=== PATIENT | male | born 1935 | race Caucasian/White ===

== ENCOUNTER 2016-07-01 15:53 | Inpatient (IN) | payer MEDICARE, OTHER ==
--- NOTE | 2016-07-01 16:14 | ED Physician Chart ---
Chief Complaint/HPI - Patient Information Date Seen:: 07/01/16 Time Seen:: 16:09 Chief Complaint:: b leg edema History of Present Illness:: pt sent from [place] for edema of b legs x 1 month. not improving. unclear what meds have been tried. no fever. no cough. no sob. no cp. pt denies hx of chf. records say he had b leg "cellulitis" in dec 2015 says he was never a smoker. is currently a pt of dr verde in [place]..sent in for eval. Allergies:: Allergies Allergy/AdvReac Type Severity Reaction Status Date / Time No Known Allergies Allergy Verified 12/19/15 15:48 Historian:: Patient Past Medical History - Past Medical History Past Medical History: HTN, DM, Dementia, Other (blind left eye) Social History: Non Smoker, Care Facility Psychiatricy History: Schizophrenia, Bipolar, Dementia Medication: Reviewed Family Medical History - Family Member Mother History Unknown: Yes Ethnicity: Living Status: Hx Family Cancer: (unknown) Hx Family Coronary Artery Disease: (unknown) Hx Family Congestive Heart Failure: (unknown) Hx Family Hypertension: (unknown) Hx Family Stroke: (unknown) Hx Family Diabetes: (unknown) Hx Family Seizures: (unknown) Hx Family Dementia: (unknown) Hx Family AIDS: (unknown) Hx Family HIV: No Hx Family COPD: (unknown) Hx Family Hepatitis: (unknown) Hx Family Psychiatric Problems: (unknown) Hx Family Tuberculosis: (unknown) father History Unknown: Yes Living Status: Physical Exam - Physical Examination General/Constitutional: Awake, Well-developed, well-nourished, Alert, No distress, GCS 15, Non-toxic appearing, Ambulatory Other Gen/Cons comments:: morbidly obese. alert and talkative but somewhat poor w med hx knowledge. no sob. Head: Atraumatic Eyes: Lids, conjuctiva normal, PERRL, EOMI Other Eyes comments:: pt has volume loss under left eyelid..sriram eye. keeps closed. noted is blind l eye. Skin: Nl inspection, No rash, No skin lesions, No ecchymosis, Well hydrated, No lymphadenopathy ENMT: External ears, nose nl, Nasal exam nl, Lips, teeth, gums nl Neck: Nontender, Full ROM w/o pain, No JVD, No nuchal rigidity, No bruit, No mass, No stridor Respiratory: Nl effort/Exclusion, Clear to Auscultation, No Wheeze/Rhonchi/Rales Cardio Vascular: RRR, No murmur, gallop, rubs, NL S1 S2 GI: No tenderness/rebounding/guarding, No organomegaly, No hernia, Normal BS's, Nondistended, No mass/bruits, No McBurney tenderness : No CVA tenderness Extremities: No tenderness or effusion, Full ROM, normal strength in all extremities, Normal digits & nails Other Extremities comments:: mild b le edema w pitting. mild ly red. nontndr calfs. no geovanna sx. warm toes that pt moves and feels ok. ok pulses in feet. pt known to have poor ambulation...not tested in er Neuro/Psych: Alert/oriented, DTR's symmetric, Normal sensory exam, Normal motor strength, Mood normal, No focal deficits Misc: normal gait, Normal back, No paraspinal tenderness Labs/Radiology/EKG Results - Lab Results Results: Laboratory Tests 07/01/16 07/01/16 07/01/16 16:30 16:30 16:30 WBC 6.5 D RBC 4.16 Hgb 13.3 Hct 38.1 L MCV 91.5 MCH 32.0 H MCHC Differential 35.0 RDW 11.9 Plt Count 180 MPV 7.1 Neutrophils % 58.3 Lymphocytes % 24.3 Monocytes % 12.9 H Eosinophils % 4.2 Basophils % 0.3 D-Dimer 135 Sodium 122 L Potassium 4.2 Chloride 92 L Carbon Dioxide 28.7 Anion Gap 5.5 L BUN 9 Creatinine 0.9 Est GFR ( Amer) TNP Est GFR (Non-Af Amer) TNP BUN/Creatinine Ratio 10.0 Glucose 151 H Whole Bld Lactic Acid 2.46 H* Calcium 9.0 Total Bilirubin 0.3 AST 19 ALT 10 Alkaline Phosphatase 36 Troponin I Total Protein 6.5 Albumin 3.4 L Globulin 3.1 Albumin/Globulin Ratio 1.1 07/01/16 16:30 WBC RBC Hgb Hct MCV MCH MCHC Differential RDW Plt Count MPV Neutrophils % Lymphocytes % Monocytes % Eosinophils % Basophils % D-Dimer Sodium Potassium Chloride Carbon Dioxide Anion Gap BUN Creatinine Est GFR ( Amer) Est GFR (Non-Af Amer) BUN/Creatinine Ratio Glucose Whole Bld Lactic Acid Calcium Total Bilirubin AST ALT Alkaline Phosphatase Troponin I < 0.01 L Total Protein Albumin Globulin Albumin/Globulin Ratio - Radiology Results Results: cxr nad/ clear US B legs neg for dvt - EKG Interpretations EKG Time:: 16:25 Rhythm: nsr [place]: -33? Rate: 74 Comments:: interventric cond delay ED Septic Shock - . Is Septic Shock (SBP<90, OR Lactate>4 mmol\\L) present?: No Reassessment (Disposition) - Reassessment Reassessment:: case dw dr verde...will admit...b/c [facility] was concerned this is cellulitis. Reassessment Condition:: Unchanged - Diagnosis Diagnosis:: 1 bilat leg edema 2 poss cellulitis b legs 3 diabetic pt - Patient Disposition Admitted to:: Med/Surg Condition at Disposition:: Unchanged
[2016-07-01 16:39] LABS: % BASOPHILS 0.3 % (0.0-2.0); % EOSINOPHILS 4.2 % (0.0-5.0); % LYMPHOCYTES 24.3 % (20.0-50.0); % MONOCYTES 12.9 % (2.0-10.0); % NEUTROPHILS 58.3 % (40.0-80.0); HEMATOCRIT 38.1 % (39.0-49.0); HEMOGLOBIN 13.3 gm/dL (12.6-17.4); MEAN CELL VOLUME 91.5 fl (80-99); MEAN PLATELET VOLUME 7.1 fl; NEUTROPHILE ABSOLUTE 3.8 Th/cmm (1.8-8.0); PLATELET COUNT 180 Th/cmm (150-400); RED BLOOD COUNT 4.16 Mil/cmm (3.80-5.80); RED CELL DISTRIBUTION WIDTH 11.9 % (11.5-20.0)
[2016-07-01 16:41] LABS: WHITE BLOOD COUNT 6.5 Th/cmm (4.8-10.8)
[2016-07-01 16:57] LABS: ALB/GLOB RATIO 1.1 (1.0-1.8); ALKALINE PHOSPHATASE 36 U/L (34-104); ANION GAP 5.5 (7.0-16.0); BILIRUBIN,TOTAL 0.3 mg/dL (0.3-1.0); BUN - UREA NITROGEN 9 mg/dL (7-25); CARBON DIOXIDE 28.7 mEq/L (21.0-31.0); CHLORIDE 92 mEq/L (98-107); CREATININE - SERUM 0.9 mg/dL (0.7-1.3); GLUCOSE 151 mg/dL (70-105); POTASSIUM SERUM 4.2 mEq/L (3.5-5.1); SGOT 19 U/L (13-39); SGPT/ALT 10 U/L (7-52); SODIUM SERUM 122 mEq/L (136-145)
[2016-07-01] MEDS ORDERED: Magnesium Hydroxide (MOM) 30 mL UDC PO PRN (20:33)
[2016-07-01] MEDS ORDERED: HYDROmorphone 1 mg/mL 1mL Syr IVP PRN (20:35)
[2016-07-01] MEDS: INSULIN ASPART SLIDING SCALE 100 UNITS/ML UNIT SUBQ SCH (21:21)
[2016-07-01] MEDS: Sodium Chloride 0.9% 1,000 ML IV SCH (21:58)
[2016-07-01] MEDS: cefTRIAXone 1 GM in Sodium Chloride 0.9% 50 ML IV SCH (22:12)
--- NOTE | 2016-07-01 23:36 | Admit Criteria Form ---
Admit Criteria Forms - Admit Criteria Diagnosis: CELLULITIS Clinical Indications for Admission to Inpatient Care (Place 'X' for any and all applicable criteria): Admission is indicated for ANY ONE of the following(1)(2)(3)(4)(5): [ ]I. Limb-threatening infection [ ]II. High-risk comorbid condition as indicated by ANY ONE of the following: [ ]a) Uncontrolled diabetes (eg, HbA1c greater than 10% (0.1)) [ ]b) Cirrhosis [ ]c) Neutropenia [ ]d) Asplenia [ ]e) Immunosuppression [ ]f) Symptomatic heart failure [ ]III. Failure of outpatient therapy as indicated by ALL of the following: [ ]a) Progression or no improvement after adequate trial (minimum of 48 hours, with longer period for stable lower extremity infection) [ ]b) Adequate antibiotic regimen as indicated by use of ANY ONE of the following: [ ]i) First-generation cephalosporin (e.g., cephalexin) [ ]ii) Antistaphylococcal penicillin (e.g., dicloxacillin) [ ]iii) Penicillin-allergic patient regimen (clindamycin, extended-spectrum fluoroquinolone, or doxycycline) [ ]iv) Resistant organism (eg, methicillin-resistant Staphylococcus aureus) regimen (6) [ ]c) Outpatient intravenous therapy regimen is not appropriate due to ANY ONE of the following. (7)(8)(9)(10): [ ]i) It was tried and was not successful (eg, progression of infection). [ ]ii) It is not available or cannot be arranged in a clinically appropriate time frame (e.g., the next day). [ ]iii) Clinical presentation (eg, acuity of infection, rapidity of progression, confirmed or suspected bacteremia) is judged to require ALL of the following: [ ]1) Immediate initiation of intravenous therapy ( eg, cannot wait for next day) [ ]2) Intensity of patient monitoring and observation (eg, vital sign measurement, checks for infection progression) that cannot be provided at other than inpatient level of care [ ]IV. Mental status changes [ ]V. Bacteremia [X]. Hemodynamic instability [ ]VII. Suspected necrotizing soft tissue infection (e.g., gas in tissue)(11)( 12) [ ]VIII. Orbital infection (13)(14) [ ]IX. Associated surgical procedure (e.g., abscess drainage, debridement) not amenable to outpatient, emergency department, or observation care [ ]X. Cutaneous gangrene [ ]XI. High fever (temperature greater than 39.5 degrees C (103.1 degrees F) (oral)) not responsive to outpatient, emergency department, or observation care therapy [ ]XIII. Inpatient admission required rather than observation care (Also use Cellulitis: Observation Care as appropriate) because of ANY ONE of the following : [ ]a) Periorbital or perineal infection that is severe or worsening [ ]b) Severe pain requiring acute inpatient management [ ]c) IV fluid to replace significant ongoing (e.g., for over 24 hours) losses (greater than 3L/m2 per day) [ ]d) Compartment syndrome monitoring (17) [ ]e) Strict or protective (eg, laminar flow) isolation [ ]f) Urgent debridement or skin grafting [ ]g) Bone or joint debridement [ ]h) Immediate inpatient surgery [ ]i) Other condition, treatment or monitoring requiring inpatient admission Extended stay beyond goal length of stay may be needed for (1)(18): [ ]a) Necrotizing soft tissue infection or fasciitis [ ]b) Gram-negative infection [ ]c) Methicillin-resistant Staphylococcal aureus (MRSA) infection [ ]d) Peripheral venous insufficiency with cellulitis [ ]e) Extensive edema [ ]f) Sepsis or continued Hemodynamic instability [ ]g) Continued high fever or mental status change [ ]h) Bacteremia [ ]i) Active serious comorbid conditions ( eg, heart failure, renal insufficiency) The original [facility] [employer] content created by [employer] has been revised. The portions of the content which have been revised are identified through the use of italic text or in bold, and [facility] has neither reviewed nor approved the modified material. All other unmodified content is copyright [facility] Please see references footnoted in the original [facility] edition 2016 Admit Criteria Met?: Yes
[2016-07-02] MEDS: INSULIN ASPART SLIDING SCALE 100 UNITS/ML UNIT SUBQ SCH ×4 (01:00→17:36)
[2016-07-02 06:55] LABS: % BASOPHILS 0.4 % (0.0-2.0); % EOSINOPHILS 4.9 % (0.0-5.0); % LYMPHOCYTES 23.8 % (20.0-50.0); % MONOCYTES 13.7 % (2.0-10.0); % NEUTROPHILS 57.2 % (40.0-80.0); HEMATOCRIT 39.8 % (39.0-49.0); HEMOGLOBIN 13.8 gm/dL (12.6-17.4); MEAN CORPUSCULAR HEMOGLOBIN 31.5 pg (27.0-31.0); MEAN CORPUSCULAR HGB CONC 34.6 pg (28.0-36.0); MEAN PLATELET VOLUME 7.1 fl; NEUTROPHILE ABSOLUTE 3.6 Th/cmm (1.8-8.0); PLATELET COUNT 190 Th/cmm (150-400); RED BLOOD COUNT 4.38 Mil/cmm (3.80-5.80); WHITE BLOOD COUNT 6.2 Th/cmm (4.8-10.8)
[2016-07-02 07:18] LABS: ALB/GLOB RATIO 1.1 (1.0-1.8); ALKALINE PHOSPHATASE 37 U/L (34-104); ANION GAP 5.9 (7.0-16.0); BILIRUBIN,TOTAL 0.3 mg/dL (0.3-1.0); BUN - UREA NITROGEN 9 mg/dL (7-25); BUN/CREATININE RATIO 11.3; CALCIUM SERUM 9.2 mg/dL (8.6-10.3); CARBON DIOXIDE 31.1 mEq/L (21.0-31.0); CHLORIDE 97 mEq/L (98-107); CREATININE - SERUM 0.8 mg/dL (0.7-1.3); GLUCOSE 187 mg/dL (70-105); SGOT 14 U/L (13-39); SGPT/ALT 10 U/L (7-52); SODIUM SERUM 130 mEq/L (136-145)
--- NOTE | 2016-07-02 08:48 | General Progress Note ---
Subjective - Review of Systems Service Date: 07/02/16 Subjective: I want go back to my place Objective - Results Result Diagrams: 07/02/16 05:45 07/02/16 05:45 Recent Labs: Laboratory Last Values WBC 6.2 Th/cmm (4.8-10.8) 07/02/16 05:45 RBC 4.38 Mil/cmm (3.80-5.80) 07/02/16 05:45 Hgb 13.8 gm/dL (12.6-17.4) 07/02/16 05:45 Hct 39.8 % (39.0-49.0) 07/02/16 05:45 MCV 91.0 fl (80-99) 07/02/16 05:45 MCH 31.5 pg (27.0-31.0) H 07/02/16 05:45 MCHC Differential 34.6 pg (28.0-36.0) 07/02/16 05:45 RDW 12.0 % (11.5-20.0) 07/02/16 05:45 Plt Count 190 Th/cmm (150-400) 07/02/16 05:45 MPV 7.1 fl 07/02/16 05:45 Neutrophils % 57.2 % (40.0-80.0) 07/02/16 05:45 Lymphocytes % 23.8 % (20.0-50.0) 07/02/16 05:45 Monocytes % 13.7 % (2.0-10.0) H 07/02/16 05:45 Eosinophils % 4.9 % (0.0-5.0) 07/02/16 05:45 Basophils % 0.4 % (0.0-2.0) 07/02/16 05:45 D-Dimer 135 ng/mL (100-400) 07/01/16 16:30 Sodium 130 mEq/L (136-145) L 07/02/16 05:45 Potassium 4.0 mEq/L (3.5-5.1) 07/02/16 05:45 Chloride 97 mEq/L (98-107) L 07/02/16 05:45 Carbon Dioxide 31.1 mEq/L (21.0-31.0) H 07/02/16 05:45 Anion Gap 5.9 (7.0-16.0) L 07/02/16 05:45 BUN 9 mg/dL (7-25) 07/02/16 05:45 Creatinine 0.8 mg/dL (0.7-1.3) 07/02/16 05:45 Est GFR ( Amer) TNP 07/02/16 05:45 Est GFR (Non-Af Amer) TNP 07/02/16 05:45 BUN/Creatinine Ratio 11.3 07/02/16 05:45 Glucose 187 mg/dL (70-105) H 07/02/16 05:45 POC Glucose 188 MG/DL (70 - 105) H 07/02/16 06:17 Hemoglobin A1c % 8.9 % (4.0-6.0) H D 07/02/16 05:45 Whole Bld Lactic Acid 2.25 mmol/L (0.60-1.99) H* 07/01/16 19:08 Calcium 9.2 mg/dL (8.6-10.3) 07/02/16 05:45 Total Bilirubin 0.3 mg/dL (0.3-1.0) 07/02/16 05:45 AST 14 U/L (13-39) 07/02/16 05:45 ALT 10 U/L (7-52) 07/02/16 05:45 Alkaline Phosphatase 37 U/L (34-104) 07/02/16 05:45 Troponin I < 0.01 ng/mL (0.01-0.05) L 07/01/16 16:30 B-Natriuretic Peptide 89.9 pg/mL (5.0-100.0) 07/01/16 16:30 Total Protein 6.8 gm/dL (6.0-8.3) 07/02/16 05:45 Albumin 3.6 gm/dL (4.2-5.5) L 07/02/16 05:45 Globulin 3.2 gm/dL 07/02/16 05:45 Albumin/Globulin Ratio 1.1 (1.0-1.8) 07/02/16 05:45 TSH 4.13 uIU/ml (0.34-5.60) 07/02/16 05:45 - Physical Exam Vitals and I&O: Vital Signs Temp 97.0 F 07/02/16 04:00 Pulse 68 07/02/16 04:00 Resp 18 07/02/16 04:00 BP 153/77 07/02/16 04:00 Pulse Ox 94 07/02/16 04:00 Intake & Output 07/01/16 07/02/16 07/02/16 18:59 06:59 18:59 Intake Total 250 Balance 250 Weight (lbs) 104.326 kg Intake: Oral 250 Other: # Voids 3 Active Medications: Current Medications Acetaminophen (Tylenol) 650 mg PO Q4HR PRN PRN Reason: Pain Stop: 08/30/16 20:32 Captopril (Capoten 25 Mg Tab) 25 mg PO DAILY [facility] Stop: 08/31/16 08:59 Clonidine HCl (Catapres) 0.1 mg PO Q6HR PRN PRN Reason: bp >160 Stop: 08/30/16 20:32 Divalproex Sodium (Depakote Dr) 500 mg PO BID [facility] PRN Reason: Protocol Stop: 08/31/16 08:59 Donepezil HCl (Aricept) 10 mg PO HS [facility] Stop: 08/30/16 20:59 Last Admin: 07/01/16 21:21 Dose: 10 mg Furosemide (Lasix) 40 mg PO DAILY [facility] Stop: 08/31/16 08:59 Hydromorphone HCl (Dilaudid) 1 mg IVP Q4HR PRN PRN Reason: Pain (Severe) Stop: 08/30/16 20:34 Sodium Chloride (Nacl 0.9%) 1,000 mls @ 75 mls/hr IV .[id number] [facility] Stop: 08/30/16 20:44 Last Admin: 07/01/16 21:58 Dose: 75 mls/hr Ceftriaxone Sodium 1 gm/ (Sodium Chloride) 50 mls @ 100 mls/hr IV Q24HR [facility] Stop: 08/30/16 20:59 Last Admin: 07/01/16 22:12 Dose: 100 mls/hr Insulin Aspart (Novolog Insulin Sliding Scale) 0 units SUBQ Q6HR [facility] PRN Reason: Protocol Stop: 08/30/16 20:44 Last Admin: 07/02/16 06:22 Dose: 2 units Magnesium Hydroxide (Milk Of Magnesia) 30 ml PO DAILY PRN PRN Reason: Constipation Stop: 08/30/16 20:32 Metformin HCl (Glucophage) 500 mg PO TIDWM [facility] Stop: 08/31/16 07:59 Ondansetron HCl (Zofran) 4 mg IV Q6H PRN PRN Reason: Nausea / Vomiting Stop: 08/30/16 20:35 Pneumococcal Polyvalent Vaccine (Pneumovax) 0.5 ml IM .ONCE ONE Stop: 07/02/16 09:01 Pyridoxine HCl (Vitamin B6) 50 mg PO DAILY [facility] Stop: 08/31/16 08:59 Risperidone (Risperdal) 0.75 mg PO DAILY [facility] PRN Reason: Protocol Stop: 08/31/16 08:59 General: Alert, No acute distress, Other (Confused) HEENT: Atraumatic, Other (Blind left eye) Neck: Supple Cardiovascular: Regular rate Lungs: Clear to auscultation Abdomen: Bowel sounds, Soft, Other (A little distended) Extremities: Other (Bilateral edema of lower extremities below knee to foot 3+) Neurological: Other (Unstable gait) Skin: Other (Lower extremities skin is red) Psych/Mental Status: Other (Confused) - Procedures Procedures: Procedures Procedure Code Date GROUP PSYCHOTHERAPY 17340 04/25/15 GROUP PSYCHOTHERAPY GZHZZZZ 04/25/15 OTHER GROUP THERAPY 94.44 11/08/14 Assessment/Plan - Problem List Patient Problems: All Active Problems Bipolar disorder (Acute) Dementia (Acute) F03.90 Depressive disorder (Acute) F32.9 Diabetes mellitus (Acute) E11.9 Hypertension (Acute) I10 Hyposmolality and/or hyponatremia (Acute) E87.1 INAPPROPRIATE BEHAVIOR (Acute 04/25/15) Psychosis (Acute) F29
[2016-07-02] MEDS ORDERED: Pneumococcal Vaccine 0.5 mL Vial IM ONE (09:00)
--- NOTE | 2016-07-02 09:56 | Diagnostic Imaging Report ---
Bilateral lower extremity Doppler venous ultrasound exam HISTORY: Pain/swelling Sonographic sector images were obtained through the deep venous systems of both legs. Associated Doppler data was obtained. The exam demonstrates patency of the common femoral, superficial femoral, popliteal, and posterior tibial veins bilaterally. Specifically, no thrombus is seen. There are normal compressibility and augmentation responses. IMPRESSION: Negative exam for deep vein thrombophlebitis.
--- NOTE | 2016-07-02 09:58 | Diagnostic Imaging Report ---
Portable chest x-ray HISTORY: Shortness of breath, lower extremity swelling The heart size is slightly enlarged. No focal pulmonary processes. No hilar or mediastinal abnormalities. IMPRESSION: 1. Cardiomegaly 2. No acute pulmonary processes
--- NOTE | 2016-07-02 10:18 | History & Physical ---
CHIEF COMPLAINT: Edema of lower extremities. BRIEF HISTORY OF PRESENT ILLNESS: This is a case of an 81-year-old male who I follow in the shelter. I received a call from the shelter stating the patient is having edema of lower extremities for ____ and increasing redness, reason why the order was given to send the patient to Emergency Room for evaluation and treatment. PAST MEDICAL HISTORY: The patient has past medical history of schizophrenia, dementia, hypertension, diabetes mellitus, and blindness of the left eye. The patient had been hospitalized before secondary to cellulitis of both legs. PAST SURGICAL HISTORY: None. SOCIAL HISTORY: The patient is a permanent resident of a shelter. FAMILY HISTORY: Unremarkable. MEDICATIONS: Reviewed. REVIEW OF SYSTEMS: LUNGS: The patient denies shortness of breath. HEART: The patient denies chest pain. ABDOMEN: Unremarkable. EXTREMITIES: The patient referred edema of lower extremities. PHYSICAL EXAMINATION: GENERAL: Does reveal a fairly nourished and developed male, awake, alert, confused, not oriented, in no acute distress. HEENT: Head is normocephalic and atraumatic. Eyes: The patient is blind of the left eye. Right eye responding to light. Nose: No evidence of nasal obstruction. Ears: No evidence of any discharge. Mouth: Fairly ____. LUNGS: Bilateral air entry. No wheezing, no crackles. HEART: Regular rate and rhythm. ABDOMEN: Soft, nontender, little bit distended. Bowel sound is present. EXTREMITIES: Bilateral edema of lower extremities, 3+ with redness from below knee to ankles, ____ normal. NEUROLOGICAL: The patient is awake, alert, confused. Nerves 2-12 grossly intact. No neurological deficit at this moment. IMPRESSION: 1. Cellulitis. 2. Diabetes mellitus. 3. Hypertension. 4. Schizophrenia. 5. Dementia. 6. Blind of the left eye. PLAN: 1. The patient will be admitted in the medical surgical floor. 2. IV normal saline. 3. Continue with shelter medications. 4. Ceftriaxone 1 g IV daily. 5. Dilaudid for pain control. 6. Diet: Diabetic diet, low in sodium. 7. CBC, CMP, TSH and hemoglobin A1c at a.m. [facility]# [id number]
[2016-07-02] MEDS: Sodium Chloride 0.9% 1,000 ML IV SCH (12:38)
--- NOTE | 2016-07-02 16:20 | Diagnostic Imaging Report ---
Bilateral lower extremity Doppler arterial ultrasound exam HISTORY: Pain, peripheral vascular disease. Sonographic sector images were obtained through the arterial systems of both legs. Associated Doppler data was obtained. The exam of the right leg demonstrates biphasic waveforms within the common femoral proximal portion of the right superficial femoral arteries. Triphasic waveforms are noted in the remainder of the superficial femoral artery, the popliteal artery, and posterior tibial arteries. Monophasic waveforms noted in the right anterior dorsalis pedis arteries. Decreased velocities noted within the anterior tibial dorsalis pedis arteries. Sonographic images demonstrate mild to moderate diffuse atherosclerotic changes. The exam of the left leg demonstrates triphasic waveforms within the common femoral artery along with the mid and distal portion of the superficial femoral artery and popliteal artery. Biphasic waveforms noted in the proximal portion of the superficial femoral artery. Abnormal monophasic waveforms are noted within the anterior tibial, posterior tibial, and dorsalis pedis arteries. Abnormal decreased velocity noted within the anterior tibial and dorsalis pedis arteries. Ankle-brachial indices could not be evaluated due to lack of patient cooperation. IMPRESSION: 1. Somewhat limited exam due to limited patient cooperation 2. Evidence of mild to moderate bilateral diffuse atherosclerotic changes that appear more severe below the knees. If necessary, a CT angiographic study would provide further detail.
[2016-07-02] MEDS: cefTRIAXone 1 GM in Sodium Chloride 0.9% 50 ML IV SCH (22:04)
[2016-07-03] MEDS: Sodium Chloride 0.9% 1,000 ML IV SCH (01:40)
[2016-07-03] MEDS: INSULIN ASPART SLIDING SCALE 100 UNITS/ML UNIT SUBQ SCH ×4 (01:41→17:21)
[2016-07-03 07:26] LABS: % EOSINOPHILS 3.3 % (0.0-5.0); % NEUTROPHILS 58.2 % (40.0-80.0); HEMOGLOBIN 14.6 gm/dL (12.6-17.4); MEAN CORPUSCULAR HGB CONC 33.9 pg (28.0-36.0)
[2016-07-03 07:39] LABS: ALB/GLOB RATIO 1.2 (1.0-1.8); ALKALINE PHOSPHATASE 37 U/L (34-104); ANION GAP 10.9 (7.0-16.0); BILIRUBIN,TOTAL 0.4 mg/dL (0.3-1.0); BUN - UREA NITROGEN 16 mg/dL (7-25); BUN/CREATININE RATIO 17.8; CALCIUM SERUM 9.2 mg/dL (8.6-10.3); CARBON DIOXIDE 28.2 mEq/L (21.0-31.0); CHLORIDE 98 mEq/L (98-107); CREATININE - SERUM 0.9 mg/dL (0.7-1.3); GLUCOSE 145 mg/dL (70-105); POTASSIUM SERUM 4.1 mEq/L (3.5-5.1); SGOT 14 U/L (13-39); SGPT/ALT 11 U/L (7-52); SODIUM SERUM 133 mEq/L (136-145)
[2016-07-03 07:46] LABS: % BASOPHILS 0.8 % (0.0-2.0); % LYMPHOCYTES 24.2 % (20.0-50.0); % MONOCYTES 13.5 % (2.0-10.0); MEAN CELL VOLUME 91.6 fl (80-99); MEAN PLATELET VOLUME 7.9 fl; NEUTROPHILE ABSOLUTE 5.3 Th/cmm (1.8-8.0); PLATELET COUNT 200 Th/cmm (150-400); RED CELL DISTRIBUTION WIDTH 12.3 % (11.5-20.0)
[2016-07-03 07:53] LABS: WHITE BLOOD COUNT 9.1 Th/cmm (4.8-10.8)
--- NOTE | 2016-07-03 08:45 | General Progress Note ---
Subjective - Review of Systems Service Date: 07/03/16 Subjective: I want go back to my place Objective - Results Result Diagrams: 07/03/16 06:13 07/03/16 06:13 Recent Labs: Laboratory Last Values WBC 9.1 Th/cmm (4.8-10.8) D 07/03/16 06:13 RBC 4.70 Mil/cmm (3.80-5.80) 07/03/16 06:13 Hgb 14.6 gm/dL (12.6-17.4) 07/03/16 06:13 Hct 43.0 % (39.0-49.0) 07/03/16 06:13 MCV 91.6 fl (80-99) 07/03/16 06:13 MCH 31.0 pg (27.0-31.0) 07/03/16 06:13 MCHC Differential 33.9 pg (28.0-36.0) 07/03/16 06:13 RDW 12.3 % (11.5-20.0) 07/03/16 06:13 Plt Count 200 Th/cmm (150-400) 07/03/16 06:13 MPV 7.9 fl 07/03/16 06:13 Neutrophils % 58.2 % (40.0-80.0) 07/03/16 06:13 Lymphocytes % 24.2 % (20.0-50.0) 07/03/16 06:13 Monocytes % 13.5 % (2.0-10.0) H 07/03/16 06:13 Eosinophils % 3.3 % (0.0-5.0) 07/03/16 06:13 Basophils % 0.8 % (0.0-2.0) 07/03/16 06:13 D-Dimer 135 ng/mL (100-400) 07/01/16 16:30 Sodium 133 mEq/L (136-145) L 07/03/16 06:13 Potassium 4.1 mEq/L (3.5-5.1) 07/03/16 06:13 Chloride 98 mEq/L (98-107) 07/03/16 06:13 Carbon Dioxide 28.2 mEq/L (21.0-31.0) 07/03/16 06:13 Anion Gap 10.9 (7.0-16.0) 07/03/16 06:13 BUN 16 mg/dL (7-25) 07/03/16 06:13 Creatinine 0.9 mg/dL (0.7-1.3) 07/03/16 06:13 Est GFR ( Amer) TNP 07/03/16 06:13 Est GFR (Non-Af Amer) TNP 07/03/16 06:13 BUN/Creatinine Ratio 17.8 07/03/16 06:13 Glucose 145 mg/dL (70-105) H 07/03/16 06:13 POC Glucose 151 MG/DL (70 - 105) H 07/03/16 06:38 Hemoglobin A1c % 8.9 % (4.0-6.0) H D 07/02/16 05:45 Whole Bld Lactic Acid 2.25 mmol/L (0.60-1.99) H* 07/01/16 19:08 Calcium 9.2 mg/dL (8.6-10.3) 07/03/16 06:13 Total Bilirubin 0.4 mg/dL (0.3-1.0) 07/03/16 06:13 AST 14 U/L (13-39) 07/03/16 06:13 ALT 11 U/L (7-52) 07/03/16 06:13 Alkaline Phosphatase 37 U/L (34-104) 07/03/16 06:13 Troponin I < 0.01 ng/mL (0.01-0.05) L 07/01/16 16:30 B-Natriuretic Peptide 89.9 pg/mL (5.0-100.0) 07/01/16 16:30 Total Protein 6.8 gm/dL (6.0-8.3) 07/03/16 06:13 Albumin 3.7 gm/dL (4.2-5.5) L 07/03/16 06:13 Globulin 3.1 gm/dL 07/03/16 06:13 Albumin/Globulin Ratio 1.2 (1.0-1.8) 07/03/16 06:13 TSH 4.13 uIU/ml (0.34-5.60) 07/02/16 05:45 - Physical Exam Vitals and I&O: Vital Signs Temp 98.0 F 07/03/16 00:00 Pulse 84 07/03/16 00:00 Resp 18 07/03/16 00:00 BP 150/75 07/03/16 00:00 Pulse Ox 98 07/03/16 00:00 Intake & Output 07/02/16 07/03/16 07/03/16 18:59 06:59 18:59 Intake Total 1550 1217.5 Balance 1550 1217.5 Intake: Intake, IV Amount 1000 977.5 Sodium Chloride 0.9% 1, 1000 977.5 000 ml @ 75 mls/hr IV . [id number] [facility] Rx#:[id number] Oral 550 240 Other: # Voids 4 Active Medications: Current Medications Acetaminophen (Tylenol) 650 mg PO Q4HR PRN PRN Reason: Pain Stop: 08/30/16 20:32 Last Admin: 07/02/16 23:05 Dose: 650 mg Captopril (Capoten 25 Mg Tab) 25 mg PO DAILY [facility] Stop: 08/31/16 08:59 Last Admin: 07/02/16 09:17 Dose: 25 mg Clonidine HCl (Catapres) 0.1 mg PO Q6HR PRN PRN Reason: bp >160 Stop: 08/30/16 20:32 Divalproex Sodium (Depakote Dr) 500 mg PO BID [facility] PRN Reason: Protocol Stop: 08/31/16 08:59 Last Admin: 07/02/16 17:37 Dose: 500 mg Donepezil HCl (Aricept) 10 mg PO HS [facility] Stop: 08/30/16 20:59 Last Admin: 07/02/16 22:05 Dose: 10 mg Furosemide (Lasix) 40 mg PO DAILY [facility] Stop: 08/31/16 08:59 Last Admin: 07/02/16 09:16 Dose: 40 mg Hydromorphone HCl (Dilaudid) 1 mg IVP Q4HR PRN PRN Reason: Pain (Severe) Stop: 08/30/16 20:34 Sodium Chloride (Nacl 0.9%) 1,000 mls @ 75 mls/hr IV .[id number] [facility] Stop: 08/30/16 20:44 Last Admin: 07/03/16 01:40 Dose: 75 mls/hr Ceftriaxone Sodium 1 gm/ (Sodium Chloride) 50 mls @ 100 mls/hr IV Q24HR [facility] Stop: 08/30/16 20:59 Last Admin: 07/02/16 22:04 Dose: 100 mls/hr Insulin Aspart (Novolog Insulin Sliding Scale) 0 units SUBQ Q6HR [facility] PRN Reason: Protocol Stop: 08/30/16 20:44 Last Admin: 07/03/16 07:01 Dose: 2 units Magnesium Hydroxide (Milk Of Magnesia) 30 ml PO DAILY PRN PRN Reason: Constipation Stop: 08/30/16 20:32 Metformin HCl (Glucophage) 500 mg PO TIDWM [facility] Stop: 08/31/16 07:59 Last Admin: 07/02/16 17:37 Dose: 500 mg Ondansetron HCl (Zofran) 4 mg IV Q6H PRN PRN Reason: Nausea / Vomiting Stop: 08/30/16 20:35 Pyridoxine HCl (Vitamin B6) 50 mg PO DAILY [facility] Stop: 08/31/16 08:59 Last Admin: 07/02/16 09:16 Dose: 50 mg Risperidone (Risperdal) 0.75 mg PO DAILY [facility] PRN Reason: Protocol Stop: 08/31/16 08:59 Last Admin: 07/02/16 09:16 Dose: 0.75 mg General: Alert, No acute distress, Other (Confused) HEENT: Atraumatic Neck: Supple Cardiovascular: Regular rate Lungs: Clear to auscultation Abdomen: Bowel sounds, Soft Extremities: Other (Rednes and edema improving) Neurological: Other (Unstable gait) Skin: Other (Rednes of lower extremities) Psych/Mental Status: Other (Confused) - Procedures Procedures: Procedures Procedure Code Date GROUP PSYCHOTHERAPY 36516 04/25/15 GROUP PSYCHOTHERAPY GZHZZZZ 04/25/15 OTHER GROUP THERAPY 94.44 11/08/14 Assessment/Plan - Problem List Patient Problems: All Active Problems Bipolar disorder (Acute) Dementia (Acute) F03.90 Depressive disorder (Acute) F32.9 Diabetes mellitus (Acute) E11.9 Hypertension (Acute) I10 Hyposmolality and/or hyponatremia (Acute) E87.1 INAPPROPRIATE BEHAVIOR (Acute 04/25/15) Psychosis (Acute) F29 - Assessment Assessment: Patient is awke, calm in no acute distress . Dx: Cellulitis, Hyponatremia, DM, Dementia, HTN, schizophrenia. - Plan Plan: Patient on Ceftriaxone, Lasix, IV NS and SNF meds. Cellulitis and edema improving, Hyponatremia improving, today Abdominal US will Be done.
--- NOTE | 2016-07-03 13:27 | Diagnostic Imaging Report ---
Ultrasound abdomen HISTORY: Pain, rule out ascites COMPARISON: Pelvic ultrasound same day Technique: Sonography of the abdomen was performed in multiple planes. FINDINGS: Exam is limited due to bowel gas. The liver demonstrates mildly heterogeneous echotexture and measures 15 cm. The gallbladder was not visualized. The common bile duct measures 3 mm. Evaluation of the pancreas is limited due to bowel gas. The right kidney measures 11.3 cm. The left kidney measures 12.2 cm. No evidence of focal lesions or hydronephrosis. The spleen measures 10.4 cm. The visualized portions of the abdominal aorta with are within normal limits in size. IMPRESSION: Limited exam due to bowel gas. The gallbladder was not visualized. This may be due to prior cholecystectomy or gallbladder contraction. Please correlate clinically. No evidence of hydronephrosis Mild heterogeneity of the liver which may reflect underlying hepatocellular disease, correlate clinically.
--- NOTE | 2016-07-03 13:33 | Diagnostic Imaging Report ---
Ultrasound pelvic limited History: Pain rule out ascites Comparison: Abdominal ultrasound same day. Technique: Sonography of the pelvis was performed in multiple planes. Findings: Exam is limited due to bowel gas and body habitus. The prostate gland was not well visualized. No evidence of free fluid. Mildly distended urinary bladder is noted. IMPRESSION: No evidence of free fluid in the pelvis. Mildly distended urinary bladder. The prostate gland was not visualized.
[2016-07-03] MEDS: cefTRIAXone 1 GM in Sodium Chloride 0.9% 50 ML IV SCH (20:58)
[2016-07-04] MEDS: INSULIN ASPART SLIDING SCALE 100 UNITS/ML UNIT SUBQ SCH ×3 (00:04→14:44)
[2016-07-04] MEDS: Sodium Chloride 0.9% 1,000 ML IV SCH (03:35)
[2016-07-04 06:55] LABS: % BASOPHILS 0.4 % (0.0-2.0); % EOSINOPHILS 4.1 % (0.0-5.0); % LYMPHOCYTES 26.1 % (20.0-50.0); % NEUTROPHILS 57.4 % (40.0-80.0); HEMATOCRIT 41.2 % (39.0-49.0); HEMOGLOBIN 14.4 gm/dL (12.6-17.4); MEAN CELL VOLUME 90.2 fl (80-99); MEAN CORPUSCULAR HEMOGLOBIN 31.5 pg (27.0-31.0); MEAN CORPUSCULAR HGB CONC 34.9 pg (28.0-36.0); MEAN PLATELET VOLUME 7.1 fl; PLATELET COUNT 193 Th/cmm (150-400); RED BLOOD COUNT 4.56 Mil/cmm (3.80-5.80); RED CELL DISTRIBUTION WIDTH 11.6 % (11.5-20.0); WHITE BLOOD COUNT 8.8 Th/cmm (4.8-10.8)
[2016-07-04 07:15] LABS: ALB/GLOB RATIO 1.1 (1.0-1.8); ALKALINE PHOSPHATASE 34 U/L (34-104); BILIRUBIN,TOTAL 0.4 mg/dL (0.3-1.0); BUN - UREA NITROGEN 16 mg/dL (7-25); CALCIUM SERUM 8.9 mg/dL (8.6-10.3); CARBON DIOXIDE 28.2 mEq/L (21.0-31.0); CHLORIDE 105 mEq/L (98-107); CREATININE - SERUM 0.8 mg/dL (0.7-1.3); GLUCOSE 120 mg/dL (70-105); POTASSIUM SERUM 4.2 mEq/L (3.5-5.1); SGOT 15 U/L (13-39); SGPT/ALT 10 U/L (7-52); SODIUM SERUM 134 mEq/L (136-145)
--- NOTE | 2016-07-06 20:35 | Discharge Summary ---
CHIEF COMPLAINT: Edema of lower extremities. BRIEF HISTORY OF PRESENT ILLNESS: This is a case of an 81-year-old male who was sent from half-way secondary to edema and redness of lower extremities. The patient was sent to ER for evaluation and treatment. During evaluation, the patient was diagnosed with cellulitis, reason why he was hospitalized. HOSPITAL COURSE AND TREATMENT: Then, this patient was admitted in the medical surgical floor. He was started on normal saline IV. He was continued with half-way medications. He received ceftriaxone 1 gram IV daily. He received Dilaudid for pain control. He started on diabetic diet, low in sodium. When this treatment, the patient improved. Edema and redness of lower extremities improved and reason why it was considered, the patient received the maximum benefit of hospitalization and he could be sent back to half-way. On the day of the discharge, the patient was awake and alert, in no acute distress. DISPOSITION: The patient is sent back to the half-way. DIAGNOSES: 1. Cellulitis. 2. Diabetes mellitus. 3. Hypertension. 4. Schizophrenia. 5. Dementia. 6. Blindness of the left eye. JOB# [id number]
== END 2016-07-04 16:00 | DRG 603 ==
LOC: ER 15:53 → MSI 17:49
PROVIDERS: ADMIT General Practice; ATTEND General Practice
DX: L03.116 Cellulitis of left lower limb (principal); E11.9 Type 2 diabetes mellitus without complications; F03.90 Unspecified dementia, unspecified severity, without behavioral disturbance, psychotic disturbance, mood disturbance, and anxiety; E87.1 Hypo-osmolality and hyponatremia; F20.9 Schizophrenia, unspecified; L03.115 Cellulitis of right lower limb; I10 Essential (primary) hypertension; H54.42 Blindness, left eye, normal vision right eye; F31.9 Bipolar disorder, unspecified
CPT/HCPCS: 36415-UA; 71010-TC; 76700-TC; 76856-TC; 80053-TC; 82948-90; 83036-90; 83605; 83880-TC; 84443-TC; 84484-TC; 85025-TC; 85379-TC; 93005; 93925-TC; 93970-TC-50; 96374; J0696; J1815; J1940; J7030; Z7610

== ENCOUNTER 2017-02-04 13:00 | Inpatient (IN) | payer MEDICARE, MEDICAID ==
--- NOTE | 2017-02-04 14:16 | ED Physician Chart ---
ED Chief Complaint/HPI - Patient Information Date Seen:: 02/04/17 Time Seen:: 14:05 Chief Complaint:: aggressive behavior History of Present Illness:: Patient at his residential facility has been demonstrating aggressive behavior and sexually inappropriate behavior reportedly masturbating and trying to touch females. He is reportedly verbally abusive. Allergies:: Allergies Allergy/AdvReac Type Severity Reaction Status Date / Time No Known Allergies Allergy Verified 12/19/15 15:48 Historian:: Patient, EMS Review:: Nurse's Note Reviewed, Transfer documents Reviewed ED Review of Systems - Review of Systems General/Constitutional: No fever, No chills Skin: No skin lesions Head: No headache Eyes: No loss of vision ENT: No earache Neck: No neck pain Cardio Vascular: No chest pain Pulmonary: No SOB GI: No nausea, No vomiting G/U: No dysuria, No hematuria Musculoskeletal: No bone or joint pain, No muscle pain Endocrine: No polyuria, No polydipsia Psychiatric: Prior psych history Hematopoietic: No bruising Allergic/Immuno: No urticaria Neurological: No syncope, No headache Family Medical History - Family Member Mother History Unknown: Yes Ethnicity: Living Status: Hx Family Cancer: (unknown) Hx Family Coronary Artery Disease: (unknown) Hx Family Congestive Heart Failure: (unknown) Hx Family Hypertension: (unknown) Hx Family Stroke: (unknown) Hx Family Diabetes: (unknown) Hx Family Seizures: (unknown) Hx Family Dementia: (unknown) Hx Family AIDS: (unknown) Hx Family HIV: No Hx Family COPD: (unknown) Hx Family Hepatitis: (unknown) Hx Family Psychiatric Problems: (unknown) Hx Family Tuberculosis: (unknown) father History Unknown: Yes Living Status: ED Physical Exam - Physical Examination General/Constitutional: Awake, Well-developed, well-nourished, Alert Head: Atraumatic Other Eyes comments:: Left eye blindness Other Skin comments:: Chronic skin changes lower extremities ENMT: Nasal exam nl, Lips, teeth, gums nl, Oropharynx nl, Tonsils nl Neck: No nuchal rigidity Respiratory: Nl effort/Exclusion, Clear to Auscultation Other Cardio Vascular comments:: Heart sounds barely audible; pulse regular GI: No tenderness/rebounding/guarding, No organomegaly Extremities: Normal digits & nails Neuro/Psych: No focal deficits Misc: Normal back ED Labs/Radiology/EKG Results - Lab Results Results: Laboratory Results - last 24 hr 02/04/17 02/04/17 02/04/17 13:35 13:35 14:21 WBC 10.1 RBC 4.32 Hgb 13.7 Hct 40.1 L MCV 92.8 MCH 31.8 H MCHC Differential 34.3 RDW 11.8 Plt Count 232 D MPV 7.6 Neutrophils % 78.5 Lymphocytes % 13.9 L Monocytes % 2.3 Eosinophils % 4.7 Basophils % 0.6 Sodium Potassium Chloride Carbon Dioxide Anion Gap BUN Creatinine Est GFR ( Amer) Est GFR (Non-Af Amer) BUN/Creatinine Ratio Glucose Hemoglobin A1c % Calcium Total Bilirubin AST ALT Alkaline Phosphatase Total Protein Albumin Globulin Albumin/Globulin Ratio Triglycerides Cholesterol LDL Cholesterol Direct HDL Cholesterol Urine Source CLEAN C Urine Color YELLOW Urine Clarity CLEAR Urine pH 5.5 Ur Specific [place] <= 1.005 Urine Protein NEGATIVE Urine Glucose (UA) NEGATIVE Urine Ketones NEGATIVE Urine Blood NEGATIVE Urine Nitrate NEGATIVE Urine Bilirubin NEGATIVE Urine Urobilinogen 0.2 Ur Leukocyte Esterase NEGATIVE Urine RBC NONE SEEN Urine WBC NONE SEEN Ur Epithelial Cells NONE SEEN Urine Bacteria NONE SEEN Salicylates Urine Opiates Screen NEGATIVE Urine Methadone Screen NEGATIVE Acetaminophen Ur Barbiturates Screen NEGATIVE Ur Tricyclics Screen NEGATIVE Ur Phencyclidine Scrn NEGATIVE Amphetamines Screen NEGATIVE U Methamphetamines Scrn NEGATIVE U Benzodiazepines Scrn NEGATIVE U Cocaine Metab Screen NEGATIVE U Cannabinoids Screen NEGATIVE Ethyl Alcohol 02/04/17 02/04/17 14:21 14:21 WBC RBC Hgb Hct MCV MCH MCHC Differential RDW Plt Count MPV Neutrophils % Lymphocytes % Monocytes % Eosinophils % Basophils % Sodium 128 L Potassium 3.8 Chloride 94 L Carbon Dioxide 27.5 Anion Gap 10.3 BUN 10 Creatinine 0.7 Est GFR ( Amer) TNP Est GFR (Non-Af Amer) TNP BUN/Creatinine Ratio 14.3 Glucose 222 H Hemoglobin A1c % 8.2 H Calcium 9.0 Total Bilirubin 0.5 AST 73 H ALT 157 H Alkaline Phosphatase 126 H Total Protein 6.8 Albumin 4.0 L Globulin 2.8 Albumin/Globulin Ratio 1.4 Triglycerides 277 H Cholesterol 165 LDL Cholesterol Direct 101 HDL Cholesterol 37 Urine Source Urine Color Urine Clarity Urine pH Ur Specific [place] Urine Protein Urine Glucose (UA) Urine Ketones Urine Blood Urine Nitrate Urine Bilirubin Urine Urobilinogen Ur Leukocyte Esterase Urine RBC Urine WBC Ur Epithelial Cells Urine Bacteria Salicylates < 25.0 L Urine Opiates Screen Urine Methadone Screen Acetaminophen < 10.0 L Ur Barbiturates Screen Ur Tricyclics Screen Ur Phencyclidine Scrn Amphetamines Screen U Methamphetamines Scrn U Benzodiazepines Scrn U Cocaine Metab Screen U Cannabinoids Screen Ethyl Alcohol < 10 - EKG Interpretations Rate & Rhythm: NSR; rate 90 [place]: left Comments:: RBBB ED Septic Shock - . Is Septic Shock (SBP<90, OR Lactate>4 mmol\L) present?: No ED Reassessment (Disposition) - Reassessment Reassessment Condition:: Unchanged - Diagnosis Diagnosis:: Inappropriate sexual behavior - Aftercare/Follow up Instructions Aftercare/Follow-Up Instructions:: Refer to Discharge Instructions - Patient Disposition Discharge/Transfer:: Home Admitting Medical Physician:: Bennett Emanuel Admitting Psych Physician:: Monica Guy ED Discharge Plan - Patient Disposition Instructions: Psychosis
[2017-02-04 14:27] LABS: % BASOPHILS 0.6 % (0.0-2.0); % EOSINOPHILS 4.7 % (0.0-5.0); % LYMPHOCYTES 13.9 % (20.0-50.0); % MONOCYTES 2.3 % (2.0-10.0); % NEUTROPHILS 78.5 % (40.0-80.0); HEMATOCRIT 40.1 % (41.0-60); HEMOGLOBIN 13.7 gm/dL (12-16); MEAN CELL VOLUME 92.8 fl (80-99); MEAN CORPUSCULAR HEMOGLOBIN 31.8 pg (27.0-31.0); MEAN CORPUSCULAR HGB CONC 34.3 pg (28.0-36.0); MEAN PLATELET VOLUME 7.6 fl; NEUTROPHILE ABSOLUTE 7.9 Th/cmm (1.8-8.0); RED BLOOD COUNT 4.32 Mil/cmm (3.80-5.80); RED CELL DISTRIBUTION WIDTH 11.8 % (11.5-20.0); WHITE BLOOD COUNT 10.1 Th/cmm (4.8-10.8)
[2017-02-04 14:37] LABS: URINE BILIRUBIN NEGATIVE (NEGATIVE); URINE BLOOD NEGATIVE (NEGATIVE); URINE GLUCOSE (UA) NEGATIVE (NEGATIVE); URINE KETONE NEGATIVE (NEGATIVE); URINE PH 5.5 (4.6 - 8.0); URINE PROTEIN NEGATIVE (NEGATIVE); URINE UROBILINOGEN 0.2 E.U./dL (0.2 - 1.0)
[2017-02-04 14:44] LABS: ALB/GLOB RATIO 1.4 (1.0-1.8); ALKALINE PHOSPHATASE 126 U/L (34-104); ANION GAP 10.3 (7.0-16.0); BILIRUBIN,TOTAL 0.5 mg/dL (0.3-1.0); BUN - UREA NITROGEN 10 mg/dL (7-25); BUN/CREATININE RATIO 14.3; CARBON DIOXIDE 27.5 mEq/L (21.0-31.0); CHLORIDE 94 mEq/L (98-107); CHOLESTEROL 165 mg/dL (<200); CREATININE - SERUM 0.7 mg/dL (0.7-1.3); GLUCOSE 222 mg/dL (70-105); POTASSIUM SERUM 3.8 mEq/L (3.5-5.1); SGOT 73 U/L (13-39); SGPT/ALT 157 U/L (7-52); SODIUM SERUM 128 mEq/L (136-145); TRIGLYCERIDES 277 mg/dL (<150)
[2017-02-04 14:54] LABS: ACETAMINOPHEN < 10.0 ug/mL (10.0-30.0)
[2017-02-04 14:54] LABS: URINE COLOR YELLOW
[2017-02-04 14:55] LABS: AMPHETAMINE URINE NEGATIVE (NEGATIVE); BARBITURATES URINE NEGATIVE (NEGATIVE); METHADONE URINE NEGATIVE (NEGATIVE); URINE BACTERIA NONE SEEN /hpf (NONE SEEN); URINE EPITHELIAL CELLS NONE SEEN /lpf (FEW); URINE RBC NONE SEEN /hpf (0-5); URINE WBC NONE SEEN /hpf (0-5)
[2017-02-04 14:56] LABS: PLATELET COUNT 232 Th/cmm (150-400)
[2017-02-04 20:15] VITALS: BP 130/75
[2017-02-04] MEDS ORDERED: Magnesium Hydroxide (MOM) 30 mL UDC PO PRN (20:20)
[2017-02-05] MEDS: Ferrous Sulfate 325 MG TAB PO SCH (08:15)
[2017-02-05] MEDS: Multivitamin w/ Minerals Tab PO SCH (08:15)
--- NOTE | 2017-02-05 12:24 | Psychosocial Evaluation ---
DATE OF SERVICE: 02/04/2017 IDENTIFYING INFORMATION: The patient is an 81-year-old male. CHIEF COMPLAINT: No answer. HISTORY OF PRESENT ILLNESS: The patient was referred from [place] because of aggressive behavior, masturbating, agitated, having to touch females, verbally abusive. The patient is a well-known patient, I have seen him many times with multiple prior admissions to this facility for similar reason. The patient has very poor insight about the whole situation. Does not know why he is here, asking when he is going to go home. PAST PSYCHIATRIC HISTORY: Known for admission to the service because of inappropriate sexual behavior. MEDICAL HISTORY: Deferred to the medical doctor. ALLERGIES: The patient has no known drug allergies. FAMILY AND SOCIAL HISTORY: The patient is , has 1 daughter, 35 years of age. He is retired. He has been living at [facility]. MENTAL STATUS EXAMINATION: The patient is appropriately dressed, not well groomed. He has full range of affect. He was elated at times, labile, unpredictable, impulsive, acting inappropriately, preoccupied with leaving. He reports he is sleeping well, eating well. He was able to tell me the date and his age, but he is not sure why he is here. His short term memory is poor. His insight and judgment is impaired. 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 MEDICAL DIAGNOSES: Deferred to the medical doctor. His assets, he wants to get help. Negative for coping skills. INITIAL TREATMENT PLAN: The patient will be started on Abilify. Will continue with Aricept 10 mg at bedtime. We will do group therapy, milieu therapy, and individual therapies. ESTIMATED LENGTH OF STAY: 3-7 days. DISCHARGE CRITERIA: Decreased agitation, inappropriate behavior, impulsivity; after discharge, outpatient treatment. JOB# [id number]
--- NOTE | 2017-02-05 12:33 | History and Physical ---
History of Present Illness - HPI Chief Complaint: Aggressive behavior and inappropriate sexual behavior HPI: Patient is a permanent resident of a senior care and was transferred due to aggressive and inappropriate sexual behavior. Vital Signs: Last Vital Signs Temp 98.2 F 02/05/17 06:51 Pulse 76 02/05/17 09:28 Resp 20 02/05/17 06:51 BP 149/71 02/05/17 09:28 Pulse Ox 97 02/05/17 06:51 Past Medical History Cardiovascular: Report: CHF, HTN Pulmonary: Report: No Pertinent Hx [employer]: Report: Dementia GI: Report: No Pertinent Hx Psych: Report: Psychosis Musculoskeletal: Report: No Pertinent Hx Rheumatologic: Report: No pertinent Hx Infectious Disease: Report: No Pertinent Hx Renal/: Report: No Pertinent Hx Endocrine: Report: Diabetes Dermatology: Report: No Pertinent Hx - Past Surgical History Past Surgical History: No pertinent Hx Family Medical History - Family Member Mother History Unknown: Yes Ethnicity: Living Status: Hx Family Cancer: (unknown) Hx Family Coronary Artery Disease: (unknown) Hx Family Congestive Heart Failure: (unknown) Hx Family Hypertension: (unknown) Hx Family Stroke: (unknown) Hx Family Diabetes: (unknown) Hx Family Seizures: (unknown) Hx Family Dementia: (unknown) Hx Family AIDS: (unknown) Hx Family HIV: No Hx Family COPD: (unknown) Hx Family Hepatitis: (unknown) Hx Family Psychiatric Problems: (unknown) Hx Family Tuberculosis: (unknown) father History Unknown: Yes Living Status: Social History Smoke: No Alcohol: None Drugs: None Lives: Senior Living Domestic Violence: Negative - Medications Home Medications: Home Medication Medication Instructions Recorded Type Acetaminophen [Tylenol] 650 mg PO Q4HR PRN #0 tab 10/23/15 Rx Captopril [Capoten 25 mg Tab] 25 mg PO DAILY #0 tab 10/23/15 Rx Donepezil Hcl [Aricept] 10 mg PO HS #0 tab 10/23/15 Rx metFORMIN [Glucophage] 500 mg PO TID 07/01/16 History Docusate Sodium 100 mg PO BID 02/04/17 History Ferrous Sulfate [Iron] 325 mg PO DAILY 02/04/17 History Furosemide [Lasix] 40 mg PO DAILY 02/04/17 History Magnesium Hydroxide [Milk of 30 ml PO DAILY PRN 02/04/17 History Magnesia] Multivitamin with Minerals 1 tab PO DAILY 02/04/17 History [Multivitamins with Minerals] - Allergies Allergies/Adverse Reactions: Allergies Allergy/AdvReac Type Severity Reaction Status Date / Time No Known Allergies Allergy Verified 12/19/15 15:48 Review of Systems - Review of Systems Constitutional: Report: No Significant Eyes: Report: No Significant ENT: Report: No Significant Respiratory: Report: No Significant Cardiovascular: Report: No Significant Gastrointestinal: Report: No Significant Genitourinary: Report: No Significant Musculoskeletal: Report: No Significant Skin: Report: No Significant Neurological: Report: No Significant Physical Exam - Physical Exam HEENT: Report: Ears Nose Throat within normal limits (Blind left eye) Neck: Report: Within normal limits Cardiovascular Systems: Report: Regular, Rate and Rhythm Respiratory: Report: Breath Sounds are within normal limits Abdomen: Report: Non-tender to palpation Back: Report: Inspection of back is within normal limits. Extremities: Report: Non-tender to palpation. Skin: Report: Warm, Dry Neuro/Psych: Report: Disoriented to name time or place - Assessment Assessment: Current Active Problems Problem Status Onset INCREASED AGGRESIVE BEHAVIOR WITH AGITAI Acute Patient is awake, alert, calm, not oriented. Dx: Increased in agitation, HT, DM , CHF, Hypothyroidism, Dementia - Plan Plan: Patient follow by psychiatry, Will continue with SNF meds.
[2017-02-06] MEDS: Multivitamin w/ Minerals Tab PO SCH (09:21)
[2017-02-06] MEDS: Ferrous Sulfate 325 MG TAB PO SCH (09:21)
--- NOTE | 2017-02-06 10:00 | General Progress Note ---
Subjective - Review of Systems Service Date: 02/07/17 Subjective: I want go home Objective - Results Result Diagrams: 02/04/17 14:21 02/04/17 14:21 Recent Labs: Laboratory Last Values WBC 10.1 Th/cmm (4.8-10.8) 02/04/17 14:21 RBC 4.32 Mil/cmm (3.80-5.80) 02/04/17 14:21 Hgb 13.7 gm/dL (12-16) 02/04/17 14:21 Hct 40.1 % (41.0-60) L 02/04/17 14:21 MCV 92.8 fl (80-99) 02/04/17 14:21 MCH 31.8 pg (27.0-31.0) H 02/04/17 14:21 MCHC Differential 34.3 pg (28.0-36.0) 02/04/17 14:21 RDW 11.8 % (11.5-20.0) 02/04/17 14:21 Plt Count 232 Th/cmm (150-400) D 02/04/17 14:21 MPV 7.6 fl 02/04/17 14:21 Neutrophils % 78.5 % (40.0-80.0) 02/04/17 14:21 Lymphocytes % 13.9 % (20.0-50.0) L 02/04/17 14:21 Monocytes % 2.3 % (2.0-10.0) 02/04/17 14:21 Eosinophils % 4.7 % (0.0-5.0) 02/04/17 14:21 Basophils % 0.6 % (0.0-2.0) 02/04/17 14:21 Sodium 128 mEq/L (136-145) L 02/04/17 14:21 Potassium 3.8 mEq/L (3.5-5.1) 02/04/17 14:21 Chloride 94 mEq/L (98-107) L 02/04/17 14:21 Carbon Dioxide 27.5 mEq/L (21.0-31.0) 02/04/17 14:21 Anion Gap 10.3 (7.0-16.0) 02/04/17 14:21 BUN 10 mg/dL (7-25) 02/04/17 14:21 Creatinine 0.7 mg/dL (0.7-1.3) 02/04/17 14:21 Est GFR ( Amer) TNP 02/04/17 14:21 Est GFR (Non-Af Amer) TNP 02/04/17 14:21 BUN/Creatinine Ratio 14.3 02/04/17 14:21 Glucose 222 mg/dL (70-105) H 02/04/17 14:21 Hemoglobin A1c % 8.2 % (4.0-6.0) H 02/04/17 14:21 Calcium 9.0 mg/dL (8.6-10.3) 02/04/17 14:21 Total Bilirubin 0.5 mg/dL (0.3-1.0) 02/04/17 14:21 AST 73 U/L (13-39) H 02/04/17 14:21 ALT 157 U/L (7-52) H 02/04/17 14:21 Alkaline Phosphatase 126 U/L (34-104) H 02/04/17 14:21 Total Protein 6.8 gm/dL (6.0-8.3) 02/04/17 14:21 Albumin 4.0 gm/dL (4.2-5.5) L 02/04/17 14:21 Globulin 2.8 gm/dL 02/04/17 14:21 Albumin/Globulin Ratio 1.4 (1.0-1.8) 02/04/17 14:21 Triglycerides 277 mg/dL (<150) H 02/04/17 14:21 Cholesterol 165 mg/dL (<200) 02/04/17 14:21 LDL Cholesterol Direct 101 mg/dL (75-193) 02/04/17 14:21 HDL Cholesterol 37 mg/dL (23-92) 02/04/17 14:21 TSH 2.09 uIU/ml (0.34-5.60) 02/04/17 14:21 Urine Source CLEAN C 02/04/17 13:35 Urine Color YELLOW 02/04/17 13:35 Urine Clarity CLEAR (CLEAR) 02/04/17 13:35 Urine pH 5.5 (4.6 - 8.0) 02/04/17 13:35 Ur Specific [place] <= 1.005 (1.005-1.030) 02/04/17 13:35 Urine Protein NEGATIVE mg/dL (NEGATIVE) 02/04/17 13:35 Urine Glucose (UA) NEGATIVE mg/dL (NEGATIVE) 02/04/17 13:35 Urine Ketones NEGATIVE mg/dL (NEGATIVE) 02/04/17 13:35 Urine Blood NEGATIVE (NEGATIVE) 02/04/17 13:35 Urine Nitrate NEGATIVE (NEGATIVE) 02/04/17 13:35 Urine Bilirubin NEGATIVE (NEGATIVE) 02/04/17 13:35 Urine Urobilinogen 0.2 E.U./dL (0.2 - 1.0) 02/04/17 13:35 Ur Leukocyte Esterase NEGATIVE (NEGATIVE) 02/04/17 13:35 Urine RBC NONE SEEN /hpf (0-5) 02/04/17 13:35 Urine WBC NONE SEEN /hpf (0-5) 02/04/17 13:35 Ur Epithelial Cells NONE SEEN /lpf (FEW) 02/04/17 13:35 Urine Bacteria NONE SEEN /hpf (NONE SEEN) 02/04/17 13:35 Salicylates < 25.0 mg/L (30.0-100.0) L 02/04/17 14:21 Urine Opiates Screen NEGATIVE (NEGATIVE) 02/04/17 13:35 Urine Methadone Screen NEGATIVE (NEGATIVE) 02/04/17 13:35 Acetaminophen < 10.0 ug/mL (10.0-30.0) L 02/04/17 14:21 Ur Barbiturates Screen NEGATIVE (NEGATIVE) 02/04/17 13:35 Ur Tricyclics Screen NEGATIVE (NEGATIVE) 02/04/17 13:35 Ur Phencyclidine Scrn NEGATIVE (NEGATIVE) 02/04/17 13:35 Amphetamines Screen NEGATIVE (NEGATIVE) 02/04/17 13:35 U Methamphetamines Scrn NEGATIVE (NEGATIVE) 02/04/17 13:35 U Benzodiazepines Scrn NEGATIVE (NEGATIVE) 02/04/17 13:35 U Cocaine Metab Screen NEGATIVE (NEGATIVE) 02/04/17 13:35 U Cannabinoids Screen NEGATIVE (NEGATIVE) 02/04/17 13:35 Ethyl Alcohol < 10 mg/dL (0-10) 02/04/17 14:21 RPR NONREACTIVE (NONREACTIVE) 02/04/17 14:21 - Physical Exam Vitals and I&O: Vital Signs Temp 97.8 F 02/05/17 17:10 Pulse 87 02/05/17 17:10 Resp 20 02/05/17 17:10 BP 156/80 02/06/17 09:20 Pulse Ox 97 02/05/17 17:10 Intake & Output 02/05/17 02/06/17 02/06/17 18:59 06:59 18:59 Intake Total 940 Balance 940 Intake: Oral 940 Other: # Voids 4 # Bowel Movements 1 Active Medications: Current Medications Acetaminophen (Tylenol) 650 mg PO Q4HR PRN PRN Reason: Pain Stop: 04/05/17 20:19 Aripiprazole (Abilify) 5 mg PO DAILY KALIA PRN Reason: Protocol Stop: 04/07/17 08:59 Last Admin: 02/06/17 09:21 Dose: 5 mg Captopril (Capoten 25 Mg Tab) 25 mg PO DAILY KALIA Stop: 04/06/17 08:59 Last Admin: 02/05/17 09:28 Dose: 25 mg Docusate Sodium (Colace) 100 mg PO BID [facility] Stop: 04/06/17 08:59 Last Admin: 02/06/17 09:21 Dose: 100 mg Donepezil HCl (Aricept) 10 mg PO HS KALIA Stop: 04/05/17 20:59 Last Admin: 02/05/17 20:44 Dose: 10 mg Ferrous Sulfate (Iron) 325 mg PO DAILY KALIA Stop: 04/06/17 08:59 Last Admin: 02/06/17 09:21 Dose: 325 mg Furosemide (Lasix) 40 mg PO DAILY KALIA Stop: 04/06/17 08:59 Last Admin: 02/06/17 09:20 Dose: 40 mg Lorazepam (Ativan) 1 mg PO Q6H PRN; Protocol PRN Reason: Anxiety/Agitation Stop: 04/05/17 20:14 Magnesium Hydroxide (Milk Of Magnesia) 30 ml PO DAILY PRN PRN Reason: Constipation Stop: 04/05/17 20:19 Metformin HCl (Glucophage) 500 mg PO TIDWM KALIA Stop: 04/06/17 07:59 Last Admin: 02/06/17 09:21 Dose: 500 mg Zolpidem Tartrate (Ambien) 5 mg PO HS PRN PRN Reason: Insomnia Stop: 04/05/17 20:14 Last Admin: 02/05/17 20:44 Dose: 5 mg General: Alert, No acute distress HEENT: Atraumatic Neck: Supple Cardiovascular: Regular rate Lungs: Clear to auscultation Abdomen: Bowel sounds, Soft Extremities: Other (No edema) Neurological: Normal gait Skin: Other (Warm and dry) Psych/Mental Status: Other (Confused, not oriented) - Procedures Procedures: Procedures Procedure Code Date GROUP PSYCHOTHERAPY 90956 04/25/15 GROUP PSYCHOTHERAPY [id number] 04/25/15 OTHER GROUP THERAPY 94.44 11/08/14 Assessment/Plan - Problem List Patient Problems: All Active Problems INCREASED AGGRESIVE BEHAVIOR WITH AGITAI (Acute) Bipolar disorder (Acute) Dementia (Acute) F03.90 Depressive disorder (Acute) F32.9 Diabetes mellitus (Acute) E11.9 Hypertension (Acute) I10 Hyposmolality and/or hyponatremia (Acute) E87.1 INAPPROPRIATE BEHAVIOR (Acute 04/25/15) Psychosis (Acute) F29 - Assessment Assessment: Current Active Problems Problem Status Onset INCREASED AGGRESIVE BEHAVIOR WITH AGITAI Acute Patient is awake, alert, calm, not oriented. Dx: Increased in agitation, HT, DM , CHF, Hypothyroidism, Dementia - Plan Plan: Patient follow by psychiatry, Will continue with SNF meds. Nutritional Asmnt/Malnutr-PDOC - Dietary Evaluation Malnutrition Findings (Please click <Entered> for more info): Nutritional Asmnt/Malnutrition Start: 02/05/17 16: 01 Text: Status: Complete Freq: Document 02/05/17 16:02 GSUN (Rec: 02/05/17 16:15 [id number]) Nutritional Asmnt/Malnutrition Patient General Information Nutritional Screening High Risk Screening Diagnosis Mood disorder NOS, impulse control disorder NOS, dementia Pertinent Medical Hx/Surgical Hx CHF, HTN, dementia, psychosis, DM Subjective Information 81 year old male from SNF. Pt is ambulatory. Spoke to RN SOFYA Heredia stated pt may have inappropriate behaviors, eating well, no nutritinoal concerns. Spoke to pt during meal time in chair in rec room . No difficulties chewing/ swallowing noted. Teeth intact . Pt selectively resposnes, unable to provide full nutrition hx. Pt stated good appetite. Pt appeared overweight, no muscle fat wasting noted. Current Diet Order/ Nutrition Support Regular Pertinent Medications Colace, Iron, Lasix, MOM, Glucophage Pertinent Labs 02/04: glucose 222H, A1c 8.2H, triglycerides 277H, AST 73H, ALT 157H, alkaline phosphatase 126H Nutritional Hx/Data Height 1.75 m Height (Calculated Centimeters) 175.3 Current Weight (lbs) 104.326 kg Weight (Calculated Kilograms) 104.3 Weight (Calculated Grams) 194498.2 [place] Body Weight 160 Weight Status Obese GI Symptoms Usual diet at home [place] [facility]: [facility] Skin Integrity/Comment: Marc 17. Skin intact. Estimated Nutritional Goals BEE in Kcals: Adj wt of IBW Calories/Kcals/Kg AdjBW 177.5lb/80.7kg Kcals Calculated 2018-2421kcal (25-30kcal/kg) Protein: Adj wt of IBW Protein Calculated 81g (1g/kg) Fluid: ml 2018-2421ml (1ml/kcal) Nutritional Problem 1. Problem Problem Altered nutrition related laboratory values related to Etiology DM aeb Signs/Symptoms: A1c 8.2, glucose 222H Intervention/Recommendation Comments 1. Recommend [id number] with double portion vegetables. Expected Outcomes/Goals Expected Outcomes/Goals 1. PO intake to meet at least 75% of estimated nutritinoal needs.
--- NOTE | 2017-02-07 00:10 | Progress Notes ---
DATE: SUBJECTIVE: The patient seen, chart reviewed, discussed with staff. The patient referred from [place] due to aggressive behaviors. Apparently masturbating, agitated, wanting to touch females, verbally abusive. A patient well known to Dr. Brooks aburto in the past. On [id number], the patient essentially refusing interview. Remains confused per staff, forgetful, focused on food, still impulsive, unpredictable. Concerns for continued inappropriate and aggressive behaviors. Medications reviewed. No noted side effects. Slept about 5-6 hours. ASSESSMENT: The patient remains symptomatic, not safe for discharge. Still confused, forgetful. We will monitor and follow up. JOB# [id number]
[2017-02-07 07:35] LABS: % BASOPHILS 0.4 % (0.0-2.0); % LYMPHOCYTES 17.2 % (20.0-50.0); % MONOCYTES 8.6 % (2.0-10.0); % NEUTROPHILS 69.8 % (40.0-80.0); HEMATOCRIT 39.3 % (41.0-60); HEMOGLOBIN 13.5 gm/dL (12-16); MEAN CELL VOLUME 93.2 fl (80-99); MEAN CORPUSCULAR HGB CONC 34.3 pg (28.0-36.0); MEAN PLATELET VOLUME 7.5 fl; NEUTROPHILE ABSOLUTE 5.1 Th/cmm (1.8-8.0); PLATELET COUNT 234 Th/cmm (150-400); RED BLOOD COUNT 4.22 Mil/cmm (3.80-5.80); RED CELL DISTRIBUTION WIDTH 11.8 % (11.5-20.0); WHITE BLOOD COUNT 7.3 Th/cmm (4.8-10.8)
[2017-02-07 07:51] LABS: ALB/GLOB RATIO 1.3 (1.0-1.8); ALKALINE PHOSPHATASE 95 U/L (34-104); ANION GAP 10.1 (7.0-16.0); BILIRUBIN,TOTAL 0.6 mg/dL (0.3-1.0); BUN - UREA NITROGEN 7 mg/dL (7-25); CALCIUM SERUM 8.9 mg/dL (8.6-10.3); CARBON DIOXIDE 28.8 mEq/L (21.0-31.0); CHLORIDE 93 mEq/L (98-107); CREATININE - SERUM 0.7 mg/dL (0.7-1.3); GLUCOSE 217 mg/dL (70-105); POTASSIUM SERUM 3.9 mEq/L (3.5-5.1); SGOT 12 U/L (13-39); SGPT/ALT 51 U/L (7-52); SODIUM SERUM 128 mEq/L (136-145)
[2017-02-07] MEDS: Ferrous Sulfate 325 MG TAB PO SCH (08:57)
[2017-02-07] MEDS: Multivitamin w/ Minerals Tab PO SCH (08:58)
--- NOTE | 2017-02-07 11:52 | General Progress Note ---
Subjective - Review of Systems Service Date: 02/07/17 Subjective: I want go home Objective - Results Result Diagrams: 02/07/17 07:28 02/07/17 07:28 Recent Labs: Laboratory Last Values WBC 7.3 Th/cmm (4.8-10.8) D 02/07/17 07:28 RBC 4.22 Mil/cmm (3.80-5.80) 02/07/17 07:28 Hgb 13.5 gm/dL (12-16) 02/07/17 07:28 Hct 39.3 % (41.0-60) L 02/07/17 07:28 MCV 93.2 fl (80-99) 02/07/17 07:28 MCH 32.0 pg (27.0-31.0) H 02/07/17 07:28 MCHC Differential 34.3 pg (28.0-36.0) 02/07/17 07:28 RDW 11.8 % (11.5-20.0) 02/07/17 07:28 Plt Count 234 Th/cmm (150-400) 02/07/17 07:28 MPV 7.5 fl 02/07/17 07:28 Neutrophils % 69.8 % (40.0-80.0) 02/07/17 07:28 Lymphocytes % 17.2 % (20.0-50.0) L 02/07/17 07:28 Monocytes % 8.6 % (2.0-10.0) 02/07/17 07:28 Eosinophils % 4.0 % (0.0-5.0) 02/07/17 07:28 Basophils % 0.4 % (0.0-2.0) 02/07/17 07:28 Sodium 128 mEq/L (136-145) L 02/07/17 07:28 Potassium 3.9 mEq/L (3.5-5.1) 02/07/17 07:28 Chloride 93 mEq/L (98-107) L 02/07/17 07:28 Carbon Dioxide 28.8 mEq/L (21.0-31.0) 02/07/17 07:28 Anion Gap 10.1 (7.0-16.0) 02/07/17 07:28 BUN 7 mg/dL (7-25) 02/07/17 07:28 Creatinine 0.7 mg/dL (0.7-1.3) 02/07/17 07:28 Est GFR ( Amer) TNP 02/07/17 07:28 Est GFR (Non-Af Amer) TNP 02/07/17 07:28 BUN/Creatinine Ratio 10.0 02/07/17 07:28 Glucose 217 mg/dL (70-105) H 02/07/17 07:28 Hemoglobin A1c % 8.2 % (4.0-6.0) H 02/04/17 14:21 Calcium 8.9 mg/dL (8.6-10.3) 02/07/17 07:28 Total Bilirubin 0.6 mg/dL (0.3-1.0) 02/07/17 07:28 AST 12 U/L (13-39) L 02/07/17 07:28 ALT 51 U/L (7-52) 02/07/17 07:28 Alkaline Phosphatase 95 U/L (34-104) 02/07/17 07:28 Total Protein 6.5 gm/dL (6.0-8.3) 02/07/17 07:28 Albumin 3.7 gm/dL (4.2-5.5) L 02/07/17 07:28 Globulin 2.8 gm/dL 02/07/17 07:28 Albumin/Globulin Ratio 1.3 (1.0-1.8) 02/07/17 07:28 Triglycerides 277 mg/dL (<150) H 02/04/17 14:21 Cholesterol 165 mg/dL (<200) 02/04/17 14:21 LDL Cholesterol Direct 101 mg/dL (75-193) 02/04/17 14:21 HDL Cholesterol 37 mg/dL (23-92) 02/04/17 14:21 TSH 2.09 uIU/ml (0.34-5.60) 02/04/17 14:21 Urine Source CLEAN C 02/04/17 13:35 Urine Color YELLOW 02/04/17 13:35 Urine Clarity CLEAR (CLEAR) 02/04/17 13:35 Urine pH 5.5 (4.6 - 8.0) 02/04/17 13:35 Ur Specific [place] <= 1.005 (1.005-1.030) 02/04/17 13:35 Urine Protein NEGATIVE mg/dL (NEGATIVE) 02/04/17 13:35 Urine Glucose (UA) NEGATIVE mg/dL (NEGATIVE) 02/04/17 13:35 Urine Ketones NEGATIVE mg/dL (NEGATIVE) 02/04/17 13:35 Urine Blood NEGATIVE (NEGATIVE) 02/04/17 13:35 Urine Nitrate NEGATIVE (NEGATIVE) 02/04/17 13:35 Urine Bilirubin NEGATIVE (NEGATIVE) 02/04/17 13:35 Urine Urobilinogen 0.2 E.U./dL (0.2 - 1.0) 02/04/17 13:35 Ur Leukocyte Esterase NEGATIVE (NEGATIVE) 02/04/17 13:35 Urine RBC NONE SEEN /hpf (0-5) 02/04/17 13:35 Urine WBC NONE SEEN /hpf (0-5) 02/04/17 13:35 Ur Epithelial Cells NONE SEEN /lpf (FEW) 02/04/17 13:35 Urine Bacteria NONE SEEN /hpf (NONE SEEN) 02/04/17 13:35 Salicylates < 25.0 mg/L (30.0-100.0) L 02/04/17 14:21 Urine Opiates Screen NEGATIVE (NEGATIVE) 02/04/17 13:35 Urine Methadone Screen NEGATIVE (NEGATIVE) 02/04/17 13:35 Acetaminophen < 10.0 ug/mL (10.0-30.0) L 02/04/17 14:21 Ur Barbiturates Screen NEGATIVE (NEGATIVE) 02/04/17 13:35 Ur Tricyclics Screen NEGATIVE (NEGATIVE) 02/04/17 13:35 Ur Phencyclidine Scrn NEGATIVE (NEGATIVE) 02/04/17 13:35 Amphetamines Screen NEGATIVE (NEGATIVE) 02/04/17 13:35 U Methamphetamines Scrn NEGATIVE (NEGATIVE) 02/04/17 13:35 U Benzodiazepines Scrn NEGATIVE (NEGATIVE) 02/04/17 13:35 U Cocaine Metab Screen NEGATIVE (NEGATIVE) 02/04/17 13:35 U Cannabinoids Screen NEGATIVE (NEGATIVE) 02/04/17 13:35 Ethyl Alcohol < 10 mg/dL (0-10) 02/04/17 14:21 RPR NONREACTIVE (NONREACTIVE) 02/04/17 14:21 - Physical Exam Vitals and I&O: Vital Signs Temp 98.2 F 02/07/17 06:29 Pulse 93 02/07/17 08:57 Resp 18 02/07/17 06:29 BP 154/92 02/07/17 08:58 Pulse Ox 97 02/07/17 06:29 Intake & Output 02/06/17 02/07/17 02/07/17 18:59 06:59 18:59 Intake Total 1200 480 Balance 1200 480 Intake: Oral 1200 480 Other: # Voids 2 # Bowel Movements 1 Stool Characteristics Soft Soft Active Medications: Current Medications Acetaminophen (Tylenol) 650 mg PO Q4HR PRN PRN Reason: Pain Stop: 04/05/17 20:19 Aripiprazole (Abilify) 5 mg PO DAILY KALIA PRN Reason: Protocol Stop: 04/07/17 08:59 Last Admin: 02/07/17 08:58 Dose: 5 mg Captopril (Capoten 25 Mg Tab) 25 mg PO DAILY KALIA Stop: 04/06/17 08:59 Last Admin: 02/07/17 08:57 Dose: 25 mg Docusate Sodium (Colace) 100 mg PO BID KALIA Stop: 04/06/17 08:59 Last Admin: 02/07/17 08:58 Dose: 100 mg Donepezil HCl (Aricept) 10 mg PO HS KALIA Stop: 04/05/17 20:59 Last Admin: 02/06/17 20:54 Dose: 10 mg Ferrous Sulfate (Iron) 325 mg PO DAILY KALIA Stop: 04/06/17 08:59 Last Admin: 02/07/17 08:57 Dose: 325 mg Furosemide (Lasix) 40 mg PO DAILY KALIA Stop: 04/06/17 08:59 Last Admin: 02/07/17 08:58 Dose: 40 mg Lorazepam (Ativan) 1 mg PO Q6H PRN; Protocol PRN Reason: Anxiety/Agitation Stop: 04/05/17 20:14 Last Admin: 02/07/17 06:10 Dose: 1 mg Magnesium Hydroxide (Milk Of Magnesia) 30 ml PO DAILY PRN PRN Reason: Constipation Stop: 04/05/17 20:19 Metformin HCl (Glucophage) 500 mg PO TIDWM KALIA Stop: 04/06/17 07:59 Last Admin: 02/07/17 08:58 Dose: 500 mg Zolpidem Tartrate (Ambien) 5 mg PO HS PRN PRN Reason: Insomnia Stop: 04/05/17 20:14 Last Admin: 02/05/17 20:44 Dose: 5 mg General: Alert, No acute distress HEENT: Atraumatic Neck: Supple Cardiovascular: Regular rate Lungs: Clear to auscultation Abdomen: Bowel sounds, Soft Extremities: Other (No edema) Neurological: Normal gait Skin: Other (Warm and dry) Psych/Mental Status: Other (Confused, not oriented) - Procedures Procedures: Procedures Procedure Code Date GROUP PSYCHOTHERAPY 18228 04/25/15 GROUP PSYCHOTHERAPY GZHZZZZ 04/25/15 OTHER GROUP THERAPY 94.44 11/08/14 Assessment/Plan - Problem List Patient Problems: All Active Problems INCREASED AGGRESIVE BEHAVIOR WITH AGITAI (Acute) Bipolar disorder (Acute) Dementia (Acute) F03.90 Depressive disorder (Acute) F32.9 Diabetes mellitus (Acute) E11.9 Hypertension (Acute) I10 Hyposmolality and/or hyponatremia (Acute) E87.1 INAPPROPRIATE BEHAVIOR (Acute 04/25/15) Psychosis (Acute) F29 - Assessment Assessment: Current Active Problems Problem Status Onset INCREASED AGGRESIVE BEHAVIOR WITH AGITAI Acute Patient is awake, alert, calm, not oriented. he continue with inappropriate sexual behavior. Dx: Increased in agitation, HT, DM, CHF, Hypothyroidism, Dementia - Plan Plan: Patient follow by psychiatry, Na tabs are added. Will continue with SNF meds. Nutritional Asmnt/Malnutr-PDOC - Dietary Evaluation Malnutrition Findings (Please click <Entered> for more info): Nutritional Asmnt/Malnutrition Start: 02/05/17 16: 01 Text: Status: Complete Freq: Document 02/05/17 16:02 GSUN (Rec: 02/05/17 16:15 [email or web address] [email or web address]) Nutritional Asmnt/Malnutrition Patient General Information Nutritional Screening High Risk Screening Diagnosis Mood disorder NOS, impulse control disorder NOS, dementia Pertinent Medical Hx/Surgical Hx CHF, HTN, dementia, psychosis, DM Subjective Information 81 year old male from SNF. Pt is ambulatory. Spoke to RN SOFYA Heredia stated pt may have inappropriate behaviors, eating well, no nutritinoal concerns. Spoke to pt during meal time in chair in rec room . No difficulties chewing/ swallowing noted. Teeth intact . Pt selectively resposnes, unable to provide full nutrition hx. Pt stated good appetite. Pt appeared overweight, no muscle fat wasting noted. Current Diet Order/ Nutrition Support Regular Pertinent Medications Colace, Iron, Lasix, MOM, Glucophage Pertinent Labs 02/04: glucose 222H, A1c 8.2H, triglycerides 277H, AST 73H, ALT 157H, alkaline phosphatase 126H Nutritional Hx/Data Height 1.75 m Height (Calculated Centimeters) 175.3 Current Weight (lbs) 104.326 kg Weight (Calculated Kilograms) 104.3 Weight (Calculated Grams) 681446.2 [place] Body Weight 160 Weight Status Obese GI Symptoms Usual diet at home [place] [facility]: [facility] Skin Integrity/Comment: Marc 17. Skin intact. Estimated Nutritional Goals BEE in Kcals: Adj wt of IBW Calories/Kcals/Kg AdjBW 177.5lb/80.7kg Kcals Calculated 2018-2421kcal (25-30kcal/kg) Protein: Adj wt of IBW Protein Calculated 81g (1g/kg) Fluid: ml 2018-2421ml (1ml/kcal) Nutritional Problem 1. Problem Problem Altered nutrition related laboratory values related to Etiology DM aeb Signs/Symptoms: A1c 8.2, glucose 222H Intervention/Recommendation Comments 1. Recommend [id number] with double portion vegetables. Expected Outcomes/Goals Expected Outcomes/Goals 1. PO intake to meet at least 75% of estimated nutritinoal needs.
[2017-02-08] MEDS: Multivitamin w/ Minerals Tab PO SCH (09:01)
[2017-02-08] MEDS: Ferrous Sulfate 325 MG TAB PO SCH (09:02)
--- NOTE | 2017-02-08 09:16 | General Progress Note ---
Subjective - Review of Systems Service Date: 02/08/17 Subjective: I want go home Objective - Results Result Diagrams: 02/07/17 07:28 02/07/17 07:28 Recent Labs: Laboratory Last Values WBC 7.3 Th/cmm (4.8-10.8) D 02/07/17 07:28 RBC 4.22 Mil/cmm (3.80-5.80) 02/07/17 07:28 Hgb 13.5 gm/dL (12-16) 02/07/17 07:28 Hct 39.3 % (41.0-60) L 02/07/17 07:28 MCV 93.2 fl (80-99) 02/07/17 07:28 MCH 32.0 pg (27.0-31.0) H 02/07/17 07:28 MCHC Differential 34.3 pg (28.0-36.0) 02/07/17 07:28 RDW 11.8 % (11.5-20.0) 02/07/17 07:28 Plt Count 234 Th/cmm (150-400) 02/07/17 07:28 MPV 7.5 fl 02/07/17 07:28 Neutrophils % 69.8 % (40.0-80.0) 02/07/17 07:28 Lymphocytes % 17.2 % (20.0-50.0) L 02/07/17 07:28 Monocytes % 8.6 % (2.0-10.0) 02/07/17 07:28 Eosinophils % 4.0 % (0.0-5.0) 02/07/17 07:28 Basophils % 0.4 % (0.0-2.0) 02/07/17 07:28 Sodium 128 mEq/L (136-145) L 02/07/17 07:28 Potassium 3.9 mEq/L (3.5-5.1) 02/07/17 07:28 Chloride 93 mEq/L (98-107) L 02/07/17 07:28 Carbon Dioxide 28.8 mEq/L (21.0-31.0) 02/07/17 07:28 Anion Gap 10.1 (7.0-16.0) 02/07/17 07:28 BUN 7 mg/dL (7-25) 02/07/17 07:28 Creatinine 0.7 mg/dL (0.7-1.3) 02/07/17 07:28 Est GFR ( Amer) TNP 02/07/17 07:28 Est GFR (Non-Af Amer) TNP 02/07/17 07:28 BUN/Creatinine Ratio 10.0 02/07/17 07:28 Glucose 217 mg/dL (70-105) H 02/07/17 07:28 Hemoglobin A1c % 8.2 % (4.0-6.0) H 02/04/17 14:21 Calcium 8.9 mg/dL (8.6-10.3) 02/07/17 07:28 Total Bilirubin 0.6 mg/dL (0.3-1.0) 02/07/17 07:28 AST 12 U/L (13-39) L 02/07/17 07:28 ALT 51 U/L (7-52) 02/07/17 07:28 Alkaline Phosphatase 95 U/L (34-104) 02/07/17 07:28 Total Protein 6.5 gm/dL (6.0-8.3) 02/07/17 07:28 Albumin 3.7 gm/dL (4.2-5.5) L 02/07/17 07:28 Globulin 2.8 gm/dL 02/07/17 07:28 Albumin/Globulin Ratio 1.3 (1.0-1.8) 02/07/17 07:28 Triglycerides 277 mg/dL (<150) H 02/04/17 14:21 Cholesterol 165 mg/dL (<200) 02/04/17 14:21 LDL Cholesterol Direct 101 mg/dL (75-193) 02/04/17 14:21 HDL Cholesterol 37 mg/dL (23-92) 02/04/17 14:21 TSH 2.09 uIU/ml (0.34-5.60) 02/04/17 14:21 Urine Source CLEAN C 02/04/17 13:35 Urine Color YELLOW 02/04/17 13:35 Urine Clarity CLEAR (CLEAR) 02/04/17 13:35 Urine pH 5.5 (4.6 - 8.0) 02/04/17 13:35 Ur Specific [place] <= 1.005 (1.005-1.030) 02/04/17 13:35 Urine Protein NEGATIVE mg/dL (NEGATIVE) 02/04/17 13:35 Urine Glucose (UA) NEGATIVE mg/dL (NEGATIVE) 02/04/17 13:35 Urine Ketones NEGATIVE mg/dL (NEGATIVE) 02/04/17 13:35 Urine Blood NEGATIVE (NEGATIVE) 02/04/17 13:35 Urine Nitrate NEGATIVE (NEGATIVE) 02/04/17 13:35 Urine Bilirubin NEGATIVE (NEGATIVE) 02/04/17 13:35 Urine Urobilinogen 0.2 E.U./dL (0.2 - 1.0) 02/04/17 13:35 Ur Leukocyte Esterase NEGATIVE (NEGATIVE) 02/04/17 13:35 Urine RBC NONE SEEN /hpf (0-5) 02/04/17 13:35 Urine WBC NONE SEEN /hpf (0-5) 02/04/17 13:35 Ur Epithelial Cells NONE SEEN /lpf (FEW) 02/04/17 13:35 Urine Bacteria NONE SEEN /hpf (NONE SEEN) 02/04/17 13:35 Salicylates < 25.0 mg/L (30.0-100.0) L 02/04/17 14:21 Urine Opiates Screen NEGATIVE (NEGATIVE) 02/04/17 13:35 Urine Methadone Screen NEGATIVE (NEGATIVE) 02/04/17 13:35 Acetaminophen < 10.0 ug/mL (10.0-30.0) L 02/04/17 14:21 Ur Barbiturates Screen NEGATIVE (NEGATIVE) 02/04/17 13:35 Ur Tricyclics Screen NEGATIVE (NEGATIVE) 02/04/17 13:35 Ur Phencyclidine Scrn NEGATIVE (NEGATIVE) 02/04/17 13:35 Amphetamines Screen NEGATIVE (NEGATIVE) 02/04/17 13:35 U Methamphetamines Scrn NEGATIVE (NEGATIVE) 02/04/17 13:35 U Benzodiazepines Scrn NEGATIVE (NEGATIVE) 02/04/17 13:35 U Cocaine Metab Screen NEGATIVE (NEGATIVE) 02/04/17 13:35 U Cannabinoids Screen NEGATIVE (NEGATIVE) 02/04/17 13:35 Ethyl Alcohol < 10 mg/dL (0-10) 02/04/17 14:21 RPR NONREACTIVE (NONREACTIVE) 02/04/17 14:21 - Physical Exam Vitals and I&O: Vital Signs Temp 98.1 F 02/08/17 06:02 Pulse 97 02/08/17 09:01 Resp 19 02/08/17 06:02 BP 165/88 02/08/17 09:02 Pulse Ox 94 02/08/17 06:02 Intake & Output 02/07/17 02/08/17 02/08/17 18:59 06:59 18:59 Intake Total 1400 600 Balance 1400 600 Intake: Oral 1400 600 Other: # Voids 1 # Bowel Movements 1 0 Active Medications: Current Medications Acetaminophen (Tylenol) 650 mg PO Q4HR PRN PRN Reason: Pain Stop: 04/05/17 20:19 Aripiprazole (Abilify) 5 mg PO DAILY KALIA PRN Reason: Protocol Stop: 04/07/17 08:59 Last Admin: 02/08/17 09:02 Dose: 5 mg Captopril (Capoten 25 Mg Tab) 25 mg PO DAILY KALIA Stop: 04/06/17 08:59 Last Admin: 02/08/17 09:01 Dose: 25 mg Docusate Sodium (Colace) 100 mg PO BID KALIA Stop: 04/06/17 08:59 Last Admin: 02/08/17 09:01 Dose: 100 mg Donepezil HCl (Aricept) 10 mg PO HS KALIA Stop: 04/05/17 20:59 Last Admin: 02/07/17 21:51 Dose: 10 mg Ferrous Sulfate (Iron) 325 mg PO DAILY KALIA Stop: 04/06/17 08:59 Last Admin: 02/08/17 09:02 Dose: 325 mg Furosemide (Lasix) 40 mg PO DAILY KALIA Stop: 04/06/17 08:59 Last Admin: 02/08/17 09:02 Dose: 40 mg Lorazepam (Ativan) 1 mg PO Q6H PRN; Protocol PRN Reason: Anxiety/Agitation Stop: 04/05/17 20:14 Last Admin: 02/07/17 06:10 Dose: 1 mg Magnesium Hydroxide (Milk Of Magnesia) 30 ml PO DAILY PRN PRN Reason: Constipation Stop: 04/05/17 20:19 Metformin HCl (Glucophage) 500 mg PO TIDWM KALIA Stop: 04/06/17 07:59 Last Admin: 02/08/17 09:02 Dose: 500 mg Sodium Chloride (Nacl Tab) 1 gm PO DAILY KALIA Stop: 04/09/17 08:59 Last Admin: 02/08/17 09:02 Dose: 1 gm Zolpidem Tartrate (Ambien) 5 mg PO HS PRN PRN Reason: Insomnia Stop: 04/05/17 20:14 Last Admin: 02/08/17 00:20 Dose: 5 mg General: Alert, No acute distress HEENT: Atraumatic Neck: Supple Cardiovascular: Regular rate Lungs: Clear to auscultation Abdomen: Bowel sounds, Soft Extremities: Other (No edema) Neurological: Normal gait Skin: Other (Warm and dry) Psych/Mental Status: Other (Confused, not oriented) - Procedures Procedures: Procedures Procedure Code Date GROUP PSYCHOTHERAPY 44844 04/25/15 GROUP PSYCHOTHERAPY GZHZZZZ 04/25/15 OTHER GROUP THERAPY 94.44 11/08/14 Assessment/Plan - Problem List Patient Problems: All Active Problems INCREASED AGGRESIVE BEHAVIOR WITH AGITAI (Acute) Bipolar disorder (Acute) Dementia (Acute) F03.90 Depressive disorder (Acute) F32.9 Diabetes mellitus (Acute) E11.9 Hypertension (Acute) I10 Hyposmolality and/or hyponatremia (Acute) E87.1 INAPPROPRIATE BEHAVIOR (Acute 04/25/15) Psychosis (Acute) F29 - Assessment Assessment: Current Active Problems Problem Status Onset INCREASED AGGRESIVE BEHAVIOR WITH AGITAI Acute Patient is awake, alert, calm, not oriented. he continue with inappropriate sexual behavior. Dx: Increased in agitation, HT, DM, CHF, Hypothyroidism, Dementia - Plan Plan: Patient follow by psychiatry, Na tabs are added. Will continue with SNF meds. Nutritional Asmnt/Malnutr-PDOC - Dietary Evaluation Malnutrition Findings (Please click <Entered> for more info): Nutritional Asmnt/Malnutrition Start: 02/05/17 16: 01 Text: Status: Complete Freq: Document 02/05/17 16:02 GSUN (Rec: 02/05/17 16:15 [email or web address] [email or web address]) Nutritional Asmnt/Malnutrition Patient General Information Nutritional Screening High Risk Screening Diagnosis Mood disorder NOS, impulse control disorder NOS, dementia Pertinent Medical Hx/Surgical Hx CHF, HTN, dementia, psychosis, DM Subjective Information 81 year old male from SNF. Pt is ambulatory. Spoke to RN SOFYA Heredia stated pt may have inappropriate behaviors, eating well, no nutritinoal concerns. Spoke to pt during meal time in chair in rec room . No difficulties chewing/ swallowing noted. Teeth intact . Pt selectively resposnes, unable to provide full nutrition hx. Pt stated good appetite. Pt appeared overweight, no muscle fat wasting noted. Current Diet Order/ Nutrition Support Regular Pertinent Medications Colace, Iron, Lasix, MOM, Glucophage Pertinent Labs 02/04: glucose 222H, A1c 8.2H, triglycerides 277H, AST 73H, ALT 157H, alkaline phosphatase 126H Nutritional Hx/Data Height 1.75 m Height (Calculated Centimeters) 175.3 Current Weight (lbs) 104.326 kg Weight (Calculated Kilograms) 104.3 Weight (Calculated Grams) 419135.2 [place] Body Weight 160 Weight Status Obese GI Symptoms Usual diet at home [place] [facility]: [facility] Skin Integrity/Comment: Marc Yusuf. Skin intact. Estimated Nutritional Goals BEE in Kcals: Adj wt of IBW Calories/Kcals/Kg AdjBW 177.5lb/80.7kg Kcals Calculated 2018-2421kcal (25-30kcal/kg) Protein: Adj wt of IBW Protein Calculated 81g (1g/kg) Fluid: ml 2018-2421ml (1ml/kcal) Nutritional Problem 1. Problem Problem Altered nutrition related laboratory values related to Etiology DM aeb Signs/Symptoms: A1c 8.2, glucose 222H Intervention/Recommendation Comments 1. Recommend [id number] with double portion vegetables. Expected Outcomes/Goals Expected Outcomes/Goals 1. PO intake to meet at least 75% of estimated nutritinoal needs.
--- NOTE | 2017-02-08 12:03 | Progress Notes ---
DATE: 02/07/2017 SUBJECTIVE: The patient was seen, chart reviewed, discussed with staff. The patient referred from [place], aggressive behaviors, he is masturbating in public, agitated, wanting to touch the females. On [id number], he remains agitated, difficult to redirect, not following directions very well. On [id number], essentially refusing interview, confused. Medications were noted. No side effects. ASSESSMENT: The patient remains symptomatic still with periods of agitation, not safe for lower level of care. PLAN: We will continue to monitor given his ongoing symptoms. He is not safe for discharge. JOB# [id number]
--- NOTE | 2017-02-08 22:44 | Progress Notes ---
DATE: 02/08/2017 Case was discussed with staff of patient, reviewed records. The patient continues to be acting out sexually inappropriate. Continues to have poor insight, continues to be unable to make a safe plan for self-care; though he can talk, he has no clue about his dangerous state, his inappropriate sexual behavior with patients and staff. I initiated Abilify on him. I will be increasing the dose to 10 mg a day and so far no side effects, no sedation, no nausea, and no extrapyramidal symptoms. We will continue to work with the patient in group therapy, milieu therapy, and adjust medication as needed. JOB# [id number]
--- NOTE | 2017-02-09 08:35 | General Progress Note ---
Subjective - Review of Systems Service Date: 02/09/17 Subjective: I want go home Objective - Results Result Diagrams: 02/07/17 07:28 02/07/17 07:28 Recent Labs: Laboratory Last Values WBC 7.3 Th/cmm (4.8-10.8) D 02/07/17 07:28 RBC 4.22 Mil/cmm (3.80-5.80) 02/07/17 07:28 Hgb 13.5 gm/dL (12-16) 02/07/17 07:28 Hct 39.3 % (41.0-60) L 02/07/17 07:28 MCV 93.2 fl (80-99) 02/07/17 07:28 MCH 32.0 pg (27.0-31.0) H 02/07/17 07:28 MCHC Differential 34.3 pg (28.0-36.0) 02/07/17 07:28 RDW 11.8 % (11.5-20.0) 02/07/17 07:28 Plt Count 234 Th/cmm (150-400) 02/07/17 07:28 MPV 7.5 fl 02/07/17 07:28 Neutrophils % 69.8 % (40.0-80.0) 02/07/17 07:28 Lymphocytes % 17.2 % (20.0-50.0) L 02/07/17 07:28 Monocytes % 8.6 % (2.0-10.0) 02/07/17 07:28 Eosinophils % 4.0 % (0.0-5.0) 02/07/17 07:28 Basophils % 0.4 % (0.0-2.0) 02/07/17 07:28 Sodium 128 mEq/L (136-145) L 02/07/17 07:28 Potassium 3.9 mEq/L (3.5-5.1) 02/07/17 07:28 Chloride 93 mEq/L (98-107) L 02/07/17 07:28 Carbon Dioxide 28.8 mEq/L (21.0-31.0) 02/07/17 07:28 Anion Gap 10.1 (7.0-16.0) 02/07/17 07:28 BUN 7 mg/dL (7-25) 02/07/17 07:28 Creatinine 0.7 mg/dL (0.7-1.3) 02/07/17 07:28 Est GFR ( Amer) TNP 02/07/17 07:28 Est GFR (Non-Af Amer) TNP 02/07/17 07:28 BUN/Creatinine Ratio 10.0 02/07/17 07:28 Glucose 217 mg/dL (70-105) H 02/07/17 07:28 Hemoglobin A1c % 8.2 % (4.0-6.0) H 02/04/17 14:21 Calcium 8.9 mg/dL (8.6-10.3) 02/07/17 07:28 Total Bilirubin 0.6 mg/dL (0.3-1.0) 02/07/17 07:28 AST 12 U/L (13-39) L 02/07/17 07:28 ALT 51 U/L (7-52) 02/07/17 07:28 Alkaline Phosphatase 95 U/L (34-104) 02/07/17 07:28 Total Protein 6.5 gm/dL (6.0-8.3) 02/07/17 07:28 Albumin 3.7 gm/dL (4.2-5.5) L 02/07/17 07:28 Globulin 2.8 gm/dL 02/07/17 07:28 Albumin/Globulin Ratio 1.3 (1.0-1.8) 02/07/17 07:28 Triglycerides 277 mg/dL (<150) H 02/04/17 14:21 Cholesterol 165 mg/dL (<200) 02/04/17 14:21 LDL Cholesterol Direct 101 mg/dL (75-193) 02/04/17 14:21 HDL Cholesterol 37 mg/dL (23-92) 02/04/17 14:21 TSH 2.09 uIU/ml (0.34-5.60) 02/04/17 14:21 Urine Source CLEAN C 02/04/17 13:35 Urine Color YELLOW 02/04/17 13:35 Urine Clarity CLEAR (CLEAR) 02/04/17 13:35 Urine pH 5.5 (4.6 - 8.0) 02/04/17 13:35 Ur Specific [place] <= 1.005 (1.005-1.030) 02/04/17 13:35 Urine Protein NEGATIVE mg/dL (NEGATIVE) 02/04/17 13:35 Urine Glucose (UA) NEGATIVE mg/dL (NEGATIVE) 02/04/17 13:35 Urine Ketones NEGATIVE mg/dL (NEGATIVE) 02/04/17 13:35 Urine Blood NEGATIVE (NEGATIVE) 02/04/17 13:35 Urine Nitrate NEGATIVE (NEGATIVE) 02/04/17 13:35 Urine Bilirubin NEGATIVE (NEGATIVE) 02/04/17 13:35 Urine Urobilinogen 0.2 E.U./dL (0.2 - 1.0) 02/04/17 13:35 Ur Leukocyte Esterase NEGATIVE (NEGATIVE) 02/04/17 13:35 Urine RBC NONE SEEN /hpf (0-5) 02/04/17 13:35 Urine WBC NONE SEEN /hpf (0-5) 02/04/17 13:35 Ur Epithelial Cells NONE SEEN /lpf (FEW) 02/04/17 13:35 Urine Bacteria NONE SEEN /hpf (NONE SEEN) 02/04/17 13:35 Salicylates < 25.0 mg/L (30.0-100.0) L 02/04/17 14:21 Urine Opiates Screen NEGATIVE (NEGATIVE) 02/04/17 13:35 Urine Methadone Screen NEGATIVE (NEGATIVE) 02/04/17 13:35 Acetaminophen < 10.0 ug/mL (10.0-30.0) L 02/04/17 14:21 Ur Barbiturates Screen NEGATIVE (NEGATIVE) 02/04/17 13:35 Ur Tricyclics Screen NEGATIVE (NEGATIVE) 02/04/17 13:35 Ur Phencyclidine Scrn NEGATIVE (NEGATIVE) 02/04/17 13:35 Amphetamines Screen NEGATIVE (NEGATIVE) 02/04/17 13:35 U Methamphetamines Scrn NEGATIVE (NEGATIVE) 02/04/17 13:35 U Benzodiazepines Scrn NEGATIVE (NEGATIVE) 02/04/17 13:35 U Cocaine Metab Screen NEGATIVE (NEGATIVE) 02/04/17 13:35 U Cannabinoids Screen NEGATIVE (NEGATIVE) 02/04/17 13:35 Ethyl Alcohol < 10 mg/dL (0-10) 02/04/17 14:21 RPR NONREACTIVE (NONREACTIVE) 02/04/17 14:21 - Physical Exam Vitals and I&O: Vital Signs Temp 98.1 F 02/09/17 05:36 Pulse 88 02/09/17 05:36 Resp 19 02/09/17 05:36 BP 158/90 02/09/17 05:36 Pulse Ox 94 02/09/17 05:36 Intake & Output 02/08/17 02/09/17 02/09/17 18:59 06:59 18:59 Intake Total 600 Balance 600 Intake: Oral 600 Other: # Voids 2 # Bowel Movements 1 Active Medications: Current Medications Acetaminophen (Tylenol) 650 mg PO Q4HR PRN PRN Reason: Pain Stop: 04/05/17 20:19 Aripiprazole (Abilify) 10 mg PO DAILY KALIA PRN Reason: Protocol Stop: 04/09/17 12:06 Captopril (Capoten 25 Mg Tab) 25 mg PO DAILY [facility] Stop: 04/06/17 08:59 Last Admin: 02/08/17 09:01 Dose: 25 mg Docusate Sodium (Colace) 100 mg PO BID KALIA Stop: 04/06/17 08:59 Last Admin: 02/08/17 16:19 Dose: 100 mg Donepezil HCl (Aricept) 10 mg PO HS KALIA Stop: 04/05/17 20:59 Last Admin: 02/08/17 20:45 Dose: 10 mg Ferrous Sulfate (Iron) 325 mg PO DAILY KALIA Stop: 04/06/17 08:59 Last Admin: 02/08/17 09:02 Dose: 325 mg Furosemide (Lasix) 40 mg PO DAILY KALIA Stop: 04/06/17 08:59 Last Admin: 02/08/17 09:02 Dose: 40 mg Lorazepam (Ativan) 1 mg PO Q6H PRN; Protocol PRN Reason: Anxiety/Agitation Stop: 04/05/17 20:14 Last Admin: 02/07/17 06:10 Dose: 1 mg Magnesium Hydroxide (Milk Of Magnesia) 30 ml PO DAILY PRN PRN Reason: Constipation Stop: 04/05/17 20:19 Metformin HCl (Glucophage) 500 mg PO TIDWM KALIA Stop: 04/06/17 07:59 Last Admin: 02/08/17 16:20 Dose: 500 mg Sodium Chloride (Nacl Tab) 1 gm PO DAILY KALIA Stop: 04/09/17 08:59 Last Admin: 02/08/17 09:02 Dose: 1 gm Zolpidem Tartrate (Ambien) 5 mg PO HS PRN PRN Reason: Insomnia Stop: 04/05/17 20:14 Last Admin: 02/08/17 20:45 Dose: 5 mg General: Alert, No acute distress HEENT: Atraumatic Neck: Supple Cardiovascular: Regular rate Lungs: Clear to auscultation Abdomen: Bowel sounds, Soft Extremities: Other (No edema) Neurological: Normal gait Skin: Other (Warm and dry) Psych/Mental Status: Other (Confused, not oriented) - Procedures Procedures: Procedures Procedure Code Date GROUP PSYCHOTHERAPY 22510 04/25/15 GROUP PSYCHOTHERAPY GZHZZZZ 04/25/15 OTHER GROUP THERAPY 94.44 11/08/14 Assessment/Plan - Problem List Patient Problems: All Active Problems INCREASED AGGRESIVE BEHAVIOR WITH AGITAI (Acute) Bipolar disorder (Acute) Dementia (Acute) F03.90 Depressive disorder (Acute) F32.9 Diabetes mellitus (Acute) E11.9 Hypertension (Acute) I10 Hyposmolality and/or hyponatremia (Acute) E87.1 INAPPROPRIATE BEHAVIOR (Acute 04/25/15) Psychosis (Acute) F29 - Assessment Assessment: Current Active Problems Problem Status Onset INCREASED AGGRESIVE BEHAVIOR WITH AGITAI Acute Patient is awake, alert, calm, not oriented. he continue with inappropriate sexual behavior. Dx: Increased in agitation, HT, DM, CHF, Hypothyroidism, Dementia - Plan Plan: Patient follow by psychiatry, Na tabs are added. Will continue with SNF meds. Nutritional Asmnt/Malnutr-PDOC - Dietary Evaluation Malnutrition Findings (Please click <Entered> for more info): Nutritional Asmnt/Malnutrition Start: 02/05/17 16: 01 Text: Status: Complete Freq: Document 02/05/17 16:02 GSUN (Rec: 02/05/17 16:15 [email or web address]) Nutritional Asmnt/Malnutrition Patient General Information Nutritional Screening High Risk Screening Diagnosis Mood disorder NOS, impulse control disorder NOS, dementia Pertinent Medical Hx/Surgical Hx CHF, HTN, dementia, psychosis, DM Subjective Information 81 year old male from SNF. Pt is ambulatory. Spoke to RN SOFYA Heredia stated pt may have inappropriate behaviors, eating well, no nutritinoal concerns. Spoke to pt during meal time in chair in rec room . No difficulties chewing/ swallowing noted. Teeth intact . Pt selectively resposnes, unable to provide full nutrition hx. Pt stated good appetite. Pt appeared overweight, no muscle fat wasting noted. Current Diet Order/ Nutrition Support Regular Pertinent Medications Colace, Iron, Lasix, MOM, Glucophage Pertinent Labs 02/04: glucose 222H, A1c 8.2H, triglycerides 277H, AST 73H, ALT 157H, alkaline phosphatase 126H Nutritional Hx/Data Height 1.75 m Height (Calculated Centimeters) 175.3 Current Weight (lbs) 104.326 kg Weight (Calculated Kilograms) 104.3 Weight (Calculated Grams) 018339.2 [place] Body Weight 160 Weight Status Obese GI Symptoms Usual diet at home [place] SNF: [facility] [place] Skin Integrity/Comment: Marc 17. Skin intact. Estimated Nutritional Goals BEE in Kcals: Adj wt of IBW Calories/Kcals/Kg AdjBW 177.5lb/80.7kg Kcals Calculated 2018-2421kcal (25-30kcal/kg) Protein: Adj wt of IBW Protein Calculated 81g (1g/kg) Fluid: ml 2018-2421ml (1ml/kcal) Nutritional Problem 1. Problem Problem Altered nutrition related laboratory values related to Etiology DM aeb Signs/Symptoms: A1c 8.2, glucose 222H Intervention/Recommendation Comments 1. Recommend [id number] with double portion vegetables. Expected Outcomes/Goals Expected Outcomes/Goals 1. PO intake to meet at least 75% of estimated nutritinoal needs.
[2017-02-09] MEDS: Multivitamin w/ Minerals Tab PO SCH (08:43)
[2017-02-09] MEDS: Ferrous Sulfate 325 MG TAB PO SCH (08:43)
--- NOTE | 2017-02-10 02:08 | Progress Notes ---
DATE: 02/09/2017 Case was discussed with staff and the patient, reviewed records. The patient continues to be unpredictable, impulsive, needing redirection. Sleeping well, eating well. Continues to be inappropriate sexually, continues to need redirection. Very poor insight about his behavior. He is compliant with the medication with no side effects, no sedation, no nausea, no extrapyramidal symptoms. I did increase his Abilify dose yesterday. I will continue the patient in group milieu therapy, adjust medications as needed. JOB# [id number]
[2017-02-10] MEDS: Multivitamin w/ Minerals Tab PO SCH (09:08)
[2017-02-10] MEDS: Ferrous Sulfate 325 MG TAB PO SCH (09:10)
--- NOTE | 2017-02-10 09:10 | General Progress Note ---
Subjective - Review of Systems Service Date: 02/10/17 Subjective: I want go home Objective - Results Result Diagrams: 02/07/17 07:28 02/07/17 07:28 Recent Labs: Laboratory Last Values WBC 7.3 Th/cmm (4.8-10.8) D 02/07/17 07:28 RBC 4.22 Mil/cmm (3.80-5.80) 02/07/17 07:28 Hgb 13.5 gm/dL (12-16) 02/07/17 07:28 Hct 39.3 % (41.0-60) L 02/07/17 07:28 MCV 93.2 fl (80-99) 02/07/17 07:28 MCH 32.0 pg (27.0-31.0) H 02/07/17 07:28 MCHC Differential 34.3 pg (28.0-36.0) 02/07/17 07:28 RDW 11.8 % (11.5-20.0) 02/07/17 07:28 Plt Count 234 Th/cmm (150-400) 02/07/17 07:28 MPV 7.5 fl 02/07/17 07:28 Neutrophils % 69.8 % (40.0-80.0) 02/07/17 07:28 Lymphocytes % 17.2 % (20.0-50.0) L 02/07/17 07:28 Monocytes % 8.6 % (2.0-10.0) 02/07/17 07:28 Eosinophils % 4.0 % (0.0-5.0) 02/07/17 07:28 Basophils % 0.4 % (0.0-2.0) 02/07/17 07:28 Sodium 128 mEq/L (136-145) L 02/07/17 07:28 Potassium 3.9 mEq/L (3.5-5.1) 02/07/17 07:28 Chloride 93 mEq/L (98-107) L 02/07/17 07:28 Carbon Dioxide 28.8 mEq/L (21.0-31.0) 02/07/17 07:28 Anion Gap 10.1 (7.0-16.0) 02/07/17 07:28 BUN 7 mg/dL (7-25) 02/07/17 07:28 Creatinine 0.7 mg/dL (0.7-1.3) 02/07/17 07:28 Est GFR ( Amer) TNP 02/07/17 07:28 Est GFR (Non-Af Amer) TNP 02/07/17 07:28 BUN/Creatinine Ratio 10.0 02/07/17 07:28 Glucose 217 mg/dL (70-105) H 02/07/17 07:28 Hemoglobin A1c % 8.2 % (4.0-6.0) H 02/04/17 14:21 Calcium 8.9 mg/dL (8.6-10.3) 02/07/17 07:28 Total Bilirubin 0.6 mg/dL (0.3-1.0) 02/07/17 07:28 AST 12 U/L (13-39) L 02/07/17 07:28 ALT 51 U/L (7-52) 02/07/17 07:28 Alkaline Phosphatase 95 U/L (34-104) 02/07/17 07:28 Total Protein 6.5 gm/dL (6.0-8.3) 02/07/17 07:28 Albumin 3.7 gm/dL (4.2-5.5) L 02/07/17 07:28 Globulin 2.8 gm/dL 02/07/17 07:28 Albumin/Globulin Ratio 1.3 (1.0-1.8) 02/07/17 07:28 Triglycerides 277 mg/dL (<150) H 02/04/17 14:21 Cholesterol 165 mg/dL (<200) 02/04/17 14:21 LDL Cholesterol Direct 101 mg/dL (75-193) 02/04/17 14:21 HDL Cholesterol 37 mg/dL (23-92) 02/04/17 14:21 TSH 2.09 uIU/ml (0.34-5.60) 02/04/17 14:21 Urine Source CLEAN C 02/04/17 13:35 Urine Color YELLOW 02/04/17 13:35 Urine Clarity CLEAR (CLEAR) 02/04/17 13:35 Urine pH 5.5 (4.6 - 8.0) 02/04/17 13:35 Ur Specific [place] <= 1.005 (1.005-1.030) 02/04/17 13:35 Urine Protein NEGATIVE mg/dL (NEGATIVE) 02/04/17 13:35 Urine Glucose (UA) NEGATIVE mg/dL (NEGATIVE) 02/04/17 13:35 Urine Ketones NEGATIVE mg/dL (NEGATIVE) 02/04/17 13:35 Urine Blood NEGATIVE (NEGATIVE) 02/04/17 13:35 Urine Nitrate NEGATIVE (NEGATIVE) 02/04/17 13:35 Urine Bilirubin NEGATIVE (NEGATIVE) 02/04/17 13:35 Urine Urobilinogen 0.2 E.U./dL (0.2 - 1.0) 02/04/17 13:35 Ur Leukocyte Esterase NEGATIVE (NEGATIVE) 02/04/17 13:35 Urine RBC NONE SEEN /hpf (0-5) 02/04/17 13:35 Urine WBC NONE SEEN /hpf (0-5) 02/04/17 13:35 Ur Epithelial Cells NONE SEEN /lpf (FEW) 02/04/17 13:35 Urine Bacteria NONE SEEN /hpf (NONE SEEN) 02/04/17 13:35 Salicylates < 25.0 mg/L (30.0-100.0) L 02/04/17 14:21 Urine Opiates Screen NEGATIVE (NEGATIVE) 02/04/17 13:35 Urine Methadone Screen NEGATIVE (NEGATIVE) 02/04/17 13:35 Acetaminophen < 10.0 ug/mL (10.0-30.0) L 02/04/17 14:21 Ur Barbiturates Screen NEGATIVE (NEGATIVE) 02/04/17 13:35 Ur Tricyclics Screen NEGATIVE (NEGATIVE) 02/04/17 13:35 Ur Phencyclidine Scrn NEGATIVE (NEGATIVE) 02/04/17 13:35 Amphetamines Screen NEGATIVE (NEGATIVE) 02/04/17 13:35 U Methamphetamines Scrn NEGATIVE (NEGATIVE) 02/04/17 13:35 U Benzodiazepines Scrn NEGATIVE (NEGATIVE) 02/04/17 13:35 U Cocaine Metab Screen NEGATIVE (NEGATIVE) 02/04/17 13:35 U Cannabinoids Screen NEGATIVE (NEGATIVE) 02/04/17 13:35 Ethyl Alcohol < 10 mg/dL (0-10) 02/04/17 14:21 RPR NONREACTIVE (NONREACTIVE) 02/04/17 14:21 - Physical Exam Vitals and I&O: Vital Signs Temp 98.4 F 02/10/17 06:00 Pulse 77 02/10/17 06:00 Resp 20 02/10/17 06:00 BP 159/94 02/10/17 06:00 Pulse Ox 96 02/10/17 06:00 Intake & Output 02/09/17 02/10/17 02/10/17 18:59 06:59 18:59 Weight (lbs) 0 g Active Medications: Current Medications Acetaminophen (Tylenol) 650 mg PO Q4HR PRN PRN Reason: Pain Stop: 04/05/17 20:19 Aripiprazole (Abilify) 10 mg PO DAILY KALIA PRN Reason: Protocol Stop: 04/09/17 12:06 Last Admin: 02/09/17 08:44 Dose: 10 mg Captopril (Capoten 25 Mg Tab) 25 mg PO DAILY [facility] Stop: 04/06/17 08:59 Last Admin: 02/09/17 08:43 Dose: 25 mg Docusate Sodium (Colace) 100 mg PO BID KALIA Stop: 04/06/17 08:59 Last Admin: 02/09/17 16:19 Dose: 100 mg Donepezil HCl (Aricept) 10 mg PO HS KALIA Stop: 04/05/17 20:59 Last Admin: 02/09/17 20:49 Dose: 10 mg Ferrous Sulfate (Iron) 325 mg PO DAILY [facility]ALIA Stop: 04/06/17 08:59 Last Admin: 02/09/17 08:43 Dose: 325 mg Furosemide (Lasix) 40 mg PO DAILY [facility] Stop: 04/06/17 08:59 Last Admin: 02/09/17 08:42 Dose: 40 mg Lorazepam (Ativan) 1 mg PO Q6H PRN; Protocol PRN Reason: Anxiety/Agitation Stop: 04/05/17 20:14 Last Admin: 02/07/17 06:10 Dose: 1 mg Magnesium Hydroxide (Milk Of Magnesia) 30 ml PO DAILY PRN PRN Reason: Constipation Stop: 04/05/17 20:19 Memantine (Namenda) 5 mg PO DAILY [facility] Stop: 04/11/17 08:59 Metformin HCl (Glucophage) 500 mg PO TIDWM KALIA Stop: 04/06/17 07:59 Last Admin: 02/09/17 16:19 Dose: 500 mg Sodium Chloride (Nacl Tab) 1 gm PO DAILY [facility]ALIA Stop: 04/09/17 08:59 Last Admin: 02/09/17 08:43 Dose: 1 gm Zolpidem Tartrate (Ambien) 5 mg PO HS PRN PRN Reason: Insomnia Stop: 04/05/17 20:14 Last Admin: 02/09/17 20:49 Dose: 5 mg General: Alert, No acute distress HEENT: Atraumatic Neck: Supple Cardiovascular: Regular rate Lungs: Clear to auscultation Abdomen: Bowel sounds, Soft Extremities: Other (No edema) Neurological: Normal gait Skin: Other (Warm and dry) Psych/Mental Status: Other (Confused, not oriented) - Procedures Procedures: Procedures Procedure Code Date GROUP PSYCHOTHERAPY 72570 04/25/15 GROUP PSYCHOTHERAPY GZHZZZZ 04/25/15 OTHER GROUP THERAPY 94.44 11/08/14 Assessment/Plan - Problem List Patient Problems: All Active Problems INCREASED AGGRESIVE BEHAVIOR WITH AGITAI (Acute) Bipolar disorder (Acute) Dementia (Acute) F03.90 Depressive disorder (Acute) F32.9 Diabetes mellitus (Acute) E11.9 Hypertension (Acute) I10 Hyposmolality and/or hyponatremia (Acute) E87.1 INAPPROPRIATE BEHAVIOR (Acute 04/25/15) Psychosis (Acute) F29 - Assessment Assessment: Current Active Problems Problem Status Onset INCREASED AGGRESIVE BEHAVIOR WITH AGITAI Acute Patient is awake, alert, calm, not oriented. he continue with inappropriate sexual behavior. Dx: Increased in agitation, HT, DM, CHF, Hypothyroidism, Dementia - Plan Plan: Patient follow by psychiatry, Na tabs are added. Will continue with SNF meds. Nutritional Asmnt/Malnutr-PDOC - Dietary Evaluation Malnutrition Findings (Please click <Entered> for more info): Nutritional Asmnt/Malnutrition Start: 02/05/17 16: 01 Text: Status: Complete Freq: Document 02/05/17 16:02 GSUN (Rec: 02/05/17 16:15 [email or web address]) Nutritional Asmnt/Malnutrition Patient General Information Nutritional Screening High Risk Screening Diagnosis Mood disorder NOS, impulse control disorder NOS, dementia Pertinent Medical Hx/Surgical Hx CHF, HTN, dementia, psychosis, DM Subjective Information 81 year old male from SNF. Pt is ambulatory. Spoke to RN SOFYA Heredia stated pt may have inappropriate behaviors, eating well, no nutritinoal concerns. Spoke to pt during meal time in chair in rec room . No difficulties chewing/ swallowing noted. Teeth intact . Pt selectively resposnes, unable to provide full nutrition hx. Pt stated good appetite. Pt appeared overweight, no muscle fat wasting noted. Current Diet Order/ Nutrition Support Regular Pertinent Medications Colace, Iron, Lasix, MOM, Glucophage Pertinent Labs 02/04: glucose 222H, A1c 8.2H, triglycerides 277H, AST 73H, ALT 157H, alkaline phosphatase 126H Nutritional Hx/Data Height 1.75 m Height (Calculated Centimeters) 175.3 Current Weight (lbs) 104.326 kg Weight (Calculated Kilograms) 104.3 Weight (Calculated Grams) 977600.2 [place] Body Weight 160 Weight Status Obese GI Symptoms Usual diet at home [place] SNF: [facility] Skin Integrity/Comment: Marc 17. Skin intact. Estimated Nutritional Goals BEE in Kcals: Adj wt of IBW Calories/Kcals/Kg AdjBW 177.5lb/80.7kg Kcals Calculated 2018-2421kcal (25-30kcal/kg) Protein: Adj wt of IBW Protein Calculated 81g (1g/kg) Fluid: ml 2018-2421ml (1ml/kcal) Nutritional Problem 1. Problem Problem Altered nutrition related laboratory values related to Etiology DM aeb Signs/Symptoms: A1c 8.2, glucose 222H Intervention/Recommendation Comments 1. Recommend [id number] with double portion vegetables. Expected Outcomes/Goals Expected Outcomes/Goals 1. PO intake to meet at least 75% of estimated nutritinoal needs.
--- NOTE | 2017-02-10 09:39 | Progress Notes ---
DATE: 02/10/2017 Case was discussed with staff of the patient, reviewed records. The patient continues to be unpredictable, impulsive, needing redirection, approaching staff inappropriate sexually, needing redirection, preoccupied with discharge, was sleeping better, eating better. No side effects to the medication, no sedation, no nausea, no extrapyramidal symptoms. CBC showed a low hematocrit, high MCH and low lymphocyte. The rest within normal range. His chemistry panel showed a low sodium level of 128, high blood sugar, high AST and ALT, and high triglyceride, which I will be deferring to Dr. Emanuel. Urine drug screen is negative. Urinalysis within normal range. MRSA is negative and Dr. Emanuel ____ already saw this lab work on 02/07/2017. We will continue to work the patient in group therapy, milieu therapy, and adjust medication as needed. JOB# [id number]
[2017-02-11] MEDS: Multivitamin w/ Minerals Tab PO SCH (08:25)
[2017-02-11] MEDS: Ferrous Sulfate 325 MG TAB PO SCH (08:26)
--- NOTE | 2017-02-11 10:31 | General Progress Note ---
Subjective - Review of Systems Service Date: 02/11/17 Subjective: I want go home Objective - Results Result Diagrams: 02/07/17 07:28 02/07/17 07:28 Recent Labs: Laboratory Last Values WBC 7.3 Th/cmm (4.8-10.8) D 02/07/17 07:28 RBC 4.22 Mil/cmm (3.80-5.80) 02/07/17 07:28 Hgb 13.5 gm/dL (12-16) 02/07/17 07:28 Hct 39.3 % (41.0-60) L 02/07/17 07:28 MCV 93.2 fl (80-99) 02/07/17 07:28 MCH 32.0 pg (27.0-31.0) H 02/07/17 07:28 MCHC Differential 34.3 pg (28.0-36.0) 02/07/17 07:28 RDW 11.8 % (11.5-20.0) 02/07/17 07:28 Plt Count 234 Th/cmm (150-400) 02/07/17 07:28 MPV 7.5 fl 02/07/17 07:28 Neutrophils % 69.8 % (40.0-80.0) 02/07/17 07:28 Lymphocytes % 17.2 % (20.0-50.0) L 02/07/17 07:28 Monocytes % 8.6 % (2.0-10.0) 02/07/17 07:28 Eosinophils % 4.0 % (0.0-5.0) 02/07/17 07:28 Basophils % 0.4 % (0.0-2.0) 02/07/17 07:28 Sodium 128 mEq/L (136-145) L 02/07/17 07:28 Potassium 3.9 mEq/L (3.5-5.1) 02/07/17 07:28 Chloride 93 mEq/L (98-107) L 02/07/17 07:28 Carbon Dioxide 28.8 mEq/L (21.0-31.0) 02/07/17 07:28 Anion Gap 10.1 (7.0-16.0) 02/07/17 07:28 BUN 7 mg/dL (7-25) 02/07/17 07:28 Creatinine 0.7 mg/dL (0.7-1.3) 02/07/17 07:28 Est GFR ( Amer) TNP 02/07/17 07:28 Est GFR (Non-Af Amer) TNP 02/07/17 07:28 BUN/Creatinine Ratio 10.0 02/07/17 07:28 Glucose 217 mg/dL (70-105) H 02/07/17 07:28 POC Glucose 192 MG/DL (70 - 105) H 02/10/17 16:07 Hemoglobin A1c % 8.2 % (4.0-6.0) H 02/04/17 14:21 Calcium 8.9 mg/dL (8.6-10.3) 02/07/17 07:28 Total Bilirubin 0.6 mg/dL (0.3-1.0) 02/07/17 07:28 AST 12 U/L (13-39) L 02/07/17 07:28 ALT 51 U/L (7-52) 02/07/17 07:28 Alkaline Phosphatase 95 U/L (34-104) 02/07/17 07:28 Total Protein 6.5 gm/dL (6.0-8.3) 02/07/17 07:28 Albumin 3.7 gm/dL (4.2-5.5) L 02/07/17 07:28 Globulin 2.8 gm/dL 02/07/17 07:28 Albumin/Globulin Ratio 1.3 (1.0-1.8) 02/07/17 07:28 Triglycerides 277 mg/dL (<150) H 02/04/17 14:21 Cholesterol 165 mg/dL (<200) 02/04/17 14:21 LDL Cholesterol Direct 101 mg/dL (75-193) 02/04/17 14:21 HDL Cholesterol 37 mg/dL (23-92) 02/04/17 14:21 TSH 2.09 uIU/ml (0.34-5.60) 02/04/17 14:21 Urine Source CLEAN C 02/04/17 13:35 Urine Color YELLOW 02/04/17 13:35 Urine Clarity CLEAR (CLEAR) 02/04/17 13:35 Urine pH 5.5 (4.6 - 8.0) 02/04/17 13:35 Ur Specific [place] <= 1.005 (1.005-1.030) 02/04/17 13:35 Urine Protein NEGATIVE mg/dL (NEGATIVE) 02/04/17 13:35 Urine Glucose (UA) NEGATIVE mg/dL (NEGATIVE) 02/04/17 13:35 Urine Ketones NEGATIVE mg/dL (NEGATIVE) 02/04/17 13:35 Urine Blood NEGATIVE (NEGATIVE) 02/04/17 13:35 Urine Nitrate NEGATIVE (NEGATIVE) 02/04/17 13:35 Urine Bilirubin NEGATIVE (NEGATIVE) 02/04/17 13:35 Urine Urobilinogen 0.2 E.U./dL (0.2 - 1.0) 02/04/17 13:35 Ur Leukocyte Esterase NEGATIVE (NEGATIVE) 02/04/17 13:35 Urine RBC NONE SEEN /hpf (0-5) 02/04/17 13:35 Urine WBC NONE SEEN /hpf (0-5) 02/04/17 13:35 Ur Epithelial Cells NONE SEEN /lpf (FEW) 02/04/17 13:35 Urine Bacteria NONE SEEN /hpf (NONE SEEN) 02/04/17 13:35 Salicylates < 25.0 mg/L (30.0-100.0) L 02/04/17 14:21 Urine Opiates Screen NEGATIVE (NEGATIVE) 02/04/17 13:35 Urine Methadone Screen NEGATIVE (NEGATIVE) 02/04/17 13:35 Acetaminophen < 10.0 ug/mL (10.0-30.0) L 02/04/17 14:21 Ur Barbiturates Screen NEGATIVE (NEGATIVE) 02/04/17 13:35 Ur Tricyclics Screen NEGATIVE (NEGATIVE) 02/04/17 13:35 Ur Phencyclidine Scrn NEGATIVE (NEGATIVE) 02/04/17 13:35 Amphetamines Screen NEGATIVE (NEGATIVE) 02/04/17 13:35 U Methamphetamines Scrn NEGATIVE (NEGATIVE) 02/04/17 13:35 U Benzodiazepines Scrn NEGATIVE (NEGATIVE) 02/04/17 13:35 U Cocaine Metab Screen NEGATIVE (NEGATIVE) 02/04/17 13:35 U Cannabinoids Screen NEGATIVE (NEGATIVE) 02/04/17 13:35 Ethyl Alcohol < 10 mg/dL (0-10) 02/04/17 14:21 RPR NONREACTIVE (NONREACTIVE) 02/04/17 14:21 - Physical Exam Vitals and I&O: Vital Signs Temp 97.2 F 02/11/17 06:30 Pulse 82 02/11/17 08:25 Resp 20 02/11/17 06:30 BP 139/79 02/11/17 08:25 Pulse Ox 97 02/11/17 06:30 Intake & Output 02/10/17 02/11/17 02/11/17 18:59 06:59 18:59 Intake Total 1200 120 Balance 1200 120 Intake: Oral 1200 120 Other: # Voids 3 # Bowel Movements 1 Active Medications: Current Medications Acetaminophen (Tylenol) 650 mg PO Q4HR PRN PRN Reason: Pain Stop: 04/05/17 20:19 Aripiprazole (Abilify) 10 mg PO DAILY KALIA PRN Reason: Protocol Stop: 04/09/17 12:06 Last Admin: 02/11/17 08:25 Dose: 10 mg Captopril (Capoten 25 Mg Tab) 25 mg PO DAILY KALIA Stop: 04/06/17 08:59 Last Admin: 02/11/17 08:25 Dose: 25 mg Docusate Sodium (Colace) 100 mg PO BID KALIA Stop: 04/06/17 08:59 Last Admin: 02/11/17 08:26 Dose: 100 mg Donepezil HCl (Aricept) 10 mg PO HS KALIA Stop: 04/05/17 20:59 Last Admin: 02/10/17 20:45 Dose: 10 mg Ferrous Sulfate (Iron) 325 mg PO DAILY KALIA Stop: 04/06/17 08:59 Last Admin: 02/11/17 08:26 Dose: 325 mg Furosemide (Lasix) 40 mg PO DAILY KALIA Stop: 04/06/17 08:59 Last Admin: 02/11/17 08:25 Dose: 40 mg Lorazepam (Ativan) 1 mg PO Q6H PRN; Protocol PRN Reason: Anxiety/Agitation Stop: 04/05/17 20:14 Last Admin: 02/07/17 06:10 Dose: 1 mg Magnesium Hydroxide (Milk Of Magnesia) 30 ml PO DAILY PRN PRN Reason: Constipation Stop: 04/05/17 20:19 Memantine (Namenda) 5 mg PO DAILY KALIA Stop: 04/11/17 08:59 Last Admin: 02/11/17 08:25 Dose: 5 mg Metformin HCl (Glucophage) 500 mg PO TIDWM KALIA Stop: 04/06/17 07:59 Last Admin: 02/11/17 08:24 Dose: 500 mg Sodium Chloride (Nacl Tab) 1 gm PO DAILY KALIA Stop: 04/09/17 08:59 Last Admin: 02/11/17 08:26 Dose: 1 gm Zolpidem Tartrate (Ambien) 5 mg PO HS PRN PRN Reason: Insomnia Stop: 04/05/17 20:14 Last Admin: 02/09/17 20:49 Dose: 5 mg General: Alert, No acute distress HEENT: Atraumatic Neck: Supple Cardiovascular: Regular rate Lungs: Clear to auscultation Abdomen: Bowel sounds, Soft Extremities: Other (No edema) Neurological: Normal gait Skin: Other (Warm and dry) Psych/Mental Status: Other (Confused, not oriented) - Procedures Procedures: Procedures Procedure Code Date GROUP PSYCHOTHERAPY 51453 04/25/15 GROUP PSYCHOTHERAPY GZHZZZZ 04/25/15 OTHER GROUP THERAPY 94.44 11/08/14 Assessment/Plan - Problem List Patient Problems: All Active Problems INCREASED AGGRESIVE BEHAVIOR WITH AGITAI (Acute) Bipolar disorder (Acute) Dementia (Acute) F03.90 Depressive disorder (Acute) F32.9 Diabetes mellitus (Acute) E11.9 Hypertension (Acute) I10 Hyposmolality and/or hyponatremia (Acute) E87.1 INAPPROPRIATE BEHAVIOR (Acute 04/25/15) Psychosis (Acute) F29 - Assessment Assessment: Current Active Problems Problem Status Onset INCREASED AGGRESIVE BEHAVIOR WITH AGITAI Acute Patient is awake, alert, calm, not oriented. he continue with inappropriate sexual behavior. Dx: Increased in agitation, HT, DM, CHF, Hypothyroidism, Dementia - Plan Plan: Patient follow by psychiatry, Na tabs are added. Will continue with SNF meds. Nutritional Asmnt/Malnutr-PDOC - Dietary Evaluation Malnutrition Findings (Please click <Entered> for more info): Nutritional Asmnt/Malnutrition Start: 02/05/17 16: 01 Text: Status: Complete Freq: Document 02/05/17 16:02 GSUN (Rec: 02/05/17 16:15 [email or web address] [email or web address]) Nutritional Asmnt/Malnutrition Patient General Information Nutritional Screening High Risk Screening Diagnosis Mood disorder NOS, impulse control disorder NOS, dementia Pertinent Medical Hx/Surgical Hx CHF, HTN, dementia, psychosis, DM Subjective Information 81 year old male from SNF. Pt is ambulatory. Spoke to RN Yan RN stated pt may have inappropriate behaviors, eating well, no nutritinoal concerns. Spoke to pt during meal time in chair in rec room . No difficulties chewing/ swallowing noted. Teeth intact . Pt selectively resposnes, unable to provide full nutrition hx. Pt stated good appetite. Pt appeared overweight, no muscle fat wasting noted. Current Diet Order/ Nutrition Support Regular Pertinent Medications Colace, Iron, Lasix, MOM, Glucophage Pertinent Labs 02/04: glucose 222H, A1c 8.2H, triglycerides 277H, AST 73H, ALT 157H, alkaline phosphatase 126H Nutritional Hx/Data Height 1.75 m Height (Calculated Centimeters) 175.3 Current Weight (lbs) 104.326 kg Weight (Calculated Kilograms) 104.3 Weight (Calculated Grams) 219843.2 [place] Body Weight 160 Weight Status Obese GI Symptoms Usual diet at home [place] [facility]: [facility] Skin Integrity/Comment: Marc 17. Skin intact. Estimated Nutritional Goals BEE in Kcals: Adj wt of IBW Calories/Kcals/Kg AdjBW 177.5lb/80.7kg Kcals Calculated 2018-2421kcal (25-30kcal/kg) Protein: Adj wt of IBW Protein Calculated 81g (1g/kg) Fluid: ml 2018-2421ml (1ml/kcal) Nutritional Problem 1. Problem Problem Altered nutrition related laboratory values related to Etiology DM aeb Signs/Symptoms: A1c 8.2, glucose 222H Intervention/Recommendation Comments 1. Recommend [id number] with double portion vegetables. Expected Outcomes/Goals Expected Outcomes/Goals 1. PO intake to meet at least 75% of estimated nutritinoal needs.
--- NOTE | 2017-02-11 12:46 | Progress Notes ---
DATE: 02/11/2017 Case was discussed with staff of the patient, reviewed records. The patient continues to be inappropriate. Continues to need redirection. Continues to be unpredictable, impulsive, suicidal, poor insight, does not appreciate the reason why he is here. He has inappropriate sexual behavior with other females. He tolerated that I added for him the Namenda yesterday with no side effects, no sedation, no nausea. I did increase the Abilify. He is currently on 10 mg a day and will continue to work with the patient in group therapy, ____ therapy, and adjust medications. JOB# [id number]
[2017-02-12] MEDS: Ferrous Sulfate 325 MG TAB PO SCH (08:51)
[2017-02-12] MEDS: Multivitamin w/ Minerals Tab PO SCH (08:52)
--- NOTE | 2017-02-12 08:52 | General Progress Note ---
Subjective - Review of Systems Service Date: 02/12/17 Subjective: I want go home Objective - Results Result Diagrams: 02/07/17 07:28 02/07/17 07:28 Recent Labs: Laboratory Last Values WBC 7.3 Th/cmm (4.8-10.8) D 02/07/17 07:28 RBC 4.22 Mil/cmm (3.80-5.80) 02/07/17 07:28 Hgb 13.5 gm/dL (12-16) 02/07/17 07:28 Hct 39.3 % (41.0-60) L 02/07/17 07:28 MCV 93.2 fl (80-99) 02/07/17 07:28 MCH 32.0 pg (27.0-31.0) H 02/07/17 07:28 MCHC Differential 34.3 pg (28.0-36.0) 02/07/17 07:28 RDW 11.8 % (11.5-20.0) 02/07/17 07:28 Plt Count 234 Th/cmm (150-400) 02/07/17 07:28 MPV 7.5 fl 02/07/17 07:28 Neutrophils % 69.8 % (40.0-80.0) 02/07/17 07:28 Lymphocytes % 17.2 % (20.0-50.0) L 02/07/17 07:28 Monocytes % 8.6 % (2.0-10.0) 02/07/17 07:28 Eosinophils % 4.0 % (0.0-5.0) 02/07/17 07:28 Basophils % 0.4 % (0.0-2.0) 02/07/17 07:28 Sodium 128 mEq/L (136-145) L 02/07/17 07:28 Potassium 3.9 mEq/L (3.5-5.1) 02/07/17 07:28 Chloride 93 mEq/L (98-107) L 02/07/17 07:28 Carbon Dioxide 28.8 mEq/L (21.0-31.0) 02/07/17 07:28 Anion Gap 10.1 (7.0-16.0) 02/07/17 07:28 BUN 7 mg/dL (7-25) 02/07/17 07:28 Creatinine 0.7 mg/dL (0.7-1.3) 02/07/17 07:28 Est GFR ( Amer) TNP 02/07/17 07:28 Est GFR (Non-Af Amer) TNP 02/07/17 07:28 BUN/Creatinine Ratio 10.0 02/07/17 07:28 Glucose 217 mg/dL (70-105) H 02/07/17 07:28 POC Glucose 192 MG/DL (70 - 105) H 02/10/17 16:07 Hemoglobin A1c % 8.2 % (4.0-6.0) H 02/04/17 14:21 Calcium 8.9 mg/dL (8.6-10.3) 02/07/17 07:28 Total Bilirubin 0.6 mg/dL (0.3-1.0) 02/07/17 07:28 AST 12 U/L (13-39) L 02/07/17 07:28 ALT 51 U/L (7-52) 02/07/17 07:28 Alkaline Phosphatase 95 U/L (34-104) 02/07/17 07:28 Total Protein 6.5 gm/dL (6.0-8.3) 02/07/17 07:28 Albumin 3.7 gm/dL (4.2-5.5) L 02/07/17 07:28 Globulin 2.8 gm/dL 02/07/17 07:28 Albumin/Globulin Ratio 1.3 (1.0-1.8) 02/07/17 07:28 Triglycerides 277 mg/dL (<150) H 02/04/17 14:21 Cholesterol 165 mg/dL (<200) 02/04/17 14:21 LDL Cholesterol Direct 101 mg/dL (75-193) 02/04/17 14:21 HDL Cholesterol 37 mg/dL (23-92) 02/04/17 14:21 TSH 2.09 uIU/ml (0.34-5.60) 02/04/17 14:21 Urine Source CLEAN C 02/04/17 13:35 Urine Color YELLOW 02/04/17 13:35 Urine Clarity CLEAR (CLEAR) 02/04/17 13:35 Urine pH 5.5 (4.6 - 8.0) 02/04/17 13:35 Ur Specific [place] <= 1.005 (1.005-1.030) 02/04/17 13:35 Urine Protein NEGATIVE mg/dL (NEGATIVE) 02/04/17 13:35 Urine Glucose (UA) NEGATIVE mg/dL (NEGATIVE) 02/04/17 13:35 Urine Ketones NEGATIVE mg/dL (NEGATIVE) 02/04/17 13:35 Urine Blood NEGATIVE (NEGATIVE) 02/04/17 13:35 Urine Nitrate NEGATIVE (NEGATIVE) 02/04/17 13:35 Urine Bilirubin NEGATIVE (NEGATIVE) 02/04/17 13:35 Urine Urobilinogen 0.2 E.U./dL (0.2 - 1.0) 02/04/17 13:35 Ur Leukocyte Esterase NEGATIVE (NEGATIVE) 02/04/17 13:35 Urine RBC NONE SEEN /hpf (0-5) 02/04/17 13:35 Urine WBC NONE SEEN /hpf (0-5) 02/04/17 13:35 Ur Epithelial Cells NONE SEEN /lpf (FEW) 02/04/17 13:35 Urine Bacteria NONE SEEN /hpf (NONE SEEN) 02/04/17 13:35 Salicylates < 25.0 mg/L (30.0-100.0) L 02/04/17 14:21 Urine Opiates Screen NEGATIVE (NEGATIVE) 02/04/17 13:35 Urine Methadone Screen NEGATIVE (NEGATIVE) 02/04/17 13:35 Acetaminophen < 10.0 ug/mL (10.0-30.0) L 02/04/17 14:21 Ur Barbiturates Screen NEGATIVE (NEGATIVE) 02/04/17 13:35 Ur Tricyclics Screen NEGATIVE (NEGATIVE) 02/04/17 13:35 Ur Phencyclidine Scrn NEGATIVE (NEGATIVE) 02/04/17 13:35 Amphetamines Screen NEGATIVE (NEGATIVE) 02/04/17 13:35 U Methamphetamines Scrn NEGATIVE (NEGATIVE) 02/04/17 13:35 U Benzodiazepines Scrn NEGATIVE (NEGATIVE) 02/04/17 13:35 U Cocaine Metab Screen NEGATIVE (NEGATIVE) 02/04/17 13:35 U Cannabinoids Screen NEGATIVE (NEGATIVE) 02/04/17 13:35 Ethyl Alcohol < 10 mg/dL (0-10) 02/04/17 14:21 RPR NONREACTIVE (NONREACTIVE) 02/04/17 14:21 - Physical Exam Vitals and I&O: Vital Signs Temp 97.2 F 02/12/17 00:59 Pulse 98 02/12/17 00:59 Resp 20 02/12/17 00:59 BP 139/77 02/12/17 00:59 Pulse Ox 97 02/12/17 00:59 Intake & Output 02/11/17 02/12/17 02/12/17 18:59 06:59 18:59 Intake Total 1100 Balance 1100 Intake: Oral 1100 Other: # Voids 4 # Bowel Movements 1 Active Medications: Current Medications Acetaminophen (Tylenol) 650 mg PO Q4HR PRN PRN Reason: Pain Stop: 04/05/17 20:19 Aripiprazole (Abilify) 10 mg PO DAILY KALIA PRN Reason: Protocol Stop: 04/09/17 12:06 Last Admin: 02/11/17 08:25 Dose: 10 mg Captopril (Capoten 25 Mg Tab) 25 mg PO DAILY KALIA Stop: 04/06/17 08:59 Last Admin: 02/11/17 08:25 Dose: 25 mg Docusate Sodium (Colace) 100 mg PO BID KALIA Stop: 04/06/17 08:59 Last Admin: 02/11/17 16:18 Dose: 100 mg Donepezil HCl (Aricept) 10 mg PO HS KALIA Stop: 04/05/17 20:59 Last Admin: 02/11/17 20:54 Dose: 10 mg Ferrous Sulfate (Iron) 325 mg PO DAILY KALIA Stop: 04/06/17 08:59 Last Admin: 02/11/17 08:26 Dose: 325 mg Furosemide (Lasix) 40 mg PO DAILY KALIA Stop: 04/06/17 08:59 Last Admin: 02/11/17 08:25 Dose: 40 mg Lorazepam (Ativan) 1 mg PO Q6H PRN; Protocol PRN Reason: Anxiety/Agitation Stop: 04/05/17 20:14 Last Admin: 02/11/17 20:54 Dose: 1 mg Magnesium Hydroxide (Milk Of Magnesia) 30 ml PO DAILY PRN PRN Reason: Constipation Stop: 04/05/17 20:19 Memantine (Namenda) 5 mg PO DAILY KALIA Stop: 04/11/17 08:59 Last Admin: 02/11/17 08:25 Dose: 5 mg Metformin HCl (Glucophage) 500 mg PO TIDWM KALIA Stop: 04/06/17 07:59 Last Admin: 02/11/17 16:18 Dose: 500 mg Sodium Chloride (Nacl Tab) 1 gm PO DAILY KALIA Stop: 04/09/17 08:59 Last Admin: 02/11/17 08:26 Dose: 1 gm Zolpidem Tartrate (Ambien) 5 mg PO HS PRN PRN Reason: Insomnia Stop: 04/05/17 20:14 Last Admin: 02/11/17 20:54 Dose: 5 mg General: Alert, No acute distress HEENT: no Atraumatic (There is a small laceration in back of head) Neck: Supple Cardiovascular: Regular rate Lungs: Clear to auscultation Abdomen: Bowel sounds, Soft Extremities: Other (No edema) Neurological: Normal gait Skin: Other (Warm and dry) Psych/Mental Status: Other (Confused, not oriented) - Procedures Procedures: Procedures Procedure Code Date GROUP PSYCHOTHERAPY 85366 04/25/15 GROUP PSYCHOTHERAPY GZHZZZZ 04/25/15 OTHER GROUP THERAPY 94.44 11/08/14 Assessment/Plan - Problem List Patient Problems: All Active Problems INCREASED AGGRESIVE BEHAVIOR WITH AGITAI (Acute) Bipolar disorder (Acute) Dementia (Acute) F03.90 Depressive disorder (Acute) F32.9 Diabetes mellitus (Acute) E11.9 Hypertension (Acute) I10 Hyposmolality and/or hyponatremia (Acute) E87.1 INAPPROPRIATE BEHAVIOR (Acute 04/25/15) Psychosis (Acute) F29 - Assessment Assessment: Current Active Problems Problem Status Onset INCREASED AGGRESIVE BEHAVIOR WITH AGITAI Acute Patient is awake, alert, calm, not oriented. Last antonio was found in the floor but he can not explain what happen, he continue with inappropriate sexual behavior. Dx: Increased in agitation, HT, DM, CHF, Hypothyroidism, Dementia - Plan Plan: Patient follow by psychiatry, Na tabs are added. Will continue with SNF meds. Nutritional Asmnt/Malnutr-PDOC - Dietary Evaluation Malnutrition Findings (Please click <Entered> for more info): Nutritional Asmnt/Malnutrition Start: 02/05/17 16: 01 Text: Status: Complete Freq: Document 02/05/17 16:02 GSUN (Rec: 02/05/17 16:15 [email or web address]) Nutritional Asmnt/Malnutrition Patient General Information Nutritional Screening High Risk Screening Diagnosis Mood disorder NOS, impulse control disorder NOS, dementia Pertinent Medical Hx/Surgical Hx CHF, HTN, dementia, psychosis, DM Subjective Information 81 year old male from SNF. Pt is ambulatory. Spoke to RN SOFYA Heredia stated pt may have inappropriate behaviors, eating well, no nutritinoal concerns. Spoke to pt during meal time in chair in rec room . No difficulties chewing/ swallowing noted. Teeth intact . Pt selectively resposnes, unable to provide full nutrition hx. Pt stated good appetite. Pt appeared overweight, no muscle fat wasting noted. Current Diet Order/ Nutrition Support Regular Pertinent Medications Colace, Iron, Lasix, MOM, Glucophage Pertinent Labs 02/04: glucose 222H, A1c 8.2H, triglycerides 277H, AST 73H, ALT 157H, alkaline phosphatase 126H Nutritional Hx/Data Height 1.75 m Height (Calculated Centimeters) 175.3 Current Weight (lbs) 104.326 kg Weight (Calculated Kilograms) 104.3 Weight (Calculated Grams) 110852.2 [place] Body Weight 160 Weight Status Obese GI Symptoms Usual diet at home [place] SNF: [facility] Skin Integrity/Comment: Marc 17. Skin intact. Estimated Nutritional Goals BEE in Kcals: Adj wt of IBW Calories/Kcals/Kg AdjBW 177.5lb/80.7kg Kcals Calculated 2018-2421kcal (25-30kcal/kg) Protein: Adj wt of IBW Protein Calculated 81g (1g/kg) Fluid: ml 2018-2421ml (1ml/kcal) Nutritional Problem 1. Problem Problem Altered nutrition related laboratory values related to Etiology DM aeb Signs/Symptoms: A1c 8.2, glucose 222H Intervention/Recommendation Comments 1. Recommend [id number] with double portion vegetables. Expected Outcomes/Goals Expected Outcomes/Goals 1. PO intake to meet at least 75% of estimated nutritinoal needs.
--- NOTE | 2017-02-12 09:02 | Diagnostic Imaging Report ---
Skull series (2 views) HISTORY: Headache, trauma No acute abnormalities. No fractures. No abnormal calcifications. IMPRESSION: 1. No acute bony abnormalities
--- NOTE | 2017-02-12 12:10 | Progress Notes ---
DATE: 02/12/2017 The case was discussed with staff of the patient. The patient was on a Carie chair today. Apparently, he was found on the floor and there were some cuts to his scalp and the medical doctor was informed, then ordered an x-ray for the patient and took care of it. The patient has been confused, demented, is still acting inappropriate sexually. Continues to be unable to make safe plan for self-care. Continues to be unpredictable, impulsive, needing redirection. No side effects to the medication, no sedation, no nausea and we will continue to work with the patient in group therapy, milieu therapy, adjust medication as needed. JOB# [id number]
[2017-02-13] MEDS: Ferrous Sulfate 325 MG TAB PO SCH (08:30)
[2017-02-13] MEDS: Multivitamin w/ Minerals Tab PO SCH (08:31)
--- NOTE | 2017-02-13 13:45 | General Progress Note ---
Subjective - Review of Systems Service Date: 02/13/17 Subjective: I want go home Objective - Results Result Diagrams: 02/07/17 07:28 02/07/17 07:28 Recent Labs: Laboratory Last Values WBC 7.3 Th/cmm (4.8-10.8) D 02/07/17 07:28 RBC 4.22 Mil/cmm (3.80-5.80) 02/07/17 07:28 Hgb 13.5 gm/dL (12-16) 02/07/17 07:28 Hct 39.3 % (41.0-60) L 02/07/17 07:28 MCV 93.2 fl (80-99) 02/07/17 07:28 MCH 32.0 pg (27.0-31.0) H 02/07/17 07:28 MCHC Differential 34.3 pg (28.0-36.0) 02/07/17 07:28 RDW 11.8 % (11.5-20.0) 02/07/17 07:28 Plt Count 234 Th/cmm (150-400) 02/07/17 07:28 MPV 7.5 fl 02/07/17 07:28 Neutrophils % 69.8 % (40.0-80.0) 02/07/17 07:28 Lymphocytes % 17.2 % (20.0-50.0) L 02/07/17 07:28 Monocytes % 8.6 % (2.0-10.0) 02/07/17 07:28 Eosinophils % 4.0 % (0.0-5.0) 02/07/17 07:28 Basophils % 0.4 % (0.0-2.0) 02/07/17 07:28 Sodium 128 mEq/L (136-145) L 02/07/17 07:28 Potassium 3.9 mEq/L (3.5-5.1) 02/07/17 07:28 Chloride 93 mEq/L (98-107) L 02/07/17 07:28 Carbon Dioxide 28.8 mEq/L (21.0-31.0) 02/07/17 07:28 Anion Gap 10.1 (7.0-16.0) 02/07/17 07:28 BUN 7 mg/dL (7-25) 02/07/17 07:28 Creatinine 0.7 mg/dL (0.7-1.3) 02/07/17 07:28 Est GFR ( Amer) TNP 02/07/17 07:28 Est GFR (Non-Af Amer) TNP 02/07/17 07:28 BUN/Creatinine Ratio 10.0 02/07/17 07:28 Glucose 217 mg/dL (70-105) H 02/07/17 07:28 POC Glucose 192 MG/DL (70 - 105) H 02/10/17 16:07 Hemoglobin A1c % 8.2 % (4.0-6.0) H 02/04/17 14:21 Calcium 8.9 mg/dL (8.6-10.3) 02/07/17 07:28 Total Bilirubin 0.6 mg/dL (0.3-1.0) 02/07/17 07:28 AST 12 U/L (13-39) L 02/07/17 07:28 ALT 51 U/L (7-52) 02/07/17 07:28 Alkaline Phosphatase 95 U/L (34-104) 02/07/17 07:28 Total Protein 6.5 gm/dL (6.0-8.3) 02/07/17 07:28 Albumin 3.7 gm/dL (4.2-5.5) L 02/07/17 07:28 Globulin 2.8 gm/dL 02/07/17 07:28 Albumin/Globulin Ratio 1.3 (1.0-1.8) 02/07/17 07:28 Triglycerides 277 mg/dL (<150) H 02/04/17 14:21 Cholesterol 165 mg/dL (<200) 02/04/17 14:21 LDL Cholesterol Direct 101 mg/dL (75-193) 02/04/17 14:21 HDL Cholesterol 37 mg/dL (23-92) 02/04/17 14:21 TSH 2.09 uIU/ml (0.34-5.60) 02/04/17 14:21 Urine Source CLEAN C 02/04/17 13:35 Urine Color YELLOW 02/04/17 13:35 Urine Clarity CLEAR (CLEAR) 02/04/17 13:35 Urine pH 5.5 (4.6 - 8.0) 02/04/17 13:35 Ur Specific [place] <= 1.005 (1.005-1.030) 02/04/17 13:35 Urine Protein NEGATIVE mg/dL (NEGATIVE) 02/04/17 13:35 Urine Glucose (UA) NEGATIVE mg/dL (NEGATIVE) 02/04/17 13:35 Urine Ketones NEGATIVE mg/dL (NEGATIVE) 02/04/17 13:35 Urine Blood NEGATIVE (NEGATIVE) 02/04/17 13:35 Urine Nitrate NEGATIVE (NEGATIVE) 02/04/17 13:35 Urine Bilirubin NEGATIVE (NEGATIVE) 02/04/17 13:35 Urine Urobilinogen 0.2 E.U./dL (0.2 - 1.0) 02/04/17 13:35 Ur Leukocyte Esterase NEGATIVE (NEGATIVE) 02/04/17 13:35 Urine RBC NONE SEEN /hpf (0-5) 02/04/17 13:35 Urine WBC NONE SEEN /hpf (0-5) 02/04/17 13:35 Ur Epithelial Cells NONE SEEN /lpf (FEW) 02/04/17 13:35 Urine Bacteria NONE SEEN /hpf (NONE SEEN) 02/04/17 13:35 Salicylates < 25.0 mg/L (30.0-100.0) L 02/04/17 14:21 Urine Opiates Screen NEGATIVE (NEGATIVE) 02/04/17 13:35 Urine Methadone Screen NEGATIVE (NEGATIVE) 02/04/17 13:35 Acetaminophen < 10.0 ug/mL (10.0-30.0) L 02/04/17 14:21 Ur Barbiturates Screen NEGATIVE (NEGATIVE) 02/04/17 13:35 Ur Tricyclics Screen NEGATIVE (NEGATIVE) 02/04/17 13:35 Ur Phencyclidine Scrn NEGATIVE (NEGATIVE) 02/04/17 13:35 Amphetamines Screen NEGATIVE (NEGATIVE) 02/04/17 13:35 U Methamphetamines Scrn NEGATIVE (NEGATIVE) 02/04/17 13:35 U Benzodiazepines Scrn NEGATIVE (NEGATIVE) 02/04/17 13:35 U Cocaine Metab Screen NEGATIVE (NEGATIVE) 02/04/17 13:35 U Cannabinoids Screen NEGATIVE (NEGATIVE) 02/04/17 13:35 Ethyl Alcohol < 10 mg/dL (0-10) 02/04/17 14:21 RPR NONREACTIVE (NONREACTIVE) 02/04/17 14:21 - Physical Exam Vitals and I&O: Vital Signs Temp 98.1 F 02/13/17 06:52 Pulse 83 02/13/17 08:31 Resp 20 02/13/17 06:52 BP 153/87 02/13/17 08:32 Pulse Ox 97 02/13/17 06:52 Intake & Output 02/12/17 02/13/17 02/13/17 18:59 06:59 18:59 Intake Total 1200 240 Output Total 6 Balance 1194 240 Intake: Oral 1200 240 Output: Urine 4 Stool 2 Other: # Voids 1 Active Medications: Current Medications Acetaminophen (Tylenol) 650 mg PO Q4HR PRN PRN Reason: Pain Stop: 04/05/17 20:19 Aripiprazole (Abilify) 10 mg PO DAILY KALIA PRN Reason: Protocol Stop: 04/09/17 12:06 Last Admin: 02/13/17 08:31 Dose: 10 mg Captopril (Capoten 25 Mg Tab) 25 mg PO DAILY KALIA Stop: 04/06/17 08:59 Last Admin: 02/13/17 08:31 Dose: 25 mg Docusate Sodium (Colace) 100 mg PO BID KALIA Stop: 04/06/17 08:59 Last Admin: 02/13/17 08:30 Dose: 100 mg Donepezil HCl (Aricept) 10 mg PO HS KALIA Stop: 04/05/17 20:59 Last Admin: 02/12/17 21:13 Dose: 10 mg Ferrous Sulfate (Iron) 325 mg PO DAILY KALIA Stop: 04/06/17 08:59 Last Admin: 02/13/17 08:30 Dose: 325 mg Furosemide (Lasix) 40 mg PO DAILY KALIA Stop: 04/06/17 08:59 Last Admin: 02/13/17 08:32 Dose: 40 mg Insulin Aspart (Novolog Insulin Sliding Scale) 0 units SUBQ BID KALIA PRN Reason: Protocol Stop: 04/14/17 16:59 Lorazepam (Ativan) 1 mg PO Q6H PRN; Protocol PRN Reason: Anxiety/Agitation Stop: 04/05/17 20:14 Last Admin: 02/13/17 12:00 Dose: 1 mg Magnesium Hydroxide (Milk Of Magnesia) 30 ml PO DAILY PRN PRN Reason: Constipation Stop: 04/05/17 20:19 Memantine (Namenda) 5 mg PO DAILY KALIA Stop: 04/11/17 08:59 Last Admin: 02/13/17 08:31 Dose: 5 mg Metformin HCl (Glucophage) 500 mg PO TIDWM KALIA Stop: 04/06/17 07:59 Last Admin: 02/13/17 12:00 Dose: 500 mg Sodium Chloride (Nacl Tab) 1 gm PO DAILY KALIA Stop: 04/09/17 08:59 Last Admin: 02/13/17 08:30 Dose: 1 gm Zolpidem Tartrate (Ambien) 5 mg PO HS PRN PRN Reason: Insomnia Stop: 04/05/17 20:14 Last Admin: 02/12/17 21:13 Dose: 5 mg General: Alert, No acute distress HEENT: no Atraumatic (There is a small laceration in back of head) Neck: Supple Cardiovascular: Regular rate Lungs: Clear to auscultation Abdomen: Bowel sounds, Soft Extremities: Other (No edema) Neurological: Other (Unstable gait) Skin: Other (Warm and dry) Psych/Mental Status: Other (Confused, not oriented) - Procedures Procedures: Procedures Procedure Code Date GROUP PSYCHOTHERAPY 80495 04/25/15 GROUP PSYCHOTHERAPY GZHZZZZ 04/25/15 OTHER GROUP THERAPY 94.44 11/08/14 Assessment/Plan - Problem List Patient Problems: All Active Problems INCREASED AGGRESIVE BEHAVIOR WITH AGITAI (Acute) Bipolar disorder (Acute) Dementia (Acute) F03.90 Depressive disorder (Acute) F32.9 Diabetes mellitus (Acute) E11.9 Hypertension (Acute) I10 Hyposmolality and/or hyponatremia (Acute) E87.1 INAPPROPRIATE BEHAVIOR (Acute 04/25/15) Psychosis (Acute) F29 - Assessment Assessment: Current Active Problems Problem Status Onset INCREASED AGGRESIVE BEHAVIOR WITH AGITAI Acute Patient is awake, alert, calm, not oriented. Patient showing unstable gait. head X-ray was normal. Dx: Increased in agitation, HT, DM, CHF, Hypothyroidism , Dementia - Plan Plan: Patient follow by psychiatry, Na tabs are added. Labs requested. Will continue with SNF meds. Nutritional Asmnt/Malnutr-PDOC - Dietary Evaluation Malnutrition Findings (Please click <Entered> for more info): Nutritional Asmnt/Malnutrition Start: 02/05/17 16: 01 Text: Status: Complete Freq: Document 02/05/17 16:02 GSUN (Rec: 02/05/17 16:15 JOSE [email or web address]) Nutritional Asmnt/Malnutrition Patient General Information Nutritional Screening High Risk Diagnosis Mood disorder NOS, impulse control disorder NOS, dementia Pertinent Medical Hx/Surgical Hx CHF, HTN, dementia, psychosis, DM Subjective Information 81 year old male from SNF. Pt is ambulatory. Spoke to RN SOFYA Heredia stated pt may have inappropriate behaviors, eating well, no nutritinoal concerns. Spoke to pt during meal time in chair in rec room . No difficulties chewing/ swallowing noted. Teeth intact . Pt selectively resposnes, unable to provide full nutrition hx. Pt stated good appetite. Pt appeared overweight, no muscle fat wasting noted. Current Diet Order/ Nutrition Support Regular Pertinent Medications Colace, Iron, Lasix, MOM, Glucophage Pertinent Labs 02/04: glucose 222H, A1c 8.2H, triglycerides 277H, AST 73H, ALT 157H, alkaline phosphatase 126H Nutritional Hx/Data Height 1.75 m Height (Calculated Centimeters) 175.3 Current Weight (lbs) 104.326 kg Weight (Calculated Kilograms) 104.3 Weight (Calculated Grams) 823775.2 [place] Body Weight 160 Weight Status Obese GI Symptoms Usual diet at home [place] [facility]F: [facility] Skin Integrity/Comment: Marc 17. Skin intact. Estimated Nutritional Goals BEE in Kcals: Adj wt of IBW Calories/Kcals/Kg AdjBW 177.5lb/80.7kg Kcals Calculated 2018-2421kcal (25-30kcal/kg) Protein: Adj wt of IBW Protein Calculated 81g (1g/kg) Fluid: ml 2018-2421ml (1ml/kcal) Nutritional Problem 1. Problem Problem Altered nutrition related laboratory values related to Etiology DM aeb Signs/Symptoms: A1c 8.2, glucose 222H Intervention/Recommendation Comments 1. Recommend [id number] with double portion vegetables. Expected Outcomes/Goals Expected Outcomes/Goals 1. PO intake to meet at least 75% of estimated nutritinoal needs.
[2017-02-13] MEDS ORDERED: INSULIN ASPART SLIDING SCALE 100 UNITS/ML UNIT SUBQ SCH (17:00)
[2017-02-14 06:22] LABS: MEAN CELL VOLUME 94.6 fl (80-99); MEAN CORPUSCULAR HEMOGLOBIN 32.1 pg (27.0-31.0); RED BLOOD COUNT 4.66 Mil/cmm (3.80-5.80); RED CELL DISTRIBUTION WIDTH 12.2 % (11.5-20.0)
[2017-02-14 06:29] LABS: WHITE BLOOD COUNT 13.9 Th/cmm (4.8-10.8)
[2017-02-14 06:30] LABS: HEMATOCRIT 44.1 % (41.0-60)
[2017-02-14] MEDS: INSULIN ASPART SLIDING SCALE 100 UNITS/ML UNIT SUBQ SCH ×2 (06:31→16:05)
[2017-02-14 06:38] LABS: ALB/GLOB RATIO 1.3 (1.0-1.8); ALKALINE PHOSPHATASE 96 U/L (34-104); ANION GAP 10.5 (7.0-16.0); BILIRUBIN,TOTAL 1.3 mg/dL (0.3-1.0); BUN - UREA NITROGEN 13 mg/dL (7-25); BUN/CREATININE RATIO 18.6; CALCIUM SERUM 9.7 mg/dL (8.6-10.3); CARBON DIOXIDE 29.1 mEq/L (21.0-31.0); CHLORIDE 95 mEq/L (98-107); CREATININE - SERUM 0.7 mg/dL (0.7-1.3); GLUCOSE 179 mg/dL; POTASSIUM SERUM 4.6 mEq/L (3.5-5.1); SGOT 136 U/L (13-39); SGPT/ALT 89 U/L (7-52); SODIUM SERUM 130 mEq/L (136-145)
[2017-02-14 07:08] LABS: BAND NEUTROPHILE 5 % (0-10); NEUTROPHILS 73 % (40-80); PLATELET COUNT 310 Th/cmm (150-400); TOTAL CELLS COUNTED 100
[2017-02-14] MEDS ORDERED: INSULIN ASPART SLIDING SCALE 100 UNITS/ML UNIT SUBQ SCH (07:30)
[2017-02-14] MEDS: Ferrous Sulfate 325 MG TAB PO SCH (08:17)
[2017-02-14] MEDS: Multivitamin w/ Minerals Tab PO SCH (08:19)
--- NOTE | 2017-02-14 09:51 | Diagnostic Imaging Report ---
CHEST X-RAY: AP view INDICATION: Elevated white blood cell count COMPARISON: 07/01/2016 FINDINGS: There is no focal consolidation or pleural effusions The heart is normal in size. Atherosclerosis of the aortic arch is noted. Degenerative changes of the spine are noted. IMPRESSION: No focal airspace consolidation identified.
--- NOTE | 2017-02-14 14:03 | General Progress Note ---
Subjective - Review of Systems Service Date: 02/14/17 Subjective: I want go home Objective - Results Result Diagrams: 02/14/17 06:06 02/14/17 06:06 Recent Labs: Laboratory Last Values WBC 13.9 Th/cmm (4.8-10.8) H D 02/14/17 06:06 RBC 4.66 Mil/cmm (3.80-5.80) 02/14/17 06:06 Hgb 15.0 gm/dL (12-16) 02/14/17 06:06 Hct 44.1 % (41.0-60) D 02/14/17 06:06 MCV 94.6 fl (80-99) 02/14/17 06:06 MCH 32.1 pg (27.0-31.0) H 02/14/17 06:06 MCHC Differential 34.0 pg (28.0-36.0) 02/14/17 06:06 RDW 12.2 % (11.5-20.0) 02/14/17 06:06 Plt Count 310 Th/cmm (150-400) D 02/14/17 06:06 MPV 8.0 fl 02/14/17 06:06 Neutrophils % 69.8 % (40.0-80.0) 02/07/17 07:28 Band Neutrophils % 5 % (0-10) 02/14/17 06:06 Lymphocytes % 17.2 % (20.0-50.0) L 02/07/17 07:28 Monocytes % 8.6 % (2.0-10.0) 02/07/17 07:28 Eosinophils % 4.0 % (0.0-5.0) 02/07/17 07:28 Basophils % 0.4 % (0.0-2.0) 02/07/17 07:28 Neutrophils (Manual) 73 % (40-80) 02/14/17 06:06 Lymphocytes 15 % (20-50) L 02/14/17 06:06 Monocytes 7 % (2-10) 02/14/17 06:06 Sodium 130 mEq/L (136-145) L 02/14/17 06:06 Potassium 4.6 mEq/L (3.5-5.1) 02/14/17 06:06 Chloride 95 mEq/L (98-107) L 02/14/17 06:06 Carbon Dioxide 29.1 mEq/L (21.0-31.0) 02/14/17 06:06 Anion Gap 10.5 (7.0-16.0) 02/14/17 06:06 BUN 13 mg/dL (7-25) 02/14/17 06:06 Creatinine 0.7 mg/dL (0.7-1.3) 02/14/17 06:06 Est GFR ( Amer) TNP 02/14/17 06:06 Est GFR (Non-Af Amer) TNP 02/14/17 06:06 BUN/Creatinine Ratio 18.6 02/14/17 06:06 Glucose 179 mg/dL 02/14/17 06:06 POC Glucose 169 MG/DL (70 - 105) H 02/14/17 06:08 Hemoglobin A1c % 8.2 % (4.0-6.0) H 02/04/17 14:21 Calcium 9.7 mg/dL (8.6-10.3) 02/14/17 06:06 Total Bilirubin 1.3 mg/dL (0.3-1.0) H 02/14/17 06:06 AST 136 U/L (13-39) H 02/14/17 06:06 ALT 89 U/L (7-52) H 02/14/17 06:06 Alkaline Phosphatase 96 U/L (34-104) 02/14/17 06:06 Total Protein 7.3 gm/dL (6.0-8.3) 02/14/17 06:06 Albumin 4.1 gm/dL (4.2-5.5) L 02/14/17 06:06 Globulin 3.2 gm/dL 02/14/17 06:06 Albumin/Globulin Ratio 1.3 (1.0-1.8) 02/14/17 06:06 Triglycerides 277 mg/dL (<150) H 02/04/17 14:21 Cholesterol 165 mg/dL (<200) 02/04/17 14:21 LDL Cholesterol Direct 101 mg/dL (75-193) 02/04/17 14:21 HDL Cholesterol 37 mg/dL (23-92) 02/04/17 14:21 TSH 2.88 uIU/ml (0.34-5.60) 02/14/17 06:06 Urine Source CLEAN C 10/26/17 13:35 Urine Color YELLOW 02/04/17 13:35 Urine Clarity CLEAR (CLEAR) 02/04/17 13:35 Urine pH 5.5 (4.6 - 8.0) 02/04/17 13:35 Ur Specific [place] <= 1.005 (1.005-1.030) 02/04/17 13:35 Urine Protein NEGATIVE mg/dL (NEGATIVE) 02/04/17 13:35 Urine Glucose (UA) NEGATIVE mg/dL (NEGATIVE) 02/04/17 13:35 Urine Ketones NEGATIVE mg/dL (NEGATIVE) 02/04/17 13:35 Urine Blood NEGATIVE (NEGATIVE) 02/04/17 13:35 Urine Nitrate NEGATIVE (NEGATIVE) 02/04/17 13:35 Urine Bilirubin NEGATIVE (NEGATIVE) 02/04/17 13:35 Urine Urobilinogen 0.2 E.U./dL (0.2 - 1.0) 02/04/17 13:35 Ur Leukocyte Esterase NEGATIVE (NEGATIVE) 02/04/17 13:35 Urine RBC NONE SEEN /hpf (0-5) 02/04/17 13:35 Urine WBC NONE SEEN /hpf (0-5) 02/04/17 13:35 Ur Epithelial Cells NONE SEEN /lpf (FEW) 02/04/17 13:35 Urine Bacteria NONE SEEN /hpf (NONE SEEN) 02/04/17 13:35 Salicylates < 25.0 mg/L (30.0-100.0) L 02/04/17 14:21 Urine Opiates Screen NEGATIVE (NEGATIVE) 02/04/17 13:35 Urine Methadone Screen NEGATIVE (NEGATIVE) 02/04/17 13:35 Acetaminophen < 10.0 ug/mL (10.0-30.0) L 02/04/17 14:21 Ur Barbiturates Screen NEGATIVE (NEGATIVE) 02/04/17 13:35 Ur Tricyclics Screen NEGATIVE (NEGATIVE) 02/04/17 13:35 Ur Phencyclidine Scrn NEGATIVE (NEGATIVE) 02/04/17 13:35 Amphetamines Screen NEGATIVE (NEGATIVE) 02/04/17 13:35 U Methamphetamines Scrn NEGATIVE (NEGATIVE) 02/04/17 13:35 U Benzodiazepines Scrn NEGATIVE (NEGATIVE) 02/04/17 13:35 U Cocaine Metab Screen NEGATIVE (NEGATIVE) 02/04/17 13:35 U Cannabinoids Screen NEGATIVE (NEGATIVE) 02/04/17 13:35 Ethyl Alcohol < 10 mg/dL (0-10) 02/04/17 14:21 RPR NONREACTIVE (NONREACTIVE) 02/04/17 14:21 - Physical Exam Vitals and I&O: Vital Signs Temp 97.6 F 02/13/17 20:55 Pulse 84 02/14/17 08:20 Resp 17 02/13/17 20:55 BP 140/84 02/14/17 08:20 Pulse Ox 98 02/13/17 20:55 Intake & Output 02/13/17 02/14/17 02/14/17 19:59 06:59 18:59 Intake Total Balance Intake: Oral Other: # Voids # Bowel Movements Active Medications: Current Medications Acetaminophen (Tylenol) 650 mg PO Q4HR PRN PRN Reason: Pain Stop: 04/05/17 20:19 Aripiprazole (Abilify) 10 mg PO DAILY KALIA PRN Reason: Protocol Stop: 04/09/17 12:06 Last Admin: 02/14/17 08:19 Dose: 10 mg Captopril (Capoten 25 Mg Tab) 25 mg PO DAILY KALIA Stop: 04/06/17 08:59 Last Admin: 02/14/17 08:20 Dose: 25 mg Docusate Sodium (Colace) 100 mg PO BID KALIA Stop: 04/06/17 08:59 Last Admin: 02/14/17 08:19 Dose: 100 mg Donepezil HCl (Aricept) 10 mg PO HS KALIA Stop: 04/05/17 20:59 Last Admin: 02/13/17 20:42 Dose: 10 mg Ferrous Sulfate (Iron) 325 mg PO DAILY KALIA Stop: 04/06/17 08:59 Last Admin: 02/14/17 08:17 Dose: 325 mg Furosemide (Lasix) 40 mg PO DAILY KALIA Stop: 04/06/17 08:59 Last Admin: 02/14/17 08:18 Dose: 40 mg Insulin Aspart (Novolog Insulin Sliding Scale) 0 units SUBQ BIDAC KALIA PRN Reason: Protocol Stop: 04/15/17 07:29 Last Admin: 02/14/17 06:31 Dose: 2 units Lorazepam (Ativan) 1 mg PO Q6H PRN; Protocol PRN Reason: Anxiety/Agitation Stop: 04/05/17 20:14 Last Admin: 02/13/17 20:41 Dose: 1 mg Magnesium Hydroxide (Milk Of Magnesia) 30 ml PO DAILY PRN PRN Reason: Constipation Stop: 04/05/17 20:19 Memantine (Namenda) 5 mg PO DAILY KALIA Stop: 04/11/17 08:59 Last Admin: 02/14/17 08:18 Dose: 5 mg Metformin HCl (Glucophage) 500 mg PO TIDWM KALIA Stop: 04/06/17 07:59 Last Admin: 02/14/17 12:10 Dose: 500 mg Sodium Chloride (Nacl Tab) 1 gm PO DAILY KALIA Stop: 04/09/17 08:59 Last Admin: 02/14/17 08:17 Dose: 1 gm Zolpidem Tartrate (Ambien) 5 mg PO HS PRN PRN Reason: Insomnia Stop: 04/05/17 20:14 Last Admin: 02/13/17 20:41 Dose: 5 mg General: Alert, No acute distress HEENT: no Atraumatic (There is a small laceration in back of head) Neck: Supple Cardiovascular: Regular rate Lungs: Clear to auscultation Abdomen: Bowel sounds, Soft Extremities: Other (No edema) Neurological: Other (Unstable gait) Skin: Other (Warm and dry) Psych/Mental Status: Other (Confused, not oriented) - Procedures Procedures: Procedures Procedure Code Date GROUP PSYCHOTHERAPY 54557 04/25/15 GROUP PSYCHOTHERAPY GZHZZZZ 04/25/15 OTHER GROUP THERAPY 94.44 11/08/14 Assessment/Plan - Problem List Patient Problems: All Active Problems INCREASED AGGRESIVE BEHAVIOR WITH AGITAI (Acute) Bipolar disorder (Acute) Dementia (Acute) F03.90 Depressive disorder (Acute) F32.9 Diabetes mellitus (Acute) E11.9 Hypertension (Acute) I10 Hyposmolality and/or hyponatremia (Acute) E87.1 INAPPROPRIATE BEHAVIOR (Acute 04/25/15) Psychosis (Acute) F29 - Assessment Assessment: Current Active Problems Problem Status Onset INCREASED AGGRESIVE BEHAVIOR WITH AGITAI Acute Patient is awake, alert, calm, not oriented. Patient showing unstable gait. WBC increased today. CXR was normal, Na improving. awaiting UA results. Dx: Increased in agitation, HT, DM, CHF, Hypothyroidism, Dementia - Plan Plan: Patient follow by psychiatry, Na tabs are added. Labs requested. Will continue to monitor. Nutritional Asmnt/Malnutr-PDOC - Dietary Evaluation Malnutrition Findings (Please click <Entered> for more info): Nutritional Asmnt/Malnutrition Start: 02/05/17 16: 01 Text: Status: Complete Freq: Document 02/05/17 16:02 GSUN (Rec: 02/05/17 16:15 [email or web address] [email or web address]) Nutritional Asmnt/Malnutrition Patient General Information Nutritional Screening High Risk Diagnosis Mood disorder NOS, impulse control disorder NOS, dementia Pertinent Medical Hx/Surgical Hx CHF, HTN, dementia, psychosis, DM Subjective Information 81 year old male from SNF. Pt is ambulatory. Spoke to RN SOFYA Heredia stated pt may have inappropriate behaviors, eating well, no nutritinoal concerns. Spoke to pt during meal time in chair in rec room . No difficulties chewing/ swallowing noted. Teeth intact . Pt selectively resposnes, unable to provide full nutrition hx. Pt stated good appetite. Pt appeared overweight, no muscle fat wasting noted. Current Diet Order/ Nutrition Support Regular Pertinent Medications Colace, Iron, Lasix, MOM, Glucophage Pertinent Labs 02/04: glucose 222H, A1c 8.2H, triglycerides 277H, AST 73H, ALT 157H, alkaline phosphatase 126H Nutritional Hx/Data Height 1.75 m Height (Calculated Centimeters) 175.3 Current Weight (lbs) 104.326 kg Weight (Calculated Kilograms) 104.3 Weight (Calculated Grams) 811594.2 [place] Body Weight 160 Weight Status Obese GI Symptoms Usual diet at home [place] [facility]: [facility] Skin Integrity/Comment: Marc 17. Skin intact. Estimated Nutritional Goals BEE in Kcals: Adj wt of IBW Calories/Kcals/Kg AdjBW 177.5lb/80.7kg Kcals Calculated 2018-2421kcal (25-30kcal/kg) Protein: Adj wt of IBW Protein Calculated 81g (1g/kg) Fluid: ml 2018-2421ml (1ml/kcal) Nutritional Problem 1. Problem Problem Altered nutrition related laboratory values related to Etiology DM aeb Signs/Symptoms: A1c 8.2, glucose 222H Intervention/Recommendation Comments 1. Recommend [id number] with double portion vegetables. Expected Outcomes/Goals Expected Outcomes/Goals 1. PO intake to meet at least 75% of estimated nutritinoal needs.
[2017-02-15] MEDS: INSULIN ASPART SLIDING SCALE 100 UNITS/ML UNIT SUBQ SCH ×2 (06:45→16:27)
[2017-02-15] MEDS: Ferrous Sulfate 325 MG TAB PO SCH (08:08)
[2017-02-15] MEDS: Multivitamin w/ Minerals Tab PO SCH (08:08)
--- NOTE | 2017-02-15 08:33 | General Progress Note ---
Subjective - Review of Systems Service Date: 02/15/17 Subjective: I want go home Objective - Results Result Diagrams: 02/14/17 06:06 02/14/17 06:06 Recent Labs: Laboratory Last Values WBC 13.9 Th/cmm (4.8-10.8) H D 02/14/17 06:06 RBC 4.66 Mil/cmm (3.80-5.80) 02/14/17 06:06 Hgb 15.0 gm/dL (12-16) 02/14/17 06:06 Hct 44.1 % (41.0-60) D 02/14/17 06:06 MCV 94.6 fl (80-99) 02/14/17 06:06 MCH 32.1 pg (27.0-31.0) H 02/14/17 06:06 MCHC Differential 34.0 pg (28.0-36.0) 02/14/17 06:06 RDW 12.2 % (11.5-20.0) 02/14/17 06:06 Plt Count 310 Th/cmm (150-400) D 02/14/17 06:06 MPV 8.0 fl 02/14/17 06:06 Neutrophils % 69.8 % (40.0-80.0) 02/07/17 07:28 Band Neutrophils % 5 % (0-10) 02/14/17 06:06 Lymphocytes % 17.2 % (20.0-50.0) L 02/07/17 07:28 Monocytes % 8.6 % (2.0-10.0) 02/07/17 07:28 Eosinophils % 4.0 % (0.0-5.0) 02/07/17 07:28 Basophils % 0.4 % (0.0-2.0) 02/07/17 07:28 Neutrophils (Manual) 73 % (40-80) 02/14/17 06:06 Lymphocytes 15 % (20-50) L 02/14/17 06:06 Monocytes 7 % (2-10) 02/14/17 06:06 Sodium 130 mEq/L (136-145) L 02/14/17 06:06 Potassium 4.6 mEq/L (3.5-5.1) 02/14/17 06:06 Chloride 95 mEq/L (98-107) L 02/14/17 06:06 Carbon Dioxide 29.1 mEq/L (21.0-31.0) 02/14/17 06:06 Anion Gap 10.5 (7.0-16.0) 02/14/17 06:06 BUN 13 mg/dL (7-25) 02/14/17 06:06 Creatinine 0.7 mg/dL (0.7-1.3) 02/14/17 06:06 Est GFR ( Amer) TNP 02/14/17 06:06 Est GFR (Non-Af Amer) TNP 02/14/17 06:06 BUN/Creatinine Ratio 18.6 02/14/17 06:06 Glucose 179 mg/dL 02/14/17 06:06 POC Glucose 163 MG/DL (70 - 105) H 02/15/17 06:07 Hemoglobin A1c % 8.2 % (4.0-6.0) H 02/04/17 14:21 Calcium 9.7 mg/dL (8.6-10.3) 02/14/17 06:06 Total Bilirubin 1.3 mg/dL (0.3-1.0) H 02/14/17 06:06 AST 136 U/L (13-39) H 02/14/17 06:06 ALT 89 U/L (7-52) H 02/14/17 06:06 Alkaline Phosphatase 96 U/L (34-104) 02/14/17 06:06 Total Protein 7.3 gm/dL (6.0-8.3) 02/14/17 06:06 Albumin 4.1 gm/dL (4.2-5.5) L 02/14/17 06:06 Globulin 3.2 gm/dL 02/14/17 06:06 Albumin/Globulin Ratio 1.3 (1.0-1.8) 02/14/17 06:06 Triglycerides 277 mg/dL (<150) H 02/04/17 14:21 Cholesterol 165 mg/dL (<200) 02/04/17 14:21 LDL Cholesterol Direct 101 mg/dL (75-193) 02/04/17 14:21 HDL Cholesterol 37 mg/dL (23-92) 02/04/17 14:21 TSH 2.88 uIU/ml (0.34-5.60) 02/14/17 06:06 Urine Source CLEAN C 10/26/17 13:35 Urine Color YELLOW 02/04/17 13:35 Urine Clarity CLEAR (CLEAR) 02/04/17 13:35 Urine pH 5.5 (4.6 - 8.0) 02/04/17 13:35 Ur Specific [place] <= 1.005 (1.005-1.030) 02/04/17 13:35 Urine Protein NEGATIVE mg/dL (NEGATIVE) 02/04/17 13:35 Urine Glucose (UA) NEGATIVE mg/dL (NEGATIVE) 02/04/17 13:35 Urine Ketones NEGATIVE mg/dL (NEGATIVE) 02/04/17 13:35 Urine Blood NEGATIVE (NEGATIVE) 02/04/17 13:35 Urine Nitrate NEGATIVE (NEGATIVE) 02/04/17 13:35 Urine Bilirubin NEGATIVE (NEGATIVE) 02/04/17 13:35 Urine Urobilinogen 0.2 E.U./dL (0.2 - 1.0) 02/04/17 13:35 Ur Leukocyte Esterase NEGATIVE (NEGATIVE) 02/04/17 13:35 Urine RBC NONE SEEN /hpf (0-5) 02/04/17 13:35 Urine WBC NONE SEEN /hpf (0-5) 02/04/17 13:35 Ur Epithelial Cells NONE SEEN /lpf (FEW) 02/04/17 13:35 Urine Bacteria NONE SEEN /hpf (NONE SEEN) 02/04/17 13:35 Salicylates < 25.0 mg/L (30.0-100.0) L 02/04/17 14:21 Urine Opiates Screen NEGATIVE (NEGATIVE) 02/04/17 13:35 Urine Methadone Screen NEGATIVE (NEGATIVE) 02/04/17 13:35 Acetaminophen < 10.0 ug/mL (10.0-30.0) L 02/04/17 14:21 Ur Barbiturates Screen NEGATIVE (NEGATIVE) 02/04/17 13:35 Ur Tricyclics Screen NEGATIVE (NEGATIVE) 02/04/17 13:35 Ur Phencyclidine Scrn NEGATIVE (NEGATIVE) 02/04/17 13:35 Amphetamines Screen NEGATIVE (NEGATIVE) 02/04/17 13:35 U Methamphetamines Scrn NEGATIVE (NEGATIVE) 02/04/17 13:35 U Benzodiazepines Scrn NEGATIVE (NEGATIVE) 02/04/17 13:35 U Cocaine Metab Screen NEGATIVE (NEGATIVE) 02/04/17 13:35 U Cannabinoids Screen NEGATIVE (NEGATIVE) 02/04/17 13:35 Ethyl Alcohol < 10 mg/dL (0-10) 02/04/17 14:21 RPR NONREACTIVE (NONREACTIVE) 02/04/17 14:21 - Physical Exam Vitals and I&O: Vital Signs Temp 97.8 F 02/14/17 20:04 Pulse 72 02/15/17 08:08 Resp 20 02/14/17 20:04 BP 143/89 02/15/17 08:08 Pulse Ox 100 02/14/17 20:04 Intake & Output 02/14/17 02/15/17 02/15/17 18:59 06:59 18:59 Intake Total 800 180 Balance 800 180 Intake: Oral 800 180 Other: # Voids 3 2 # Bowel Movements 0 0 Active Medications: Current Medications Acetaminophen (Tylenol) 650 mg PO Q4HR PRN PRN Reason: Pain Stop: 04/05/17 20:19 Aripiprazole (Abilify) 10 mg PO DAILY KALIA PRN Reason: Protocol Stop: 04/09/17 12:06 Last Admin: 02/15/17 08:09 Dose: 10 mg Captopril (Capoten 25 Mg Tab) 25 mg PO DAILY KALIA Stop: 04/06/17 08:59 Last Admin: 02/15/17 08:08 Dose: 25 mg Docusate Sodium (Colace) 100 mg PO BID KALIA Stop: 04/06/17 08:59 Last Admin: 02/15/17 08:08 Dose: 100 mg Donepezil HCl (Aricept) 10 mg PO HS KALIA Stop: 04/05/17 20:59 Last Admin: 02/14/17 20:41 Dose: 10 mg Ferrous Sulfate (Iron) 325 mg PO DAILY KALIA Stop: 04/06/17 08:59 Last Admin: 02/15/17 08:08 Dose: 325 mg Furosemide (Lasix) 40 mg PO DAILY KALIA Stop: 04/06/17 08:59 Last Admin: 02/15/17 08:08 Dose: 40 mg Insulin Aspart (Novolog Insulin Sliding Scale) 0 units SUBQ BIDAC KALIA PRN Reason: Protocol Stop: 04/15/17 07:29 Last Admin: 02/15/17 06:45 Dose: 2 units Lorazepam (Ativan) 1 mg PO Q6H PRN; Protocol PRN Reason: Anxiety/Agitation Stop: 04/05/17 20:14 Last Admin: 02/13/17 20:41 Dose: 1 mg Magnesium Hydroxide (Milk Of Magnesia) 30 ml PO DAILY PRN PRN Reason: Constipation Stop: 04/05/17 20:19 Memantine (Namenda) 5 mg PO DAILY KALIA Stop: 04/11/17 08:59 Last Admin: 02/15/17 08:09 Dose: 5 mg Metformin HCl (Glucophage) 500 mg PO TIDWM KALIA Stop: 04/06/17 07:59 Last Admin: 02/15/17 08:09 Dose: 500 mg Sodium Chloride (Nacl Tab) 1 gm PO DAILY KALIA Stop: 04/09/17 08:59 Last Admin: 02/15/17 08:09 Dose: 1 gm Zolpidem Tartrate (Ambien) 5 mg PO HS PRN PRN Reason: Insomnia Stop: 04/05/17 20:14 Last Admin: 02/13/17 20:41 Dose: 5 mg General: Alert, No acute distress HEENT: no Atraumatic (There is a small laceration in back of head) Neck: Supple Cardiovascular: Regular rate Lungs: Clear to auscultation Abdomen: Bowel sounds, Soft Extremities: Other (No edema) Neurological: Other (Unstable gait) Skin: Other (Warm and dry) Psych/Mental Status: Other (Confused, not oriented) - Procedures Procedures: Procedures Procedure Code Date GROUP PSYCHOTHERAPY 11021 04/25/15 GROUP PSYCHOTHERAPY GZHZZZZ 04/25/15 OTHER GROUP THERAPY 94.44 11/08/14 Assessment/Plan - Problem List Patient Problems: All Active Problems INCREASED AGGRESIVE BEHAVIOR WITH AGITAI (Acute) Bipolar disorder (Acute) Dementia (Acute) F03.90 Depressive disorder (Acute) F32.9 Diabetes mellitus (Acute) E11.9 Hypertension (Acute) I10 Hyposmolality and/or hyponatremia (Acute) E87.1 INAPPROPRIATE BEHAVIOR (Acute 04/25/15) Psychosis (Acute) F29 - Assessment Assessment: Current Active Problems Problem Status Onset INCREASED AGGRESIVE BEHAVIOR WITH AGITAI Acute Patient is awake, alert, calm, not oriented. Patient showing unstable gait. awaiting WBC result. Dx: Increased in agitation, HT, DM, CHF, Hypothyroidism, Dementia - Plan Plan: Patient follow by psychiatry, Na tabs are added. Labs requested. Will continue to monitor. Nutritional Asmnt/Malnutr-PDOC - Dietary Evaluation Malnutrition Findings (Please click <Entered> for more info): Nutritional Asmnt/Malnutrition Start: 02/05/17 16: 01 Text: Status: Complete Freq: Document 02/05/17 16:02 GSUN (Rec: 02/05/17 16:15 [email or web address]) Nutritional Asmnt/Malnutrition Patient General Information Nutritional Screening High Risk Diagnosis Mood disorder NOS, impulse control disorder NOS, dementia Pertinent Medical Hx/Surgical Hx CHF, HTN, dementia, psychosis, DM Subjective Information 81 year old male from SNF. Pt is ambulatory. Spoke to RN SOFYA Heredia stated pt may have inappropriate behaviors, eating well, no nutritinoal concerns. Spoke to pt during meal time in chair in rec room . No difficulties chewing/ swallowing noted. Teeth intact . Pt selectively resposnes, unable to provide full nutrition hx. Pt stated good appetite. Pt appeared overweight, no muscle fat wasting noted. Current Diet Order/ Nutrition Support Regular Pertinent Medications Colace, Iron, Lasix, MOM, Glucophage Pertinent Labs 02/04: glucose 222H, A1c 8.2H, triglycerides 277H, AST 73H, ALT 157H, alkaline phosphatase 126H Nutritional Hx/Data Height 1.75 m Height (Calculated Centimeters) 175.3 Current Weight (lbs) 104.326 kg Weight (Calculated Kilograms) 104.3 Weight (Calculated Grams) 447993.2 [place] Body Weight 160 Weight Status Obese GI Symptoms Usual diet at home [place] [facility]: [facility] Skin Integrity/Comment: Marc 17. Skin intact. Estimated Nutritional Goals BEE in Kcals: Adj wt of IBW Calories/Kcals/Kg AdjBW 177.5lb/80.7kg Kcals Calculated 2018-2421kcal (25-30kcal/kg) Protein: Adj wt of IBW Protein Calculated 81g (1g/kg) Fluid: ml 2018-2421ml (1ml/kcal) Nutritional Problem 1. Problem Problem Altered nutrition related laboratory values related to Etiology DM aeb Signs/Symptoms: A1c 8.2, glucose 222H Intervention/Recommendation Comments 1. Recommend [id number] with double portion vegetables. Expected Outcomes/Goals Expected Outcomes/Goals 1. PO intake to meet at least 75% of estimated nutritinoal needs.
[2017-02-15 09:18] LABS: % BASOPHILS 0.7 % (0.0-2.0); % EOSINOPHILS 4.5 % (0.0-5.0); % LYMPHOCYTES 19.6 % (20.0-50.0); % NEUTROPHILS 66.2 % (40.0-80.0); HEMOGLOBIN 13.3 gm/dL (12-16); MEAN CELL VOLUME 93.9 fl (80-99); MEAN CORPUSCULAR HEMOGLOBIN 32.5 pg (27.0-31.0); MEAN CORPUSCULAR HGB CONC 34.6 pg (28.0-36.0); MEAN PLATELET VOLUME 7.8 fl; NEUTROPHILE ABSOLUTE 4.8 Th/cmm (1.8-8.0)
[2017-02-15 09:23] LABS: WHITE BLOOD COUNT 7.2 Th/cmm (4.8-10.8)
[2017-02-15 09:24] LABS: HEMATOCRIT 38.5 % (41.0-60); PLATELET COUNT 247 Th/cmm (150-400)
--- NOTE | 2017-02-15 09:32 | Progress Notes ---
DATE: 02/13/2017 SUBJECTIVE: The patient was seen and evaluated. The patient's chart were reviewed. This is Dr. Hernandez covering for Dr. Guy. Overnight nursing staff reported the patient continues to be at times disorganized, needed redirection. Today on [id number] evaluation, the patient was in his room. He denies any physical pain. He reports he had a fall yesterday, which has been evaluated by medical doctor and no pain endorsed. MENTAL STATUS EXAMINATION: The patient is still noted to be slightly disorganized, needing a lot of redirection to maintain a linear conversation with still poor. insight, judgment, behavior, and inappropriate sexual behavior with other people. ASSESSMENT AND PLAN:: The patient continues with inappropriate behaviors, sexual hyperverbal, unable to formulate a safe plan outside the structured environment. Recently Abilify and Namenda were added and Augmentin respectively. We will continue with the current medication regimen as he is still needing reaching steady state. JOB# [id number]
[2017-02-15 10:31] LABS: ALB/GLOB RATIO 1.4 (1.0-1.8); ALKALINE PHOSPHATASE 80 U/L (34-104); ANION GAP 8.9 (7.0-16.0); BILIRUBIN,TOTAL 0.5 mg/dL (0.3-1.0); BUN - UREA NITROGEN 13 mg/dL (7-25); BUN/CREATININE RATIO 18.6; CALCIUM SERUM 8.8 mg/dL (8.6-10.3); CARBON DIOXIDE 27.9 mEq/L (21.0-31.0); CHLORIDE 98 mEq/L (98-107); CREATININE - SERUM 0.7 mg/dL (0.7-1.3); GLUCOSE 241 mg/dL; POTASSIUM SERUM 3.8 mEq/L (3.5-5.1); SGOT 50 U/L (13-39); SGPT/ALT 111 U/L (7-52); SODIUM SERUM 131 mEq/L (136-145)
--- NOTE | 2017-02-15 16:01 | Progress Notes ---
DATE: SUBJECTIVE: The patient was seen and evaluated. The patient's chart reviewed. This is Dr. Hernandez covering for Dr. Guy. Overnight, nursing staff reported that the patient needing a lot of redirection for simple ADLs. Today on [id number] evaluation, the patient is observed to be easily disorganized, needing a lot of redirection to maintain a linear conversation as he easily derails and incoherent and ____ at times. MENTAL STATUS EXAMINATION: Still disorganized, unpredictable, impulsive, needing a lot of redirection to keep simple ADLs ____. ASSESSMENT AND PLAN: The patient is still unpredictable, disheveled, and disorganized thought process, unable to formulate safe plan. We will continue monitoring and evaluating and continue with the current medications, treatment plan, and goals. JOB# [id number]
--- NOTE | 2017-02-15 21:08 | Progress Notes ---
DATE: 02/15/2017 Case was discussed with staff of the patient and reviewed records. The patient continues to be inappropriate sexually, continues to be impulsive, unpredictable, continues to need redirection. Continues to have poor insight, continues to need redirection. Sleeping better, eating better. He is preoccupied with discharge from the very beginning. I will be increasing his Namenda to twice a day and also increase Abilify to 15 mg a day to help with his impulsive sexually acting behavior. We will continue to work with the patient in group therapy, milieu therapy, adjust the medication as needed. JOB# [id number]
[2017-02-16] MEDS: INSULIN ASPART SLIDING SCALE 100 UNITS/ML UNIT SUBQ SCH ×2 (07:30→16:50)
--- NOTE | 2017-02-16 08:56 | General Progress Note ---
Subjective - Review of Systems Service Date: 02/16/17 Subjective: I want go home Objective - Results Result Diagrams: 02/15/17 08:55 02/15/17 08:55 Recent Labs: Laboratory Last Values WBC 7.2 Th/cmm (4.8-10.8) D 02/15/17 08:55 RBC 4.10 Mil/cmm (3.80-5.80) 02/15/17 08:55 Hgb 13.3 gm/dL (12-16) 02/15/17 08:55 Hct 38.5 % (41.0-60) L D 02/15/17 08:55 MCV 93.9 fl (80-99) 02/15/17 08:55 MCH 32.5 pg (27.0-31.0) H 02/15/17 08:55 MCHC Differential 34.6 pg (28.0-36.0) 02/15/17 08:55 RDW 12.0 % (11.5-20.0) 02/15/17 08:55 Plt Count 247 Th/cmm (150-400) D 02/15/17 08:55 MPV 7.8 fl 02/15/17 08:55 Neutrophils % 66.2 % (40.0-80.0) 02/15/17 08:55 Band Neutrophils % 5 % (0-10) 02/14/17 06:06 Lymphocytes % 19.6 % (20.0-50.0) L 02/15/17 08:55 Monocytes % 9.0 % (2.0-10.0) 02/15/17 08:55 Eosinophils % 4.5 % (0.0-5.0) 02/15/17 08:55 Basophils % 0.7 % (0.0-2.0) 02/15/17 08:55 Neutrophils (Manual) 73 % (40-80) 02/14/17 06:06 Lymphocytes 15 % (20-50) L 02/14/17 06:06 Monocytes 7 % (2-10) 02/14/17 06:06 Sodium 131 mEq/L (136-145) L 02/15/17 08:55 Potassium 3.8 mEq/L (3.5-5.1) 02/15/17 08:55 Chloride 98 mEq/L (98-107) 02/15/17 08:55 Carbon Dioxide 27.9 mEq/L (21.0-31.0) 02/15/17 08:55 Anion Gap 8.9 (7.0-16.0) 02/15/17 08:55 BUN 13 mg/dL (7-25) 02/15/17 08:55 Creatinine 0.7 mg/dL (0.7-1.3) 02/15/17 08:55 Est GFR ( Amer) TNP 02/15/17 08:55 Est GFR (Non-Af Amer) TNP 02/15/17 08:55 BUN/Creatinine Ratio 18.6 02/15/17 08:55 Glucose 241 mg/dL 02/15/17 08:55 POC Glucose 131 MG/DL (70 - 105) H 02/16/17 06:01 Hemoglobin A1c % 8.2 % (4.0-6.0) H 02/04/17 14:21 Calcium 8.8 mg/dL (8.6-10.3) 02/15/17 08:55 Total Bilirubin 0.5 mg/dL (0.3-1.0) 02/15/17 08:55 AST 50 U/L (13-39) H 02/15/17 08:55 ALT 111 U/L (7-52) H 02/15/17 08:55 Alkaline Phosphatase 80 U/L (34-104) 02/15/17 08:55 Total Protein 5.9 gm/dL (6.0-8.3) L 02/15/17 08:55 Albumin 3.4 gm/dL (4.2-5.5) L 02/15/17 08:55 Globulin 2.5 gm/dL 02/15/17 08:55 Albumin/Globulin Ratio 1.4 (1.0-1.8) 02/15/17 08:55 Triglycerides 277 mg/dL (<150) H 02/04/17 14:21 Cholesterol 165 mg/dL (<200) 02/04/17 14:21 LDL Cholesterol Direct 101 mg/dL (75-193) 02/04/17 14:21 HDL Cholesterol 37 mg/dL (23-92) 02/04/17 14:21 TSH 2.88 uIU/ml (0.34-5.60) 02/14/17 06:06 Urine Source CLEAN C 02/04/17 13:35 Urine Color YELLOW 02/04/17 13:35 Urine Clarity CLEAR (CLEAR) 02/04/17 13:35 Urine pH 5.5 (4.6 - 8.0) 02/04/17 13:35 Ur Specific [place] <= 1.005 (1.005-1.030) 02/04/17 13:35 Urine Protein NEGATIVE mg/dL (NEGATIVE) 02/04/17 13:35 Urine Glucose (UA) NEGATIVE mg/dL (NEGATIVE) 02/04/17 13:35 Urine Ketones NEGATIVE mg/dL (NEGATIVE) 02/04/17 13:35 Urine Blood NEGATIVE (NEGATIVE) 02/04/17 13:35 Urine Nitrate NEGATIVE (NEGATIVE) 02/04/17 13:35 Urine Bilirubin NEGATIVE (NEGATIVE) 02/04/17 13:35 Urine Urobilinogen 0.2 E.U./dL (0.2 - 1.0) 02/04/17 13:35 Ur Leukocyte Esterase NEGATIVE (NEGATIVE) 02/04/17 13:35 Urine RBC NONE SEEN /hpf (0-5) 02/04/17 13:35 Urine WBC NONE SEEN /hpf (0-5) 02/04/17 13:35 Ur Epithelial Cells NONE SEEN /lpf (FEW) 02/04/17 13:35 Urine Bacteria NONE SEEN /hpf (NONE SEEN) 02/04/17 13:35 Salicylates < 25.0 mg/L (30.0-100.0) L 02/04/17 14:21 Urine Opiates Screen NEGATIVE (NEGATIVE) 02/04/17 13:35 Urine Methadone Screen NEGATIVE (NEGATIVE) 02/04/17 13:35 Acetaminophen < 10.0 ug/mL (10.0-30.0) L 02/04/17 14:21 Ur Barbiturates Screen NEGATIVE (NEGATIVE) 02/04/17 13:35 Ur Tricyclics Screen NEGATIVE (NEGATIVE) 02/04/17 13:35 Ur Phencyclidine Scrn NEGATIVE (NEGATIVE) 02/04/17 13:35 Amphetamines Screen NEGATIVE (NEGATIVE) 02/04/17 13:35 U Methamphetamines Scrn NEGATIVE (NEGATIVE) 02/04/17 13:35 U Benzodiazepines Scrn NEGATIVE (NEGATIVE) 02/04/17 13:35 U Cocaine Metab Screen NEGATIVE (NEGATIVE) 02/04/17 13:35 U Cannabinoids Screen NEGATIVE (NEGATIVE) 02/04/17 13:35 Ethyl Alcohol < 10 mg/dL (0-10) 02/04/17 14:21 RPR NONREACTIVE (NONREACTIVE) 02/04/17 14:21 - Physical Exam Vitals and I&O: Vital Signs Temp 98.2 F 02/16/17 06:52 Pulse 73 02/16/17 06:52 Resp 20 02/16/17 06:52 BP 153/88 02/16/17 06:52 Pulse Ox 97 02/16/17 06:52 Intake & Output 02/15/17 02/16/17 02/16/17 18:59 06:59 18:59 Intake Total 900 240 Balance 900 240 Intake: Oral 900 240 Other: # Voids 4 1 # Bowel Movements 1 0 Active Medications: Current Medications Acetaminophen (Tylenol) 650 mg PO Q4HR PRN PRN Reason: Pain Stop: 04/05/17 20:19 Aripiprazole (Abilify) 15 mg PO DAILY KALIA PRN Reason: Protocol Stop: 04/16/17 11:44 Last Admin: 02/15/17 12:01 Dose: 15 mg Captopril (Capoten 25 Mg Tab) 25 mg PO DAILY KALIA Stop: 04/06/17 08:59 Last Admin: 02/15/17 08:08 Dose: 25 mg Docusate Sodium (Colace) 100 mg PO BID KALIA Stop: 04/06/17 08:59 Last Admin: 02/15/17 16:28 Dose: 100 mg Donepezil HCl (Aricept) 10 mg PO HS KALIA Stop: 04/05/17 20:59 Last Admin: 02/15/17 21:02 Dose: 10 mg Ferrous Sulfate (Iron) 325 mg PO DAILY KALIA Stop: 04/06/17 08:59 Last Admin: 02/15/17 08:08 Dose: 325 mg Furosemide (Lasix) 40 mg PO DAILY KALIA Stop: 04/06/17 08:59 Last Admin: 02/15/17 08:08 Dose: 40 mg Insulin Aspart (Novolog Insulin Sliding Scale) 0 units SUBQ BIDAC KALIA PRN Reason: Protocol Stop: 04/15/17 07:29 Last Admin: 02/15/17 16:27 Dose: 2 units Lorazepam (Ativan) 1 mg PO Q6H PRN; Protocol PRN Reason: Anxiety/Agitation Stop: 04/05/17 20:14 Last Admin: 02/13/17 20:41 Dose: 1 mg Magnesium Hydroxide (Milk Of Magnesia) 30 ml PO DAILY PRN PRN Reason: Constipation Stop: 04/05/17 20:19 Memantine (Namenda) 5 mg PO BID KALIA Stop: 04/16/17 16:59 Last Admin: 02/15/17 16:28 Dose: 5 mg Metformin HCl (Glucophage) 500 mg PO TIDWM KALIA Stop: 04/06/17 07:59 Last Admin: 02/15/17 16:28 Dose: 500 mg Sodium Chloride (Nacl Tab) 1 gm PO DAILY KALIA Stop: 04/09/17 08:59 Last Admin: 02/15/17 08:09 Dose: 1 gm Zolpidem Tartrate (Ambien) 5 mg PO HS PRN PRN Reason: Insomnia Stop: 04/05/17 20:14 Last Admin: 02/13/17 20:41 Dose: 5 mg General: Alert, No acute distress HEENT: no Atraumatic (There is a small laceration in back of head) Neck: Supple Cardiovascular: Regular rate Lungs: Clear to auscultation Abdomen: Bowel sounds, Soft Extremities: Other (No edema) Neurological: Other (Unstable gait) Skin: Other (Warm and dry) Psych/Mental Status: Other (Confused, not oriented) - Procedures Procedures: Procedures Procedure Code Date GROUP PSYCHOTHERAPY 00799 04/25/15 GROUP PSYCHOTHERAPY GZHZZZZ 04/25/15 OTHER GROUP THERAPY 94.44 11/08/14 Assessment/Plan - Problem List Patient Problems: All Active Problems INCREASED AGGRESIVE BEHAVIOR WITH AGITAI (Acute) Bipolar disorder (Acute) Dementia (Acute) F03.90 Depressive disorder (Acute) F32.9 Diabetes mellitus (Acute) E11.9 Hypertension (Acute) I10 Hyposmolality and/or hyponatremia (Acute) E87.1 INAPPROPRIATE BEHAVIOR (Acute 04/25/15) Psychosis (Acute) F29 - Assessment Assessment: Current Active Problems Problem Status Onset INCREASED AGGRESIVE BEHAVIOR WITH AGITAI Acute Patient is awake, alert, calm, not oriented. Patient showing unstable gait. awaiting WBC result. Dx: Increased in agitation, HT, DM, CHF, Hypothyroidism, Dementia - Plan Plan: Patient follow by psychiatry, Na improving. Labs requested. Will continue to monitor. Nutritional Asmnt/Malnutr-PDOC - Dietary Evaluation Malnutrition Findings (Please click <Entered> for more info): Nutritional Asmnt/Malnutrition Start: 02/05/17 16: 01 Text: Status: Complete Freq: Document 02/05/17 16:02 [email or web address] (Rec: 02/05/17 16:15 [email or web address]) Nutritional Asmnt/Malnutrition Patient General Information Nutritional Screening High Risk Diagnosis Mood disorder NOS, impulse control disorder NOS, dementia Pertinent Medical Hx/Surgical Hx CHF, HTN, dementia, psychosis, DM Subjective Information 81 year old male from SNF. Pt is ambulatory. Spoke to RN SOFYA Heredia stated pt may have inappropriate behaviors, eating well, no nutritinoal concerns. Spoke to pt during meal time in chair in rec room . No difficulties chewing/ swallowing noted. Teeth intact . Pt selectively resposnes, unable to provide full nutrition hx. Pt stated good appetite. Pt appeared overweight, no muscle fat wasting noted. Current Diet Order/ Nutrition Support Regular Pertinent Medications Colace, Iron, Lasix, MOM, Glucophage Pertinent Labs 02/04: glucose 222H, A1c 8.2H, triglycerides 277H, AST 73H, ALT 157H, alkaline phosphatase 126H Nutritional Hx/Data Height 1.75 m Height (Calculated Centimeters) 175.3 Current Weight (lbs) 104.326 kg Weight (Calculated Kilograms) 104.3 Weight (Calculated Grams) 918565.2 [place] Body Weight 160 Weight Status Obese GI Symptoms Usual diet at home [place] [facility]: [facility] Skin Integrity/Comment: Marc 17. Skin intact. Estimated Nutritional Goals BEE in Kcals: Adj wt of IBW Calories/Kcals/Kg AdjBW 177.5lb/80.7kg Kcals Calculated 2018-2421kcal (25-30kcal/kg) Protein: Adj wt of IBW Protein Calculated 81g (1g/kg) Fluid: ml 2018-2421ml (1ml/kcal) Nutritional Problem 1. Problem Problem Altered nutrition related laboratory values related to Etiology DM aeb Signs/Symptoms: A1c 8.2, glucose 222H Intervention/Recommendation Comments 1. Recommend [id number] with double portion vegetables. Expected Outcomes/Goals Expected Outcomes/Goals 1. PO intake to meet at least 75% of estimated nutritinoal needs.
[2017-02-16] MEDS: Ferrous Sulfate 325 MG TAB PO SCH (09:19)
[2017-02-16] MEDS: Multivitamin w/ Minerals Tab PO SCH (09:19)
--- NOTE | 2017-02-17 03:02 | Progress Notes ---
DATE: 02/16/2017 Case was discussed with staff of the patient, reviewed records. The patient continues to have poor insight. Continues to be preoccupied with leaving. This patient has poor insight and easily agitated. I did increase his dose of Abilify yesterday to 15 mg a day and so far no side effects, no sedation, no nausea, no extrapyramidal symptoms. We will continue outpatient group therapy, milieu therapy, adjust medication as needed. JOB# [id number]
[2017-02-17] MEDS: INSULIN ASPART SLIDING SCALE 100 UNITS/ML UNIT SUBQ SCH ×2 (06:44→18:38)
[2017-02-17 07:46] LABS: ALB/GLOB RATIO 1.3 (1.0-1.8); ALKALINE PHOSPHATASE 68 U/L (34-104); ANION GAP 9.1 (7.0-16.0); BILIRUBIN,TOTAL 0.5 mg/dL (0.3-1.0); BUN - UREA NITROGEN 12 mg/dL (7-25); BUN/CREATININE RATIO 17.1; CARBON DIOXIDE 27.9 mEq/L (21.0-31.0); CHLORIDE 96 mEq/L (98-107); CREATININE - SERUM 0.7 mg/dL (0.7-1.3); GLUCOSE 175 mg/dL; SGOT 15 U/L (13-39); SGPT/ALT 55 U/L (7-52); SODIUM SERUM 129 mEq/L (136-145)
[2017-02-17 07:55] LABS: % EOSINOPHILS 3.4 % (0.0-5.0); % LYMPHOCYTES 21.2 % (20.0-50.0); % NEUTROPHILS 66.4 % (40.0-80.0); HEMATOCRIT 38.8 % (41.0-60); HEMOGLOBIN 13.4 gm/dL (12-16); MEAN CELL VOLUME 93.1 fl (80-99); MEAN CORPUSCULAR HEMOGLOBIN 32.1 pg (27.0-31.0); MEAN CORPUSCULAR HGB CONC 34.5 pg (28.0-36.0); MEAN PLATELET VOLUME 7.9 fl; NEUTROPHILE ABSOLUTE 6.2 Th/cmm (1.8-8.0); PLATELET COUNT 260 Th/cmm (150-400); RED BLOOD COUNT 4.17 Mil/cmm (3.80-5.80); RED CELL DISTRIBUTION WIDTH 12.2 % (11.5-20.0)
[2017-02-17 07:58] LABS: WHITE BLOOD COUNT 9.4 Th/cmm (4.8-10.8)
[2017-02-17] MEDS: Multivitamin w/ Minerals Tab PO SCH (10:24)
--- NOTE | 2017-02-17 10:24 | Progress Notes ---
DATE: 02/17/2017 Case was discussed with staff of the patient. The patient continues to be acting, touching female inappropriately. Continues to have poor insight. Unable to make safe plan for self-care. I did increase his Abilify to 50 mg a day and increase his Namenda to 5 mg twice a day and so far no side effects, no sedation, no nausea, no extrapyramidal symptoms. I will be initiating Depakote on this patient as his behavior continues with his impulsivity. So far he is compliant with the medication, no side effects, no sedation, no nausea, no extrapyramidal symptoms. We will continue to work the patient in group therapy, milieu therapy and adjust the medication as needed. JOB# [id number]
[2017-02-17] MEDS: Ferrous Sulfate 325 MG TAB PO SCH (10:25)
--- NOTE | 2017-02-17 11:35 | General Progress Note ---
Subjective - Review of Systems Service Date: 02/17/17 Subjective: I want go home Objective - Results Result Diagrams: 02/17/17 07:15 02/17/17 07:15 Recent Labs: Laboratory Last Values WBC 9.4 Th/cmm (4.8-10.8) D 02/17/17 07:15 RBC 4.17 Mil/cmm (3.80-5.80) 02/17/17 07:15 Hgb 13.4 gm/dL (12-16) 02/17/17 07:15 Hct 38.8 % (41.0-60) L 02/17/17 07:15 MCV 93.1 fl (80-99) 02/17/17 07:15 MCH 32.1 pg (27.0-31.0) H 02/17/17 07:15 MCHC Differential 34.5 pg (28.0-36.0) 02/17/17 07:15 RDW 12.2 % (11.5-20.0) 02/17/17 07:15 Plt Count 260 Th/cmm (150-400) 02/17/17 07:15 MPV 7.9 fl 02/17/17 07:15 Neutrophils % 66.4 % (40.0-80.0) 02/17/17 07:15 Band Neutrophils % 5 % (0-10) 02/14/17 06:06 Lymphocytes % 21.2 % (20.0-50.0) 02/17/17 07:15 Monocytes % 8.0 % (2.0-10.0) 02/17/17 07:15 Eosinophils % 3.4 % (0.0-5.0) 02/17/17 07:15 Basophils % 1.0 % (0.0-2.0) 02/17/17 07:15 Neutrophils (Manual) 73 % (40-80) 02/14/17 06:06 Lymphocytes 15 % (20-50) L 02/14/17 06:06 Monocytes 7 % (2-10) 02/14/17 06:06 Sodium 129 mEq/L (136-145) L 02/17/17 07:15 Potassium 4.0 mEq/L (3.5-5.1) 02/17/17 07:15 Chloride 96 mEq/L (98-107) L 02/17/17 07:15 Carbon Dioxide 27.9 mEq/L (21.0-31.0) 02/17/17 07:15 Anion Gap 9.1 (7.0-16.0) 02/17/17 07:15 BUN 12 mg/dL (7-25) 02/17/17 07:15 Creatinine 0.7 mg/dL (0.7-1.3) 02/17/17 07:15 Est GFR ( Amer) TNP 02/17/17 07:15 Est GFR (Non-Af Amer) TNP 02/17/17 07:15 BUN/Creatinine Ratio 17.1 02/17/17 07:15 Glucose 175 mg/dL 02/17/17 07:15 POC Glucose 173 MG/DL (70 - 105) H 02/17/17 06:03 Hemoglobin A1c % 8.2 % (4.0-6.0) H 02/04/17 14:21 Calcium 9.0 mg/dL (8.6-10.3) 02/17/17 07:15 Total Bilirubin 0.5 mg/dL (0.3-1.0) 02/17/17 07:15 AST 15 U/L (13-39) 02/17/17 07:15 ALT 55 U/L (7-52) H 02/17/17 07:15 Alkaline Phosphatase 68 U/L (34-104) 02/17/17 07:15 Total Protein 6.3 gm/dL (6.0-8.3) 02/17/17 07:15 Albumin 3.6 gm/dL (4.2-5.5) L 02/17/17 07:15 Globulin 2.7 gm/dL 02/17/17 07:15 Albumin/Globulin Ratio 1.3 (1.0-1.8) 02/17/17 07:15 Triglycerides 277 mg/dL (<150) H 02/04/17 14:21 Cholesterol 165 mg/dL (<200) 02/04/17 14:21 LDL Cholesterol Direct 101 mg/dL (75-193) 02/04/17 14:21 HDL Cholesterol 37 mg/dL (23-92) 02/04/17 14:21 TSH 2.88 uIU/ml (0.34-5.60) 02/14/17 06:06 Urine Source CLEAN C 02/04/17 13:35 Urine Color YELLOW 02/04/17 13:35 Urine Clarity CLEAR (CLEAR) 02/04/17 13:35 Urine pH 5.5 (4.6 - 8.0) 02/04/17 13:35 Ur Specific [place] <= 1.005 (1.005-1.030) 02/04/17 13:35 Urine Protein NEGATIVE mg/dL (NEGATIVE) 02/04/17 13:35 Urine Glucose (UA) NEGATIVE mg/dL (NEGATIVE) 02/04/17 13:35 Urine Ketones NEGATIVE mg/dL (NEGATIVE) 02/04/17 13:35 Urine Blood NEGATIVE (NEGATIVE) 02/04/17 13:35 Urine Nitrate NEGATIVE (NEGATIVE) 02/04/17 13:35 Urine Bilirubin NEGATIVE (NEGATIVE) 02/04/17 13:35 Urine Urobilinogen 0.2 E.U./dL (0.2 - 1.0) 02/04/17 13:35 Ur Leukocyte Esterase NEGATIVE (NEGATIVE) 02/04/17 13:35 Urine RBC NONE SEEN /hpf (0-5) 02/04/17 13:35 Urine WBC NONE SEEN /hpf (0-5) 02/04/17 13:35 Ur Epithelial Cells NONE SEEN /lpf (FEW) 02/04/17 13:35 Urine Bacteria NONE SEEN /hpf (NONE SEEN) 02/04/17 13:35 Salicylates < 25.0 mg/L (30.0-100.0) L 02/04/17 14:21 Urine Opiates Screen NEGATIVE (NEGATIVE) 02/04/17 13:35 Urine Methadone Screen NEGATIVE (NEGATIVE) 02/04/17 13:35 Acetaminophen < 10.0 ug/mL (10.0-30.0) L 02/04/17 14:21 Ur Barbiturates Screen NEGATIVE (NEGATIVE) 02/04/17 13:35 Ur Tricyclics Screen NEGATIVE (NEGATIVE) 02/04/17 13:35 Ur Phencyclidine Scrn NEGATIVE (NEGATIVE) 02/04/17 13:35 Amphetamines Screen NEGATIVE (NEGATIVE) 02/04/17 13:35 U Methamphetamines Scrn NEGATIVE (NEGATIVE) 02/04/17 13:35 U Benzodiazepines Scrn NEGATIVE (NEGATIVE) 02/04/17 13:35 U Cocaine Metab Screen NEGATIVE (NEGATIVE) 02/04/17 13:35 U Cannabinoids Screen NEGATIVE (NEGATIVE) 02/04/17 13:35 Ethyl Alcohol < 10 mg/dL (0-10) 02/04/17 14:21 RPR NONREACTIVE (NONREACTIVE) 02/04/17 14:21 - Physical Exam Vitals and I&O: Vital Signs Temp 98.4 F 02/17/17 06:50 Pulse 77 02/17/17 10:21 Resp 20 02/17/17 06:50 BP 146/76 02/17/17 10:24 Pulse Ox 96 02/17/17 06:50 Intake & Output 02/16/17 02/17/17 02/17/17 18:59 06:59 18:59 Intake Total 950 240 Balance 950 240 Weight (lbs) 86.183 kg Intake: Oral 950 240 Other: # Voids 4 3 # Bowel Movements 2 0 Active Medications: Current Medications Acetaminophen (Tylenol) 650 mg PO Q4HR PRN PRN Reason: Pain Stop: 04/05/17 20:19 Aripiprazole (Abilify) 15 mg PO DAILY KALIA PRN Reason: Protocol Stop: 04/16/17 11:44 Last Admin: 02/17/17 10:23 Dose: 15 mg Captopril (Capoten 25 Mg Tab) 25 mg PO DAILY KALIA Stop: 04/06/17 08:59 Last Admin: 02/17/17 10:21 Dose: 25 mg Divalproex Sodium (Depakote Er) 250 mg PO Q8HR KALIA PRN Reason: Protocol Stop: 04/18/17 12:59 Docusate Sodium (Colace) 100 mg PO BID KALIA Stop: 04/06/17 08:59 Last Admin: 02/17/17 10:25 Dose: 100 mg Donepezil HCl (Aricept) 10 mg PO HS KALIA Stop: 04/05/17 20:59 Last Admin: 02/16/17 20:36 Dose: 10 mg Ferrous Sulfate (Iron) 325 mg PO DAILY KALIA Stop: 04/06/17 08:59 Last Admin: 02/17/17 10:25 Dose: 325 mg Furosemide (Lasix) 20 mg PO DAILY KALIA Stop: 04/06/17 08:59 Insulin Aspart (Novolog Insulin Sliding Scale) 0 units SUBQ BIDAC KALIA PRN Reason: Protocol Stop: 04/15/17 07:29 Last Admin: 02/17/17 06:44 Dose: 2 units Lorazepam (Ativan) 1 mg PO Q6H PRN; Protocol PRN Reason: Anxiety/Agitation Stop: 04/05/17 20:14 Last Admin: 02/13/17 20:41 Dose: 1 mg Magnesium Hydroxide (Milk Of Magnesia) 30 ml PO DAILY PRN PRN Reason: Constipation Stop: 04/05/17 20:19 Memantine (Namenda) 5 mg PO BID [facility] Stop: 04/16/17 16:59 Last Admin: 02/17/17 10:23 Dose: 5 mg Metformin HCl (Glucophage) 500 mg PO TIDWM KALIA Stop: 04/06/17 07:59 Last Admin: 02/17/17 10:36 Dose: Not Given Sodium Chloride (Nacl Tab) 1 gm PO BID [facility] Stop: 04/18/17 16:59 Zolpidem Tartrate (Ambien) 5 mg PO HS PRN PRN Reason: Insomnia Stop: 04/05/17 20:14 Last Admin: 02/16/17 20:36 Dose: 5 mg General: Alert, No acute distress HEENT: no Atraumatic (There is a small laceration in back of head) Neck: Supple Cardiovascular: Regular rate Lungs: Clear to auscultation Abdomen: Bowel sounds, Soft Extremities: Other (No edema) Neurological: Other (Unstable gait) Skin: Other (Warm and dry) Psych/Mental Status: Other (Confused, not oriented) - Procedures Procedures: Procedures Procedure Code Date GROUP PSYCHOTHERAPY 81182 04/25/15 GROUP PSYCHOTHERAPY GZHZZZZ 04/25/15 OTHER GROUP THERAPY 94.44 11/08/14 Assessment/Plan - Problem List Patient Problems: All Active Problems INCREASED AGGRESIVE BEHAVIOR WITH AGITAI (Acute) Bipolar disorder (Acute) Dementia (Acute) F03.90 Depressive disorder (Acute) F32.9 Diabetes mellitus (Acute) E11.9 Hypertension (Acute) I10 Hyposmolality and/or hyponatremia (Acute) E87.1 INAPPROPRIATE BEHAVIOR (Acute 04/25/15) Psychosis (Acute) F29 - Assessment Assessment: Current Active Problems Problem Status Onset INCREASED AGGRESIVE BEHAVIOR WITH AGITAI Acute Patient is awake, alert, calm, not oriented. Patient showing unstable gait. awaiting WBC result. Dx: Increased in agitation, HT, DM, CHF, Hypothyroidism, Dementia - Plan Plan: Patient follow by psychiatry, Na is increased. Will continue to monitor. Nutritional Asmnt/Malnutr-PDOC - Dietary Evaluation Malnutrition Findings (Please click <Entered> for more info): Nutritional Asmnt/Malnutrition Start: 02/05/17 16: 01 Text: Status: Complete Freq: Document 02/05/17 16:02 GSUN (Rec: 02/05/17 16:15 [email or web address]) Nutritional Asmnt/Malnutrition Patient General Information Nutritional Screening High Risk Diagnosis Mood disorder NOS, impulse control disorder NOS, dementia Pertinent Medical Hx/Surgical Hx CHF, HTN, dementia, psychosis, DM Subjective Information 81 year old male from SNF. Pt is ambulatory. Spoke to RN SOFYA Heredia stated pt may have inappropriate behaviors, eating well, no nutritinoal concerns. Spoke to pt during meal time in chair in rec room . No difficulties chewing/ swallowing noted. Teeth intact . Pt selectively resposnes, unable to provide full nutrition hx. Pt stated good appetite. Pt appeared overweight, no muscle fat wasting noted. Current Diet Order/ Nutrition Support Regular Pertinent Medications Colace, Iron, Lasix, MOM, Glucophage Pertinent Labs 02/04: glucose 222H, A1c 8.2H, triglycerides 277H, AST 73H, ALT 157H, alkaline phosphatase 126H Nutritional Hx/Data Height 1.75 m Height (Calculated Centimeters) 175.3 Current Weight (lbs) 104.326 kg Weight (Calculated Kilograms) 104.3 Weight (Calculated Grams) 286399.2 [place] Body Weight 160 Weight Status Obese GI Symptoms Usual diet at home [place] [facility]: [facility] Skin Integrity/Comment: Marc 17. Skin intact. Estimated Nutritional Goals BEE in Kcals: Adj wt of IBW Calories/Kcals/Kg AdjBW 177.5lb/80.7kg Kcals Calculated 2018-2421kcal (25-30kcal/kg) Protein: Adj wt of IBW Protein Calculated 81g (1g/kg) Fluid: ml 2018-2421ml (1ml/kcal) Nutritional Problem 1. Problem Problem Altered nutrition related laboratory values related to Etiology DM aeb Signs/Symptoms: A1c 8.2, glucose 222H Intervention/Recommendation Comments 1. Recommend [id number] with double portion vegetables. Expected Outcomes/Goals Expected Outcomes/Goals 1. PO intake to meet at least 75% of estimated nutritinoal needs.
[2017-02-18] MEDS: INSULIN ASPART SLIDING SCALE 100 UNITS/ML UNIT SUBQ SCH ×2 (06:59→17:51)
[2017-02-18] MEDS: Ferrous Sulfate 325 MG TAB PO SCH (08:54)
[2017-02-18] MEDS: Multivitamin w/ Minerals Tab PO SCH (08:55)
--- NOTE | 2017-02-18 09:12 | General Progress Note ---
Subjective - Review of Systems Service Date: 02/18/17 Subjective: I want go home Objective - Results Result Diagrams: 02/17/17 07:15 02/17/17 07:15 Recent Labs: Laboratory Last Values WBC 9.4 Th/cmm (4.8-10.8) D 02/17/17 07:15 RBC 4.17 Mil/cmm (3.80-5.80) 02/17/17 07:15 Hgb 13.4 gm/dL (12-16) 02/17/17 07:15 Hct 38.8 % (41.0-60) L 02/17/17 07:15 MCV 93.1 fl (80-99) 02/17/17 07:15 MCH 32.1 pg (27.0-31.0) H 02/17/17 07:15 MCHC Differential 34.5 pg (28.0-36.0) 02/17/17 07:15 RDW 12.2 % (11.5-20.0) 02/17/17 07:15 Plt Count 260 Th/cmm (150-400) 02/17/17 07:15 MPV 7.9 fl 02/17/17 07:15 Neutrophils % 66.4 % (40.0-80.0) 02/17/17 07:15 Band Neutrophils % 5 % (0-10) 02/14/17 06:06 Lymphocytes % 21.2 % (20.0-50.0) 02/17/17 07:15 Monocytes % 8.0 % (2.0-10.0) 02/17/17 07:15 Eosinophils % 3.4 % (0.0-5.0) 02/17/17 07:15 Basophils % 1.0 % (0.0-2.0) 02/17/17 07:15 Neutrophils (Manual) 73 % (40-80) 02/14/17 06:06 Lymphocytes 15 % (20-50) L 02/14/17 06:06 Monocytes 7 % (2-10) 02/14/17 06:06 Sodium 129 mEq/L (136-145) L 02/17/17 07:15 Potassium 4.0 mEq/L (3.5-5.1) 02/17/17 07:15 Chloride 96 mEq/L (98-107) L 02/17/17 07:15 Carbon Dioxide 27.9 mEq/L (21.0-31.0) 02/17/17 07:15 Anion Gap 9.1 (7.0-16.0) 02/17/17 07:15 BUN 12 mg/dL (7-25) 02/17/17 07:15 Creatinine 0.7 mg/dL (0.7-1.3) 02/17/17 07:15 Est GFR ( Amer) TNP 02/17/17 07:15 Est GFR (Non-Af Amer) TNP 02/17/17 07:15 BUN/Creatinine Ratio 17.1 02/17/17 07:15 Glucose 175 mg/dL 02/17/17 07:15 POC Glucose 174 MG/DL (70 - 105) H 02/18/17 06:49 Hemoglobin A1c % 8.2 % (4.0-6.0) H 02/04/17 14:21 Calcium 9.0 mg/dL (8.6-10.3) 02/17/17 07:15 Total Bilirubin 0.5 mg/dL (0.3-1.0) 02/17/17 07:15 AST 15 U/L (13-39) 02/17/17 07:15 ALT 55 U/L (7-52) H 02/17/17 07:15 Alkaline Phosphatase 68 U/L (34-104) 02/17/17 07:15 Total Protein 6.3 gm/dL (6.0-8.3) 02/17/17 07:15 Albumin 3.6 gm/dL (4.2-5.5) L 02/17/17 07:15 Globulin 2.7 gm/dL 02/17/17 07:15 Albumin/Globulin Ratio 1.3 (1.0-1.8) 02/17/17 07:15 Triglycerides 277 mg/dL (<150) H 02/04/17 14:21 Cholesterol 165 mg/dL (<200) 02/04/17 14:21 LDL Cholesterol Direct 101 mg/dL (75-193) 02/04/17 14:21 HDL Cholesterol 37 mg/dL (23-92) 02/04/17 14:21 TSH 2.88 uIU/ml (0.34-5.60) 02/14/17 06:06 Urine Source CLEAN C 02/04/17 13:35 Urine Color YELLOW 02/04/17 13:35 Urine Clarity CLEAR (CLEAR) 02/04/17 13:35 Urine pH 5.5 (4.6 - 8.0) 02/04/17 13:35 Ur Specific [place] <= 1.005 (1.005-1.030) 02/04/17 13:35 Urine Protein NEGATIVE mg/dL (NEGATIVE) 02/04/17 13:35 Urine Glucose (UA) NEGATIVE mg/dL (NEGATIVE) 02/04/17 13:35 Urine Ketones NEGATIVE mg/dL (NEGATIVE) 02/04/17 13:35 Urine Blood NEGATIVE (NEGATIVE) 02/04/17 13:35 Urine Nitrate NEGATIVE (NEGATIVE) 02/04/17 13:35 Urine Bilirubin NEGATIVE (NEGATIVE) 02/04/17 13:35 Urine Urobilinogen 0.2 E.U./dL (0.2 - 1.0) 02/04/17 13:35 Ur Leukocyte Esterase NEGATIVE (NEGATIVE) 02/04/17 13:35 Urine RBC NONE SEEN /hpf (0-5) 02/04/17 13:35 Urine WBC NONE SEEN /hpf (0-5) 02/04/17 13:35 Ur Epithelial Cells NONE SEEN /lpf (FEW) 02/04/17 13:35 Urine Bacteria NONE SEEN /hpf (NONE SEEN) 02/04/17 13:35 Salicylates < 25.0 mg/L (30.0-100.0) L 02/04/17 14:21 Urine Opiates Screen NEGATIVE (NEGATIVE) 02/04/17 13:35 Urine Methadone Screen NEGATIVE (NEGATIVE) 02/04/17 13:35 Acetaminophen < 10.0 ug/mL (10.0-30.0) L 02/04/17 14:21 Ur Barbiturates Screen NEGATIVE (NEGATIVE) 02/04/17 13:35 Ur Tricyclics Screen NEGATIVE (NEGATIVE) 02/04/17 13:35 Ur Phencyclidine Scrn NEGATIVE (NEGATIVE) 02/04/17 13:35 Amphetamines Screen NEGATIVE (NEGATIVE) 02/04/17 13:35 U Methamphetamines Scrn NEGATIVE (NEGATIVE) 02/04/17 13:35 U Benzodiazepines Scrn NEGATIVE (NEGATIVE) 02/04/17 13:35 U Cocaine Metab Screen NEGATIVE (NEGATIVE) 02/04/17 13:35 U Cannabinoids Screen NEGATIVE (NEGATIVE) 02/04/17 13:35 Ethyl Alcohol < 10 mg/dL (0-10) 02/04/17 14:21 RPR NONREACTIVE (NONREACTIVE) 02/04/17 14:21 - Physical Exam Vitals and I&O: Vital Signs Temp 97.9 F 02/18/17 07:00 Pulse 67 02/18/17 08:54 Resp 20 02/18/17 07:00 BP 146/67 02/18/17 08:55 Pulse Ox 97 02/18/17 07:00 Intake & Output 02/17/17 02/18/17 02/18/17 18:59 06:59 18:59 Intake Total 120 Balance 120 Intake: Oral 120 Other: # Voids 3 Active Medications: Current Medications Acetaminophen (Tylenol) 650 mg PO Q4HR PRN PRN Reason: Pain Stop: 04/05/17 20:19 Aripiprazole (Abilify) 15 mg PO DAILY KALIA PRN Reason: Protocol Stop: 04/16/17 11:44 Last Admin: 02/18/17 08:55 Dose: 15 mg Captopril (Capoten 25 Mg Tab) 25 mg PO DAILY KALIA Stop: 04/06/17 08:59 Last Admin: 02/18/17 08:54 Dose: 25 mg Divalproex Sodium (Depakote Er) 250 mg PO Q8HR KALIA PRN Reason: Protocol Stop: 04/18/17 12:59 Last Admin: 02/17/17 21:01 Dose: 250 mg Docusate Sodium (Colace) 100 mg PO BID KALIA Stop: 04/06/17 08:59 Last Admin: 02/18/17 08:54 Dose: 100 mg Donepezil HCl (Aricept) 10 mg PO HS KALIA Stop: 04/05/17 20:59 Last Admin: 02/17/17 21:02 Dose: 10 mg Ferrous Sulfate (Iron) 325 mg PO DAILY KALIA Stop: 04/06/17 08:59 Last Admin: 02/18/17 08:54 Dose: 325 mg Furosemide (Lasix) 20 mg PO DAILY KALIA Stop: 04/06/17 12:14 Last Admin: 02/18/17 08:55 Dose: 20 mg Insulin Aspart (Novolog Insulin Sliding Scale) 0 units SUBQ BIDAC KALIA PRN Reason: Protocol Stop: 04/15/17 07:29 Last Admin: 02/18/17 06:59 Dose: 2 units Lorazepam (Ativan) 1 mg PO Q6H PRN; Protocol PRN Reason: Anxiety/Agitation Stop: 04/05/17 20:14 Last Admin: 02/13/17 20:41 Dose: 1 mg Magnesium Hydroxide (Milk Of Magnesia) 30 ml PO DAILY PRN PRN Reason: Constipation Stop: 04/05/17 20:19 Memantine (Namenda) [address] [facility] Stop: 04/16/17 16:59 Last Admin: 02/18/17 08:54 Dose: 5 mg Metformin HCl (Glucophage) [address] [facility] Stop: 04/06/17 07:59 Last Admin: 02/18/17 08:55 Dose: 500 mg Sodium Chloride (Nacl Tab) [address] [facility] Stop: 04/18/17 16:59 Last Admin: 02/18/17 08:55 Dose: 1 gm Zolpidem Tartrate (Ambien) 5 mg PO HS PRN PRN Reason: Insomnia Stop: 04/05/17 20:14 Last Admin: 02/16/17 20:36 Dose: 5 mg General: Alert, No acute distress HEENT: no Atraumatic (There is a small laceration in back of head) Neck: Supple Cardiovascular: Regular rate Lungs: Clear to auscultation Abdomen: Bowel sounds, Soft Extremities: Other (No edema) Neurological: Other (Unstable gait) Skin: Other (Warm and dry) Psych/Mental Status: Other (Confused, not oriented) - Procedures Procedures: Procedures Procedure Code Date GROUP PSYCHOTHERAPY 10730 04/25/15 GROUP PSYCHOTHERAPY GZHZZZZ 04/25/15 OTHER GROUP THERAPY 94.44 11/08/14 Assessment/Plan - Problem List Patient Problems: All Active Problems INCREASED AGGRESIVE BEHAVIOR WITH AGITAI (Acute) Bipolar disorder (Acute) Dementia (Acute) F03.90 Depressive disorder (Acute) F32.9 Diabetes mellitus (Acute) E11.9 Hypertension (Acute) I10 Hyposmolality and/or hyponatremia (Acute) E87.1 INAPPROPRIATE BEHAVIOR (Acute 04/25/15) Psychosis (Acute) F29 - Assessment Assessment: Current Active Problems Problem Status Onset INCREASED AGGRESIVE BEHAVIOR WITH AGITAI Acute Patient is awake, alert, calm, not oriented. Patient showing unstable gait. awaiting WBC result. Dx: Increased in agitation, HT, DM, CHF, Hypothyroidism, Dementia - Plan Plan: Patient follow by psychiatry, Na is increased. Will continue to monitor. Nutritional Asmnt/Malnutr-PDOC - Dietary Evaluation Malnutrition Findings (Please click <Entered> for more info): Nutritional Asmnt/Malnutrition Start: 02/05/17 16: 01 Text: Status: Complete Freq: Document 02/05/17 16:02 GSUN (Rec: 02/05/17 16:15 [email or web address] [email or web address]) Nutritional Asmnt/Malnutrition Patient General Information Nutritional Screening High Risk Diagnosis Mood disorder NOS, impulse control disorder NOS, dementia Pertinent Medical Hx/Surgical Hx CHF, HTN, dementia, psychosis, DM Subjective Information 81 year old male from SNF. Pt is ambulatory. Spoke to RN SOFYA Heredia stated pt may have inappropriate behaviors, eating well, no nutritinoal concerns. Spoke to pt during meal time in chair in rec room . No difficulties chewing/ swallowing noted. Teeth intact . Pt selectively resposnes, unable to provide full nutrition hx. Pt stated good appetite. Pt appeared overweight, no muscle fat wasting noted. Current Diet Order/ Nutrition Support Regular Pertinent Medications Colace, Iron, Lasix, MOM, Glucophage Pertinent Labs 02/04: glucose 222H, A1c 8.2H, triglycerides 277H, AST 73H, ALT 157H, alkaline phosphatase 126H Nutritional Hx/Data Height 1.75 m Height (Calculated Centimeters) 175.3 Current Weight (lbs) 104.326 kg Weight (Calculated Kilograms) 104.3 Weight (Calculated Grams) 873320.2 [place] Body Weight 160 Weight Status Obese GI Symptoms Usual diet at home [place] SN[facility]: [facility] Skin Integrity/Comment: Marc 17. Skin intact. Estimated Nutritional Goals BEE in Kcals: Adj wt of IBW Calories/Kcals/Kg AdjBW 177.5lb/80.7kg Kcals Calculated 2018-2421kcal (25-30kcal/kg) Protein: Adj wt of IBW Protein Calculated 81g (1g/kg) Fluid: ml 2018-2421ml (1ml/kcal) Nutritional Problem 1. Problem Problem Altered nutrition related laboratory values related to Etiology DM aeb Signs/Symptoms: A1c 8.2, glucose 222H Intervention/Recommendation Comments 1. Recommend [address] with double portion vegetables. Expected Outcomes/Goals Expected Outcomes/Goals 1. PO intake to meet at least 75% of estimated nutritinoal needs.
--- NOTE | 2017-02-18 21:01 | Progress Notes ---
DATE: 02/18/2017 Case was discussed with staff of the patient, reviewed records. The patient continues to do the same things, has been unpredictable, impulsive, needing redirection. The patient has poor insight. I did initiate Depakote on him and so far no side effects of medication. No nausea, no vomiting, no extrapyramidal symptoms. We will continue to work with the patient in group therapy, milieu therapy, and adjust the medication as needed. JOB# [id number]
[2017-02-19] MEDS: INSULIN ASPART SLIDING SCALE 100 UNITS/ML UNIT SUBQ SCH ×2 (06:32→16:20)
[2017-02-19] MEDS: Multivitamin w/ Minerals Tab PO SCH (08:09)
[2017-02-19] MEDS: Ferrous Sulfate 325 MG TAB PO SCH (08:10)
--- NOTE | 2017-02-19 10:24 | General Progress Note ---
Subjective - Review of Systems Service Date: 02/19/27 Subjective: I want go home Objective - Results Result Diagrams: 02/17/17 07:15 02/17/17 07:15 Recent Labs: Laboratory Last Values WBC 9.4 Th/cmm (4.8-10.8) D 02/17/17 07:15 RBC 4.17 Mil/cmm (3.80-5.80) 02/17/17 07:15 Hgb 13.4 gm/dL (12-16) 02/17/17 07:15 Hct 38.8 % (41.0-60) L 02/17/17 07:15 MCV 93.1 fl (80-99) 02/17/17 07:15 MCH 32.1 pg (27.0-31.0) H 02/17/17 07:15 MCHC Differential 34.5 pg (28.0-36.0) 02/17/17 07:15 RDW 12.2 % (11.5-20.0) 02/17/17 07:15 Plt Count 260 Th/cmm (150-400) 02/17/17 07:15 MPV 7.9 fl 02/17/17 07:15 Neutrophils % 66.4 % (40.0-80.0) 02/17/17 07:15 Band Neutrophils % 5 % (0-10) 02/14/17 06:06 Lymphocytes % 21.2 % (20.0-50.0) 02/17/17 07:15 Monocytes % 8.0 % (2.0-10.0) 02/17/17 07:15 Eosinophils % 3.4 % (0.0-5.0) 02/17/17 07:15 Basophils % 1.0 % (0.0-2.0) 02/17/17 07:15 Neutrophils (Manual) 73 % (40-80) 02/14/17 06:06 Lymphocytes 15 % (20-50) L 02/14/17 06:06 Monocytes 7 % (2-10) 02/14/17 06:06 Sodium 129 mEq/L (136-145) L 02/17/17 07:15 Potassium 4.0 mEq/L (3.5-5.1) 02/17/17 07:15 Chloride 96 mEq/L (98-107) L 02/17/17 07:15 Carbon Dioxide 27.9 mEq/L (21.0-31.0) 02/17/17 07:15 Anion Gap 9.1 (7.0-16.0) 02/17/17 07:15 BUN 12 mg/dL (7-25) 02/17/17 07:15 Creatinine 0.7 mg/dL (0.7-1.3) 02/17/17 07:15 Est GFR ( Amer) TNP 02/17/17 07:15 Est GFR (Non-Af Amer) TNP 02/17/17 07:15 BUN/Creatinine Ratio 17.1 02/17/17 07:15 Glucose 175 mg/dL 02/17/17 07:15 POC Glucose 158 MG/DL (70 - 105) H 02/19/17 06:19 Hemoglobin A1c % 8.2 % (4.0-6.0) H 02/04/17 14:21 Calcium 9.0 mg/dL (8.6-10.3) 02/17/17 07:15 Total Bilirubin 0.5 mg/dL (0.3-1.0) 02/17/17 07:15 AST 15 U/L (13-39) 02/17/17 07:15 ALT 55 U/L (7-52) H 02/17/17 07:15 Alkaline Phosphatase 68 U/L (34-104) 02/17/17 07:15 Total Protein 6.3 gm/dL (6.0-8.3) 02/17/17 07:15 Albumin 3.6 gm/dL (4.2-5.5) L 02/17/17 07:15 Globulin 2.7 gm/dL 02/17/17 07:15 Albumin/Globulin Ratio 1.3 (1.0-1.8) 02/17/17 07:15 Triglycerides 277 mg/dL (<150) H 02/04/17 14:21 Cholesterol 165 mg/dL (<200) 02/04/17 14:21 LDL Cholesterol Direct 101 mg/dL (75-193) 02/04/17 14:21 HDL Cholesterol 37 mg/dL (23-92) 02/04/17 14:21 TSH 2.88 uIU/ml (0.34-5.60) 02/14/17 06:06 Urine Source CLEAN C 02/04/17 13:35 Urine Color YELLOW 02/04/17 13:35 Urine Clarity CLEAR (CLEAR) 02/04/17 13:35 Urine pH 5.5 (4.6 - 8.0) 02/04/17 13:35 Ur Specific [place] <= 1.005 (1.005-1.030) 02/04/17 13:35 Urine Protein NEGATIVE mg/dL (NEGATIVE) 02/04/17 13:35 Urine Glucose (UA) NEGATIVE mg/dL (NEGATIVE) 02/04/17 13:35 Urine Ketones NEGATIVE mg/dL (NEGATIVE) 02/04/17 13:35 Urine Blood NEGATIVE (NEGATIVE) 02/04/17 13:35 Urine Nitrate NEGATIVE (NEGATIVE) 02/04/17 13:35 Urine Bilirubin NEGATIVE (NEGATIVE) 02/04/17 13:35 Urine Urobilinogen 0.2 E.U./dL (0.2 - 1.0) 02/04/17 13:35 Ur Leukocyte Esterase NEGATIVE (NEGATIVE) 02/04/17 13:35 Urine RBC NONE SEEN /hpf (0-5) 02/04/17 13:35 Urine WBC NONE SEEN /hpf (0-5) 02/04/17 13:35 Ur Epithelial Cells NONE SEEN /lpf (FEW) 02/04/17 13:35 Urine Bacteria NONE SEEN /hpf (NONE SEEN) 02/04/17 13:35 Salicylates < 25.0 mg/L (30.0-100.0) L 02/04/17 14:21 Urine Opiates Screen NEGATIVE (NEGATIVE) 02/04/17 13:35 Urine Methadone Screen NEGATIVE (NEGATIVE) 02/04/17 13:35 Acetaminophen < 10.0 ug/mL (10.0-30.0) L 02/04/17 14:21 Ur Barbiturates Screen NEGATIVE (NEGATIVE) 02/04/17 13:35 Ur Tricyclics Screen NEGATIVE (NEGATIVE) 02/04/17 13:35 Ur Phencyclidine Scrn NEGATIVE (NEGATIVE) 02/04/17 13:35 Amphetamines Screen NEGATIVE (NEGATIVE) 02/04/17 13:35 U Methamphetamines Scrn NEGATIVE (NEGATIVE) 02/04/17 13:35 U Benzodiazepines Scrn NEGATIVE (NEGATIVE) 02/04/17 13:35 U Cocaine Metab Screen NEGATIVE (NEGATIVE) 02/04/17 13:35 U Cannabinoids Screen NEGATIVE (NEGATIVE) 02/04/17 13:35 Ethyl Alcohol < 10 mg/dL (0-10) 02/04/17 14:21 RPR NONREACTIVE (NONREACTIVE) 02/04/17 14:21 - Physical Exam Vitals and I&O: Vital Signs Temp 97.2 F 02/19/17 06:44 Pulse 70 02/19/17 08:11 Resp 18 02/19/17 06:44 BP 140/78 02/19/17 08:11 Pulse Ox 96 02/19/17 06:44 Intake & Output 02/18/17 02/19/17 02/19/17 18:59 06:59 18:59 Intake Total 2520 120 Balance 2520 120 Intake: Oral 2520 120 Other: # Voids 4 3 # Bowel Movements 1 Active Medications: Current Medications Acetaminophen (Tylenol) 650 mg PO Q4HR PRN PRN Reason: Pain Stop: 04/05/17 20:19 Aripiprazole (Abilify) 15 mg PO DAILY KALIA PRN Reason: Protocol Stop: 04/16/17 11:44 Last Admin: 02/19/17 08:10 Dose: 15 mg Captopril (Capoten 25 Mg Tab) 25 mg PO DAILY KALIA Stop: 04/06/17 08:59 Last Admin: 02/19/17 08:11 Dose: 25 mg Divalproex Sodium (Depakote Er) 250 mg PO Q8HR KALIA PRN Reason: Protocol Stop: 04/18/17 12:59 Last Admin: 02/19/17 06:00 Dose: Not Given Docusate Sodium (Colace) 100 mg PO BID KALIA Stop: 04/06/17 08:59 Last Admin: 02/19/17 08:10 Dose: 100 mg Donepezil HCl (Aricept) 10 mg PO HS KALIA Stop: 04/05/17 20:59 Last Admin: 02/18/17 21:09 Dose: 10 mg Ferrous Sulfate (Iron) 325 mg PO DAILY KALIA Stop: 04/06/17 08:59 Last Admin: 02/19/17 08:10 Dose: 325 mg Furosemide (Lasix) 20 mg PO DAILY KALIA Stop: 04/06/17 12:14 Last Admin: 02/19/17 08:11 Dose: 20 mg Insulin Aspart (Novolog Insulin Sliding Scale) 0 units SUBQ BIDAC KALIA PRN Reason: Protocol Stop: 04/15/17 07:29 Last Admin: 02/19/17 06:32 Dose: 2 units Lorazepam (Ativan) 1 mg PO Q6H PRN; Protocol PRN Reason: Anxiety/Agitation Stop: 04/05/17 20:14 Last Admin: 02/13/17 20:41 Dose: 1 mg Magnesium Hydroxide (Milk Of Magnesia) 30 ml PO DAILY PRN PRN Reason: Constipation Stop: 04/05/17 20:19 Memantine (Namenda) 5 mg PO BID [facility] Stop: 04/16/17 16:59 Last Admin: 02/19/17 08:10 Dose: 5 mg Metformin HCl (Glucophage) 500 mg PO TIDWM [facility] Stop: 04/06/17 07:59 Last Admin: 02/19/17 08:10 Dose: 500 mg Sodium Chloride (Nacl Tab) 1 gm PO BID [facility] Stop: 04/18/17 16:59 Last Admin: 02/19/17 08:10 Dose: 1 gm Zolpidem Tartrate (Ambien) 5 mg PO HS PRN PRN Reason: Insomnia Stop: 04/05/17 20:14 Last Admin: 02/16/17 20:36 Dose: 5 mg General: Alert, No acute distress, Other (Confused, not oriented) HEENT: no Atraumatic (There is a small laceration in back of head) Neck: Supple Cardiovascular: Regular rate Lungs: Clear to auscultation Abdomen: Bowel sounds, Soft Extremities: Other (No edema) Neurological: Other (Unstable gait) Skin: Other (Warm and dry) Psych/Mental Status: Other (Confused, not oriented) - Procedures Procedures: Procedures Procedure Code Date GROUP PSYCHOTHERAPY 15353 04/25/15 GROUP PSYCHOTHERAPY GZHZZZZ 04/25/15 OTHER GROUP THERAPY 94.44 11/08/14 Assessment/Plan - Problem List Patient Problems: All Active Problems INCREASED AGGRESIVE BEHAVIOR WITH AGITAI (Acute) Bipolar disorder (Acute) Dementia (Acute) F03.90 Depressive disorder (Acute) F32.9 Diabetes mellitus (Acute) E11.9 Hypertension (Acute) I10 Hyposmolality and/or hyponatremia (Acute) E87.1 INAPPROPRIATE BEHAVIOR (Acute 04/25/15) Psychosis (Acute) F29 - Assessment Assessment: Current Active Problems Problem Status Onset INCREASED AGGRESIVE BEHAVIOR WITH AGITAI Acute Patient is awake, alert, calm, not oriented. Patient showing unstable gait. Dx : Increased in agitation, HT, DM, CHF, Hypothyroidism, Dementia - Plan Plan: Patient follow by psychiatry, Head CT requested. Will continue to monitor. Nutritional Asmnt/Malnutr-PDOC - Dietary Evaluation Malnutrition Findings (Please click <Entered> for more info): Nutritional Asmnt/Malnutrition Start: 02/05/17 16: 01 Text: Status: Complete Freq: Document 02/05/17 16:02 GSUN (Rec: 02/05/17 16:15 [email or web address] [email or web address]) Nutritional Asmnt/Malnutrition Patient General Information Nutritional Screening High Risk Diagnosis Mood disorder NOS, impulse control disorder NOS, dementia Pertinent Medical Hx/Surgical Hx CHF, HTN, dementia, psychosis, DM Subjective Information 81 year old male from SNF. Pt is ambulatory. Spoke to RN SOFYA Heredia stated pt may have inappropriate behaviors, eating well, no nutritinoal concerns. Spoke to pt during meal time in chair in rec room . No difficulties chewing/ swallowing noted. Teeth intact . Pt selectively resposnes, unable to provide full nutrition hx. Pt stated good appetite. Pt appeared overweight, no muscle fat wasting noted. Current Diet Order/ Nutrition Support Regular Pertinent Medications Colace, Iron, Lasix, MOM, Glucophage Pertinent Labs 02/04: glucose 222H, A1c 8.2H, triglycerides 277H, AST 73H, ALT 157H, alkaline phosphatase 126H Nutritional Hx/Data Height 1.75 m Height (Calculated Centimeters) 175.3 Current Weight (lbs) 104.326 kg Weight (Calculated Kilograms) 104.3 Weight (Calculated Grams) 181426.2 [place] Body Weight 160 Weight Status Obese GI Symptoms Usual diet at home [place] [facility]: [facility] Skin Integrity/Comment: Marc 17. Skin intact. Estimated Nutritional Goals BEE in Kcals: Adj wt of IBW Calories/Kcals/Kg AdjBW 177.5lb/80.7kg Kcals Calculated 2018-2421kcal (25-30kcal/kg) Protein: Adj wt of IBW Protein Calculated 81g (1g/kg) Fluid: ml 2018-2421ml (1ml/kcal) Nutritional Problem 1. Problem Problem Altered nutrition related laboratory values related to Etiology DM aeb Signs/Symptoms: A1c 8.2, glucose 222H Intervention/Recommendation Comments 1. Recommend [id number] with double portion vegetables. Expected Outcomes/Goals Expected Outcomes/Goals 1. PO intake to meet at least 75% of estimated nutritinoal needs.
--- NOTE | 2017-02-19 12:01 | Diagnostic Imaging Report ---
Head CT without intravenous contrast Indication: Unstable gait Comparison: None Technique: Axial images were obtained from the vertex to the skull base without IV contrast. Coronal reconstructions were made. Total DLP: 699, CTDI39.9 FINDINGS: Images of the brain obtained without contrast demonstrate no evidence of acute hemorrhage. Diffuse atrophy is noted with prominence of the right frontal extra-axial space measuring 8 mm from the inner table of the skull to the brain parenchyma. No mass effect or midline shift. The ventricles and basal cisterns are patent. Atherosclerotic vascular disease is noted. No evidence of a skull fracture or focal soft tissue swelling. There is 1.5 x 3 mm fat density focus of the right anterior frontal scalp. The paranasal sinuses are clear. The left globe is noted with calcifications. IMPRESSION: No evidence of acute intracranial hemorrhage Diffuse atrophy. There is asymmetric CSF prominence of right frontal extra-axial region. This is likely secondary to patient's atrophy. Old subdural hygromas would be considered less likely. No evidence of mass effect or midline shift. Atherosclerotic vascular disease. Shrunken left globe with calcifications, correlate clinically. 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
--- NOTE | 2017-02-20 02:05 | Progress Notes ---
DATE: 02/19/2017 Case was discussed with staff of the patient, reviewed records. The patient has been having unstable gait, I am not sure if it is related to the Abilify. I do not think it is related to the Namenda. I discussed it was Dr. Emanuel who is taking care of his medical condition, so I will be taking him off the Abilify and watch how he reacts. He is on Depakote 250 mg 3 times a day and for that purpose, I will go ____ the dose of Abilify and Depakote as well. Dr. Emanuel wants to do a CT scan of the head to see why he has unstable gait and I will do my part by taking him off Abilify and adjusting the dose of his Depakote and we will continue to work the patient in group therapy, milieu therapy, adjust medication as needed. JOB# [id number]
[2017-02-20 06:46] LABS: % BASOPHILS 0.8 % (0.0-2.0); % EOSINOPHILS 4.5 % (0.0-5.0); % LYMPHOCYTES 17.8 % (20.0-50.0); % MONOCYTES 2.9 % (2.0-10.0); HEMATOCRIT 42.8 % (41.0-60); HEMOGLOBIN 14.6 gm/dL (12-16); MEAN CELL VOLUME 93.5 fl (80-99); MEAN CORPUSCULAR HGB CONC 34.2 pg (28.0-36.0); MEAN PLATELET VOLUME 7.8 fl; NEUTROPHILE ABSOLUTE 7.8 Th/cmm (1.8-8.0); PLATELET COUNT 290 Th/cmm (150-400); RED BLOOD COUNT 4.58 Mil/cmm (3.80-5.80); WHITE BLOOD COUNT 10.6 Th/cmm (4.8-10.8)
[2017-02-20 07:02] LABS: ALB/GLOB RATIO 1.3 (1.0-1.8); ALKALINE PHOSPHATASE 88 U/L (34-104); ANION GAP 7.9 (7.0-16.0); BILIRUBIN,TOTAL 0.5 mg/dL (0.3-1.0); BUN - UREA NITROGEN 10 mg/dL (7-25); BUN/CREATININE RATIO 14.3; CALCIUM SERUM 9.4 mg/dL (8.6-10.3); CARBON DIOXIDE 28.3 mEq/L (21.0-31.0); CHLORIDE 99 mEq/L (98-107); CREATININE - SERUM 0.7 mg/dL (0.7-1.3); GLUCOSE 177 mg/dL (70-105); POTASSIUM SERUM 4.2 mEq/L (3.5-5.1); SGOT 15 U/L (13-39); SGPT/ALT 58 U/L (7-52); SODIUM SERUM 131 mEq/L (136-145)
[2017-02-20] MEDS: INSULIN ASPART SLIDING SCALE 100 UNITS/ML UNIT SUBQ SCH ×2 (07:02→16:23)
[2017-02-20] MEDS: Ferrous Sulfate 325 MG TAB PO SCH (08:34)
[2017-02-20] MEDS: Multivitamin w/ Minerals Tab PO SCH (08:34)
--- NOTE | 2017-02-20 10:54 | General Progress Note ---
Subjective - Review of Systems Service Date: 02/20/17 Subjective: I want go home Objective - Results Result Diagrams: 02/20/17 06:31 02/20/17 06:31 Recent Labs: Laboratory Last Values WBC 10.6 Th/cmm (4.8-10.8) 02/20/17 06:31 RBC 4.58 Mil/cmm (3.80-5.80) 02/20/17 06:31 Hgb 14.6 gm/dL (12-16) 02/20/17 06:31 Hct 42.8 % (41.0-60) D 02/20/17 06:31 MCV 93.5 fl (80-99) 02/20/17 06:31 MCH 32.0 pg (27.0-31.0) H 02/20/17 06:31 MCHC Differential 34.2 pg (28.0-36.0) 02/20/17 06:31 RDW 12.0 % (11.5-20.0) 02/20/17 06:31 Plt Count 290 Th/cmm (150-400) 02/20/17 06:31 MPV 7.8 fl 02/20/17 06:31 Neutrophils % 74.0 % (40.0-80.0) 02/20/17 06:31 Band Neutrophils % 5 % (0-10) 02/14/17 06:06 Lymphocytes % 17.8 % (20.0-50.0) L 02/20/17 06:31 Monocytes % 2.9 % (2.0-10.0) 02/20/17 06:31 Eosinophils % 4.5 % (0.0-5.0) 02/20/17 06:31 Basophils % 0.8 % (0.0-2.0) 02/20/17 06:31 Neutrophils (Manual) 73 % (40-80) 02/14/17 06:06 Lymphocytes 15 % (20-50) L 02/14/17 06:06 Monocytes 7 % (2-10) 02/14/17 06:06 Sodium 131 mEq/L (136-145) L 02/20/17 06:31 Potassium 4.2 mEq/L (3.5-5.1) 02/20/17 06:31 Chloride 99 mEq/L (98-107) 02/20/17 06:31 Carbon Dioxide 28.3 mEq/L (21.0-31.0) 02/20/17 06:31 Anion Gap 7.9 (7.0-16.0) 02/20/17 06:31 BUN 10 mg/dL (7-25) 02/20/17 06:31 Creatinine 0.7 mg/dL (0.7-1.3) 02/20/17 06:31 Est GFR ( Amer) TNP 02/20/17 06:31 Est GFR (Non-Af Amer) TNP 02/20/17 06:31 BUN/Creatinine Ratio 14.3 02/20/17 06:31 Glucose 177 mg/dL (70-105) H 02/20/17 06:31 POC Glucose 152 MG/DL (70 - 105) H 02/20/17 06:33 Hemoglobin A1c % 8.2 % (4.0-6.0) H 02/04/17 14:21 Calcium 9.4 mg/dL (8.6-10.3) 02/20/17 06:31 Total Bilirubin 0.5 mg/dL (0.3-1.0) 02/20/17 06:31 AST 15 U/L (13-39) 02/20/17 06:31 ALT 58 U/L (7-52) H 02/20/17 06:31 Alkaline Phosphatase 88 U/L (34-104) 02/20/17 06:31 Total Protein 6.8 gm/dL (6.0-8.3) 02/20/17 06:31 Albumin 3.8 gm/dL (4.2-5.5) L 02/20/17 06:31 Globulin 3.0 gm/dL 02/20/17 06:31 Albumin/Globulin Ratio 1.3 (1.0-1.8) 02/20/17 06:31 Triglycerides 277 mg/dL (<150) H 02/04/17 14:21 Cholesterol 165 mg/dL (<200) 02/04/17 14:21 LDL Cholesterol Direct 101 mg/dL (75-193) 02/04/17 14:21 HDL Cholesterol 37 mg/dL (23-92) 02/04/17 14:21 TSH 2.88 uIU/ml (0.34-5.60) 02/14/17 06:06 Urine Source CLEAN C 10/26/17 13:35 Urine Color YELLOW 02/04/17 13:35 Urine Clarity CLEAR (CLEAR) 02/04/17 13:35 Urine pH 5.5 (4.6 - 8.0) 02/04/17 13:35 Ur Specific [place] <= 1.005 (1.005-1.030) 02/04/17 13:35 Urine Protein NEGATIVE mg/dL (NEGATIVE) 02/04/17 13:35 Urine Glucose (UA) NEGATIVE mg/dL (NEGATIVE) 02/04/17 13:35 Urine Ketones NEGATIVE mg/dL (NEGATIVE) 02/04/17 13:35 Urine Blood NEGATIVE (NEGATIVE) 02/04/17 13:35 Urine Nitrate NEGATIVE (NEGATIVE) 02/04/17 13:35 Urine Bilirubin NEGATIVE (NEGATIVE) 02/04/17 13:35 Urine Urobilinogen 0.2 E.U./dL (0.2 - 1.0) 02/04/17 13:35 Ur Leukocyte Esterase NEGATIVE (NEGATIVE) 02/04/17 13:35 Urine RBC NONE SEEN /hpf (0-5) 02/04/17 13:35 Urine WBC NONE SEEN /hpf (0-5) 02/04/17 13:35 Ur Epithelial Cells NONE SEEN /lpf (FEW) 02/04/17 13:35 Urine Bacteria NONE SEEN /hpf (NONE SEEN) 02/04/17 13:35 Salicylates < 25.0 mg/L (30.0-100.0) L 02/04/17 14:21 Urine Opiates Screen NEGATIVE (NEGATIVE) 02/04/17 13:35 Urine Methadone Screen NEGATIVE (NEGATIVE) 02/04/17 13:35 Acetaminophen < 10.0 ug/mL (10.0-30.0) L 02/04/17 14:21 Ur Barbiturates Screen NEGATIVE (NEGATIVE) 02/04/17 13:35 Ur Tricyclics Screen NEGATIVE (NEGATIVE) 02/04/17 13:35 Ur Phencyclidine Scrn NEGATIVE (NEGATIVE) 02/04/17 13:35 Amphetamines Screen NEGATIVE (NEGATIVE) 02/04/17 13:35 U Methamphetamines Scrn NEGATIVE (NEGATIVE) 02/04/17 13:35 U Benzodiazepines Scrn NEGATIVE (NEGATIVE) 02/04/17 13:35 U Cocaine Metab Screen NEGATIVE (NEGATIVE) 02/04/17 13:35 U Cannabinoids Screen NEGATIVE (NEGATIVE) 02/04/17 13:35 Ethyl Alcohol < 10 mg/dL (0-10) 02/04/17 14:21 RPR NONREACTIVE (NONREACTIVE) 02/04/17 14:21 - Physical Exam Vitals and I&O: Vital Signs Temp 98.2 F 02/20/17 06:39 Pulse 86 02/20/17 06:39 Resp 19 02/20/17 06:39 BP 147/85 02/20/17 08:34 Pulse Ox 98 02/20/17 06:39 Intake & Output 02/19/17 02/20/17 02/20/17 18:59 06:59 18:59 Intake Total 900 120 Balance 900 120 Intake: Oral 900 120 Other: # Voids 4 3 # Bowel Movements 1 Stool Characteristics Soft Soft Formed Formed Active Medications: Current Medications Acetaminophen (Tylenol) 650 mg PO Q4HR PRN PRN Reason: Pain Stop: 04/05/17 20:19 Captopril (Capoten 25 Mg Tab) 25 mg PO DAILY [facility] Stop: 04/06/17 08:59 Last Admin: 02/20/17 09:05 Dose: Not Given Divalproex Sodium (Depakote Er) 250 mg PO Q12HR KALIA PRN Reason: Protocol Stop: 04/20/17 20:59 Last Admin: 02/20/17 08:34 Dose: 250 mg Docusate Sodium (Colace) 100 mg PO BID KALIA Stop: 04/06/17 08:59 Last Admin: 02/20/17 08:35 Dose: 100 mg Donepezil HCl (Aricept) 10 mg PO HS [facility] Stop: 04/05/17 20:59 Last Admin: 02/19/17 21:13 Dose: 10 mg Ferrous Sulfate (Iron) 325 mg PO DAILY KALIA Stop: 04/06/17 08:59 Last Admin: 02/20/17 08:34 Dose: 325 mg Furosemide (Lasix) 20 mg PO DAILY KALIA Stop: 04/06/17 12:14 Last Admin: 02/20/17 08:34 Dose: 20 mg Insulin Aspart (Novolog Insulin Sliding Scale) 0 units SUBQ BIDAC KALIA PRN Reason: Protocol Stop: 04/15/17 07:29 Last Admin: 02/20/17 07:02 Dose: 2 units Lorazepam (Ativan) 1 mg PO Q6H PRN; Protocol PRN Reason: Anxiety/Agitation Stop: 04/05/17 20:14 Last Admin: 02/13/17 20:41 Dose: 1 mg Magnesium Hydroxide (Milk Of Magnesia) 30 ml PO DAILY PRN PRN Reason: Constipation Stop: 04/05/17 20:19 Memantine (Namenda) 5 mg PO BID [facility] Stop: 04/16/17 16:59 Last Admin: 02/20/17 08:34 Dose: 5 mg Metformin HCl (Glucophage) 500 mg PO TIDWM [facility] Stop: 04/06/17 07:59 Last Admin: 02/20/17 08:35 Dose: 500 mg Sodium Chloride (Nacl Tab) 1 gm PO BID [facility] Stop: 04/18/17 16:59 Last Admin: 02/20/17 08:34 Dose: 1 gm Zolpidem Tartrate (Ambien) 5 mg PO HS PRN PRN Reason: Insomnia Stop: 04/05/17 20:14 Last Admin: 02/16/17 20:36 Dose: 5 mg General: Alert, No acute distress, Other (Confused, not oriented) HEENT: no Atraumatic (There is a small laceration in back of head) Neck: Supple Cardiovascular: Regular rate Lungs: Clear to auscultation Abdomen: Bowel sounds, Soft Extremities: Other (No edema) Neurological: Other (Unstable gait) Skin: Other (Warm and dry) Psych/Mental Status: Other (Confused, not oriented) - Procedures Procedures: Procedures Procedure Code Date GROUP PSYCHOTHERAPY 24810 04/25/15 GROUP PSYCHOTHERAPY GZHZZZZ 04/25/15 OTHER GROUP THERAPY 94.44 11/08/14 Assessment/Plan - Problem List Patient Problems: All Active Problems INCREASED AGGRESIVE BEHAVIOR WITH AGITAI (Acute) Bipolar disorder (Acute) Dementia (Acute) F03.90 Depressive disorder (Acute) F32.9 Diabetes mellitus (Acute) E11.9 Hypertension (Acute) I10 Hyposmolality and/or hyponatremia (Acute) E87.1 INAPPROPRIATE BEHAVIOR (Acute 04/25/15) Psychosis (Acute) F29 - Assessment Assessment: Current Active Problems Problem Status Onset INCREASED AGGRESIVE BEHAVIOR WITH AGITAI Acute Patient is awake, alert, calm, not oriented. Patient is refusing to get out of bed. He continue showing unstable gait. Head CT shows diffuse atrophy. Case discussed with psychiatry. Dx: Increased in agitation, HT, DM, CHF, Hypothyroidism, Dementia - Plan Plan: Patient follow by psychiatry, Medications are lowered to see if gait improved. PT is ordered. Will continue to monitor. Nutritional Asmnt/Malnutr-PDOC - Dietary Evaluation Malnutrition Findings (Please click <Entered> for more info): Nutritional Asmnt/Malnutrition Start: 02/05/17 16: 01 Text: Status: Complete Freq: Document 02/05/17 16:02 GSUN (Rec: 02/05/17 16:15 [email or web address] [email or web address]) Nutritional Asmnt/Malnutrition Patient General Information Nutritional Screening High Risk Diagnosis Mood disorder NOS, impulse control disorder NOS, dementia Pertinent Medical Hx/Surgical Hx CHF, HTN, dementia, psychosis, DM Subjective Information 81 year old male from SNF. Pt is ambulatory. Spoke to RN SOFYA Heredia stated pt may have inappropriate behaviors, eating well, no nutritinoal concerns. Spoke to pt during meal time in chair in rec room . No difficulties chewing/ swallowing noted. Teeth intact . Pt selectively resposnes, unable to provide full nutrition hx. Pt stated good appetite. Pt appeared overweight, no muscle fat wasting noted. Current Diet Order/ Nutrition Support Regular Pertinent Medications Colace, Iron, Lasix, MOM, Glucophage Pertinent Labs 02/04: glucose 222H, A1c 8.2H, triglycerides 277H, AST 73H, ALT 157H, alkaline phosphatase 126H Nutritional Hx/Data Height 1.75 m Height (Calculated Centimeters) 175.3 Current Weight (lbs) 104.326 kg Weight (Calculated Kilograms) 104.3 Weight (Calculated Grams) 088002.2 [place] Body Weight 160 Weight Status Obese GI Symptoms Usual diet at home [place]: [facility] Skin Integrity/Comment: Marc 17. Skin intact. Estimated Nutritional Goals BEE in Kcals: Adj wt of IBW Calories/Kcals/Kg AdjBW 177.5lb/80.7kg Kcals Calculated 2018-2421kcal (25-30kcal/kg) Protein: Adj wt of IBW Protein Calculated 81g (1g/kg) Fluid: ml 2018-2421ml (1ml/kcal) Nutritional Problem 1. Problem Problem Altered nutrition related laboratory values related to Etiology DM aeb Signs/Symptoms: A1c 8.2, glucose 222H Intervention/Recommendation Comments 1. Recommend [id number] with double portion vegetables. Expected Outcomes/Goals Expected Outcomes/Goals 1. PO intake to meet at least 75% of estimated nutritinoal needs.
--- NOTE | 2017-02-21 03:14 | Progress Notes ---
DATE: 02/20/2017 Case was discussed with staff of the patient, reviewed records. 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 The patient has been confused, unable to make safe plan for self-care, unpredictable, impulsive, needing redirection. I did take him off the Abilify and decrease his Depakote dose, and so far he is still confused, unable to participate in a meaningful conversation or make safe plan for self-care. We will continue to work with the patient in group therapy, milieu therapy, adjust the medication as needed. JOB# [id number]
[2017-02-21] MEDS: INSULIN ASPART SLIDING SCALE 100 UNITS/ML UNIT SUBQ SCH ×2 (06:39→16:53)
[2017-02-21] MEDS: Multivitamin w/ Minerals Tab PO SCH (08:11)
[2017-02-21] MEDS: Ferrous Sulfate 325 MG TAB PO SCH (08:12)
--- NOTE | 2017-02-21 09:30 | General Progress Note ---
Subjective - Review of Systems Service Date: 02/21/17 Subjective: I want go home Objective - Results Result Diagrams: 02/20/17 06:31 02/20/17 06:31 Recent Labs: Laboratory Last Values WBC 10.6 Th/cmm (4.8-10.8) 02/20/17 06:31 RBC 4.58 Mil/cmm (3.80-5.80) 02/20/17 06:31 Hgb 14.6 gm/dL (12-16) 02/20/17 06:31 Hct 42.8 % (41.0-60) D 02/20/17 06:31 MCV 93.5 fl (80-99) 02/20/17 06:31 MCH 32.0 pg (27.0-31.0) H 02/20/17 06:31 MCHC Differential 34.2 pg (28.0-36.0) 02/20/17 06:31 RDW 12.0 % (11.5-20.0) 02/20/17 06:31 Plt Count 290 Th/cmm (150-400) 02/20/17 06:31 MPV 7.8 fl 02/20/17 06:31 Neutrophils % 74.0 % (40.0-80.0) 02/20/17 06:31 Band Neutrophils % 5 % (0-10) 02/14/17 06:06 Lymphocytes % 17.8 % (20.0-50.0) L 02/20/17 06:31 Monocytes % 2.9 % (2.0-10.0) 02/20/17 06:31 Eosinophils % 4.5 % (0.0-5.0) 02/20/17 06:31 Basophils % 0.8 % (0.0-2.0) 02/20/17 06:31 Neutrophils (Manual) 73 % (40-80) 02/14/17 06:06 Lymphocytes 15 % (20-50) L 02/14/17 06:06 Monocytes 7 % (2-10) 02/14/17 06:06 Sodium 131 mEq/L (136-145) L 02/20/17 06:31 Potassium 4.2 mEq/L (3.5-5.1) 02/20/17 06:31 Chloride 99 mEq/L (98-107) 02/20/17 06:31 Carbon Dioxide 28.3 mEq/L (21.0-31.0) 02/20/17 06:31 Anion Gap 7.9 (7.0-16.0) 02/20/17 06:31 BUN 10 mg/dL (7-25) 02/20/17 06:31 Creatinine 0.7 mg/dL (0.7-1.3) 02/20/17 06:31 Est GFR ( Amer) TNP 02/20/17 06:31 Est GFR (Non-Af Amer) TNP 02/20/17 06:31 BUN/Creatinine Ratio 14.3 02/20/17 06:31 Glucose 177 mg/dL (70-105) H 02/20/17 06:31 POC Glucose 179 MG/DL (70 - 105) H 02/21/17 06:12 Hemoglobin A1c % 8.2 % (4.0-6.0) H 02/04/17 14:21 Calcium 9.4 mg/dL (8.6-10.3) 02/20/17 06:31 Total Bilirubin 0.5 mg/dL (0.3-1.0) 02/20/17 06:31 AST 15 U/L (13-39) 02/20/17 06:31 ALT 58 U/L (7-52) H 02/20/17 06:31 Alkaline Phosphatase 88 U/L (34-104) 02/20/17 06:31 Total Protein 6.8 gm/dL (6.0-8.3) 02/20/17 06:31 Albumin 3.8 gm/dL (4.2-5.5) L 02/20/17 06:31 Globulin 3.0 gm/dL 02/20/17 06:31 Albumin/Globulin Ratio 1.3 (1.0-1.8) 02/20/17 06:31 Triglycerides 277 mg/dL (<150) H 02/04/17 14:21 Cholesterol 165 mg/dL (<200) 02/04/17 14:21 LDL Cholesterol Direct 101 mg/dL (75-193) 02/04/17 14:21 HDL Cholesterol 37 mg/dL (23-92) 02/04/17 14:21 TSH 2.88 uIU/ml (0.34-5.60) 02/14/17 06:06 Urine Source CLEAN C 10/26/17 13:35 Urine Color YELLOW 02/04/17 13:35 Urine Clarity CLEAR (CLEAR) 02/04/17 13:35 Urine pH 5.5 (4.6 - 8.0) 02/04/17 13:35 Ur Specific [place] <= 1.005 (1.005-1.030) 02/04/17 13:35 Urine Protein NEGATIVE mg/dL (NEGATIVE) 02/04/17 13:35 Urine Glucose (UA) NEGATIVE mg/dL (NEGATIVE) 02/04/17 13:35 Urine Ketones NEGATIVE mg/dL (NEGATIVE) 02/04/17 13:35 Urine Blood NEGATIVE (NEGATIVE) 02/04/17 13:35 Urine Nitrate NEGATIVE (NEGATIVE) 02/04/17 13:35 Urine Bilirubin NEGATIVE (NEGATIVE) 02/04/17 13:35 Urine Urobilinogen 0.2 E.U./dL (0.2 - 1.0) 02/04/17 13:35 Ur Leukocyte Esterase NEGATIVE (NEGATIVE) 02/04/17 13:35 Urine RBC NONE SEEN /hpf (0-5) 02/04/17 13:35 Urine WBC NONE SEEN /hpf (0-5) 02/04/17 13:35 Ur Epithelial Cells NONE SEEN /lpf (FEW) 02/04/17 13:35 Urine Bacteria NONE SEEN /hpf (NONE SEEN) 02/04/17 13:35 Salicylates < 25.0 mg/L (30.0-100.0) L 02/04/17 14:21 Urine Opiates Screen NEGATIVE (NEGATIVE) 02/04/17 13:35 Urine Methadone Screen NEGATIVE (NEGATIVE) 02/04/17 13:35 Acetaminophen < 10.0 ug/mL (10.0-30.0) L 02/04/17 14:21 Ur Barbiturates Screen NEGATIVE (NEGATIVE) 02/04/17 13:35 Ur Tricyclics Screen NEGATIVE (NEGATIVE) 02/04/17 13:35 Ur Phencyclidine Scrn NEGATIVE (NEGATIVE) 02/04/17 13:35 Amphetamines Screen NEGATIVE (NEGATIVE) 02/04/17 13:35 U Methamphetamines Scrn NEGATIVE (NEGATIVE) 02/04/17 13:35 U Benzodiazepines Scrn NEGATIVE (NEGATIVE) 02/04/17 13:35 U Cocaine Metab Screen NEGATIVE (NEGATIVE) 02/04/17 13:35 U Cannabinoids Screen NEGATIVE (NEGATIVE) 02/04/17 13:35 Ethyl Alcohol < 10 mg/dL (0-10) 02/04/17 14:21 RPR NONREACTIVE (NONREACTIVE) 02/04/17 14:21 - Physical Exam Vitals and I&O: Vital Signs Temp 98.1 F 02/21/17 06:48 Pulse 78 02/21/17 08:12 Resp 19 02/21/17 08:00 BP 124/83 02/21/17 08:12 Pulse Ox 98 02/21/17 06:48 Intake & Output 02/20/17 02/21/17 02/21/17 18:59 06:59 18:59 Intake Total 600 480 Balance 600 480 Intake: Oral 600 480 Other: # Voids 3 1 # Bowel Movements 1 Stool Characteristics Soft Soft Active Medications: Current Medications Acetaminophen (Tylenol) 650 mg PO Q4HR PRN PRN Reason: Pain Stop: 04/05/17 20:19 Captopril (Capoten 25 Mg Tab) 25 mg PO DAILY KALIA Stop: 04/06/17 08:59 Last Admin: 02/21/17 08:12 Dose: 25 mg Divalproex Sodium (Depakote Er) 250 mg PO Q12HR KALIA PRN Reason: Protocol Stop: 04/20/17 20:59 Last Admin: 02/21/17 08:12 Dose: 250 mg Docusate Sodium (Colace) 100 mg PO BID KALIA Stop: 04/06/17 08:59 Last Admin: 02/21/17 08:12 Dose: 100 mg Donepezil HCl (Aricept) 10 mg PO HS KALIA Stop: 04/05/17 20:59 Last Admin: 02/20/17 20:56 Dose: 10 mg Ferrous Sulfate (Iron) 325 mg PO DAILY KALIA Stop: 04/06/17 08:59 Last Admin: 02/21/17 08:12 Dose: 325 mg Furosemide (Lasix) 20 mg PO DAILY KALIA Stop: 04/06/17 12:14 Last Admin: 02/21/17 08:11 Dose: 20 mg Insulin Aspart (Novolog Insulin Sliding Scale) 0 units SUBQ BIDAC KALIA PRN Reason: Protocol Stop: 04/15/17 07:29 Last Admin: 02/21/17 06:39 Dose: 2 units Lorazepam (Ativan) 1 mg PO Q6H PRN; Protocol PRN Reason: Anxiety/Agitation Stop: 04/05/17 20:14 Last Admin: 02/13/17 20:41 Dose: 1 mg Magnesium Hydroxide (Milk Of Magnesia) 30 ml PO DAILY PRN PRN Reason: Constipation Stop: 04/05/17 20:19 Memantine (Namenda) 5 mg PO BID [facility] Stop: 04/16/17 16:59 Last Admin: 02/21/17 08:12 Dose: 5 mg Metformin HCl (Glucophage) 500 mg PO TIDWM KALIA Stop: 04/06/17 07:59 Last Admin: 02/21/17 08:12 Dose: 500 mg Sodium Chloride (Nacl Tab) 1 gm PO BID [facility] Stop: 04/18/17 16:59 Last Admin: 02/21/17 08:11 Dose: 1 gm Zolpidem Tartrate (Ambien) 5 mg PO HS PRN PRN Reason: Insomnia Stop: 04/05/17 20:14 Last Admin: 02/16/17 20:36 Dose: 5 mg General: Alert, No acute distress, Other (Confused, not oriented) HEENT: no Atraumatic (There is a small laceration in back of head) Neck: Supple Cardiovascular: Regular rate Lungs: Clear to auscultation Abdomen: Bowel sounds, Soft Extremities: Other (No edema) Neurological: Other (Unstable gait) Skin: Other (There is fed dry areas with some redness in both arms close to elbows) Psych/Mental Status: Other (Confused, not oriented) - Procedures Procedures: Procedures Procedure Code Date GROUP PSYCHOTHERAPY 24674 04/25/15 GROUP PSYCHOTHERAPY GZHZZZZ 04/25/15 OTHER GROUP THERAPY 94.44 11/08/14 Assessment/Plan - Problem List Patient Problems: All Active Problems INCREASED AGGRESIVE BEHAVIOR WITH AGITAI (Acute) Bipolar disorder (Acute) Dementia (Acute) F03.90 Depressive disorder (Acute) F32.9 Diabetes mellitus (Acute) E11.9 Hypertension (Acute) I10 Hyposmolality and/or hyponatremia (Acute) E87.1 INAPPROPRIATE BEHAVIOR (Acute 04/25/15) Psychosis (Acute) F29 - Assessment Assessment: Current Active Problems Problem Status Onset INCREASED AGGRESIVE BEHAVIOR WITH AGITAI Acute Patient is awake, alert, calm, not oriented. Patient is refusing to get out of bed. He continue showing unstable gait. Head CT shows diffuse atrophy. Case discussed with psychiatry. Dx: Increased in agitation, HT, DM, CHF, Hypothyroidism, Dementia, Psoriasis. - Plan Plan: Triamcinolona is added. Patient follow by psychiatry, Medications are lowered to see if gait improved. PT is ordered. Will continue to monitor. Nutritional Asmnt/Malnutr-PDOC - Dietary Evaluation Malnutrition Findings (Please click <Entered> for more info): Nutritional Asmnt/Malnutrition Start: 02/05/17 16: 01 Text: Status: Complete Freq: Document 02/05/17 16:02 GSUN (Rec: 02/05/17 16:15 [email or web address] [email or web address]) Nutritional Asmnt/Malnutrition Patient General Information Nutritional Screening High Risk Diagnosis Mood disorder NOS, impulse control disorder NOS, dementia Pertinent Medical Hx/Surgical Hx CHF, HTN, dementia, psychosis, DM Subjective Information 81 year old male from SNF. Pt is ambulatory. Spoke to RN SOFYA Heredia stated pt may have inappropriate behaviors, eating well, no nutritinoal concerns. Spoke to pt during meal time in chair in rec room . No difficulties chewing/ swallowing noted. Teeth intact . Pt selectively resposnes, unable to provide full nutrition hx. Pt stated good appetite. Pt appeared overweight, no muscle fat wasting noted. Current Diet Order/ Nutrition Support Regular Pertinent Medications Colace, Iron, Lasix, MOM, Glucophage Pertinent Labs 02/04: glucose 222H, A1c 8.2H, triglycerides 277H, AST 73H, ALT 157H, alkaline phosphatase 126H Nutritional Hx/Data Height 1.75 m Height (Calculated Centimeters) 175.3 Current Weight (lbs) 104.326 kg Weight (Calculated Kilograms) 104.3 Weight (Calculated Grams) 818139.2 [place] Body Weight 160 Weight Status Obese GI Symptoms Usual diet at home [place] [facility]F: [facility] Skin Integrity/Comment: Marc 17. Skin intact. Estimated Nutritional Goals BEE in Kcals: Adj wt of IBW Calories/Kcals/Kg AdjBW 177.5lb/80.7kg Kcals Calculated 2017-2421kcal (25-30kcal/kg) Protein: Adj wt of IBW Protein Calculated 81g (1g/kg) Fluid: ml 2018-2421ml (1ml/kcal) Nutritional Problem 1. Problem Problem Altered nutrition related laboratory values related to Etiology DM aeb Signs/Symptoms: A1c 8.2, glucose 222H Intervention/Recommendation Comments 1. Recommend [id number] with double portion vegetables. Expected Outcomes/Goals Expected Outcomes/Goals 1. PO intake to meet at least 75% of estimated nutritinoal needs.
[2017-02-21] MEDS: Triamcinolone Acetonide 0.1% Cream 15 gm TP SCH ×2 (16:52)
--- NOTE | 2017-02-21 23:47 | Progress Notes ---
DATE: 02/21/2017 Case was discussed with staff of the patient, reviewed records. Also, there is a CT head scan without contrast that showed diffuse atrophy. No evidence of acute intracranial hemorrhage and there is a ____ CSF prominence on the right frontal extra axial region. Secondary to patient atrophy, old subdural hygromas would be considered less likely. No evidence of mass effect or midline shift. The patient apparently has a fat density focussed on the right anterior frontal scalp, so there is no increase in intracranial pressure. No evidence of a tumor; however, I went ahead and took him off Abilify and decreased the Depakote dose and the patient apparently has deteriorated in the past few days, with him becoming more staying in bed, requiring for self-care which he was not like that, so I am not sure if this is a side effect of Aricept or Namenda but he has been on it for a while now. So, I will be decreasing the Depakote dose further to 125 and the other thing that we had done since admission is have him on high dose of Namenda. He is now on 5 mg twice a day. So, I will be discontinuing Namenda as well and will keep him on the Aricept. We will continue to work with the patient in group therapy, milieu therapy, and adjust medications as needed. JOB# [id number]
[2017-02-22] MEDS: INSULIN ASPART SLIDING SCALE 100 UNITS/ML UNIT SUBQ SCH (06:55)
[2017-02-22] MEDS: Ferrous Sulfate 325 MG TAB PO SCH (08:09)
[2017-02-22] MEDS: Triamcinolone Acetonide 0.1% Cream 15 gm TP SCH (08:11)
[2017-02-22] MEDS: Multivitamin w/ Minerals Tab PO SCH (08:12)
--- NOTE | 2017-02-22 08:54 | General Progress Note ---
Subjective - Review of Systems Service Date: 02/22/17 Subjective: I want go home Objective - Results Result Diagrams: 02/20/17 06:31 02/20/17 06:31 Recent Labs: Laboratory Last Values WBC 10.6 Th/cmm (4.8-10.8) 02/20/17 06:31 RBC 4.58 Mil/cmm (3.80-5.80) 02/20/17 06:31 Hgb 14.6 gm/dL (12-16) 02/20/17 06:31 Hct 42.8 % (41.0-60) D 02/20/17 06:31 MCV 93.5 fl (80-99) 02/20/17 06:31 MCH 32.0 pg (27.0-31.0) H 02/20/17 06:31 MCHC Differential 34.2 pg (28.0-36.0) 02/20/17 06:31 RDW 12.0 % (11.5-20.0) 02/20/17 06:31 Plt Count 290 Th/cmm (150-400) 02/20/17 06:31 MPV 7.8 fl 02/20/17 06:31 Neutrophils % 74.0 % (40.0-80.0) 02/20/17 06:31 Band Neutrophils % 5 % (0-10) 02/14/17 06:06 Lymphocytes % 17.8 % (20.0-50.0) L 02/20/17 06:31 Monocytes % 2.9 % (2.0-10.0) 02/20/17 06:31 Eosinophils % 4.5 % (0.0-5.0) 02/20/17 06:31 Basophils % 0.8 % (0.0-2.0) 02/20/17 06:31 Neutrophils (Manual) 73 % (40-80) 02/14/17 06:06 Lymphocytes 15 % (20-50) L 02/14/17 06:06 Monocytes 7 % (2-10) 02/14/17 06:06 Sodium 131 mEq/L (136-145) L 02/20/17 06:31 Potassium 4.2 mEq/L (3.5-5.1) 02/20/17 06:31 Chloride 99 mEq/L (98-107) 02/20/17 06:31 Carbon Dioxide 28.3 mEq/L (21.0-31.0) 02/20/17 06:31 Anion Gap 7.9 (7.0-16.0) 02/20/17 06:31 BUN 10 mg/dL (7-25) 02/20/17 06:31 Creatinine 0.7 mg/dL (0.7-1.3) 02/20/17 06:31 Est GFR ( Amer) TNP 02/20/17 06:31 Est GFR (Non-Af Amer) TNP 02/20/17 06:31 BUN/Creatinine Ratio 14.3 02/20/17 06:31 Glucose 177 mg/dL (70-105) H 02/20/17 06:31 POC Glucose 150 MG/DL (70 - 105) H 02/22/17 05:49 Hemoglobin A1c % 8.2 % (4.0-6.0) H 02/04/17 14:21 Calcium 9.4 mg/dL (8.6-10.3) 02/20/17 06:31 Total Bilirubin 0.5 mg/dL (0.3-1.0) 02/20/17 06:31 AST 15 U/L (13-39) 02/20/17 06:31 ALT 58 U/L (7-52) H 02/20/17 06:31 Alkaline Phosphatase 88 U/L (34-104) 02/20/17 06:31 Total Protein 6.8 gm/dL (6.0-8.3) 02/20/17 06:31 Albumin 3.8 gm/dL (4.2-5.5) L 02/20/17 06:31 Globulin 3.0 gm/dL 02/20/17 06:31 Albumin/Globulin Ratio 1.3 (1.0-1.8) 02/20/17 06:31 Triglycerides 277 mg/dL (<150) H 02/04/17 14:21 Cholesterol 165 mg/dL (<200) 02/04/17 14:21 LDL Cholesterol Direct 101 mg/dL (75-193) 02/04/17 14:21 HDL Cholesterol 37 mg/dL (23-92) 02/04/17 14:21 TSH 2.88 uIU/ml (0.34-5.60) 02/14/17 06:06 Urine Source CLEAN C 10/26/17 13:35 Urine Color YELLOW 02/04/17 13:35 Urine Clarity CLEAR (CLEAR) 02/04/17 13:35 Urine pH 5.5 (4.6 - 8.0) 02/04/17 13:35 Ur Specific [place] <= 1.005 (1.005-1.030) 02/04/17 13:35 Urine Protein NEGATIVE mg/dL (NEGATIVE) 02/04/17 13:35 Urine Glucose (UA) NEGATIVE mg/dL (NEGATIVE) 02/04/17 13:35 Urine Ketones NEGATIVE mg/dL (NEGATIVE) 02/04/17 13:35 Urine Blood NEGATIVE (NEGATIVE) 02/04/17 13:35 Urine Nitrate NEGATIVE (NEGATIVE) 02/04/17 13:35 Urine Bilirubin NEGATIVE (NEGATIVE) 02/04/17 13:35 Urine Urobilinogen 0.2 E.U./dL (0.2 - 1.0) 02/04/17 13:35 Ur Leukocyte Esterase NEGATIVE (NEGATIVE) 02/04/17 13:35 Urine RBC NONE SEEN /hpf (0-5) 02/04/17 13:35 Urine WBC NONE SEEN /hpf (0-5) 02/04/17 13:35 Ur Epithelial Cells NONE SEEN /lpf (FEW) 02/04/17 13:35 Urine Bacteria NONE SEEN /hpf (NONE SEEN) 02/04/17 13:35 Salicylates < 25.0 mg/L (30.0-100.0) L 02/04/17 14:21 Urine Opiates Screen NEGATIVE (NEGATIVE) 02/04/17 13:35 Urine Methadone Screen NEGATIVE (NEGATIVE) 02/04/17 13:35 Acetaminophen < 10.0 ug/mL (10.0-30.0) L 02/04/17 14:21 Ur Barbiturates Screen NEGATIVE (NEGATIVE) 02/04/17 13:35 Ur Tricyclics Screen NEGATIVE (NEGATIVE) 02/04/17 13:35 Ur Phencyclidine Scrn NEGATIVE (NEGATIVE) 02/04/17 13:35 Amphetamines Screen NEGATIVE (NEGATIVE) 02/04/17 13:35 U Methamphetamines Scrn NEGATIVE (NEGATIVE) 02/04/17 13:35 U Benzodiazepines Scrn NEGATIVE (NEGATIVE) 02/04/17 13:35 U Cocaine Metab Screen NEGATIVE (NEGATIVE) 02/04/17 13:35 U Cannabinoids Screen NEGATIVE (NEGATIVE) 02/04/17 13:35 Ethyl Alcohol < 10 mg/dL (0-10) 02/04/17 14:21 RPR NONREACTIVE (NONREACTIVE) 02/04/17 14:21 - Physical Exam Vitals and I&O: Vital Signs Temp 97.1 F 02/22/17 06:59 Pulse 89 02/22/17 08:10 Resp 18 02/22/17 06:59 BP 181/85 02/22/17 08:10 Pulse Ox 97 02/22/17 06:59 Intake & Output 02/21/17 02/22/17 02/22/17 18:59 06:59 18:59 Intake Total 780 240 Balance 780 240 Intake: Oral 780 240 Other: # Voids 3 1 # Bowel Movements 1 Stool Characteristics Soft Soft Active Medications: Current Medications Acetaminophen (Tylenol) 650 mg PO Q4HR PRN PRN Reason: Pain Stop: 04/05/17 20:19 Captopril (Capoten 25 Mg Tab) 25 mg PO DAILY KALIA Stop: 04/06/17 08:59 Last Admin: 02/22/17 08:10 Dose: 25 mg Divalproex Sodium (Depakote Er) 125 mg PO Q12HR KALIA PRN Reason: Protocol Stop: 04/22/17 11:08 Last Admin: 02/22/17 08:11 Dose: 125 mg Docusate Sodium (Colace) 100 mg PO BID KALIA Stop: 04/06/17 08:59 Last Admin: 02/22/17 08:09 Dose: 100 mg Donepezil HCl (Aricept) 10 mg PO HS KALIA Stop: 04/05/17 20:59 Last Admin: 02/21/17 20:50 Dose: 10 mg Ferrous Sulfate (Iron) 325 mg PO DAILY KALIA Stop: 04/06/17 08:59 Last Admin: 02/22/17 08:09 Dose: 325 mg Furosemide (Lasix) 20 mg PO DAILY KALIA Stop: 04/06/17 12:14 Last Admin: 02/22/17 08:10 Dose: 20 mg Insulin Aspart (Novolog Insulin Sliding Scale) 0 units SUBQ BIDAC KALIA PRN Reason: Protocol Stop: 04/15/17 07:29 Last Admin: 02/22/17 06:55 Dose: Not Given Lorazepam (Ativan) 1 mg PO Q6H PRN; Protocol PRN Reason: Anxiety/Agitation Stop: 04/05/17 20:14 Last Admin: 02/13/17 20:41 Dose: 1 mg Magnesium Hydroxide (Milk Of Magnesia) 30 ml PO DAILY PRN PRN Reason: Constipation Stop: 04/05/17 20:19 Metformin HCl (Glucophage) 500 mg PO TIDWM [facility] Stop: 04/06/17 07:59 Last Admin: 02/22/17 08:09 Dose: 500 mg Sodium Chloride (Nacl Tab) 1 gm PO BID KALIA Stop: 04/18/17 16:59 Last Admin: 02/22/17 08:09 Dose: 1 gm Triamcinolone Acetonide (Kenalog 0.1%) 1 appl TP BID [facility] Stop: 04/22/17 09:29 Last Admin: 02/22/17 08:11 Dose: 1 appl Zolpidem Tartrate (Ambien) 5 mg PO HS PRN PRN Reason: Insomnia Stop: 04/05/17 20:14 Last Admin: 02/16/17 20:36 Dose: 5 mg General: Alert, No acute distress, Other (Confused, not oriented) HEENT: no Atraumatic (There is a small laceration in back of head) Neck: Supple Cardiovascular: Regular rate Lungs: Clear to auscultation Abdomen: Bowel sounds, Soft Extremities: Other (No edema) Neurological: Other (Unstable gait) Skin: Other (There is fed dry areas with some redness in both arms close to elbows) Psych/Mental Status: Other (Confused, not oriented) - Procedures Procedures: Procedures Procedure Code Date GROUP PSYCHOTHERAPY 70537 04/25/15 GROUP PSYCHOTHERAPY GZHZZZZ 04/25/15 OTHER GROUP THERAPY 94.44 11/08/14 Assessment/Plan - Problem List Patient Problems: All Active Problems INCREASED AGGRESIVE BEHAVIOR WITH AGITAI (Acute) Bipolar disorder (Acute) Dementia (Acute) F03.90 Depressive disorder (Acute) F32.9 Diabetes mellitus (Acute) E11.9 Hypertension (Acute) I10 Hyposmolality and/or hyponatremia (Acute) E87.1 INAPPROPRIATE BEHAVIOR (Acute 04/25/15) Psychosis (Acute) F29 - Assessment Assessment: Current Active Problems Problem Status Onset INCREASED AGGRESIVE BEHAVIOR WITH AGITAI Acute Patient is awake, alert, calm, not oriented. Patient is refusing to get out of bed. He continue showing unstable gait. Head CT shows diffuse atrophy. Case discussed with psychiatry. Dx: Increased in agitation, HT, DM, CHF, Hypothyroidism, Dementia, Psoriasis. - Plan Plan: Triamcinolona is added. Patient follow by psychiatry, Medications are lowered to see if gait improved. PT is ordered. Will continue to monitor. Nutritional Asmnt/Malnutr-PDOC - Dietary Evaluation Malnutrition Findings (Please click <Entered> for more info): Nutritional Asmnt/Malnutrition Start: 02/05/17 16: 01 Text: Status: Complete Freq: Document 02/05/17 16:02 GSUN (Rec: 02/05/17 16:15 [email or web address]) Nutritional Asmnt/Malnutrition Patient General Information Nutritional Screening High Risk Diagnosis Mood disorder NOS, impulse control disorder NOS, dementia Pertinent Medical Hx/Surgical Hx CHF, HTN, dementia, psychosis, DM Subjective Information 81 year old male from SNF. Pt is ambulatory. Spoke to RN SOFYA Heredia stated pt may have inappropriate behaviors, eating well, no nutritinoal concerns. Spoke to pt during meal time in chair in rec room . No difficulties chewing/ swallowing noted. Teeth intact . Pt selectively resposnes, unable to provide full nutrition hx. Pt stated good appetite. Pt appeared overweight, no muscle fat wasting noted. Current Diet Order/ Nutrition Support Regular Pertinent Medications Colace, Iron, Lasix, MOM, Glucophage Pertinent Labs 02/04: glucose 222H, A1c 8.2H, triglycerides 277H, AST 73H, ALT 157H, alkaline phosphatase 126H Nutritional Hx/Data Height 1.75 m Height (Calculated Centimeters) 175.3 Current Weight (lbs) 104.326 kg Weight (Calculated Kilograms) 104.3 Weight (Calculated Grams) 442887.2 [place] Body Weight 160 Weight Status Obese GI Symptoms Usual diet at home [place] [facility]: [facility] Skin Integrity/Comment: Marc 17. Skin intact. Estimated Nutritional Goals BEE in Kcals: Adj wt of IBW Calories/Kcals/Kg AdjBW 177.5lb/80.7kg Kcals Calculated 2017-2421kcal (25-30kcal/kg) Protein: Adj wt of IBW Protein Calculated 81g (1g/kg) Fluid: ml 2018-2421ml (1ml/kcal) Nutritional Problem 1. Problem Problem Altered nutrition related laboratory values related to Etiology DM aeb Signs/Symptoms: A1c 8.2, glucose 222H Intervention/Recommendation Comments 1. Recommend [id number] with double portion vegetables. Expected Outcomes/Goals Expected Outcomes/Goals 1. PO intake to meet at least 75% of estimated nutritinoal needs.
--- NOTE | 2017-02-22 18:51 | Discharge Summary ---
DATE OF DISCHARGE: 02/22/2017 IDENTIFYING INFORMATION: The patient is an 81-year-old male. CHIEF COMPLAINT: No answer. HISTORY OF PRESENT ILLNESS: The patient was sent from [place] because of aggressive behavior, masturbating, agitated, having touched females, verbally abusive. The patient is well known, because I have been seeing him at [facility]. He has been hospitalized many times for similar reasons. He has poor insight about the whole situation, does not know why he was here, asking when he is going to go home. COURSE IN THE HOSPITAL: The patient was started on Abilify and the dose increased to 15 mg a day. Also, however, later on, that was discontinued because the patient is not having difficulty with walking and became a total care. Also, I started him on Depakote and I had to go down on the dose to 125 twice a day to help with his impulsive behaviors as he continued to touch the patients inappropriately. He was continued with the Aricept 10 mg at bedtime. I did add Namenda; however, because of change in his physical abilities to take care of himself, I took him off Namenda. The patient was continued with metformin with captopril with iron, Lasix, and insulin; Dr. Foster took care of his medical condition, when the patient became suddenly unable to stand up and take care of himself. He did a CT scan of the head that did not show any acute abnormality; however, the patient, as he improved, I discussed the care with Dr. Emanuel. This morning, he felt from a medical point of view, he can be discharged to a lesser level at this point. He was no longer acting in anyway dangerous. He was sleeping well, eating well, no longer touching patients or masturbating. So, the patient was discharged to a lesser level of care. CONDITION ON DISCHARGE: The patient reports no suicidal ideation, no homicidal ideation, no paranoia. FINAL DIAGNOSES: AXIS I: Psychosis, not otherwise specified; dementia. MEDICAL DIAGNOSES: Diabetes mellitus, hypertension, and incoordination. The patient will be going back to [facility]. He will follow up with the psychiatrist, primary care physician and therapist. EXPECTED OUTCOME: Stable if the patient complies to the above. JOB# [id number]
== END 2017-02-22 14:40 | disposition home or self-care (01) | DRG 885 ==
LOC: ER 13:00 → GERO 17:00
PROVIDERS: ADMIT Psychiatry & Neurology Psychiatry; ATTEND Psychiatry & Neurology Psychiatry
DX: F29 Unspecified psychosis not due to a substance or known physiological condition (principal); I50.9 Heart failure, unspecified; E11.9 Type 2 diabetes mellitus without complications; I11.0 Hypertensive heart disease with heart failure; F39 Unspecified mood [affective] disorder; F03.90 Unspecified dementia, unspecified severity, without behavioral disturbance, psychotic disturbance, mood disturbance, and anxiety; F63.9 Impulse disorder, unspecified; E03.9 Hypothyroidism, unspecified; Z79.84 Long term (current) use of oral hypoglycemic drugs
CPT/HCPCS: 36415-UA; 70250-TC; 70450-TC; 71010-TC; 80053-TC; 80061-TC; 80307; 80320-TC; 80329-TC; 81001-TC; 82948-90; 83036-90; 84443-TC; 85007-TC; 85025-TC; 85027-TC; 86592-TC; 90899; 93005; 97530; G0410; J1815; X3904; Z7610

== ENCOUNTER 2017-06-02 15:03 | Inpatient (IN) | payer MEDICARE, MEDICAID ==
--- NOTE | 2017-06-02 15:36 | ED Physician Chart ---
ED Chief Complaint/HPI - Patient Information Date Seen:: 06/02/17 Time Seen:: 15:25 Chief Complaint:: agitation History of Present Illness:: At the patient's snf facility has been agitated, exhibiting disruptive behavior, striking out and exhibiting inappropriate sexual behavior. Patient [facility] numerous prior times for sexually inappropriate behavior. Allergies:: Allergies Allergy/AdvReac Type Severity Reaction Status Date / Time No Known Allergies Allergy Verified 12/19/15 15:48 Historian:: Patient Review:: Transfer documents Reviewed ED Review of Systems - Review of Systems General/Constitutional: No fever, No chills Skin: Skin lesions Head: No headache Eyes: No loss of vision ENT: No earache Neck: No neck pain Cardio Vascular: No chest pain Pulmonary: No SOB GI: No nausea, No vomiting, No diarrhea G/U: No dysuria Musculoskeletal: No bone or joint pain, No back pain, No muscle pain Psychiatric: Prior psych history Hematopoietic: No bruising Allergic/Immuno: No urticaria Neurological: No syncope ED Past Medical History - Past Medical History Past Medical History: HTN, DM, Dementia, Other (anemia; bipolar disorder; schizoaffective disorder psychosis; major depression; left eye blindness) Family History: None Social History: Non Smoker, No Alcohol Surgical History: None Psychiatricy History: Depression, Bipolar Medication: Reviewed Family Medical History - Family Member Mother History Unknown: Yes Ethnicity: Living Status: Hx Family Cancer: (unknown) Hx Family Coronary Artery Disease: (unknown) Hx Family Congestive Heart Failure: (unknown) Hx Family Hypertension: (unknown) Hx Family Stroke: (unknown) Hx Family Diabetes: (unknown) Hx Family Seizures: (unknown) Hx Family Dementia: (unknown) Hx Family AIDS: (unknown) Hx Family HIV: No Hx Family COPD: (unknown) Hx Family Hepatitis: (unknown) Hx Family Psychiatric Problems: (unknown) Hx Family Tuberculosis: (unknown) father History Unknown: Yes Living Status: ED Physical Exam - Physical Examination General/Constitutional: Awake, Well-developed, well-nourished, Alert, No distress Other Gen/Cons comments:: Patient oriented to the correct month and year Head: Atraumatic Other Eyes comments:: Left eye blindness Skin: Nl inspection, No rash ENMT: External ears, nose nl, Nasal exam nl Neck: No nuchal rigidity Respiratory: Nl effort/Exclusion, Clear to Auscultation, No Wheeze/Rhonchi/Rales Cardio Vascular: RRR GI: No tenderness/rebounding/guarding, No organomegaly, No hernia, Normal BS's : No CVA tenderness Other Extremities comments:: Redness distal lower legs with 2.5 out of 4 pitting edema Neuro/Psych: No focal deficits ED Labs/Radiology/EKG Results - Lab Results Comments:: Laboratory Results - last 24 hr 06/02/17 06/02/17 06/02/17 15:30 15:49 15:49 WBC 9.5 RBC 4.77 Hgb 14.8 Hct 43.4 MCV 91.0 MCH 31.0 MCHC Differential 34.0 RDW 12.1 Plt Count 303 MPV 7.7 Neutrophils % 67.6 Lymphocytes % 20.0 Monocytes % 7.6 Eosinophils % 4.4 Basophils % 0.4 Sodium 131 L Potassium 4.0 Chloride 93 L Carbon Dioxide 27.6 Anion Gap 14.4 BUN 19 Creatinine 0.9 Est GFR ( Amer) TNP Est GFR (Non-Af Amer) TNP BUN/Creatinine Ratio 21.1 Glucose 212 H Hemoglobin A1c % Calcium 10.0 Total Bilirubin 0.3 AST 25 ALT 112 H Alkaline Phosphatase 112 H Total Protein 7.6 Albumin 3.8 L Globulin 3.8 Albumin/Globulin Ratio 1.0 Triglycerides 401 H Cholesterol 189 LDL Cholesterol Direct 125 HDL Cholesterol 36 TSH Urine Source CLEAN C Urine Color YELLOW Urine Clarity CLEAR Urine pH 5.5 Ur Specific [place] 1.015 Urine Protein NEGATIVE Urine Glucose (UA) NEGATIVE Urine Ketones NEGATIVE Urine Blood NEGATIVE Urine Nitrate NEGATIVE Urine Bilirubin NEGATIVE Urine Urobilinogen 0.2 Ur Leukocyte Esterase NEGATIVE Urine RBC NONE SEEN Urine WBC NONE SEEN Ur Epithelial Cells NONE SEEN Urine Bacteria NONE SEEN 06/02/17 06/02/17 15:49 15:49 WBC RBC Hgb Hct MCV MCH MCHC Differential RDW Plt Count MPV Neutrophils % Lymphocytes % Monocytes % Eosinophils % Basophils % Sodium Potassium Chloride Carbon Dioxide Anion Gap BUN Creatinine Est GFR ( Amer) Est GFR (Non-Af Amer) BUN/Creatinine Ratio Glucose Hemoglobin A1c % 9.4 H Calcium Total Bilirubin AST ALT Alkaline Phosphatase Total Protein Albumin Globulin Albumin/Globulin Ratio Triglycerides Cholesterol LDL Cholesterol Direct HDL Cholesterol TSH 2.29 Urine Source Urine Color Urine Clarity Urine pH Ur Specific [place] Urine Protein Urine Glucose (UA) Urine Ketones Urine Blood Urine Nitrate Urine Bilirubin Urine Urobilinogen Ur Leukocyte Esterase Urine RBC Urine WBC Ur Epithelial Cells Urine Bacteria - EKG Interpretations Rate & Rhythm: normal sinus rhythm with a rate of 94 [place]: borderline left axis deviation Comments:: Right bundle-branch block ED Septic Shock - . Is Septic Shock (SBP<90, OR Lactate>4 mmol\L) present?: No ED Reassessment (Disposition) - Reassessment Reassessment:: Patient is medically stable to be admitted to [facility] Reassessment Condition:: Unchanged - Diagnosis Diagnosis:: Agitation; schizoaffective disorder; bipolar disorder; history of sexually inappropriate behavior - Patient Disposition Admitted to:: [facility] Admitting Medical Physician:: Hernandez Gomez Admitting Psych Physician:: Monica Guy Condition at Disposition:: Stable, Unchanged
[2017-06-02 15:55] LABS: % BASOPHILS 0.4 % (0.0-2.0); % EOSINOPHILS 4.4 % (0.0-5.0); % MONOCYTES 7.6 % (2.0-10.0); % NEUTROPHILS 67.6 % (40.0-80.0); EOSINOPHILE ABSOLUTE 0.4 Th/cmm (0.1-0.4); HEMATOCRIT 43.4 % (41.0-60); HEMOGLOBIN 14.8 gm/dL (12-16); LYMPHOCYTE ABSOLUTE 1.9 Th/cmm (1.5-3.0); MEAN PLATELET VOLUME 7.7 fl; MONOCYTE ABSOLUTE 0.7 Th/cmm (0.3-1.0); NEUTROPHILE ABSOLUTE 6.5 Th/cmm (1.8-8.0); PLATELET COUNT 303 Th/cmm (150-400); RED BLOOD COUNT 4.77 Mil/cmm (3.80-5.80); RED CELL DISTRIBUTION WIDTH 12.1 % (11.5-20.0); WHITE BLOOD COUNT 9.5 Th/cmm (4.8-10.8)
[2017-06-02 16:12] LABS: ALBUMIN 3.8 gm/dL (4.2-5.5); ALKALINE PHOSPHATASE 112 U/L (34-104); ANION GAP 14.4 (7.0-16.0); BILIRUBIN,TOTAL 0.3 mg/dL (0.3-1.0); BUN - UREA NITROGEN 19 mg/dL (7-25); CARBON DIOXIDE 27.6 mEq/L (21.0-31.0); CHLORIDE 93 mEq/L (98-107); CHOLESTEROL 189 mg/dL (<200); CREATININE - SERUM 0.9 mg/dL (0.7-1.3); GLUCOSE 212 mg/dL (70-105); HDL -HIGH DENSITY LIPOPROTEIN 36 mg/dL (23-92); SGOT 25 U/L (13-39); SGPT/ALT 112 U/L (7-52); SODIUM SERUM 131 mEq/L (136-145); TOTAL PROTEIN,SERUM 7.6 gm/dL (6.0-8.3); TRIGLYCERIDES 401 mg/dL (<150)
[2017-06-02 16:26] LABS: URINE MICROSCOPIC INDICATED? YES; URINE SOURCE CLEAN C
[2017-06-02 16:29] LABS: URINE BILIRUBIN NEGATIVE (NEGATIVE); URINE BLOOD NEGATIVE (NEGATIVE); URINE GLUCOSE (UA) NEGATIVE (NEGATIVE); URINE KETONE NEGATIVE (NEGATIVE); URINE LEUKOCYTE ESTERASE NEGATIVE (NEGATIVE); URINE NITRATE NEGATIVE (NEGATIVE); URINE PH 5.5 (4.6 - 8.0); URINE PROTEIN NEGATIVE (NEGATIVE); URINE UROBILINOGEN 0.2 E.U./dL (0.2 - 1.0)
[2017-06-02 16:34] LABS: URINE CLARITY CLEAR (CLEAR); URINE COLOR YELLOW
[2017-06-02 16:35] LABS: URINE BACTERIA NONE SEEN /hpf (NONE SEEN); URINE EPITHELIAL CELLS NONE SEEN /lpf (FEW); URINE RBC NONE SEEN /hpf (0-5); URINE WBC NONE SEEN /hpf (0-5)
[2017-06-02 17:02] LABS: A1C % 9.4 % (4.0-6.0)
[2017-06-02 22:07] VITALS: BP 161/92
[2017-06-03] MEDS ORDERED: Magnesium Hydroxide (MOM) 30 mL UDC PO PRN (00:32)
[2017-06-03] MEDS: Ferrous Sulfate 325 MG TAB PO SCH (08:24)
[2017-06-03] MEDS: Multivitamin w/ Minerals Tab PO SCH (08:25)
[2017-06-03] MEDS: INSULIN ASPART SLIDING SCALE 100 UNITS/ML UNIT SUBQ SCH ×3 (08:27→22:06)
[2017-06-03] MEDS: Triamcinolone Acetonide 0.1% Cream 15 gm TP SCH ×2 (10:00→16:35)
--- NOTE | 2017-06-03 17:28 | History & Physical ---
ADMIT DATE: INTERNAL MEDICINE CONSULT REFERRING PHYSICIAN: Dr. Monica Guy. REASON FOR CONSULT: Medical management. HISTORY OF PRESENT ILLNESS: The patient is an 82-year-old gentleman who was previously admitted to this facility in [place] on 02/04/2017 for a similar episode of agitation, inappropriate behavior towards others including sexual behavior. He was transferred from intermediate facility to the ED and has been admitted to [facility] for further management and care. The patient has a medical history significant for type 2 diabetes, essential hypertension, and CHF, which appears to be compensated and dementia. He also takes iron presumably for anemia. The patient states that he feels well and does not know why he was sent to this facility. He denies any agitation or inappropriate behavior. He also currently denies any chest pain, any shortness of breath, any fever or chills, any GI symptomatology or UTI symptomatology. Pertinent findings on admission include sodium of 131 and A1c of 9.4 and triglyceride level of 401. PAST MEDICAL HISTORY: As noted above. PAST SURGICAL HISTORY: Denies. FAMILY HISTORY: Likely noncontributory to this admission. SOCIAL HISTORY: He denies any tobacco, EtOH, or illicit drug usage. He has been living at [facility] for some time, but he was unable to quantify. REVIEW OF SYSTEMS: CONSTITUTIONAL: Denies any fever, chills, or any recent weight loss. CARDIOVASCULAR: No chest pain, palpitations. PULMONARY: No cough or phlegm production. GASTROINTESTINAL: No bowel habit changes. GENITOURINARY: No bladder habit changes. NEUROLOGIC: No changes in vision. No headaches. He reports no syncope or no dizziness. PHYSICAL EXAMINATION: VITAL SIGNS: Temperature 98.9, pulse 91, respirations 20, BP 138/74, and satting 97% on room air. GENERAL: He is a well-developed and well-nourished male, currently lying flat in bed, in no obvious distress including respiratory distress. He speaks in full sentences. HEAD AND NECK: Normocephalic and atraumatic. Oropharynx is moist and clear. NECK: There is no JVD or LAD. CARDIAC: Regular rate and rhythm without any murmurs. LUNGS: Decreased at the bases, but no audible rhonchi, crackles, or wheezing noted. ABDOMEN: Soft, supple, nontender, and nondistended. Normoactive bowel sounds. EXTREMITIES: There is 2+ pitting edema up to the mid shins on both lower extremities. There are dermatological skin changes on both lower extremities, but there are no open wounds. LABORATORY DATA: CBC was essentially within normal limits. Sodium 131, potassium 4.0, chloride 93, CO2 is 27, BUN 19, creatinine 0.9, and glucose 212. A1c 9.4, calcium 10.0, AST 25, ALT 112, alkaline phosphatase 112, albumin 3.8. Triglycerides 401, cholesterol is 189, LDL 125, HDL 36. Urine was essentially within normal limits. DIAGNOSTICS: There was an EKG done in the ER showing normal sinus rhythm at a rate of 94 with criteria positive for right bundle-branch block. ASSESSMENT: 1. Acute psych decompensation with inappropriate behavior. 2. History of dementia with psychotic features. 3. Diabetes out of control. 4. History of essential hypertension. 5. History of congestive heart failure, which appears to be compensated. 6. Hyponatremia likely secondary to mild volume overload. 7. Bilateral lower extremity edema. 8. Mild transaminitis likely secondary to passive congestion of the liver given possible volume overload. PLAN: The patient has been admitted to [facility] as noted above. The patient will be kept on his medications as scheduled for the time being. I will increase his Lasix from 20 mg to 40 mg every day and he will remain on the captopril as scheduled. I will ask for a BNP level and a repeat chemistry level. For his dyslipidemia, the patient will be started on Tricor and he will be started on statin. As far as his diabetes is concern, the patient will be started on Glucotrol 5 mg p.o. b.i.d. with meals. JOB# [id number] MELVI
[2017-06-04 08:34] LABS: ANION GAP 9.1 (7.0-16.0); BUN - UREA NITROGEN 16 mg/dL (7-25); CALCIUM SERUM 9.7 mg/dL (8.6-10.3); CARBON DIOXIDE 28.3 mEq/L (21.0-31.0); CHLORIDE 96 mEq/L (98-107); CREATININE - SERUM 0.9 mg/dL (0.7-1.3); GLUCOSE 222 mg/dL (70-105); POTASSIUM SERUM 4.4 mEq/L (3.5-5.1); SODIUM SERUM 129 mEq/L (136-145)
[2017-06-04] MEDS: INSULIN ASPART SLIDING SCALE 100 UNITS/ML UNIT SUBQ SCH ×2 (09:15→15:17)
[2017-06-04] MEDS: Triamcinolone Acetonide 0.1% Cream 15 gm TP SCH ×2 (09:16→17:10)
[2017-06-04] MEDS: Atorvastatin Calcium 10 MG TAB PO SCH (09:35)
[2017-06-04] MEDS: Fenofibrate, Micronized 134 mg Cap PO SCH (09:36)
[2017-06-04] MEDS: Multivitamin w/ Minerals Tab PO SCH (09:37)
[2017-06-04] MEDS: Ferrous Sulfate 325 MG TAB PO SCH (09:38)
--- NOTE | 2017-06-05 01:52 | Progress Notes ---
DATE: 06/04/2017 Case was discussed with staff of the patient, reviewed records. The patient continues to be confused, unpredictable, impulsive, needing redirection. He is preoccupied with discharge. Continues to be unable to make safe plan for self-care, unpredictable, impulsive, needing redirection. The patient is diabetic, hypertensive, history of congestive heart failure, compensated hyponatremia secondary to volume overload. He has edema of both of his legs, mild transaminase is likely secondary to passive congestion of the liver given his ____ Dr. Hernandez Gomez is taking care of him. No side effects with the medication, no sedation, no nausea, no extrapyramidal symptoms. We will continue to work with the patient in group therapy, milieu therapy, adjust the medication as needed. Depakote level is pending. His CBC within normal range. His sodium level is low with high blood sugar, low hemoglobin, Dr. Ng is already taking care of that. High triglycerides. He is on atorvastatin. Urinalysis within normal range. RPR nonreactive. We will continue outpatient group therapy, milieu therapy, adjust medications as needed. JOB# [id number]
[2017-06-05] MEDS: Fenofibrate, Micronized 134 mg Cap PO SCH (08:21)
[2017-06-05] MEDS: Ferrous Sulfate 325 MG TAB PO SCH (08:22)
[2017-06-05] MEDS: Atorvastatin Calcium 10 MG TAB PO SCH (08:22)
[2017-06-05] MEDS: Multivitamin w/ Minerals Tab PO SCH (08:22)
[2017-06-05] MEDS: Triamcinolone Acetonide 0.1% Cream 15 gm TP SCH ×2 (08:25→16:25)
[2017-06-05] MEDS: INSULIN ASPART SLIDING SCALE 100 UNITS/ML UNIT SUBQ SCH ×3 (09:17→21:33)
--- NOTE | 2017-06-05 16:19 | Progress Notes ---
DATE: 06/05/[address] Hernandez covering for Brooks. SUBJECTIVE: The patient was seen and evaluated. The patient's chart reviewed. Overnight, the patient noted to be irritable, easily agitated with severe memory impairment. Over the course of the hospitalization, the patient was observed to be easily confused, unpredictable, impulsive, needing a lot of redirection, in preoccupied about discharge. Today on [id number] evaluation, the patient presents extremely poor historian and very disorganized, still need a lot of redirections to complete simple tasks. MENTAL STATUS EXAMINATION: Disorganized, disheveled, needing redirection to maintain a linear conversation. ASSESSMENT AND PLAN: The patient is an 82-year-old male with severe dementia and also with unspecified mood disorder: We will continue with the current primary psychiatrist treatment plan and goal, is unable to formulate a safe plan. We will continue with Aricept at 10 mg a day, Depakote 125 q. 12 hours, atorvastatin, glipizide, Lasix, Zestril, metformin to target the patient's underlying behavior disturbances associated with it and severe dementia. JOB# [id number]
[2017-06-06] MEDS: Atorvastatin Calcium 10 MG TAB PO SCH (09:01)
[2017-06-06] MEDS: Fenofibrate, Micronized 134 mg Cap PO SCH (09:03)
[2017-06-06] MEDS: Ferrous Sulfate 325 MG TAB PO SCH (09:04)
[2017-06-06] MEDS: Multivitamin w/ Minerals Tab PO SCH (09:04)
[2017-06-06] MEDS: INSULIN ASPART SLIDING SCALE 100 UNITS/ML UNIT SUBQ SCH ×3 (09:13→21:29)
[2017-06-06] MEDS: Triamcinolone Acetonide 0.1% Cream 15 gm TP SCH ×2 (09:14→17:10)
--- NOTE | 2017-06-06 18:29 | Progress Notes ---
DATE: The patient was seen and evaluated. The patient's chart reviewed. This is Dr. Hernandez covering for Dr. Guy. SUBJECTIVE: Overnight nursing staff reported the patient still needs a lot of redirection for simple ADLs and easily sexually inappropriate at nighttime. Today on [id number] evaluation, the patient presents disorganized, needing a very simple bit of ADL redirections as he is defecating himself. MENTAL STATUS EXAMINATION: Disorganized, disheveled, needing a lot of redirection to maintain linear conversation. ASSESSMENT AND PLAN: An 82-year-old male with severe dementia and unspecified mood disorder. We will continue with primary psychiatrist treatment plan and goals, which includes Aricept, Depakote, glipizide, atorvastatin, and Zestril. JOB# [id number]
[2017-06-07 08:25] LABS: ANION GAP 9.5 (7.0-16.0); BUN - UREA NITROGEN 16 mg/dL (7-25); CALCIUM SERUM 9.6 mg/dL (8.6-10.3); CARBON DIOXIDE 29.8 mEq/L (21.0-31.0); CHLORIDE 96 mEq/L (98-107); CREATININE - SERUM 0.9 mg/dL (0.7-1.3); GLUCOSE 141 mg/dL (70-105); MAGNESIUM 2.1 mg/dL (1.9-2.7); POTASSIUM SERUM 4.3 mEq/L (3.5-5.1); SODIUM SERUM 131 mEq/L (136-145)
[2017-06-07] MEDS: Ferrous Sulfate 325 MG TAB PO SCH (08:40)
[2017-06-07] MEDS: Fenofibrate, Micronized 134 mg Cap PO SCH (08:40)
[2017-06-07] MEDS: Multivitamin w/ Minerals Tab PO SCH (08:40)
[2017-06-07] MEDS: Atorvastatin Calcium 10 MG TAB PO SCH (08:40)
[2017-06-07] MEDS: Triamcinolone Acetonide 0.1% Cream 15 gm TP SCH ×2 (08:41→16:44)
[2017-06-07] MEDS: INSULIN ASPART SLIDING SCALE 100 UNITS/ML UNIT SUBQ SCH ×3 (08:53→21:14)
--- NOTE | 2017-06-07 23:59 | Progress Notes ---
DATE: 06/07/2017 Case was discussed with staff of the patient, reviewed records. The patient continues to be very intrusive, continues to need redirection, continues to have poor insight, unable to make safe plan for self-care, unpredictable, impulsive, needing redirection, and having very poor insight. He is on Aricept 10 mg at bedtime and Depakote 125 mg twice a day, for which I will be increasing to 250 mg twice a day because of his impulsivity and very hard to redirect. No side effects to the medication, no sedation, no nausea, and no extrapyramidal symptoms. We will continue to work with the patient in group therapy, milieu therapy, and adjust medications as needed. [facility]# [id number]
[2017-06-08] MEDS: Multivitamin w/ Minerals Tab PO SCH (08:20)
[2017-06-08] MEDS: Fenofibrate, Micronized 134 mg Cap PO SCH (08:20)
[2017-06-08] MEDS: Ferrous Sulfate 325 MG TAB PO SCH (08:22)
[2017-06-08] MEDS: Triamcinolone Acetonide 0.1% Cream 15 gm TP SCH ×2 (08:23→17:04)
[2017-06-08] MEDS: INSULIN ASPART SLIDING SCALE 100 UNITS/ML UNIT SUBQ SCH ×2 (09:11→17:04)
[2017-06-08] MEDS: Atorvastatin Calcium 10 MG TAB PO SCH (09:11)
--- NOTE | 2017-06-08 22:24 | Progress Notes ---
DATE: 06/08/2017 SUBJECTIVE: Case discussed with staff of the patient, reviewed records. The patient continues to be intrusive, continues to have poor insight, continues to need redirection. He is sleeping better, eating better. He is responding better to redirection. No side effects with the medication, no sedation, no nausea, no extrapyramidal symptoms. PLAN: We will continue to work with the patient in group therapy, milieu therapy, and adjust medications as needed. JOB# [id number]
[2017-06-09] MEDS: INSULIN ASPART SLIDING SCALE 100 UNITS/ML UNIT SUBQ SCH ×3 (06:31→15:55)
[2017-06-09] MEDS: Multivitamin w/ Minerals Tab PO SCH (08:58)
[2017-06-09] MEDS: Ferrous Sulfate 325 MG TAB PO SCH (08:58)
[2017-06-09] MEDS: Fenofibrate, Micronized 134 mg Cap PO SCH (08:58)
[2017-06-09] MEDS: Atorvastatin Calcium 10 MG TAB PO SCH (08:59)
[2017-06-09] MEDS: Triamcinolone Acetonide 0.1% Cream 15 gm TP SCH ×2 (09:00→16:44)
--- NOTE | 2017-06-09 22:18 | Progress Notes ---
DATE: 06/09/2017 Case was discussed with staff of the patient, reviewed records. The patient continues to be very impulsive and unpredictable. Every time the staff go to check on him, they see the diaper on the records, walking naked in the unit, in front of everybody approaching woman inappropriately. Continues to have poor insight and continues to need redirection. He is still unpredictable, impulsive, needing redirection, and very intrusive. I will be initiating a small dose of Seroquel on him because of Depakote; however, this is not working. He is also on progesterone, which is not working either. Continues to be unable to make safe plan for self-care. So, I will be checking his Depakote level and make sure there is room for adjusting the dose prior to increasing it. I did increase it a few days ago with no good outcome. However, it may still be low than expected. No side effects to the medication, no sedation, and no nausea. We will continue to work with the patient in group therapy, milieu therapy, and adjust the medications as needed. JOB# [id number]
[2017-06-10] MEDS: INSULIN ASPART SLIDING SCALE 100 UNITS/ML UNIT SUBQ SCH ×3 (06:40→17:02)
[2017-06-10] MEDS: Triamcinolone Acetonide 0.1% Cream 15 gm TP SCH ×2 (08:45→16:56)
[2017-06-10] MEDS: Atorvastatin Calcium 10 MG TAB PO SCH (08:46)
[2017-06-10] MEDS: Multivitamin w/ Minerals Tab PO SCH (08:47)
[2017-06-10] MEDS: Ferrous Sulfate 325 MG TAB PO SCH (08:47)
[2017-06-10] MEDS: Fenofibrate, Micronized 134 mg Cap PO SCH (08:47)
--- NOTE | 2017-06-11 03:26 | Progress Notes ---
DATE: 06/10/2017 Case was discussed with staff of the patient and reviewed records. The patient continues to be acting out inappropriately, exposing himself. He continues to have poor insight, continues to be unable to make safe plan for self-care, unpredictable, impulsive, demented, confused and needing redirection. I did increased his added Seroquel yesterday with no side effects, no sedation, no nausea, no extrapyramidal symptoms. He was started on 12.5 mg at bedtime with no side effects, we will be increasing to 25 mg a day to help the patient calm down and start acting more appropriate. We will continue to work with the patient in group therapy, milieu therapy and adjust the medications as needed. JOB# [id number]
[2017-06-11] MEDS: INSULIN ASPART SLIDING SCALE 100 UNITS/ML UNIT SUBQ SCH (06:31)
[2017-06-11] MEDS: Ferrous Sulfate 325 MG TAB PO SCH (10:04)
[2017-06-11] MEDS: Multivitamin w/ Minerals Tab PO SCH (10:05)
[2017-06-11] MEDS: Fenofibrate, Micronized 134 mg Cap PO SCH (10:05)
[2017-06-11] MEDS: Atorvastatin Calcium 10 MG TAB PO SCH (10:19)
[2017-06-11] MEDS: Triamcinolone Acetonide 0.1% Cream 15 gm TP SCH (11:53)
--- NOTE | 2017-06-12 01:11 | Progress Notes ---
DATE: 06/11/2017 Case was discussed with staff of patient, reviewed records. The patient continues to be intrusive, demanding, continues to have poor insight, walking naked, exposing himself, unpredictable, impulsive, needing redirection. I did initiate Seroquel on him and increase the dose to 25 mg at bedtime with no side effects, no sedation, no nausea. I will be increasing his Abilify to twice a day to help improve his out of control behavior. No side effects with the medication, no sedation, no nausea, no extrapyramidal symptoms and we will continue to work with the patient in group therapy, milieu therapy, adjust the medication as needed. JOB# [id number]
[2017-06-12] MEDS: INSULIN ASPART SLIDING SCALE 100 UNITS/ML UNIT SUBQ SCH ×3 (06:30→17:00)
[2017-06-12] MEDS: Fenofibrate, Micronized 134 mg Cap PO SCH (08:28)
[2017-06-12] MEDS: Multivitamin w/ Minerals Tab PO SCH (08:29)
[2017-06-12] MEDS: Atorvastatin Calcium 10 MG TAB PO SCH (08:29)
[2017-06-12] MEDS: Ferrous Sulfate 325 MG TAB PO SCH (08:29)
[2017-06-12] MEDS: Triamcinolone Acetonide 0.1% Cream 15 gm TP SCH ×2 (10:23→17:00)
--- NOTE | 2017-06-12 17:36 | Progress Notes ---
DATE: 06/12/2017 Case was discussed with staff of the patient, reviewed records. The patient apparently has been going to other patient's room at night and that has been of concern to some patients which I discussed with the staff to make sure that he does not go anywhere. He said that he is going to all the rooms. He is unpredictable, impulsive, needing redirection. He is demented, confused, and inappropriate. I will be increasing his Seroquel to 25 mg 3 times a day and so far no side effects, no sedation, no nausea, no extrapyramidal symptoms. We will continue to work with the patient in group therapy, milieu therapy, and adjust the medication as needed. JOB# [id number]
[2017-06-13] MEDS: INSULIN ASPART SLIDING SCALE 100 UNITS/ML UNIT SUBQ SCH ×3 (06:30→16:12)
[2017-06-13] MEDS: Triamcinolone Acetonide 0.1% Cream 15 gm TP SCH ×2 (08:21→16:13)
[2017-06-13] MEDS: Fenofibrate, Micronized 134 mg Cap PO SCH (08:22)
[2017-06-13] MEDS: Multivitamin w/ Minerals Tab PO SCH (08:22)
[2017-06-13] MEDS: Ferrous Sulfate 325 MG TAB PO SCH (08:22)
[2017-06-13] MEDS: Atorvastatin Calcium 10 MG TAB PO SCH (08:23)
--- NOTE | 2017-06-13 23:04 | Progress Notes ---
DATE: 06/13/2017 Case was discussed with staff of the patient, reviewed records. The patient continues to be inappropriate; however, responding better to redirection. He is sleeping better and eating better. He continues to be demented, confused, unable to make safe plan for self-care or acting appropriate. He is compliant with the medication, no side effects, no sedation, no nausea, and no extrapyramidal symptoms. We will continue to work with the patient in group therapy, milieu therapy, and adjust the medications as needed. JOB# [id number]
[2017-06-14] MEDS: INSULIN ASPART SLIDING SCALE 100 UNITS/ML UNIT SUBQ SCH ×3 (06:37→15:57)
[2017-06-14] MEDS: Atorvastatin Calcium 10 MG TAB PO SCH (08:59)
[2017-06-14] MEDS: Multivitamin w/ Minerals Tab PO SCH (09:00)
[2017-06-14] MEDS: Ferrous Sulfate 325 MG TAB PO SCH (09:00)
[2017-06-14] MEDS: Fenofibrate, Micronized 134 mg Cap PO SCH (09:05)
[2017-06-14] MEDS: Triamcinolone Acetonide 0.1% Cream 15 gm TP SCH ×2 (09:06→16:14)
--- NOTE | 2017-06-14 22:20 | Progress Notes ---
DATE: 06/14/2017 Case was discussed with staff of the patient, reviewed records. The patient continues to be going to other patient's rooms, sexually inappropriate. He is still not ready to go to a lesser level of care. He is demented, confused, though he is on progesterone to help decrease his sexually acting out behavior, does not seems it is working for him. I will be increasing his Seroquel to 50 mg twice a day and so far no side effects, no sedation, no nausea, no extrapyramidal symptoms. We will continue with the patient in group therapy, milieu therapy, and adjust medications as needed. JOB# [id number]
[2017-06-15] MEDS: INSULIN ASPART SLIDING SCALE 100 UNITS/ML UNIT SUBQ SCH ×3 (06:33→16:37)
[2017-06-15] MEDS: Fenofibrate, Micronized 134 mg Cap PO SCH (08:15)
[2017-06-15] MEDS: Triamcinolone Acetonide 0.1% Cream 15 gm TP SCH ×2 (08:15→16:42)
[2017-06-15] MEDS: Atorvastatin Calcium 10 MG TAB PO SCH (08:16)
[2017-06-15] MEDS: Ferrous Sulfate 325 MG TAB PO SCH (08:16)
[2017-06-15] MEDS: Multivitamin w/ Minerals Tab PO SCH (08:16)
--- NOTE | 2017-06-15 22:10 | Progress Notes ---
DATE: 06/15/2017 Case was discussed with the staff of the patient, reviewed records. The patient continues to be acting inappropriate, going to other female patient's room, continues to have poor insight. Continues to need redirection. He continues to be also confused. I will be increasing his Depakote to 250 mg 3 times a day to help with his out of control inappropriate sexual behavior. He is also on progesterone that should help with his sexually inappropriate behavior. He is sleeping better, eating better. No side effects from the medication, no sedation, no nausea, no extrapyramidal symptoms. We will continue to work with the patient in group therapy, milieu therapy and adjust the medications as needed. JOB# [id number]
[2017-06-16] MEDS: INSULIN ASPART SLIDING SCALE 100 UNITS/ML UNIT SUBQ SCH ×2 (06:48→11:17)
[2017-06-16] MEDS: Ferrous Sulfate 325 MG TAB PO SCH (09:08)
[2017-06-16] MEDS: Atorvastatin Calcium 10 MG TAB PO SCH (09:09)
[2017-06-16] MEDS: Multivitamin w/ Minerals Tab PO SCH (09:12)
[2017-06-16] MEDS: Fenofibrate, Micronized 134 mg Cap PO SCH (09:12)
[2017-06-16] MEDS: Triamcinolone Acetonide 0.1% Cream 15 gm TP SCH ×2 (09:14→17:02)
--- NOTE | 2017-06-16 13:17 | Discharge Summary ---
DATE OF DISCHARGE: 06/16/2017 IDENTIFYING INFORMATION: The patient is an 82-year-old male. CHIEF COMPLAINT: The patient was referred from [place] because of agitation, acting out, disruptive behavior, inappropriate sexually with other patients and staff, and was a poor historian, demented, confused. He is well known case to me with multiple prior admissions to this facility for similar reasons. COURSE IN THE HOSPITAL: The patient was continued with medication Depakote, the dose was increased to over the course of his stay to 250 mg 3 times a day. He was also continued with Aricept 5 mg at bedtime, fenofibrate, iron, Lasix 20 mg twice a day, glipizide, insulin, lisinopril and medroxyprogesterone 5 mg daily, metformin, multivitamin, Seroquel dose was increased to 5 mg twice a day. The patient progressively got better. He was no longer acting out. He is sleeping well, eating well. So, we felt he could be discharged to a lesser level of care back to [place]. FINAL DIAGNOSES: AXIS I: Psychosis, not otherwise specified, dementia. MEDICAL DIAGNOSES: Deferred to the medical doctor. The patient will go back to [place]. FOLLOWUP: I will follow up with the patient their, primary care physician as well. EXPECTED OUTCOME: Stable if the patient complies with the above. [facility]# [id number]
== END 2017-06-16 18:00 | disposition home or self-care (01) | DRG 885 ==
LOC: ER 15:03 → GERO2 17:40
PROVIDERS: ADMIT Psychiatry & Neurology Psychiatry; ATTEND Psychiatry & Neurology Psychiatry
DX: F31.9 Bipolar disorder, unspecified (principal); I11.0 Hypertensive heart disease with heart failure; F03.91 Unspecified dementia, unspecified severity, with behavioral disturbance; E87.1 Hypo-osmolality and hyponatremia; I50.9 Heart failure, unspecified; F23 Brief psychotic disorder; F25.9 Schizoaffective disorder, unspecified; F29 Unspecified psychosis not due to a substance or known physiological condition; F39 Unspecified mood [affective] disorder; E78.00 Pure hypercholesterolemia, unspecified; E11.9 Type 2 diabetes mellitus without complications
CPT/HCPCS: 36415-UA; 80048-TC; 80053-TC; 80061-TC; 80164-TC; 81001-TC; 82948-90; 83036-90; 83735-TC; 83880-TC; 84443-TC; 85025-TC; 86592-TC; 93005; J1815; Z7610

== ENCOUNTER 2017-10-14 16:29 | Inpatient (IN) | payer MEDICARE, MEDICAID ==
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
[2017-10-14 17:19] LABS: % BASOPHILS 0.2 % (0.0-2.0); % LYMPHOCYTES 10.4 % (20.0-50.0); % MONOCYTES 7.7 % (2.0-10.0); % NEUTROPHILS 77.7 % (40.0-80.0); EOSINOPHILE ABSOLUTE 0.5 Th/cmm (0.1-0.4); HEMATOCRIT 37.5 % (41.0-60); HEMOGLOBIN 12.9 gm/dL (12-16); LYMPHOCYTE ABSOLUTE 1.4 Th/cmm (1.5-3.0); MEAN CELL VOLUME 90.6 fl (80-99); MEAN CORPUSCULAR HEMOGLOBIN 31.1 pg (27.0-31.0); MEAN CORPUSCULAR HGB CONC 34.3 pg (28.0-36.0); MEAN PLATELET VOLUME 6.9 fl; NEUTROPHILE ABSOLUTE 10.2 Th/cmm (1.8-8.0); PLATELET COUNT 307 Th/cmm (150-400); RED BLOOD COUNT 4.14 Mil/cmm (3.80-5.80); RED CELL DISTRIBUTION WIDTH 13.1 % (11.5-20.0); WHITE BLOOD COUNT 13.1 Th/cmm (4.8-10.8)
[2017-10-14 17:32] LABS: ALB/GLOB RATIO 1.3 (1.0-1.8); ALBUMIN 3.8 gm/dL (4.2-5.5); ALKALINE PHOSPHATASE 52 U/L (34-104); ANION GAP 14.4 (7.0-16.0); BILIRUBIN,TOTAL 0.2 mg/dL (0.3-1.0); BUN - UREA NITROGEN 16 mg/dL (7-25); CALCIUM SERUM 9.1 mg/dL (8.6-10.3); CARBON DIOXIDE 25.8 mEq/L (21.0-31.0); CHLORIDE 96 mEq/L (98-107); CREATININE - SERUM 0.8 mg/dL (0.7-1.3); GLUCOSE 151 mg/dL (70-105); POTASSIUM SERUM 4.2 mEq/L (3.5-5.1); SGOT 9 U/L (13-39); SGPT/ALT 8 U/L (7-52); SODIUM SERUM 132 mEq/L (136-145); TOTAL PROTEIN,SERUM 6.7 gm/dL (6.0-8.3)
[2017-10-15] MEDS: Ampicillin Sodium/Sulbactam 3 GM in Sodium Chloride 0.9% 100 ML IV SCH ×5 (00:28→23:00)
[2017-10-15 02:39] VITALS: BP 175/84
[2017-10-15] MEDS ORDERED: Magnesium Hydroxide (MOM) 30 mL UDC PO PRN (09:27)
--- NOTE | 2017-10-15 09:31 | History and Physical ---
History of Present Illness - HPI Chief Complaint: Patient is sent to emergency room for evaluation of bilateral lower extremity edema and redness. HPI: 82-year-old [place] male who is a resident of long-term has complex medical history noticed by nursing staff that both of his legs were getting more swollen and erythematous and patient was complaining of pain so patient was sent to emergency room. Patient was seen by emergency room MD and subsequently admitted to the hospital for further treatment. Vital Signs: Last Vital Signs Temp 98.0 F 10/15/17 07:43 Pulse 83 10/15/17 07:43 Resp 18 10/15/17 07:43 BP 154/83 10/15/17 07:43 Pulse Ox 95 10/15/17 07:43 Past Medical History Cardiovascular: Report: Hyperlipidemia Pulmonary: Report: No Pertinent Hx [employer]: Report: Dementia GI: Report: Diverticulosis Psych: Report: Psychosis Musculoskeletal: Report: Osteoarthritis Rheumatologic: Report: No pertinent Hx Infectious Disease: Report: No Pertinent Hx Renal/: Report: No Pertinent Hx Endocrine: Report: Diabetes Dermatology: Report: Psoriasis Family Medical History - Family Member Mother History Unknown: Yes Ethnicity: Living Status: Hx Family Cancer: (Unknown) Hx Family Coronary Artery Disease: (Unknown) Hx Family Congestive Heart Failure: (Unknown) Hx Family Hypertension: (Unkown) Hx Family Stroke: (Unknown) Hx Family Diabetes: (Unknown) Hx Family Seizures: (Unknown) Hx Family Dementia: (Unknown) Hx Family AIDS: (Unknown) Hx Family HIV: No Hx Family COPD: (Unknown) Hx Family Hepatitis: (Unknown) Hx Family Psychiatric Problems: (Unknown) Hx Family Tuberculosis: (Unknown) father History Unknown: Yes Ethnicity: Living Status: Hx Family Cancer: (Unknown) Hx Family Coronary Artery Disease: (Unknown) Hx Family Congestive Heart Failure: (Unknown) Hx Family Hypertension: (Unknown) Hx Family Stroke: (Unknown) Hx Family Diabetes: (Unknown) Hx Family Seizures: (Unknown) Hx Family Dementia: (Unknown) Hx Family AIDS: (Unknown) Hx Family HIV: No Hx Family COPD: (Unknown) Hx Family Hepatitis: (Unknown) Hx Family Psychiatric Problems: (Unknown) Hx Family Tuberculosis: (Unknown) Social History Smoke: No Alcohol: None Drugs: None Lives: Care Home - Medications Home Medications: Home Medication Medication Instructions Recorded Type Acetaminophen [Tylenol] 650 mg PO Q4HR PRN tab 06/16/17 Rx Atorvastatin Calcium [Lipitor] 20 mg PO DAILY tab 06/16/17 Rx Captopril [Capoten 25 mg Tab] 25 mg PO DAILY tab 06/16/17 Rx Divalproex ER [Depakote ER] [address] 06/16/17 Rx Docusate Sodium [Colace] 100 mg PO BID cap 06/16/17 Rx Donepezil Hcl [Aricept] 10 mg PO HS tab 06/16/17 Rx Fenofibrate, Micronized [Tricor] 134 mg PO DAILY cap 06/16/17 Rx Ferrous Sulfate [Iron] 325 mg PO DAILY tab 06/16/17 Rx Furosemide [Lasix] 20 mg PO BID tab 06/16/17 Rx Glipizide [Glucotrol] 10 mg PO BID tab 06/16/17 Rx Insulin Aspart Sliding Scale See Protocol SUBQ AC unit 06/16/17 Rx [NovoLOG INSULIN SLIDING SCALE] Lisinopril [Zestril*] 10 mg PO BID tab 06/16/17 Rx Lorazepam [Ativan] 0.5 mg PO Q4HR PRN tab 06/16/17 Rx Magnesium Hydroxide [Milk of 30 ml PO DAILY PRN udc 06/16/17 Rx Magnesia] Multivitamin w/ Minerals 1 tab PO DAILY tab 06/16/17 Rx [Theragran M] QUEtiapine Fumarate [SEROquel] 50 mg PO BID tab 06/16/17 Rx Sodium Chloride Tab [NaCL Tab] 1 gm PO TID tab 06/16/17 Rx Triamcinolone Acet 0.1% Cream 1 appl TP BID appl 06/16/17 Rx [Kenalog 0.1%] Zolpidem Tartrate [Ambien] 5 mg PO HS PRN tab 06/16/17 Rx cloNIDine HCl [Catapres] 0.1 mg PO Q6HR PRN tab 06/16/17 Rx medroxyPROGESTERone Acetate 5 mg PO DAILY tab 06/16/17 Rx [Provera] metFORMIN [Glucophage] 850 mg PO TIDWM tab 06/16/17 Rx Ammonium Lactate Cream [Lac-Hydrin 1 appl TP Q8HR appl 10/18/17 Rx Cream] Amoxicillin/Clavulanat [Augmentin 1 tab PO BID 5 Days tab 10/18/17 Rx 875-125mg] Betamethasone/Clotrimazole Cr 1 appl TP BID appl 10/18/17 Rx [Lotrisone Cream] Mupirocin Oint [Mupirocin*] 1 appl NS BID appl 10/18/17 Rx - Allergies Allergies/Adverse Reactions: Allergies Allergy/AdvReac Type Severity Reaction Status Date / Time No Known Allergies Allergy Verified 12/19/15 15:48 Review of Systems - Review of Systems Constitutional: Report: No Significant Eyes: Report: No Significant ENT: Report: No Significant Respiratory: Report: No Significant Cardiovascular: Report: No Significant Gastrointestinal: Report: No Significant Genitourinary: Report: No Significant Musculoskeletal: Report: Leg Pain Skin: Report: Lesions Neurological: Report: Other Physical Exam - Physical Exam HEENT: Report: Ears Nose Throat within normal limits, Pale Conjunctiva Neck: Report: Within normal limits Cardiovascular Systems: Report: +s1/s2 noted, Regular, Rate and Rhythm, Systolic Murmur, No JVD Present Respiratory: Report: Breath Sounds are within normal limits Abdomen: Report: Non-tender to palpation Back: Report: Inspection of back is within normal limits. Extremities: Report: Other (Bilateral lower extremity chronic venous stasis changes with marked edema noted.) Neuro/Psych: Report: CN II-XII intact, No motor deficit, Other (Remarkable for dementia) Other Systems Exam: Multiple psoriatic lesions throughout the upper and lower extremity noted.Also some lesions on trunk also noted. - Lab Results All Lab Results last 24 hours: Laboratory Results - last 24 hr 10/14/17 10/14/17 17:05 17:05 WBC 13.1 H RBC 4.14 Hgb 12.9 Hct 37.5 L MCV 90.6 MCH 31.1 H MCHC Differential 34.3 RDW 13.1 Plt Count 307 MPV 6.9 Neutrophils % 77.7 Lymphocytes % 10.4 L Monocytes % 7.7 Eosinophils % 4.0 Basophils % 0.2 Sodium 132 L Potassium 4.2 Chloride 96 L Carbon Dioxide 25.8 Anion Gap 14.4 BUN 16 Creatinine 0.8 Est GFR ( Amer) TNP Est GFR (Non-Af Amer) TNP BUN/Creatinine Ratio 20.0 Glucose 151 H Calcium 9.1 Total Bilirubin 0.2 L AST 9 L ALT 8 Alkaline Phosphatase 52 Total Protein 6.7 Albumin 3.8 L Globulin 2.9 Albumin/Globulin Ratio 1.3 - Assessment Assessment: Bilateral lower extremity cellulitis. Diabetes mellitus. Hypertension. Alzheimer's dementia. DJD. Psoriasis. MRSA: Ideation. - Plan Plan: Admit patients to [facility] floor. IV antibiotic. ID consult. Blood cultures 2. Appropriate home medicine reconciliation. General nursing care. Chronic disease management. Medication management. Symptoms management. Follow lab. Follow consultants recommendation. Care plan reviewed and discussed with staff.
[2017-10-15] MEDS ORDERED: VTE Chemical Prophylaxis Screen/Admission MC PRN (11:30)
[2017-10-15] MEDS: INSULIN ASPART SLIDING SCALE 100 UNITS/ML UNIT SUBQ SCH ×2 (11:55→17:18)
[2017-10-15] MEDS: Triamcinolone Acetonide 0.1% Cream 15 gm TP SCH (16:43)
[2017-10-16] MEDS: Ampicillin Sodium/Sulbactam 3 GM in Sodium Chloride 0.9% 100 ML IV SCH ×3 (05:00→17:04)
[2017-10-16] MEDS: INSULIN ASPART SLIDING SCALE 100 UNITS/ML UNIT SUBQ SCH (13:59)
[2017-10-16] MEDS: Fenofibrate, Micronized 134 mg Cap PO SCH (13:59)
[2017-10-16] MEDS: Ferrous Sulfate 325 MG TAB PO SCH (13:59)
[2017-10-16] MEDS: Atorvastatin Calcium 10 MG TAB PO SCH (13:59)
[2017-10-16] MEDS: Multivitamin w/ Minerals Tab PO SCH (14:00)
[2017-10-16] MEDS: Triamcinolone Acetonide 0.1% Cream 15 gm TP SCH ×2 (14:01→16:34)
[2017-10-16] MEDS: Ammonium Lactate Cream 140 gm Tube TP SCH ×2 (14:02→21:21)
[2017-10-16] MEDS: Betamethasone/Clotrimazole Cream 15 gm Tube TP SCH (16:44)
[2017-10-17] MEDS: Ampicillin Sodium/Sulbactam 3 GM in Sodium Chloride 0.9% 100 ML IV SCH ×4 (01:49→17:13)
[2017-10-17] MEDS: Ammonium Lactate Cream 140 gm Tube TP SCH ×3 (05:16→21:37)
[2017-10-17 06:44] LABS: % BASOPHILS 0.7 % (0.0-2.0); % EOSINOPHILS 9.1 % (0.0-5.0); % LYMPHOCYTES 18.1 % (20.0-50.0); % MONOCYTES 8.8 % (2.0-10.0); % NEUTROPHILS 63.3 % (40.0-80.0); BASOPHILE ABSOLUTE 0.1 Th/cumm (0-0.2); EOSINOPHILE ABSOLUTE 0.8 Th/cmm (0.1-0.4); HEMATOCRIT 37.4 % (41.0-60); HEMOGLOBIN 12.4 gm/dL (12-16); LYMPHOCYTE ABSOLUTE 1.5 Th/cmm (1.5-3.0); MEAN PLATELET VOLUME 7.2 fl; MONOCYTE ABSOLUTE 0.7 Th/cmm (0.3-1.0); NEUTROPHILE ABSOLUTE 5.4 Th/cmm (1.8-8.0); PLATELET COUNT 252 Th/cmm (150-400); RED BLOOD COUNT 4.11 Mil/cmm (3.80-5.80); RED CELL DISTRIBUTION WIDTH 13.2 % (11.5-20.0); WHITE BLOOD COUNT 8.5 Th/cmm (4.8-10.8)
[2017-10-17 06:57] LABS: ALBUMIN 3.3 gm/dL (4.2-5.5); ALKALINE PHOSPHATASE 42 U/L (34-104); ANION GAP 12.2 (7.0-16.0); BILIRUBIN,TOTAL 0.2 mg/dL (0.3-1.0); BUN - UREA NITROGEN 10 mg/dL (7-25); CALCIUM SERUM 8.8 mg/dL (8.6-10.3); CARBON DIOXIDE 25.9 mEq/L (21.0-31.0); CHLORIDE 100 mEq/L (98-107); CHOLESTEROL 112 mg/dL (<200); CREATININE - SERUM 0.6 mg/dL (0.7-1.3); GLUCOSE 123 mg/dL (70-105); HDL -HIGH DENSITY LIPOPROTEIN 26 mg/dL (23-92); POTASSIUM SERUM 4.1 mEq/L (3.5-5.1); SGOT 7 U/L (13-39); SGPT/ALT 10 U/L (7-52); SODIUM SERUM 134 mEq/L (136-145); TOTAL PROTEIN,SERUM 6.5 gm/dL (6.0-8.3); TRIGLYCERIDES 160 mg/dL (<150); URIC ACID 6.7 mg/dL (4.4-7.6)
[2017-10-17] MEDS: Multivitamin w/ Minerals Tab PO SCH (09:03)
[2017-10-17] MEDS: Atorvastatin Calcium 10 MG TAB PO SCH (09:04)
[2017-10-17] MEDS: Fenofibrate, Micronized 134 mg Cap PO SCH (09:04)
[2017-10-17] MEDS: Ferrous Sulfate 325 MG TAB PO SCH (09:04)
[2017-10-17] MEDS: Triamcinolone Acetonide 0.1% Cream 15 gm TP SCH ×2 (09:05→16:44)
[2017-10-17] MEDS: Betamethasone/Clotrimazole Cream 15 gm Tube TP SCH ×2 (09:05→16:54)
[2017-10-17] MEDS: INSULIN ASPART SLIDING SCALE 100 UNITS/ML UNIT SUBQ SCH ×3 (09:07→17:32)
[2017-10-18] MEDS: Ampicillin Sodium/Sulbactam 3 GM in Sodium Chloride 0.9% 100 ML IV SCH ×2 (00:15→05:17)
[2017-10-18] MEDS: INSULIN ASPART SLIDING SCALE 100 UNITS/ML UNIT SUBQ SCH ×3 (07:04→16:34)
[2017-10-18] MEDS: Ammonium Lactate Cream 140 gm Tube TP SCH ×2 (07:06→12:31)
[2017-10-18] MEDS: Ferrous Sulfate 325 MG TAB PO SCH (09:08)
[2017-10-18] MEDS: Fenofibrate, Micronized 134 mg Cap PO SCH (09:08)
[2017-10-18] MEDS: Atorvastatin Calcium 10 MG TAB PO SCH (09:08)
[2017-10-18] MEDS: Multivitamin w/ Minerals Tab PO SCH (09:10)
[2017-10-18] MEDS: Betamethasone/Clotrimazole Cream 15 gm Tube TP SCH ×2 (09:12→16:34)
[2017-10-18] MEDS: Triamcinolone Acetonide 0.1% Cream 15 gm TP SCH ×2 (09:21→16:33)
[2017-10-18] MEDS ORDERED: Amoxicillin/Clavulanat 875/125 Tab PO SCH (17:00)
--- NOTE | 2017-10-18 17:15 | Discharge Summary ---
DATE OF DISCHARGE: 10/18/2017 DATE OF DISCHARGE: 10/18/2017. FINAL DIAGNOSES: 1. Cellulitis, both lower extremities, left more than the right. 2. Severe psoriasis with scaly skin over the lower leg and feet, improve after moisturizer cream. 3. Tinea pedis improved after Lotrisone cream. 4. Noninsulin dependent diabetes mellitus, currently stable. 5. Hypertension, currently stable. 6. Peripheral vascular disease due to diabetes mellitus, stable. 7. Hyperlipidemia, currently stable. 8. Dementia with schizoaffective disorder, currently on Aricept, ProAir. 9. Iron deficiency anemia. 10. Exogenous obesity with a BMI of 31.6. 11. Generalized anxiety. 12. 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 HOSPITAL COURSE AND IMPORTANT LABS: An 82-year-old resident of a correction facility, presented with a swollen, red bilateral lower extremities due to diabetes, peripheral vascular disease, advanced age. The patient admitted as also had on admission, elevated WBC count of 13.1 thousand. The patient started on IV Unasyn. Local treatment provided for tinea pedis with Lotrisone cream and for dry scaly skin with a moisturizer cream and old scaling is coming out. The patient's hemoglobin remained steady at 12.9 and 12.4 respectively. The patient remained afebrile, otherwise. WBC count improved to 8.5, no left shift. The patient's sugars also remained stable. So, patient discharged to the correction facility. MRSA screen on 10/14/2017 was positive, so Bactroban nares screen was started which the patient will continue for at the correction facility. There is no leg edema at present time. Mentation remains stable. JOB# [id number]
== END 2017-10-18 16:52 | DRG 872 ==
LOC: ER 16:29 → MSI 18:44
PROVIDERS: ADMIT Internal Medicine; ATTEND Internal Medicine
DX: A41.9 Sepsis, unspecified organism (principal); L03.115 Cellulitis of right lower limb; L03.116 Cellulitis of left lower limb; I10 Essential (primary) hypertension; E78.5 Hyperlipidemia, unspecified; M19.90 Unspecified osteoarthritis, unspecified site; E11.51 Type 2 diabetes mellitus with diabetic peripheral angiopathy without gangrene; G30.9 Alzheimer's disease, unspecified; F02.80 Dementia in other diseases classified elsewhere, unspecified severity, without behavioral disturbance, psychotic disturbance, mood disturbance, and anxiety; L40.9 Psoriasis, unspecified; B35.3 Tinea pedis; F25.9 Schizoaffective disorder, unspecified; D50.9 Iron deficiency anemia, unspecified; E66.09 Other obesity due to excess calories; F41.1 Generalized anxiety disorder; Z68.31 Body mass index [BMI] 31.0-31.9, adult; Z22.322 Carrier or suspected carrier of Methicillin resistant Staphylococcus aureus; Z79.84 Long term (current) use of oral hypoglycemic drugs
CPT/HCPCS: 36415-UA; 80053-TC; 80061-TC; 82948-90; 84443-TC; 84550-TC; 85025-TC; 86803-90; J0295; J1644; J1815; J3370; Z7610

== ENCOUNTER 2017-11-01 19:43 | Inpatient (IN) | payer MEDICARE, MEDICAID ==
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
[2017-11-01 20:25] LABS: % BASOPHILS 1.3 % (0.0-2.0); % EOSINOPHILS 6.4 % (0.0-5.0); % MONOCYTES 10.7 % (2.0-10.0); % NEUTROPHILS 64.6 % (40.0-80.0); BASOPHILE ABSOLUTE 0.1 Th/cumm (0-0.2); EOSINOPHILE ABSOLUTE 0.6 Th/cmm (0.1-0.4); HEMATOCRIT 36.9 % (41.0-60); HEMOGLOBIN 12.6 gm/dL (12-16); LYMPHOCYTE ABSOLUTE 1.7 Th/cmm (1.5-3.0); MEAN CORPUSCULAR HEMOGLOBIN 31.2 pg (27.0-31.0); MEAN CORPUSCULAR HGB CONC 34.2 pg (28.0-36.0); NEUTROPHILE ABSOLUTE 6.4 Th/cmm (1.8-8.0); PLATELET COUNT 269 Th/cmm (150-400); RED BLOOD COUNT 4.05 Mil/cmm (3.80-5.80); RED CELL DISTRIBUTION WIDTH 13.7 % (11.5-20.0); WHITE BLOOD COUNT 9.8 Th/cmm (4.8-10.8)
[2017-11-01 21:03] LABS: ALB/GLOB RATIO 1.3 (1.0-1.8); ALBUMIN 3.9 gm/dL (4.2-5.5); ALKALINE PHOSPHATASE 50 U/L (34-104); ANION GAP 14.3 (7.0-16.0); BILIRUBIN,TOTAL 0.2 mg/dL (0.3-1.0); BUN - UREA NITROGEN 19 mg/dL (7-25); CALCIUM SERUM 9.4 mg/dL (8.6-10.3); CARBON DIOXIDE 24.9 mEq/L (21.0-31.0); CHLORIDE 95 mEq/L (98-107); CHOLESTEROL 118 mg/dL (<200); CREATININE - SERUM 0.8 mg/dL (0.7-1.3); GLUCOSE 199 mg/dL (70-105); HDL -HIGH DENSITY LIPOPROTEIN 36 mg/dL (23-92); POTASSIUM SERUM 4.2 mEq/L (3.5-5.1); SGOT 11 U/L (13-39); SGPT/ALT 10 U/L (7-52); SODIUM SERUM 130 mEq/L (136-145); TOTAL PROTEIN,SERUM 6.9 gm/dL (6.0-8.3); TRIGLYCERIDES 102 mg/dL (<150)
[2017-11-01 23:17] VITALS: BP 130/79
[2017-11-02] MEDS ORDERED: Magnesium Hydroxide (MOM) 30 mL UDC PO PRN (00:28)
[2017-11-02] MEDS: INSULIN ASPART SLIDING SCALE 100 UNITS/ML UNIT SUBQ SCH ×3 (06:48→16:30)
[2017-11-02] MEDS: Atorvastatin Calcium 10 MG TAB PO SCH (08:53)
[2017-11-02] MEDS: Multivitamin w/ Minerals Tab PO SCH (08:53)
[2017-11-02] MEDS: Ferrous Sulfate 325 MG TAB PO SCH (08:53)
[2017-11-02] MEDS: Fenofibrate, Micronized 134 mg Cap PO SCH (08:53)
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
[2017-11-02] MEDS: Triamcinolone Acetonide 0.1% Cream 15 gm TP SCH (17:50)
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
[2017-11-02] MEDS: Ammonium Lactate Cream 140 gm Tube TP SCH (21:26)
[2017-11-02] MEDS: NYSTATIN 100000 UNITS/GM POWD TP SCH (21:27)
[2017-11-02 21:56] LABS: A1C % 6.1 % (4.0-6.0)
[2017-11-03] MEDS: Ammonium Lactate Cream 140 gm Tube TP SCH ×3 (06:00→21:01)
[2017-11-03] MEDS: INSULIN ASPART SLIDING SCALE 100 UNITS/ML UNIT SUBQ SCH ×3 (06:35→17:16)
[2017-11-03] MEDS: Ferrous Sulfate 325 MG TAB PO SCH (10:00)
[2017-11-03] MEDS: Fenofibrate, Micronized 134 mg Cap PO SCH (10:00)
[2017-11-03] MEDS: Atorvastatin Calcium 10 MG TAB PO SCH (10:00)
[2017-11-03] MEDS: Multivitamin w/ Minerals Tab PO SCH (10:00)
[2017-11-03] MEDS: Triamcinolone Acetonide 0.1% Cream 15 gm TP SCH ×2 (10:00→17:07)
[2017-11-03] MEDS: NYSTATIN 100000 UNITS/GM POWD TP SCH ×3 (10:00→21:01)
--- NOTE | 2017-11-03 11:22 | Progress Notes ---
DATE: 11/03/2017 SUBJECTIVE: Case was discussed with staff of the patient, reviewed records. The patient continues to be internally preoccupied. Continues to be unpredictable and impulsive, acting impulsively, approaching woman, touching them, had to be watched by the staff, so he would not do these things. He is unreliable, unpredictable, impulsive, does not know why he is here, what led to his admission. He is on medroxyprogesterone to help with these symptoms; however, does not seem like it is helping much. He is compliant with the medication with no side effects, no sedation, no nausea, no extrapyramidal symptoms. The patient's CBC shows low hematocrit, high MCH and low lymphocytes, high monocyte, high eosinophil, the rest within normal range. Chemistry panel showed low sodium, low chloride, high blood sugar, high hemoglobin A1c, low total bilirubin and low AST, low albumin, the rest within normal range. ____ tried lipid profile with low LDL cholesterol. The rest within normal range. The patient continued to be unable to make safe plan for self-care or participate in a meaningful conversation and I will be ordering his Depakote level and we will continue outpatient group therapy, milieu therapy, adjust medications as needed. JOB# [id number]
--- NOTE | 2017-11-03 12:21 | Progress Notes ---
DATE: 11/03/2017 PATIENT'S IDENTIFICATION: An 82-year-old male. SUBJECTIVE: The patient seen and examined. The patient is lying in the bed. The patient has episode of hypoglycemia, hemodynamically stable. OBJECTIVE: VITAL SIGNS: Temperature 98, pulse is 78, respiratory rate is 18, blood pressure 170/85. HEENT: No facial asymmetry. NECK: Supple. No JVD. HEART: Regular. CHEST AND LUNG: Equal in expansion. No expiratory wheezing. ABDOMEN: Soft, no guarding. Active bowel sounds. There are no palpable mass. EXTREMITIES: No edema. Multiple psoriatic lesions involving upper and lower extremity noted along with the trunk. CLINICAL IMPRESSIONS: 1. Generalized psoriasis. 2. Diabetes. 3. Hypertension. 4. Hypoglycemia. 5. Hyperlipidemia. 6. Degenerative joint disease. 7. Psychotic disorder. PLAN: 1. We will hold oral hypoglycemic agent. 2. Monitor blood sugar and blood pressure. 3. Antihypertensive medicine. 4. Psych medication. 5. Psych followup. 6. General nursing care. 7. Local skin care for psoriasis. 8. We will continue to follow this patient during the stay in the hospital. JOB# [id number]
[2017-11-04] MEDS: Ammonium Lactate Cream 140 gm Tube TP SCH ×3 (05:58→21:48)
[2017-11-04] MEDS: INSULIN ASPART SLIDING SCALE 100 UNITS/ML UNIT SUBQ SCH ×3 (07:28→17:20)
[2017-11-04] MEDS: Atorvastatin Calcium 10 MG TAB PO SCH (08:21)
[2017-11-04] MEDS: Fenofibrate, Micronized 134 mg Cap PO SCH (08:21)
[2017-11-04] MEDS: Multivitamin w/ Minerals Tab PO SCH (08:21)
[2017-11-04] MEDS: Ferrous Sulfate 325 MG TAB PO SCH (08:22)
[2017-11-04] MEDS: NYSTATIN 100000 UNITS/GM POWD TP SCH ×3 (08:36→21:48)
[2017-11-04] MEDS: Triamcinolone Acetonide 0.1% Cream 15 gm TP SCH ×2 (08:37→17:27)
--- NOTE | 2017-11-04 16:26 | Progress Notes ---
DATE: 11/04/2017 Case was discussed with staff of the patient, reviewed records. The patient continues to be inappropriate, continues to have poor insight, continues to be unable to make safe plan for self-care. He continues to have poor insight about the whole process about his behavior. He so far has been compliant with the medication with no side effects, no sedation, no nausea, no extrapyramidal symptoms. His lab work showed low hematocrit, high MCH, his Depakote level is low. He has a low sodium level, I am not sure it is because of Depakote, so I will be discontinuing Depakote keep him only on the Seroquel and increase the dose to 50 mg 3 times a day and ____ because of hyponatremia and so far no side effects with the medication, no sedation, no nausea, no extrapyramidal symptoms and we will continue to work with the patient in group therapy, milieu therapy, and adjust medication as needed. JOB# [id number]
--- NOTE | 2017-11-04 23:32 | Progress Notes ---
DATE: IDENTIFICATION: An 82-year-old male. SUBJECTIVE: The patient seen and examined. The patient is lying in the bed. The patient's blood sugars now started to go up. The patient currently has no chest pain, shortness of breath, palpitation, dizziness, nausea, vomiting. PHYSICAL EXAMINATION: VITAL SIGNS: Temperature 98, pulse is 76, respiratory rate is 18, blood pressure 147/74. HEENT: No facial asymmetry. NECK: Supple, no JVD. HEART: Regular. CHEST AND LUNGS: Equal in expansion. No expiratory wheezing. ABDOMEN: Soft. No guarding, no rigidity. Bowel sounds are present. No palpable mass. EXTREMITIES: No edema. Multiple psoriatic lesions noted on the upper and lower extremity. CLINICAL IMPRESSION: 1. Diabetes mellitus with elevated blood sugar. 2. Hypertension. 3. Hyperlipidemia. 4. Degenerative joint disease. 5. Psoriasis. 6. Psychotic disorder. PLAN: 1. Resume glipizide for now. 2. Monitor blood sugar. 3. Fall precautions. 4. Antihypertensive medicine. 5. Statin. 6. Psych medication. 7. Psych followup. 8. General nursing care. 9. Care plan reviewed and discussed with staff. JOB# [id number]
[2017-11-05] MEDS: Ammonium Lactate Cream 140 gm Tube TP SCH ×3 (04:36→20:51)
[2017-11-05] MEDS: INSULIN ASPART SLIDING SCALE 100 UNITS/ML UNIT SUBQ SCH ×3 (06:30→16:55)
[2017-11-05] MEDS: Fenofibrate, Micronized 134 mg Cap PO SCH (09:23)
[2017-11-05] MEDS: Atorvastatin Calcium 10 MG TAB PO SCH (09:24)
[2017-11-05] MEDS: Multivitamin w/ Minerals Tab PO SCH (09:24)
[2017-11-05] MEDS: Ferrous Sulfate 325 MG TAB PO SCH (09:24)
[2017-11-05] MEDS: NYSTATIN 100000 UNITS/GM POWD TP SCH ×3 (09:34→20:51)
[2017-11-05] MEDS: Triamcinolone Acetonide 0.1% Cream 15 gm TP SCH ×2 (09:35→16:56)
[2017-11-06] MEDS: INSULIN ASPART SLIDING SCALE 100 UNITS/ML UNIT SUBQ SCH ×3 (06:38→15:37)
[2017-11-06] MEDS: Atorvastatin Calcium 10 MG TAB PO SCH (08:56)
[2017-11-06] MEDS: Ferrous Sulfate 325 MG TAB PO SCH (08:56)
[2017-11-06] MEDS: Multivitamin w/ Minerals Tab PO SCH (08:56)
[2017-11-06] MEDS: Fenofibrate, Micronized 134 mg Cap PO SCH (08:57)
[2017-11-06] MEDS: Triamcinolone Acetonide 0.1% Cream 15 gm TP SCH ×2 (08:58→16:16)
[2017-11-06] MEDS: NYSTATIN 100000 UNITS/GM POWD TP SCH ×3 (08:58→20:54)
[2017-11-06] MEDS: Ammonium Lactate Cream 140 gm Tube TP SCH ×3 (09:11→20:54)
--- NOTE | 2017-11-06 09:28 | Progress Notes ---
DATE: 11/05/2017 SUBJECTIVE: Case was discussed with staff of the patient and reviewed records. The patient continues to have poor insight, continues to be unpredictable, impulsive, needing redirection, approaching woman inappropriately when he gets a chance. I did increase his Seroquel dose yesterday to 50 mg 3 times a day, so it is too early to make judgment and also check his Depakote because of low sodium level and so far no side effects with the medication, no sedation, no nausea, no extrapyramidal symptoms. We will continue to work the patient in group therapy, milieu therapy, adjust the medication as needed. JOB# [id number]
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
[2017-11-07] MEDS: INSULIN ASPART SLIDING SCALE 100 UNITS/ML UNIT SUBQ SCH ×3 (07:59→17:41)
[2017-11-07] MEDS: Atorvastatin Calcium 10 MG TAB PO SCH (09:14)
[2017-11-07] MEDS: Ferrous Sulfate 325 MG TAB PO SCH (09:14)
[2017-11-07] MEDS: Fenofibrate, Micronized 134 mg Cap PO SCH (09:14)
[2017-11-07] MEDS: Multivitamin w/ Minerals Tab PO SCH (09:14)
[2017-11-07] MEDS: NYSTATIN 100000 UNITS/GM POWD TP SCH ×3 (09:15→21:05)
[2017-11-07] MEDS: Triamcinolone Acetonide 0.1% Cream 15 gm TP SCH ×2 (09:15→16:44)
[2017-11-07] MEDS: Ammonium Lactate Cream 140 gm Tube TP SCH ×2 (13:52→21:05)
--- NOTE | 2017-11-07 21:35 | Progress Notes ---
DATE: 11/07/2017 PROGRESS IN THE UNIT: Case was discussed with staff of the patient, reviewed records. The patient continues to be unpredictable, impulsive. He continues to have poor insight, unable to make safe plan for self-care. He continues needing redirection, acting inappropriate sexually. He continues to have poor insight, easily agitated, intrusive. No side effects with the medication, no sedation, no nausea. PLAN: We will continue outpatient group therapy and milieu therapy, adjust medications as needed. JOB# [id number]
[2017-11-08] MEDS: Ammonium Lactate Cream 140 gm Tube TP SCH ×3 (04:38→21:08)
[2017-11-08] MEDS: INSULIN ASPART SLIDING SCALE 100 UNITS/ML UNIT SUBQ SCH ×3 (06:34→16:12)
[2017-11-08] MEDS: Ferrous Sulfate 325 MG TAB PO SCH (09:12)
[2017-11-08] MEDS: Atorvastatin Calcium 10 MG TAB PO SCH (09:13)
[2017-11-08] MEDS: Multivitamin w/ Minerals Tab PO SCH (09:13)
[2017-11-08] MEDS: Fenofibrate, Micronized 134 mg Cap PO SCH (09:13)
[2017-11-08] MEDS: NYSTATIN 100000 UNITS/GM POWD TP SCH ×3 (09:15→21:07)
[2017-11-08] MEDS: Triamcinolone Acetonide 0.1% Cream 15 gm TP SCH ×2 (09:38→17:38)
--- NOTE | 2017-11-08 21:13 | Progress Notes ---
DATE: 11/08/2017 Case was discussed with staff of the patient, reviewed records. The patient continues to be inappropriate. Continues to have poor insight. He is demented, confused, unable to make safe plan for self-care. Does not seem like he ____ the dangerousness of his behavior. I will be increasing his Seroquel to 100 mg twice a day and so far no side effects with the medication, no sedation, no nausea, and no extrapyramidal symptoms. We will continue outpatient group therapy, milieu therapy, and adjust medications as needed. JOB# [id number]
--- NOTE | 2017-11-08 23:36 | Progress Notes ---
DATE: 11/08/2017 IDENTIFICATION: An 82-year-old male. SUBJECTIVE: The patient seen and examined. The patient is lying in the bed. The patient's blood sugar chart has been reviewed. The patient currently denies any chest pain, shortness of breath, palpitations, dizziness, nausea, or vomiting. PHYSICAL EXAMINATION: VITAL SIGNS: Temperature is 97.8, pulse is 66, respiratory rate is 18, blood pressure is 136/80. HEENT: No facial asymmetry. Poor dentition noted. NECK: Supple, no JVD, no hepatojugular reflex. No lymphadenopathy, thyromegaly, or carotid bruit. HEART: Both heart sounds are regular. CHEST: Lungs are equal in expansion. No expiratory wheezing. ABDOMEN: Soft, no guarding, no rigidity. Bowel sounds are present. No palpable mass. EXTREMITIES: No edema. Multiple psoriatic skin lesions on the extremities as well as the trunk noted. CLINICAL IMPRESSION: 1. Diabetes mellitus with acceptable blood sugar. 2. Hypertension. 3. Hyperlipidemia. 4. Degenerative joint disease. 5. Psoriasis. 6. Psychiatric disorder. PLAN: 1. Monitor blood sugar, blood pressure. 2. Oral hypoglycemic agent. 3. Antihypertensive medicine. 4. Statin. 5. Local cream for psoriatic lesion. 6. Psychotic evaluation and management deferred to psychiatrist. 7. The patient will be followed by us during the stay in the hospital. JOB# [id number]
[2017-11-09] MEDS: Ammonium Lactate Cream 140 gm Tube TP SCH ×3 (05:36→21:10)
[2017-11-09] MEDS: INSULIN ASPART SLIDING SCALE 100 UNITS/ML UNIT SUBQ SCH ×3 (06:34→17:47)
[2017-11-09] MEDS: Atorvastatin Calcium 10 MG TAB PO SCH (09:04)
[2017-11-09] MEDS: Multivitamin w/ Minerals Tab PO SCH (09:05)
[2017-11-09] MEDS: Ferrous Sulfate 325 MG TAB PO SCH (09:05)
[2017-11-09] MEDS: Fenofibrate, Micronized 134 mg Cap PO SCH (09:05)
[2017-11-09] MEDS: Triamcinolone Acetonide 0.1% Cream 15 gm TP SCH ×2 (09:06→17:08)
[2017-11-09] MEDS: NYSTATIN 100000 UNITS/GM POWD TP SCH ×3 (09:06→21:00)
--- NOTE | 2017-11-09 23:21 | Progress Notes ---
DATE: 11/09/2017 SUBJECTIVE: Case was discussed with staff of the patient. The patient continues to be demented and confused. He continues to repeat himself, asking the same question over and over again. He does have swelling in both his legs and they are red and I have discussed with staff the need for the medical doctor to see him and they are aware of that and they will make sure the medical doctor see them. The patient is diabetic. The patient tolerated the increase in Seroquel yesterday with no side effects, no sedation, no nausea, and no extrapyramidal symptoms. He continues to have poor insight about his inappropriate behavior. He is also demented. He is on Aricept 10 mg at bedtime. He is anemic, he is on iron. His lab work showed his blood sugar is high. However, no other lab work was available. We will continue to work with the patient in group therapy, milieu therapy, and adjust the medications as needed. JOB# [id number]
[2017-11-10] MEDS: INSULIN ASPART SLIDING SCALE 100 UNITS/ML UNIT SUBQ SCH ×3 (06:41→16:17)
[2017-11-10] MEDS: Ammonium Lactate Cream 140 gm Tube TP SCH ×3 (06:41→21:27)
[2017-11-10] MEDS: Fenofibrate, Micronized 134 mg Cap PO SCH (09:13)
[2017-11-10] MEDS: Atorvastatin Calcium 10 MG TAB PO SCH (09:13)
[2017-11-10] MEDS: Ferrous Sulfate 325 MG TAB PO SCH (09:14)
[2017-11-10] MEDS: Multivitamin w/ Minerals Tab PO SCH (09:16)
[2017-11-10] MEDS: Triamcinolone Acetonide 0.1% Cream 15 gm TP SCH ×2 (09:22→17:32)
--- NOTE | 2017-11-10 21:18 | Progress Notes ---
DATE: 11/10/2017 Case was discussed with staff of the patient. The patient continues to be irritable, continues to have poor insight. He stated that he was seen by the doctor because of his swollen legs and he was told he was fine. I asked the staff to make sure this happen. The patient is sleeping well, eating well. Continues to be inappropriate, needing redirection, unable to make safe plan for self-care, gets easily upset, acting inappropriate with female staff and patients. No side effects with the medication, no sedation, no nausea, and no extrapyramidal symptoms. We will continue to work with the patient in group therapy, milieu therapy, and adjust medication as needed. JOB# [id number]
[2017-11-11] MEDS: Ammonium Lactate Cream 140 gm Tube TP SCH ×3 (04:51→21:54)
[2017-11-11] MEDS: INSULIN ASPART SLIDING SCALE 100 UNITS/ML UNIT SUBQ SCH ×3 (06:38→16:32)
[2017-11-11] MEDS: Fenofibrate, Micronized 134 mg Cap PO SCH (08:29)
[2017-11-11] MEDS: Multivitamin w/ Minerals Tab PO SCH (08:29)
[2017-11-11] MEDS: Ferrous Sulfate 325 MG TAB PO SCH (08:30)
[2017-11-11] MEDS: Atorvastatin Calcium 10 MG TAB PO SCH (08:30)
[2017-11-11] MEDS: Triamcinolone Acetonide 0.1% Cream 15 gm TP SCH ×2 (10:59→16:23)
--- NOTE | 2017-11-11 18:01 | Progress Notes ---
DATE: SUBJECTIVE: The patient seen and examined. The patient is lying in the bed. The patient has been followed by myself and Dr. Guy, in skilled nursing. Discussed with nursing staff about their concern as well. Glucoscan is reviewed. PHYSICAL EXAMINATION: Today's exam; VITAL SIGNS: See nurse's note. HEENT: No facial asymmetry. NECK: Supple, no JVD. HEART: Regular. CHEST: Lung equal in expansion, no expiratory wheezing. ABDOMEN: Soft, no guarding or rigidity. Bowel sounds present. No palpable mass. EXTREMITIES: No edema. NEUROLOGIC: Alert, awake, follows commands. SKIN: Multiple psoriatic lesions involving upper and lower extremity noted. CLINICAL IMPRESSION: 1. Generalized psoriasis. 2. Diabetes. 3. Hypertension. 4. Dementia. 5. Psychiatric disorder. PLAN: 1. Psoriasis treatment with steroid cream as ordered. 2. Monitor blood sugar and blood pressure. 3. Diabetes management. 4. Blood pressure management. 5. Statin. 6. Fall precautions. 7. General nursing care. 8. Care plan reviewed and discussed with staff. JOB# [id number]
--- NOTE | 2017-11-11 21:22 | Progress Notes ---
DATE: 11/11/2017 SUBJECTIVE: Case was discussed with staff of the patient, reviewed records. I took him off Depakote because of hyponatremia and I have him on Seroquel, I increased the dose 2 days ago to 100 mg twice a day. He is compliant with the medication, no side effects, no sedation, no nausea, no extrapyramidal symptoms, and I asked the staff 2 days ago to make sure the medical doctor look at both of his legs are red and they took care of him. No side effects to the medication, no sedation, no nausea, no extrapyramidal symptoms. We will continue to work with the patient in group therapy, milieu therapy, and adjust the medication as needed. JOB# [id number]
[2017-11-12] MEDS: Ammonium Lactate Cream 140 gm Tube TP SCH ×3 (05:21→21:09)
[2017-11-12] MEDS: INSULIN ASPART SLIDING SCALE 100 UNITS/ML UNIT SUBQ SCH ×3 (06:59→16:48)
[2017-11-12] MEDS: Multivitamin w/ Minerals Tab PO SCH (08:35)
[2017-11-12] MEDS: Ferrous Sulfate 325 MG TAB PO SCH (08:36)
[2017-11-12] MEDS: Atorvastatin Calcium 10 MG TAB PO SCH (08:37)
[2017-11-12] MEDS: Fenofibrate, Micronized 134 mg Cap PO SCH (08:38)
[2017-11-12] MEDS: Triamcinolone Acetonide 0.1% Cream 15 gm TP SCH ×2 (09:49→16:21)
--- NOTE | 2017-11-12 22:53 | Progress Notes ---
DATE: 11/12/2017 Case was discussed with staff of the patient, reviewed records. The staff reports he is decompensating. He is not doing as well. He also has been staying in bed, which is unlike him. He has swelling and redness on both of his legs, which I already asked the staff to consult with the medical doctor about it. He has been sleeping better, eating better. Still unpredictable, impulsive, needing redirection. I did increase his Seroquel to 100 mg twice a day a few days ago, took him off Depakote because of hyponatremia, and no side effects with the medication, no sedation, no nausea, no extrapyramidal symptoms. We will continue to work with the patient in group therapy and milieu therapy, adjust medications as needed. JOB# [id number]
[2017-11-13] MEDS: Ammonium Lactate Cream 140 gm Tube TP SCH ×3 (06:54→21:46)
[2017-11-13] MEDS: INSULIN ASPART SLIDING SCALE 100 UNITS/ML UNIT SUBQ SCH ×3 (07:02→16:39)
[2017-11-13] MEDS: Fenofibrate, Micronized 134 mg Cap PO SCH (08:50)
[2017-11-13] MEDS: Multivitamin w/ Minerals Tab PO SCH (08:51)
[2017-11-13] MEDS: Atorvastatin Calcium 10 MG TAB PO SCH (08:51)
[2017-11-13] MEDS: Ferrous Sulfate 325 MG TAB PO SCH (08:51)
[2017-11-13] MEDS: Triamcinolone Acetonide 0.1% Cream 15 gm TP SCH ×2 (08:53→16:16)
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
[2017-11-14] MEDS: Ammonium Lactate Cream 140 gm Tube TP SCH ×3 (05:19→21:21)
[2017-11-14] MEDS: INSULIN ASPART SLIDING SCALE 100 UNITS/ML UNIT SUBQ SCH ×3 (06:57→17:23)
[2017-11-14] MEDS: Fenofibrate, Micronized 134 mg Cap PO SCH (09:27)
[2017-11-14] MEDS: Atorvastatin Calcium 10 MG TAB PO SCH (09:27)
[2017-11-14] MEDS: Ferrous Sulfate 325 MG TAB PO SCH (09:28)
[2017-11-14] MEDS: Multivitamin w/ Minerals Tab PO SCH (09:29)
[2017-11-14] MEDS: Triamcinolone Acetonide 0.1% Cream 15 gm TP SCH (09:45)
--- NOTE | 2017-11-14 09:56 | Progress Notes ---
DATE: 11/14/2017 SUBJECTIVE: The patient was seen and evaluated. The patient's chart reviewed. Overnight, ____. Today on [id number]-wn-[id number] evaluation, the patient continues to perseverate about just being discharged, mildly disorganized, more or less improved. MENTAL STATUS EXAMINATION: Mildly disorganized. ASSESSMENT AND PLAN: ____ 82-year-old male tolerating the recent augmentation of the medication without complication. We will continue with primary psychiatrist's treatment plan. JOB# [id number]
[2017-11-14] MEDS: CLOBETASOL PROP 0.05% TP SCH ×2 (15:15→21:06)
[2017-11-15] MEDS: Ammonium Lactate Cream 140 gm Tube TP SCH ×3 (05:08→22:10)
[2017-11-15] MEDS: INSULIN ASPART SLIDING SCALE 100 UNITS/ML UNIT SUBQ SCH ×3 (06:58→17:03)
[2017-11-15] MEDS: Ferrous Sulfate 325 MG TAB PO SCH (09:34)
[2017-11-15] MEDS: Atorvastatin Calcium 10 MG TAB PO SCH (09:34)
[2017-11-15] MEDS: Multivitamin w/ Minerals Tab PO SCH (09:34)
[2017-11-15] MEDS: Fenofibrate, Micronized 134 mg Cap PO SCH (09:34)
--- NOTE | 2017-11-15 11:27 | Progress Notes ---
DATE: 11/15/2017 IDENTIFICATION: An 82-year-old male. SUBJECTIVE: The patient seen and examined. The patient is lying in the bed, no new event. Available MAR reviewed. The patient's RN nurses about the rash. The patient has a generalized psoriasis which needs to be treated as an outpatient with biologic agent at this time. The patient currently remain afebrile. OBJECTIVE: VITAL SIGNS: Temperature 97.9, pulse 80, respiratory rate 18, blood pressure 144/80. 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 Tongue more pink and coated. NECK: Supple, no JVD. HEART: Regular. CHEST AND LUNGS: Equal in expansion, no expiratory wheezing. ABDOMEN: Soft. No guarding, rigidity. Bowel sounds are present. No palpable mass. EXTREMITIES: No edema. SKIN: Multiple psoriatic lesions involving upper and lower extremity as well as the palm and trunk noted. CLINICAL IMPRESSION: 1. Generalized psoriasis. 2. Diabetes. 3. Psychotic disorder. 4. Hyperlipidemia. 5. Dementia. 6. Degenerative joint disease. PLAN: ____ steroids. Continue Lipitor, Aricept, TriCor, Lasix, Glucotrol, sliding scale insulin along with antihypertensive medication. Psychiatric management deferred to psychiatrist. The patient is medically stable at this time and have outpatient treatment for generalized psoriasis by biologic agent. JOB# [id number]
[2017-11-15] MEDS: Clobetasol Propionate 0.05% Cream 45 gm Tube TP SCH (22:09)
--- NOTE | 2017-11-16 00:01 | Progress Notes ---
DATE: 11/15/2017 PROGRESS ON THE UNIT: Case was discussed with staff of the patient, reviewed records. The patient has rash allover his body. I talked to the nurse, she said Dr. Hdz is aware of it and he thinks this is psoriasis and he is giving a cream that is stronger to help with his psoriasis. The patient himself was a poor historian. He continues to be unpredictable, impulsive, needing redirection. He is on clobetasol preparation cream for his psoriasis and ammonium lactate cream. No side effects with the medication, no sedation, no nausea, no extrapyramidal symptoms. PLAN: I will continue to work with the patient in group therapy and milieu therapy, adjust medications as needed. JOB# [id number]
[2017-11-16] MEDS: Ammonium Lactate Cream 140 gm Tube TP SCH ×3 (06:21→21:00)
[2017-11-16] MEDS: INSULIN ASPART SLIDING SCALE 100 UNITS/ML UNIT SUBQ SCH ×3 (06:34→17:34)
[2017-11-16] MEDS: Fenofibrate, Micronized 134 mg Cap PO SCH (09:37)
[2017-11-16] MEDS: Multivitamin w/ Minerals Tab PO SCH (09:37)
[2017-11-16] MEDS: Atorvastatin Calcium 10 MG TAB PO SCH (09:37)
[2017-11-16] MEDS: Ferrous Sulfate 325 MG TAB PO SCH (09:37)
[2017-11-16] MEDS: Clobetasol Propionate 0.05% Cream 45 gm Tube TP SCH ×3 (09:38→21:00)
--- NOTE | 2017-11-16 20:58 | Progress Notes ---
DATE: 11/16/2017 Case was discussed with staff of the patient, reviewed records. The patient consisted mainly staying in bed. He has swelling in both of his legs. He has suffered with psoriasis, and seemed likely exacerbation of his symptoms. I did increase his Seroquel to 100 mg twice a day, took him off Depakote because of hyponatremia and no side effects with the medication, no sedation, no nausea, no extrapyramidal symptoms. We will continue outpatient group therapy, milieu therapy, adjust medication as needed. JOB# [id number]
[2017-11-17] MEDS: Ammonium Lactate Cream 140 gm Tube TP SCH ×3 (05:14→20:57)
[2017-11-17] MEDS: INSULIN ASPART SLIDING SCALE 100 UNITS/ML UNIT SUBQ SCH ×3 (06:47→17:09)
[2017-11-17] MEDS: Ferrous Sulfate 325 MG TAB PO SCH (08:25)
[2017-11-17] MEDS: Clobetasol Propionate 0.05% Cream 45 gm Tube TP SCH ×3 (08:25→20:57)
[2017-11-17] MEDS: Fenofibrate, Micronized 134 mg Cap PO SCH (08:25)
[2017-11-17] MEDS: Atorvastatin Calcium 10 MG TAB PO SCH (08:25)
[2017-11-17] MEDS: Multivitamin w/ Minerals Tab PO SCH (08:28)
--- NOTE | 2017-11-17 20:45 | Progress Notes ---
DATE: 11/17/2017 Case was discussed with staff of the patient, reviewed records. The patient was reported to be hyperverbal, hard to redirect, though he stays in bed. Also, his legs are very much red with a rash and he is on a cream for treatment of psoriasis. The patient continues to have poor insight, unpredictable, impulsive. I will be increasing his Seroquel to ____ mg twice a day, and so far, no side effects, no sedation, no nausea, no extrapyramidal symptoms. Still acting inappropriately at times with the staff, especially female staff. We will continue to work with the patient in group therapy and milieu therapy, adjust medication as needed. JOB# [id number]
[2017-11-18] MEDS: Ammonium Lactate Cream 140 gm Tube TP SCH ×3 (05:13→20:55)
[2017-11-18] MEDS: INSULIN ASPART SLIDING SCALE 100 UNITS/ML UNIT SUBQ SCH ×2 (06:46→11:51)
[2017-11-18] MEDS: Atorvastatin Calcium 10 MG TAB PO SCH (08:58)
[2017-11-18] MEDS: Ferrous Sulfate 325 MG TAB PO SCH (08:59)
[2017-11-18] MEDS: Fenofibrate, Micronized 134 mg Cap PO SCH (08:59)
[2017-11-18] MEDS: Multivitamin w/ Minerals Tab PO SCH (09:01)
[2017-11-18] MEDS: Clobetasol Propionate 0.05% Cream 45 gm Tube TP SCH ×3 (09:16→20:55)
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
[2017-11-19] MEDS: Ammonium Lactate Cream 140 gm Tube TP SCH ×3 (05:00→21:27)
[2017-11-19] MEDS: INSULIN ASPART SLIDING SCALE 100 UNITS/ML UNIT SUBQ SCH ×3 (06:43→16:57)
[2017-11-19] MEDS: Fenofibrate, Micronized 134 mg Cap PO SCH (09:20)
[2017-11-19] MEDS: Atorvastatin Calcium 10 MG TAB PO SCH (09:20)
[2017-11-19] MEDS: Ferrous Sulfate 325 MG TAB PO SCH (09:21)
[2017-11-19] MEDS: Multivitamin w/ Minerals Tab PO SCH (09:22)
[2017-11-19] MEDS: Clobetasol Propionate 0.05% Cream 45 gm Tube TP SCH ×3 (10:08→21:27)
--- NOTE | 2017-11-19 12:48 | Discharge Summary ---
DATE OF DISCHARGE: 11/19/2017 IDENTIFYING INFORMATION: The patient is an 82-year-old male. HISTORY OF PRESENT ILLNESS: The patient was referred from [place] because of his agitation and inappropriate behavior. The patient is sexually inappropriate, needing redirection. Hard to redirect, unpredictable and impulsive. The patient know where he was or why he was here, unable to participate in meaningful conversation, did not tell me the date. He believes is Wednesday. He was demented, confused. The patient has multiple prior admissions for similar reasons as progesterone was added to his medication, will decrease his sexual inappropriate behavior. ALLERGIES: He has no known drug allergies. COURSE IN THE HOSPITAL: The patient was started on his medication and I took him off Depakote because of hyponatremia. The patient was continued with Aricept 10 mg at bedtime fenofibrate 134 mg daily, iron 325 mg daily, Lasix 20 mg twice a day, glipizide 10 mg twice a day, insulin. The patient also was on lisinopril 10 mg daily and multivitamin tablet daily. I added Seroquel, increased the dose to 125 mg twice a day and sodium was added chloride because of hyponatremia. The patient progressively got better. He was no longer agitated. He was responding well to redirection. He has neuropathy, psoriasis and he was given cream by Dr. Hdz. He was aware of it. The patient improved, felt he could be discharged to a lesser level of care. Follow up with the psychiatrist and primary care physician. FINAL DIAGNOSES: AXIS I: Bipolar disorder, nonspecific dementia. MEDICAL DIAGNOSES: Per Dr. Hdz, the patient will be going back to [place], will follow up with the psychiatrist, primary care physician ____. EXPECTED OUTCOME: Stable if the patient complies JOB# [id number]
[2017-11-20] MEDS: Ammonium Lactate Cream 140 gm Tube TP SCH ×3 (05:16→20:40)
[2017-11-20] MEDS: INSULIN ASPART SLIDING SCALE 100 UNITS/ML UNIT SUBQ SCH ×3 (06:53→17:02)
[2017-11-20] MEDS: Clobetasol Propionate 0.05% Cream 45 gm Tube TP SCH ×3 (09:07→20:40)
[2017-11-20] MEDS: Multivitamin w/ Minerals Tab PO SCH (09:09)
[2017-11-20] MEDS: Ferrous Sulfate 325 MG TAB PO SCH (09:09)
[2017-11-20] MEDS: Fenofibrate, Micronized 134 mg Cap PO SCH (09:09)
[2017-11-20] MEDS: Atorvastatin Calcium 10 MG TAB PO SCH (09:09)
--- NOTE | 2017-11-20 23:17 | Progress Notes ---
DATE: SUBJECTIVE: The patient is seen and examined. The patient is ambulatory. The patient is planning to be discharged soon to detention. Blood sugars chart looks acceptable. OBJECTIVE: VITAL SIGNS: The patient remained afebrile, temperature 97.3, pulse 75, respiratory rate 18, and blood pressure 153/87. HEENT: No facial asymmetry. NECK: Supple. No JVD. HEART: Regular. CHEST AND LUNGS: Equal in expansion, no expiratory wheezing. ABDOMEN: Soft. No guarding or rigidity. Bowel sounds present. No palpable mass. EXTREMITIES: No edema. Multiple psoriatic skin lesions noted. CLINICAL IMPRESSION: 1. Diabetes mellitus. 2. Hypertension. 3. Hyperlipidemia. 4. Psychotic disorder. 5. Degenerative joint disease. 6. Generalized debility. 7. Dementia. PLAN: 1. Continue high dose steroids. 2. Diabetes management. 3. Oral hypoglycemic agent. 4. Sliding scale insulin. 5. Antihypertensive medicine. 6. Statins and fenofibrate. 7. Fall precautions. 8. Follow lab. 9. Care plan reviewed and discussed with staff. JOB# [id number]
--- NOTE | 2017-11-21 00:02 | Progress Notes ---
DATE: 11/20/2017 SUBJECTIVE: The patient is coming from [place], sexually inappropriate behaviors, hard to redirect, unpredictable. On [id number], the patient does not know why he is here, he knows the year, he knows the month, he knows the day of the week, but he does not know the situation. States he lives in ____ with the and daughter, some confusion noted. Staff noting he is calmer, more cooperative, friendly on exam, still at times forgetful, confused, noted at times to be guarded, suspicious, but significantly calmer. Medications were noted including doses and frequencies. ASSESSMENT: The patient seems to be calmer, more cooperative. Sexually inappropriate behaviors are dissipating. He is more pleasant on exam ____ noting history of dementia, bipolar and is noting improvement. We will monitor and follow up. [facility]# [id number]
[2017-11-21] MEDS: Ammonium Lactate Cream 140 gm Tube TP SCH ×3 (06:48→20:31)
[2017-11-21] MEDS: INSULIN ASPART SLIDING SCALE 100 UNITS/ML UNIT SUBQ SCH ×3 (06:51→17:14)
--- NOTE | 2017-11-21 08:03 | Progress Notes ---
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 He has been med compliant. No inappropriate behaviors, no agitation. He is just pretty disoriented, withdrawn, some yelling out episodes. He is pretty forgetful, believes that he lives at home, but he lives at a half-way. Medications were noted including doses and frequencies. ASSESSMENT: The patient requiring a high level nursing supervision, disoriented, confused, suspicious at times. He is calmer, somewhat cooperative and no sexually inappropriate behaviors. Medications were noted. We will continue to monitor. Continue Seroquel for example Aricept. [facility]# [id number]
[2017-11-21] MEDS: Clobetasol Propionate 0.05% Cream 45 gm Tube TP SCH ×3 (10:05→20:31)
[2017-11-21] MEDS: Atorvastatin Calcium 10 MG TAB PO SCH (10:05)
[2017-11-21] MEDS: Fenofibrate, Micronized 134 mg Cap PO SCH (10:06)
[2017-11-21] MEDS: Ferrous Sulfate 325 MG TAB PO SCH (10:06)
[2017-11-21] MEDS: Multivitamin w/ Minerals Tab PO SCH (10:09)
[2017-11-22] MEDS: Ammonium Lactate Cream 140 gm Tube TP SCH ×2 (05:53→13:06)
[2017-11-22] MEDS: Multivitamin w/ Minerals Tab PO SCH (09:28)
[2017-11-22] MEDS: Ferrous Sulfate 325 MG TAB PO SCH (09:28)
[2017-11-22] MEDS: INSULIN ASPART SLIDING SCALE 100 UNITS/ML UNIT SUBQ SCH ×3 (09:29→16:02)
[2017-11-22] MEDS: Fenofibrate, Micronized 134 mg Cap PO SCH (09:29)
[2017-11-22] MEDS: Atorvastatin Calcium 10 MG TAB PO SCH (09:29)
[2017-11-22] MEDS: Clobetasol Propionate 0.05% Cream 45 gm Tube TP SCH ×2 (09:35→13:06)
--- NOTE | 2017-11-22 13:08 | Progress Notes ---
DATE: IDENTIFICATION: The patient is an 82-year-old male. SUBJECTIVE: The patient is seen and examined. The patient is going to be discharged to longterm. Blood sugars are a little bit elevated. The patient is ambulatory. The patient denies any chest pain, shortness of breath, palpitation or dizziness. PHYSICAL EXAMINATION: VITAL SIGNS: Temperature 98, pulse is 64, respiratory rate is 18, blood pressure 132/80. HEENT: No facial asymmetry. Poor dentition noted. NECK: Supple. No JVD or lymphadenopathy. HEART: Regular. CHEST AND LUNGS: Equal in expansion with no expiratory wheezing. ABDOMEN: Soft. No guarding. No rigidity. Bowel sounds are present. No palpable mass. EXTREMITIES: No edema. Peripheral pulses +1. SKIN: Multiple psoriatic skin lesion noted. Medication admission record is reviewed. CLINICAL IMPRESSION: 1. Generalized psoriasis. 2. Diabetes. 3. Hypertension. 4. Hyperlipidemia. 5. Degenerative joint disease. 6. Psychotic disorder. PLAN: 1. Steroid cream as ordered. 2. 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 3. Diabetes management. 4. Antihypertensive medicine. 5. Statin. 6. Monitor blood sugar and blood pressure. 7. General nursing care. 8. Care plan reviewed and discussed with staff. JOB# [id number]
== END 2017-11-22 17:30 | DRG 885 ==
LOC: ER 19:43 → GERO2 21:18 → ICU 11-05 08:09 → GERO2 11-05 08:10
PROVIDERS: ADMIT Psychiatry & Neurology Psychiatry; ATTEND Psychiatry & Neurology Psychiatry
DX: F31.9 Bipolar disorder, unspecified (principal); E11.65 Type 2 diabetes mellitus with hyperglycemia; F03.91 Unspecified dementia, unspecified severity, with behavioral disturbance; I45.10 Unspecified right bundle-branch block; E11.51 Type 2 diabetes mellitus with diabetic peripheral angiopathy without gangrene; L40.9 Psoriasis, unspecified; M19.90 Unspecified osteoarthritis, unspecified site; E78.5 Hyperlipidemia, unspecified; I10 Essential (primary) hypertension
CPT/HCPCS: 36415-UA; 80053-TC; 80061-TC; 80164-TC; 82948-90; 83036-90; 84443-TC; 85025-TC; 86592-TC; 93005; J1815; Z7610

== ENCOUNTER 2018-11-29 18:02 | Inpatient (IN) | payer MEDICARE, MEDICAID ==
--- NOTE | 2018-11-29 18:13 | ED Physician Chart ---
ED Chief Complaint/HPI - Patient Information Date Seen:: 11/29/18 Time Seen:: 18:00 Chief Complaint:: Agitation History of Present Illness:: onset x 3 days of agitation and aggressive behavior; no report of trauma, H/As, neck pain, SIs, C/P, SOB, Abd. Pain, or urinary s/s Allergies:: Allergies Allergy/AdvReac Type Severity Reaction Status Date / Time No Known Allergies Allergy Verified 11/01/17 20:08 Historian:: Patient, EMS Review:: Nurse's Note Reviewed, Old Chart Reviewed, EMS run form Reviewed ED Review of Systems - Review of Systems General/Constitutional: No fever, No chills, No weight loss, No weakness, No diaphoresis, No edema, No loss of appetite Skin: No skin lesions, No rash, No bruising Head: No headache, No light-headedness Eyes: No loss of vision, No pain, No diplopia ENT: No earache, No nasal drainage, No sore throat, No tinnitus Neck: No neck pain, No swelling, No thyromegaly, No stiffness, No mass noted Cardio Vascular: No chest pain, No palpitations, No PND, No orthopnea, No edema Pulmonary: No SOB, No cough, No sputum, No wheezing GI: No nausea, No vomiting, No diarrhea, No pain, No melena, No hematochezia, No constipation, No hematemesis G/U: No dysuria, No frequency, No hematuria, No nacturia Musculoskeletal: No bone or joint pain, No back pain, No muscle pain Endocrine: No polyuria, No polydipsia Psychiatric: Prior psych history, Depression, Anxiety, No suicidal ideation, No homicidal ideation, No auditory hallucination, No visual hallucination Hematopoietic: No bruising, No lymphadenopathy Allergic/Immuno: No urticaria, No angioedema Neurological: No syncope, No focal symptoms, No weakness, No paresthesia, No headache, No seizure, No dizziness, Confusion, No vertigo ED Past Medical History - Past Medical History Obtainable: Yes Past Medical History: HTN, DM, Dyslipidemia, Dementia Family History: Diabetes Melitus, HTN Social History: Non Smoker, No Alcohol, No Drug Use, Single, Care Facility Surgical History: None Psychiatricy History: Depression, Bipolar, Dementia Medication: Reviewed Family Medical History - Family Member Mother History Unknown: Yes Ethnicity: Living Status: Hx Family Cancer: (Unknown) Hx Family Coronary Artery Disease: (Unknown) Hx Family Congestive Heart Failure: (Unknown) Hx Family Hypertension: (Unkown) Hx Family Stroke: (Unknown) Hx Family Diabetes: (Unknown) Hx Family Seizures: (Unknown) Hx Family Dementia: (Unknown) Hx Family AIDS: (Unknown) Hx Family HIV: No Hx Family COPD: (Unknown) Hx Family Hepatitis: (Unknown) Hx Family Psychiatric Problems: (Unknown) Hx Family Tuberculosis: (Unknown) father History Unknown: Yes Ethnicity: Unknown Living Status: Unknown Hx Family Cancer: (Unknown) Hx Family Coronary Artery Disease: (Unknown) Hx Family Congestive Heart Failure: (Unknown) Hx Family Hypertension: (Unknown) Hx Family Stroke: (Unknown) Hx Family Diabetes: (Unknown) Hx Family Seizures: (Unknown) Hx Family Dementia: (Unknown) Hx Family AIDS: (Unknown) Hx Family HIV: No Hx Family COPD: (Unknown) Hx Family Hepatitis: (Unknown) Hx Family Psychiatric Problems: (Unknown) Hx Family Tuberculosis: (Unknown) ED Physical Exam - Physical Examination General/Constitutional: Awake, Well-developed, well-nourished, Alert, No distress, GCS 15, Non-toxic appearing, Ambulatory Head: Atraumatic Eyes: Lids, conjuctiva normal, PERRL, EOMI Skin: Nl inspection, No rash, No skin lesions, No ecchymosis, Well hydrated, No lymphadenopathy ENMT: External ears, nose nl, TM canals nl, Nasal exam nl, Lips, teeth, gums nl , Oropharynx nl, Tonsils nl Neck: Nontender, Full ROM w/o pain, No JVD, No nuchal rigidity, No bruit, No mass, No stridor Respiratory: Nl effort/Exclusion, Clear to Auscultation, No Wheeze/Rhonchi/Rales Cardio Vascular: RRR, No murmur, gallop, rubs, NL S1 S2, Carotid/Femoral/Distal pulses equal bilaterally GI: No tenderness/rebounding/guarding, No organomegaly, No hernia, Normal BS's, Nondistended, No mass/bruits, No McBurney tenderness : No CVA tenderness Extremities: No tenderness or effusion, Full ROM, normal strength in all extremities, No edema, Normal digits & nails Neuro/Psych: Alert/oriented, DTR's symmetric, Normal sensory exam, Normal motor strength, Judgement/insight normal, Mood normal, Normal gait, No focal deficits Other Neuro/Psych comments:: + Psychomotor Agitation; no SIs; Mood/Affect: Labile Misc: Normal back, No paraspinal tenderness ED Labs/Radiology/EKG Results - Lab Results Comments:: Reviewed - EKG Interpretations Comments:: Reviewed ED Septic Shock - . Is Septic Shock (SBP<90, OR Lactate>4 mmol\L) present?: No ED Reassessment (Disposition) - Reassessment Reassessment Condition:: Improved - Diagnosis Diagnosis:: Agitation; Medical Clearance; Psychosis; Dementia; Bipolar Disorder - Aftercare/Follow up Instructions Aftercare/Follow-Up Instructions:: Counseled pt regarding lab results/diagnosis & need follow up, Counseled pt & family regarding lab results/diagnosis & need follow up - Patient Disposition Discharge/Transfer:: Acute Care w/in this hosp Admitted to:: [facility] Condition at Disposition:: Stable, Improved
[2018-11-29 18:44] LABS: % BASOPHILS 0.6 % (0.0-2.0); % EOSINOPHILS 1.8 % (0.0-5.0); % LYMPHOCYTES 14.1 % (20.0-50.0); % MONOCYTES 8.6 % (2.0-10.0); % NEUTROPHILS 74.9 % (40.0-80.0); BASOPHILE ABSOLUTE 0.1 Th/cumm (0-0.2); EOSINOPHILE ABSOLUTE 0.2 Th/cmm (0.1-0.4); HEMATOCRIT 38.7 % (41.0-60); LYMPHOCYTE ABSOLUTE 1.6 Th/cmm (1.5-3.0); MEAN CELL VOLUME 92.9 fl (80-99); MEAN CORPUSCULAR HEMOGLOBIN 31.2 pg (27.0-31.0); MEAN CORPUSCULAR HGB CONC 33.6 pg (28.0-36.0); NEUTROPHILE ABSOLUTE 8.7 Th/cmm (1.8-8.0); PLATELET COUNT 294 Th/cmm (150-400); RED BLOOD COUNT 4.16 Mil/cmm (3.80-5.80); RED CELL DISTRIBUTION WIDTH 12.5 % (11.5-20.0); WHITE BLOOD COUNT 11.6 Th/cmm (4.8-10.8)
[2018-11-29 19:01] LABS: ACETAMINOPHEN < 10.0 ug/mL (10.0-30.0); ALB/GLOB RATIO 1.6 (1.0-1.8); ALBUMIN 4.2 gm/dL (4.2-5.5); ALKALINE PHOSPHATASE 35 U/L (34-104); BILIRUBIN,TOTAL 0.3 mg/dL (0.3-1.0); BUN - UREA NITROGEN 16 mg/dL (7-25); CALCIUM SERUM 9.7 mg/dL (8.6-10.3); CHLORIDE 98 mEq/L (98-107); CHOLESTEROL 107 mg/dL (<200); CREATININE - SERUM 0.9 mg/dL (0.7-1.3); GLUCOSE 107 mg/dL (70-105); HDL -HIGH DENSITY LIPOPROTEIN 34 mg/dL (23-92); SGOT 10 U/L (13-39); SGPT/ALT 11 U/L (7-52); SODIUM SERUM 132 mEq/L (136-145); TOTAL PROTEIN,SERUM 6.8 gm/dL (6.0-8.3); TRIGLYCERIDES 148 mg/dL (<150)
[2018-11-29 19:13] LABS: URINE SOURCE CLEAN C
[2018-11-29 19:18] LABS: URINE BILIRUBIN NEGATIVE (NEGATIVE); URINE BLOOD NEGATIVE (NEGATIVE); URINE GLUCOSE (UA) NEGATIVE (NEGATIVE); URINE KETONE NEGATIVE (NEGATIVE); URINE LEUKOCYTE ESTERASE NEGATIVE (NEGATIVE); URINE NITRATE NEGATIVE (NEGATIVE); URINE PH 7.5 (4.6 - 8.0); URINE PROTEIN NEGATIVE (NEGATIVE); URINE UROBILINOGEN 0.2 E.U./dL (0.2 - 1.0)
[2018-11-29 19:40] LABS: URINE CLARITY CLEAR (CLEAR); URINE COLOR YELLOW; URINE MICROSCOPIC INDICATED? YES
[2018-11-29 19:41] LABS: AMPHETAMINE URINE NEGATIVE (NEGATIVE); BARBITURATES URINE NEGATIVE (NEGATIVE); BENZODIAZEPINES QUAL URINE NEGATIVE (NEGATIVE); CANNABINOID THC NEGATIVE (NEGATIVE); COCAINE METABOLITE QUAL URINE NEGATIVE (NEGATIVE); METHADONE URINE NEGATIVE (NEGATIVE); METHAMPHETAMINES QUAL URINE NEGATIVE (NEGATIVE); OPIATES (MORPHINE) QUAL. URINE NEGATIVE (NEGATIVE); PHENCYCLIDINE (PCP) URINE NEGATIVE (NEGATIVE); TRICYCLICS (TCA) QUAL. URINE NEGATIVE (NEGATIVE)
[2018-11-29 19:45] LABS: URINE AMORPHOUS SEDIMENT FEW PHOSPHATES (NONE SEEN); URINE BACTERIA FEW /hpf (NONE SEEN); URINE EPITHELIAL CELLS OCCASIONAL /lpf (FEW); URINE RBC NONE SEEN /hpf (0-5); URINE WBC 0-2 /hpf (0-5)
[2018-11-29 21:18] LABS: ANION GAP 13.8 (7.0-16.0); CARBON DIOXIDE 24.2 mEq/L (21.0-31.0)
[2018-11-29 22:31] VITALS: BP 135/68
[2018-11-30 00:45] LABS: CHOLESTEROL 110 mg/dL (<200); HDL -HIGH DENSITY LIPOPROTEIN 37 mg/dL (23-92); TRIGLYCERIDES 151 mg/dL (<150)
--- NOTE | 2018-11-30 11:54 | History & Physical ---
ADMIT DATE: 11/29/2018 IDENTIFYING INFORMATION: The patient is an 83-year-old male. HISTORY OF PRESENT ILLNESS: The patient was referred from [place] because of agitation and aggressive behavior. The patient was a poor historian, does not know why he is here. The patient with a history of inappropriate sexual behavior. He was unable to carry on a conversation. He was able to tell me his age. He is not sure of the date. He has a history of being on hormone replacement therapy because of his inappropriate sexual behavior and he continues to be on it. PAST PSYCHIATRIC HISTORY: Multiple prior admissions to this facility for similar reason. He is also diagnosed with dementia. ALLERGIES: He has no known drug allergy. MEDICATIONS: He is on Aricept 10 mg at bedtime. MEDICAL HISTORY: Deferred to the medical doctor. FAMILY AND SOCIAL HISTORY: The patient is . His has been always supportive and show up to come to visit him very often at the nursing facility. No family history of psychotic disorder. The patient is unable to give me further information about his job. Denies prior substance abuse; however, he is a poor historian. MENTAL STATUS EXAMINATION: The patient is appropriately dressed, not well groomed. He kept calling my name even after I finished talked to him and that is what he usually does. He was unable to tell me the date, why he is here. He tell me the President of [facility]. His long long-term memory is good. He can remember his age, date of . Recent memory is poor. He is not sure the reason why to this admission. He denies any visual loss or paranoia. His insight and judgment are impaired. IMPRESSION: Bipolar disorder, not otherwise specified, dementia. MEDICAL DIAGNOSES: As per medical doctor. His assets, he is accepting treatment. Negative poor coping skills. INITIAL TREATMENT PLAN: The patient was started back on his medication, start him on Depakote. We will do group therapy, milieu therapy, and individual therapy. ESTIMATED LENGTH OF STAY: 3-7 days. DISCHARGE CRITERIA: Decreasing agitation, no longer aggressive. After discharge, outpatient treatment. JOB# [id number]
[2018-11-30] MEDS ORDERED: GLUCAGON HCl 1 MG KIT IM PRN (12:31)
[2018-11-30] MEDS ORDERED: Dextrose 50% 50 mL Abboject IVP PRN (12:31)
--- NOTE | 2018-11-30 12:44 | History & Physical ---
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 The patient was worked up in the Emergency Room and now being admitted to the hospital for further psychiatric treatment. PAST MEDICAL HISTORY: Remarkable for: 1. Diabetes. 2. Hypertension. 3. Hyperlipidemia. 4. DJD. 5. Dementia. 6. Psychotic disorder. 7. Generalized psoriasis. Medication at the time of transfer has been reviewed and reconciled appropriately. ALLERGIES: The patient is not allergic to medications. SOCIAL HISTORY: He resides in a long-term. No history of smoking cigarette, alcohol, or drug use. FAMILY MEDICAL HISTORY: Remarkable for diabetes and hypertension. REVIEW OF SYSTEMS: The patient denies any headache, blurred vision, double vision, dysphagia, odynophagia, runny nose, stuffy nose, fever, chills, cough, chest pain, shortness of breath, palpitations, dizziness, nausea, vomiting, diarrhea, dysuria, hematuria, hematochezia, melena. No history of any seizure or syncopal episode. PHYSICAL EXAMINATION: GENERAL: The patient is alert, awake, lying in the bed without any acute distress. VITAL SIGNS: Temperature 98.7, pulse is 76, respiratory rate 18, blood pressure 114/68. HEENT: Normocephalic, atraumatic. Extraocular muscles are intact. Left eye is legally blindness noted. Tongue was pink and coated. Poor dentition noted. No facial asymmetry. NECK: Supple, no JVD, no hepatojugular reflex. No lymphadenopathy, thyromegaly, or carotid bruit. HEART: Both heart sounds are regular. No S3, no S4, no murmur. CHEST AND LUNGS: Equal in expansion, no expiratory wheezing. ABDOMEN: Soft, no guarding, no rigidity. Liver, spleen palpable. No palpable mass. EXTREMITIES: No edema, no cyanosis. Chronic multiple psoriatic skin lesions throughout the upper and lower extremity noted. NEUROLOGIC: Alert, awake, follows commands. Decreased power throughout the upper and lower extremity noted. SKIN: Unremarkable. Multiple erythematous skin lesions on the groin also noted. CLINICAL IMPRESSION: 1. Generalized psoriasis. 2. Psychotic disorder. 3. Dementia. 4. Diabetes. 5. Hypertension. 6. Hyperlipidemia. 7. Degenerative joint disease. 8. 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 9. High risk for fall. PLAN: 1. Psychotic evaluation and management deferred to psychiatrist. 2. Continue all home medication as the patient is receiving with home medication reconciliation. 3. General nursing care. 4. Follow lab. 5. Fall precaution. 6. Nutritional support. 7. We will continue to follow this patient during the stay in the hospital. 8. Care plan reviewed and discussed with staff. JOB# [id number]
[2018-11-30] MEDS: INSULIN LISPRO SLIDING SCALE 100 UNITS/ML UNIT SUBQ SCH ×2 (16:35→21:10)
[2018-11-30] MEDS: Fenofibrate, Micronized 134 mg Cap PO SCH (21:02)
[2018-11-30] MEDS: Atorvastatin Calcium 10 MG TAB PO SCH (21:02)
[2018-12-01] MEDS: INSULIN LISPRO SLIDING SCALE 100 UNITS/ML UNIT SUBQ SCH ×4 (06:30→21:32)
[2018-12-01] MEDS ORDERED: CALCIPOTRIENE 0.005% TP SCH (09:00)
[2018-12-01 11:32] LABS: A1C 6.5 % (4.8-5.6)
--- NOTE | 2018-12-01 13:44 | Progress Notes ---
DATE: 12/01/2018 SUBJECTIVE: Case was discussed with staff of the patient, reviewed records. The patient continues to be easily agitated, irritable, keep calling my name, hard to redirect. Continues to have poor insight. No side effects with the medication, no sedation, no nausea and needing multiple redirections. We will continue outpatient group therapy, milieu therapy, and adjust medication as needed. JOB# [id number]
[2018-12-01] MEDS: Atorvastatin Calcium 10 MG TAB PO SCH (21:24)
[2018-12-01] MEDS: Fenofibrate, Micronized 134 mg Cap PO SCH (21:24)
[2018-12-02] MEDS: INSULIN LISPRO SLIDING SCALE 100 UNITS/ML UNIT SUBQ SCH ×4 (06:29→20:48)
--- NOTE | 2018-12-02 12:21 | Internal Medicine Prog Note ---
Internal Medicine Subjective - Subjective Patient seen and examined:: with staff, chart reviewed Patient is:: awake, verbal, interactive, talking Per staff patient has:: no adverse event, no episodes of fall, eating well, tolerating meds Internal Medicine Objective - Results Result Diagrams: 11/29/18 18:30 11/29/18 18:30 Recent Labs: Laboratory Last Values WBC 11.6 Th/cmm (4.8-10.8) H 11/29/18 18:30 RBC 4.16 Mil/cmm (3.80-5.80) 11/29/18 18:30 Hgb 13.0 gm/dL (12-16) 11/29/18 18:30 Hct 38.7 % (41.0-60) L 11/29/18 18:30 MCV 92.9 fl (80-99) 11/29/18 18:30 MCH 31.2 pg (27.0-31.0) H 11/29/18 18:30 MCHC Differential 33.6 pg (28.0-36.0) 11/29/18 18:30 RDW 12.5 % (11.5-20.0) 11/29/18 18:30 Plt Count 294 Th/cmm (150-400) 11/29/18 18:30 MPV 7.7 fl 11/29/18 18:30 Neutrophils % 74.9 % (40.0-80.0) 11/29/18 18:30 Lymphocytes % 14.1 % (20.0-50.0) L 11/29/18 18:30 Monocytes % 8.6 % (2.0-10.0) 11/29/18 18:30 Eosinophils % 1.8 % (0.0-5.0) 11/29/18 18:30 Basophils % 0.6 % (0.0-2.0) 11/29/18 18:30 Sodium 132 mEq/L (136-145) L 11/29/18 18:30 Potassium 4.0 mEq/L (3.5-5.1) 11/29/18 18:30 Chloride 98 mEq/L (98-107) 11/29/18 18:30 Carbon Dioxide 24.2 mEq/L (21.0-31.0) 11/29/18 18:30 Anion Gap 13.8 (7.0-16.0) 11/29/18 18:30 BUN 16 mg/dL (7-25) 11/29/18 18:30 Creatinine 0.9 mg/dL (0.7-1.3) 11/29/18 18:30 Est GFR ( Amer) TNP 11/29/18 18:30 Est GFR (Non-Af Amer) TNP 11/29/18 18:30 BUN/Creatinine Ratio 17.8 11/29/18 18:30 Glucose 107 mg/dL (70-105) H 11/29/18 18:30 POC Glucose 116 MG/DL (70 - 105) H 12/02/18 06:07 Calcium 9.7 mg/dL (8.6-10.3) 11/29/18 18:30 Total Bilirubin 0.3 mg/dL (0.3-1.0) 11/29/18 18:30 AST 10 U/L (13-39) L 11/29/18 18:30 ALT 11 U/L (7-52) 11/29/18 18:30 Alkaline Phosphatase 35 U/L (34-104) 11/29/18 18:30 Troponin I < 0.01 ng/mL (0.01-0.05) L 11/29/18 18:30 Total Protein 6.8 gm/dL (6.0-8.3) 11/29/18 18:30 Albumin 4.2 gm/dL (4.2-5.5) 11/29/18 18:30 Globulin 2.6 gm/dL 11/29/18 18:30 Albumin/Globulin Ratio 1.6 (1.0-1.8) 11/29/18 18:30 Triglycerides 151 mg/dL (<150) H 11/30/18 00:00 Cholesterol 110 mg/dL (<200) 11/30/18 00:00 LDL Cholesterol Direct 61 mg/dL (75-193) L 11/30/18 00:00 HDL Cholesterol 37 mg/dL (23-92) 11/30/18 00:00 TSH 1.90 uIU/ml (0.34-5.60) 11/29/18 18:30 Urine Source CLEAN C 11/29/18 18:35 Urine Color YELLOW 11/29/18 18:35 Urine Clarity CLEAR (CLEAR) 11/29/18 18:35 Urine pH 7.5 (4.6 - 8.0) 11/29/18 18:35 Ur Specific [place] 1.015 (1.005-1.030) 11/29/18 18:35 Urine Protein NEGATIVE mg/dL (NEGATIVE) 11/29/18 18:35 Urine Glucose (UA) NEGATIVE mg/dL (NEGATIVE) 11/29/18 18:35 Urine Ketones NEGATIVE mg/dL (NEGATIVE) 11/29/18 18:35 Urine Blood NEGATIVE (NEGATIVE) 11/29/18 18:35 Urine Nitrate NEGATIVE (NEGATIVE) 11/29/18 18:35 Urine Bilirubin NEGATIVE (NEGATIVE) 11/29/18 18:35 Urine Urobilinogen 0.2 E.U./dL (0.2 - 1.0) 11/29/18 18:35 Ur Leukocyte Esterase NEGATIVE (NEGATIVE) 11/29/18 18:35 Urine RBC NONE SEEN /hpf (0-5) 11/29/18 18:35 Urine WBC 0-2 /hpf (0-5) 11/29/18 18:35 Ur Epithelial Cells OCCASIONAL /lpf (FEW) 11/29/18 18:35 Amorphous Sediment FEW PHOSPHATES (NONE SEEN) 11/29/18 18:35 Urine Bacteria FEW /hpf (NONE SEEN) 11/29/18 18:35 Urine Mucus FEW /lpf (FEW) 11/29/18 18:35 Salicylates < 25.0 mg/L (30.0-100.0) L 11/29/18 18:30 Urine Opiates Screen NEGATIVE (NEGATIVE) 11/29/18 18:35 Urine Methadone Screen NEGATIVE (NEGATIVE) 11/29/18 18:35 Acetaminophen < 10.0 ug/mL (10.0-30.0) L 11/29/18 18:30 Ur Barbiturates Screen NEGATIVE (NEGATIVE) 11/29/18 18:35 Ur Tricyclics Screen NEGATIVE (NEGATIVE) 11/29/18 18:35 Ur Phencyclidine Scrn NEGATIVE (NEGATIVE) 11/29/18 18:35 Amphetamines Screen NEGATIVE (NEGATIVE) 11/29/18 18:35 U Methamphetamines Scrn NEGATIVE (NEGATIVE) 11/29/18 18:35 U Benzodiazepines Scrn NEGATIVE (NEGATIVE) 11/29/18 18:35 U Cocaine Metab Screen NEGATIVE (NEGATIVE) 08/20/19 18:35 U Cannabinoids Screen NEGATIVE (NEGATIVE) 11/29/18 18:35 Ethyl Alcohol < 10 mg/dL (0-10) 11/29/18 18:30 - Physical Exam Vitals and I&O: Vital Signs Temp 97.5 F 12/02/18 05:43 Pulse 90 12/02/18 08:42 Resp 20 12/02/18 05:43 BP 114/72 12/02/18 08:43 Pulse Ox 98 12/02/18 05:43 Intake & Output 12/01/18 12/02/18 12/02/18 18:59 06:59 18:59 Intake Total 1400 360 Balance 1400 360 Intake: Oral 1400 360 Other: # Voids 4 2 # Bowel Movements 0 0 Active Medications: Current Medications Ascorbic Acid (Vitamin C) 500 mg PO DAILY [facility] Stop: 01/30/19 08:59 Last Admin: 12/02/18 08:41 Dose: 500 mg Atorvastatin Calcium (Lipitor) 20 mg PO HS [facility]; Protocol Stop: 01/29/19 20:59 Last Admin: 12/01/18 21:24 Dose: 20 mg Dextrose (D50w) 50 ml IVP PRN PRN PRN Reason: Blood Glucose less than 70 Stop: 01/29/19 12:30 Dextrose (Glutose 40%) 18.75 gm PO PRN PRN PRN Reason: Blood Glucose less than 70 Stop: 01/29/19 12:30 Divalproex Sodium (Depakote Dr) 250 mg PO BID [facility]; Protocol Stop: 01/29/19 16:59 Last Admin: 12/02/18 08:41 Dose: 250 mg Donepezil HCl (Aricept) 10 mg PO HS [facility] Stop: 01/29/19 20:59 Last Admin: 12/01/18 21:24 Dose: 10 mg Fenofibrate (Tricor) 134 mg PO HS [facility] Stop: 01/29/19 20:59 Last Admin: 12/01/18 21:24 Dose: 134 mg Fluocinonide (Lidex 0.05%) 1 appl TP DAILY [facility] Stop: 01/30/19 08:59 Last Admin: 12/02/18 08:41 Dose: 1 appl Furosemide (Lasix) 20 mg PO BID [facility] Stop: 01/29/19 16:59 Last Admin: 12/02/18 08:43 Dose: 20 mg Glipizide (Glucotrol) 10 mg PO BID [facility] Stop: 01/29/19 16:59 Last Admin: 12/02/18 08:42 Dose: 10 mg Glucagon (Glucagen) 1 mg IM PRN PRN PRN Reason: Blood Glucose less than 70 Stop: 01/29/19 12:30 Insulin Human Lispro (Humalog Insulin Sliding Scale) 0 units SUBQ ACHS [facility]; Protocol Stop: 01/29/19 16:29 Last Admin: 12/02/18 12:13 Dose: Not Given Lisinopril (Zestril) 10 mg PO DAILY [facility] Stop: 01/30/19 08:59 Last Admin: 12/02/18 08:42 Dose: 10 mg Lorazepam (Ativan) 0.5 mg PO Q6HR PRN; Protocol PRN Reason: Agitation Stop: 01/29/19 12:06 Last Admin: 12/02/18 00:05 Dose: 0.5 mg Medroxyprogesterone Acetate (Provera) 5 mg PO DAILY [facility]; Protocol Stop: 01/30/19 08:59 Last Admin: 12/02/18 08:42 Dose: 5 mg Memantine (Namenda) 5 mg PO DAILY [facility] Stop: 01/30/19 08:59 Last Admin: 12/02/18 08:41 Dose: 5 mg Metformin HCl (Glucophage) 850 mg PO TIDWM [facility] Stop: 01/29/19 11:59 Last Admin: 12/02/18 12:14 Dose: 850 mg Miscellaneous (Calcipotriene [Dovonex]) 0.005 % TP DAILY [facility] Stop: 01/30/19 08:59 Sodium Chloride (Nacl Tab) 1 gm PO TID [facility] Stop: 01/29/19 13:59 Last Admin: 12/02/18 08:41 Dose: 1 gm Zolpidem Tartrate (Ambien) 5 mg PO HS PRN PRN Reason: Insomnia Stop: 01/29/19 12:07 Last Admin: 12/01/18 21:24 Dose: 5 mg General: demented HEENT: NC/AT, PERRLA, other (left eye cavitation) Neck: Supple, No JVD, No thyromegaly Lungs: CTAB Cardiovascular: RRR, Normal S1, Normal S2, with murmur Abdomen: soft, globular, non-distended, positive bowel sound Extremities: excoriation - Procedures Procedures: Procedures Procedure Code Date GROUP PSYCHOTHERAPY 68487 04/25/15 GROUP PSYCHOTHERAPY [id number] 04/25/15 OTHER GROUP THERAPY 94.44 11/08/14 Internal Medicine Assmt/Plan - Assessment Assessment: leukocytosis dm htn high chol dementia oa psoriasis l eye blindness mrsa nares - Plan Plan: ada diet iss statin fall precaution aspiration precaution nsaids dw rn
--- NOTE | 2018-12-02 18:46 | Progress Notes ---
DATE: 12/02/2018 Case was discussed with staff of the patient, reviewed records. The patient continues to be irritable, confused, continues to have poor insight, continues to be unable to make safe plan for self-care. He is sleeping better, eating better. He tolerated adding of Namenda to his medication and will be checking his Depakote level. No side effects with the medication, no sedation, no nausea, no extrapyramidal symptoms. We will continue outpatient group therapy, milieu therapy, and adjust medications as needed. [facility]# [id number]
[2018-12-02] MEDS: Fenofibrate, Micronized 134 mg Cap PO SCH (20:46)
[2018-12-02] MEDS: Atorvastatin Calcium 10 MG TAB PO SCH (20:47)
[2018-12-03] MEDS: INSULIN LISPRO SLIDING SCALE 100 UNITS/ML UNIT SUBQ SCH ×4 (07:45→21:33)
--- NOTE | 2018-12-03 13:26 | Internal Medicine Prog Note ---
Internal Medicine Subjective - Subjective Patient seen and examined:: with staff, chart reviewed Patient is:: awake, verbal, interactive, talking Per staff patient has:: no adverse event, no episodes of fall, eating well, tolerating meds Internal Medicine Objective - Results Result Diagrams: 11/29/18 18:30 11/29/18 18:30 Recent Labs: Laboratory Last Values WBC 11.6 Th/cmm (4.8-10.8) H 11/29/18 18:30 RBC 4.16 Mil/cmm (3.80-5.80) 11/29/18 18:30 Hgb 13.0 gm/dL (12-16) 11/29/18 18:30 Hct 38.7 % (41.0-60) L 11/29/18 18:30 MCV 92.9 fl (80-99) 11/29/18 18:30 MCH 31.2 pg (27.0-31.0) H 11/29/18 18:30 MCHC Differential 33.6 pg (28.0-36.0) 11/29/18 18:30 RDW 12.5 % (11.5-20.0) 11/29/18 18:30 Plt Count 294 Th/cmm (150-400) 11/29/18 18:30 MPV 7.7 fl 11/29/18 18:30 Neutrophils % 74.9 % (40.0-80.0) 11/29/18 18:30 Lymphocytes % 14.1 % (20.0-50.0) L 11/29/18 18:30 Monocytes % 8.6 % (2.0-10.0) 11/29/18 18:30 Eosinophils % 1.8 % (0.0-5.0) 11/29/18 18:30 Basophils % 0.6 % (0.0-2.0) 11/29/18 18:30 Sodium 132 mEq/L (136-145) L 11/29/18 18:30 Potassium 4.0 mEq/L (3.5-5.1) 11/29/18 18:30 Chloride 98 mEq/L (98-107) 11/29/18 18:30 Carbon Dioxide 24.2 mEq/L (21.0-31.0) 11/29/18 18:30 Anion Gap 13.8 (7.0-16.0) 11/29/18 18:30 BUN 16 mg/dL (7-25) 11/29/18 18:30 Creatinine 0.9 mg/dL (0.7-1.3) 11/29/18 18:30 Est GFR ( Amer) TNP 11/29/18 18:30 Est GFR (Non-Af Amer) TNP 11/29/18 18:30 BUN/Creatinine Ratio 17.8 11/29/18 18:30 Glucose 107 mg/dL (70-105) H 11/29/18 18:30 POC Glucose 93 MG/DL (70 - 105) 12/03/18 11:26 Calcium 9.7 mg/dL (8.6-10.3) 11/29/18 18:30 Total Bilirubin 0.3 mg/dL (0.3-1.0) 11/29/18 18:30 AST 10 U/L (13-39) L 11/29/18 18:30 ALT 11 U/L (7-52) 11/29/18 18:30 Alkaline Phosphatase 35 U/L (34-104) 11/29/18 18:30 Troponin I < 0.01 ng/mL (0.01-0.05) L 11/29/18 18:30 Total Protein 6.8 gm/dL (6.0-8.3) 11/29/18 18:30 Albumin 4.2 gm/dL (4.2-5.5) 11/29/18 18:30 Globulin 2.6 gm/dL 11/29/18 18:30 Albumin/Globulin Ratio 1.6 (1.0-1.8) 11/29/18 18:30 Triglycerides 151 mg/dL (<150) H 11/30/18 00:00 Cholesterol 110 mg/dL (<200) 11/30/18 00:00 LDL Cholesterol Direct 61 mg/dL (75-193) L 11/30/18 00:00 HDL Cholesterol 37 mg/dL (23-92) 11/30/18 00:00 TSH 1.90 uIU/ml (0.34-5.60) 11/29/18 18:30 Urine Source CLEAN C 11/29/18 18:35 Urine Color YELLOW 11/29/18 18:35 Urine Clarity CLEAR (CLEAR) 11/29/18 18:35 Urine pH 7.5 (4.6 - 8.0) 11/29/18 18:35 Ur Specific [place] 1.015 (1.005-1.030) 11/29/18 18:35 Urine Protein NEGATIVE mg/dL (NEGATIVE) 11/29/18 18:35 Urine Glucose (UA) NEGATIVE mg/dL (NEGATIVE) 11/29/18 18:35 Urine Ketones NEGATIVE mg/dL (NEGATIVE) 11/29/18 18:35 Urine Blood NEGATIVE (NEGATIVE) 11/29/18 18:35 Urine Nitrate NEGATIVE (NEGATIVE) 11/29/18 18:35 Urine Bilirubin NEGATIVE (NEGATIVE) 11/29/18 18:35 Urine Urobilinogen 0.2 E.U./dL (0.2 - 1.0) 11/29/18 18:35 Ur Leukocyte Esterase NEGATIVE (NEGATIVE) 11/29/18 18:35 Urine RBC NONE SEEN /hpf (0-5) 11/29/18 18:35 Urine WBC 0-2 /hpf (0-5) 11/29/18 18:35 Ur Epithelial Cells OCCASIONAL /lpf (FEW) 11/29/18 18:35 Amorphous Sediment FEW PHOSPHATES (NONE SEEN) 11/29/18 18:35 Urine Bacteria FEW /hpf (NONE SEEN) 11/29/18 18:35 Urine Mucus FEW /lpf (FEW) 11/29/18 18:35 Salicylates < 25.0 mg/L (30.0-100.0) L 11/29/18 18:30 Urine Opiates Screen NEGATIVE (NEGATIVE) 11/29/18 18:35 Urine Methadone Screen NEGATIVE (NEGATIVE) 11/29/18 18:35 Acetaminophen < 10.0 ug/mL (10.0-30.0) L 11/29/18 18:30 Ur Barbiturates Screen NEGATIVE (NEGATIVE) 11/29/18 18:35 Valproic Acid 36.1 ug/mL (50.0-100.0) L 12/02/18 15:00 Ur Tricyclics Screen NEGATIVE (NEGATIVE) 11/29/18 18:35 Ur Phencyclidine Scrn NEGATIVE (NEGATIVE) 11/29/18 18:35 Amphetamines Screen NEGATIVE (NEGATIVE) 11/29/18 18:35 U Methamphetamines Scrn NEGATIVE (NEGATIVE) 11/29/18 18:35 U Benzodiazepines Scrn NEGATIVE (NEGATIVE) 11/29/18 18:35 U Cocaine Metab Screen NEGATIVE (NEGATIVE) 11/29/18 18:35 U Cannabinoids Screen NEGATIVE (NEGATIVE) 11/29/18 18:35 Ethyl Alcohol < 10 mg/dL (0-10) 11/29/18 18:30 RPR NONREACTIVE (NONREACTIVE) 11/29/18 18:30 - Physical Exam Vitals and I&O: Vital Signs Temp 98.1 F 12/03/18 05:45 Pulse 78 12/03/18 08:55 Resp 20 12/03/18 05:45 BP 136/73 12/03/18 08:56 Pulse Ox 97 12/03/18 05:45 Intake & Output 12/02/18 12/03/18 12/03/18 18:59 06:59 18:59 Intake Total 1300 720 Output Total 2 Balance 1300 718 Intake: Oral 1300 720 Output: Urine/Stool Mix 2 Other: # Voids 4 2 # Bowel Movements 1 Active Medications: Current Medications Ascorbic Acid (Vitamin C) 500 mg PO DAILY [facility] Stop: 01/30/19 08:59 Last Admin: 12/03/18 08:56 Dose: 500 mg Atorvastatin Calcium (Lipitor) 20 mg PO HS [facility]; Protocol Stop: 01/29/19 20:59 Last Admin: 12/02/18 20:47 Dose: 20 mg Dextrose (D50w) 50 ml IVP PRN PRN PRN Reason: Blood Glucose less than 70 Stop: 01/29/19 12:30 Dextrose (Glutose 40%) 18.75 gm PO PRN PRN PRN Reason: Blood Glucose less than 70 Stop: 01/29/19 12:30 Divalproex Sodium (Depakote Dr) 250 mg PO BID [facility]; Protocol Stop: 01/29/19 16:59 Last Admin: 12/03/18 08:56 Dose: 250 mg Donepezil HCl (Aricept) 10 mg PO HS [facility] Stop: 01/29/19 20:59 Last Admin: 12/02/18 20:47 Dose: 10 mg Fenofibrate (Tricor) 134 mg PO HS [facility] Stop: 01/29/19 20:59 Last Admin: 12/02/18 20:46 Dose: 134 mg Fluocinonide (Lidex 0.05%) 1 appl TP DAILY [facility] Stop: 01/30/19 08:59 Last Admin: 12/02/18 08:41 Dose: 1 appl Furosemide (Lasix) 20 mg PO BID [facility] Stop: 01/29/19 16:59 Last Admin: 12/03/18 08:56 Dose: 20 mg Glipizide (Glucotrol) 10 mg PO BID [facility] Stop: 01/29/19 16:59 Last Admin: 12/03/18 08:56 Dose: 10 mg Glucagon (Glucagen) 1 mg IM PRN PRN PRN Reason: Blood Glucose less than 70 Stop: 01/29/19 12:30 Insulin Human Lispro (Humalog Insulin Sliding Scale) 0 units SUBQ ACHS [facility]; Protocol Stop: 01/29/19 16:29 Last Admin: 12/03/18 11:48 Dose: Not Given Lisinopril (Zestril) 10 mg PO DAILY [facility] Stop: 01/30/19 08:59 Last Admin: 12/03/18 08:55 Dose: 10 mg Lorazepam (Ativan) 0.5 mg PO Q6HR PRN; Protocol PRN Reason: Agitation Stop: 01/29/19 12:06 Last Admin: 12/02/18 22:02 Dose: 0.5 mg Medroxyprogesterone Acetate (Provera) 5 mg PO DAILY [facility]; Protocol Stop: 01/30/19 08:59 Last Admin: 12/03/18 08:56 Dose: 5 mg Memantine (Namenda) 5 mg PO DAILY [facility] Stop: 01/30/19 08:59 Last Admin: 12/03/18 08:56 Dose: 5 mg Metformin HCl (Glucophage) 850 mg PO TIDWM [facility] Stop: 01/29/19 11:59 Last Admin: 12/03/18 08:56 Dose: 850 mg Miscellaneous (Calcipotriene [Dovonex]) 0.005 % TP DAILY [facility] Stop: 01/30/19 08:59 Mupirocin (Bactroban Oint) 1 appl TP BID [facility] Stop: 12/07/18 12:00 Sodium Chloride (Nacl Tab) 1 gm PO TID [facility] Stop: 01/29/19 13:59 Last Admin: 12/03/18 08:57 Dose: 1 gm Zolpidem Tartrate (Ambien) 5 mg PO HS PRN PRN Reason: Insomnia Stop: 01/29/19 12:07 Last Admin: 12/02/18 20:46 Dose: 5 mg General: demented HEENT: NC/AT, PERRLA, other (left eye cavitation) Neck: Supple, No JVD, No thyromegaly Lungs: CTAB Cardiovascular: RRR, Normal S1, Normal S2, with murmur Abdomen: soft, globular, non-distended, positive bowel sound Extremities: excoriation - Procedures Procedures: Procedures Procedure Code Date GROUP PSYCHOTHERAPY 24614 04/25/15 GROUP PSYCHOTHERAPY GZHZZZZ 04/25/15 OTHER GROUP THERAPY 94.44 11/08/14 Internal Medicine Assmt/Plan - Assessment Assessment: leukocytosis dm htn high chol dementia oa psoriasis l eye blindness mrsa nares - Plan Plan: ada diet iss statin fall precaution aspiration precaution nsaids dw rn Nutritional Asmnt/Malnutr-PDOC - Dietary Evaluation Malnutrition Findings (Please click <Entered> for more info): Nutritional Asmnt/Malnutrition Start: 12/02/18 14: 46 Text: Status: Complete Freq: Protocol: Document 12/02/18 14:46 JOSEPH (Rec: 12/02/18 14:51 [email or web address] ) Nutritional Asmnt/Malnutrition Patient General Information Nutritional Screening Moderate Risk Diagnosis Psychosis Pertinent Medical Hx/Surgical Hx HTN, DM, Dyslipidemia, Dementia Subjective Information Pt is a 83-year-old male from nursing facility admitted on c/o agitation and aggressive behavior x 3 days. Per Meal/Nutrition Activity Record, Pt PO intake 100% since admission. 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 Dietary is currently providing an estimated 2123 kcals and 127 gm Pro to meet 100% kcal and 100% Pro needs. Current Diet Order/ Nutrition Support CCHO 60 gm, LAYLA Pertinent Medications Vitamin C, Lipitor, D50w (PRN) , Glutose 40% (PRN), Lasix, Glucotrol, Glucagen (PRN), INS -SS, Glucophage, Nacl Tab Pertinent Labs POC Glucose (last 24 hours) 121, 118, 144, 116 11/29: Hgb/Hct 13.0/38.7, Na 132, Glucose 107 Nutritional Hx/Data Height 1.75 m Height (Calculated Centimeters) 175.3 Current Weight (lbs) 97.522 kg Weight (Calculated Kilograms) 97.5 Weight (Calculated Grams) 23952.4 [place] Body Weight 70.7 kg % [place] Body Weight 138 Body Mass Index (BMI) 31.7 Weight Status Obese GI Symptoms GI Symptoms None Last BM 12/01 x 1 Skin Integrity/Comment: WNL, Intact, Area of Concern Marc: 19 Current %PO Good (75-100%) Estimated Nutritional Goals BEE in Kcals: Adj wt of IBW Calories/Kcals/Kg 20-25 Kcals Calculated 5123-3778 Protein: Adj wt of IBW Protein g/k.8-0.9 Protein Calculated 65-73 Fluid: ml 5848-9215 ml (25-30 ml/kg) Nutritional Problem 1. Problem Problem Altered nutrition related labs Etiology r/t endocrine dysfunction and HX of DM Signs/Symptoms: aeb POC Glucose (last 24 hours ) 121, 118, 144, 116 Malnutrition Related to Morbid Obesity Malnutrition related to morbid obesity No Intervention/Recommendation Comments 1.Continue with CCHO 60 gm, LAYLA diet as ordered. 2.Continue on anti- hyperglycemic medications for glucose control per MD order. Expected Outcomes/Goals Expected Outcomes/Goals 1. PO intake to continue to meet 75% of nutritional needs. 2. Monitor PO intake, wt, skin integrity, and nutrition related labs to trend WNL. 3. F/U as low risk in 7 days, 12/09
--- NOTE | 2018-12-03 17:18 | Progress Notes ---
DATE: 12/03/2018 SUBJECTIVE: The patient was seen and evaluated. The patient's chart reviewed. This is a psychiatric followup note covering for Dr. Guy. IDENTIFYING DATA: An 83-year-old female. She was brought in here for episodes of agitation and aggressive behavior, presented extremely poor historian, disorganized and also with a history of inappropriate sexual behavior. Overnight nursing staff reported he continues to be intermittent in and out of confusion and poor memory. Today on [id number] evaluation, he looks everything is okay, extremely poor historian disengaged in the interview, disorganized and confused. MENTAL STATUS EXAMINATION: Disorganized, poor insight, irritable, agitated. CURRENT MEDICATIONS: Reconciliation reviewed. Depakote 250 b.i.d., Aricept 10 mg a day, Namenda 5 mg a day. ASSESSMENT AND PLAN: History of dementia with behavior disturbances and disorganized thought process, unable to formulate a safe plan. We will continue with primary psychiatrist's treatment plan and goals of medication. Continue to re-steady his state, target the patient's ongoing disorganized state. JOB# [id number]
[2018-12-03] MEDS: Fenofibrate, Micronized 134 mg Cap PO SCH (20:53)
[2018-12-03] MEDS: Atorvastatin Calcium 10 MG TAB PO SCH (20:53)
[2018-12-04] MEDS: INSULIN LISPRO SLIDING SCALE 100 UNITS/ML UNIT SUBQ SCH ×4 (06:35→21:21)
--- NOTE | 2018-12-04 14:07 | Internal Medicine Prog Note ---
Internal Medicine Subjective - Subjective Patient seen and examined:: with staff, chart reviewed Patient is:: awake, verbal, interactive, talking Per staff patient has:: no adverse event, no episodes of fall, eating well, tolerating meds Internal Medicine Objective - Results Result Diagrams: 11/29/18 18:30 11/29/18 18:30 Recent Labs: Laboratory Last Values WBC 11.6 Th/cmm (4.8-10.8) H 11/29/18 18:30 RBC 4.16 Mil/cmm (3.80-5.80) 11/29/18 18:30 Hgb 13.0 gm/dL (12-16) 11/29/18 18:30 Hct 38.7 % (41.0-60) L 11/29/18 18:30 MCV 92.9 fl (80-99) 11/29/18 18:30 MCH 31.2 pg (27.0-31.0) H 11/29/18 18:30 MCHC Differential 33.6 pg (28.0-36.0) 11/29/18 18:30 RDW 12.5 % (11.5-20.0) 11/29/18 18:30 Plt Count 294 Th/cmm (150-400) 11/29/18 18:30 MPV 7.7 fl 11/29/18 18:30 Neutrophils % 74.9 % (40.0-80.0) 11/29/18 18:30 Lymphocytes % 14.1 % (20.0-50.0) L 11/29/18 18:30 Monocytes % 8.6 % (2.0-10.0) 11/29/18 18:30 Eosinophils % 1.8 % (0.0-5.0) 11/29/18 18:30 Basophils % 0.6 % (0.0-2.0) 11/29/18 18:30 Sodium 132 mEq/L (136-145) L 11/29/18 18:30 Potassium 4.0 mEq/L (3.5-5.1) 11/29/18 18:30 Chloride 98 mEq/L (98-107) 11/29/18 18:30 Carbon Dioxide 24.2 mEq/L (21.0-31.0) 11/29/18 18:30 Anion Gap 13.8 (7.0-16.0) 11/29/18 18:30 BUN 16 mg/dL (7-25) 11/29/18 18:30 Creatinine 0.9 mg/dL (0.7-1.3) 11/29/18 18:30 Est GFR ( Amer) TNP 11/29/18 18:30 Est GFR (Non-Af Amer) TNP 11/29/18 18:30 BUN/Creatinine Ratio 17.8 11/29/18 18:30 Glucose 107 mg/dL (70-105) H 11/29/18 18:30 POC Glucose 125 MG/DL (70 - 105) H 12/04/18 11:47 Calcium 9.7 mg/dL (8.6-10.3) 11/29/18 18:30 Total Bilirubin 0.3 mg/dL (0.3-1.0) 11/29/18 18:30 AST 10 U/L (13-39) L 11/29/18 18:30 ALT 11 U/L (7-52) 11/29/18 18:30 Alkaline Phosphatase 35 U/L (34-104) 11/29/18 18:30 Troponin I < 0.01 ng/mL (0.01-0.05) L 11/29/18 18:30 Total Protein 6.8 gm/dL (6.0-8.3) 11/29/18 18:30 Albumin 4.2 gm/dL (4.2-5.5) 11/29/18 18:30 Globulin 2.6 gm/dL 11/29/18 18:30 Albumin/Globulin Ratio 1.6 (1.0-1.8) 11/29/18 18:30 Triglycerides 151 mg/dL (<150) H 11/30/18 00:00 Cholesterol 110 mg/dL (<200) 11/30/18 00:00 LDL Cholesterol Direct 61 mg/dL (75-193) L 11/30/18 00:00 HDL Cholesterol 37 mg/dL (23-92) 11/30/18 00:00 TSH 1.90 uIU/ml (0.34-5.60) 11/29/18 18:30 Urine Source CLEAN C 11/29/18 18:35 Urine Color YELLOW 11/29/18 18:35 Urine Clarity CLEAR (CLEAR) 11/29/18 18:35 Urine pH 7.5 (4.6 - 8.0) 11/29/18 18:35 Ur Specific [place] 1.015 (1.005-1.030) 11/29/18 18:35 Urine Protein NEGATIVE mg/dL (NEGATIVE) 11/29/18 18:35 Urine Glucose (UA) NEGATIVE mg/dL (NEGATIVE) 11/29/18 18:35 Urine Ketones NEGATIVE mg/dL (NEGATIVE) 11/29/18 18:35 Urine Blood NEGATIVE (NEGATIVE) 11/29/18 18:35 Urine Nitrate NEGATIVE (NEGATIVE) 11/29/18 18:35 Urine Bilirubin NEGATIVE (NEGATIVE) 11/29/18 18:35 Urine Urobilinogen 0.2 E.U./dL (0.2 - 1.0) 11/29/18 18:35 Ur Leukocyte Esterase NEGATIVE (NEGATIVE) 11/29/18 18:35 Urine RBC NONE SEEN /hpf (0-5) 11/29/18 18:35 Urine WBC 0-2 /hpf (0-5) 11/29/18 18:35 Ur Epithelial Cells OCCASIONAL /lpf (FEW) 11/29/18 18:35 Amorphous Sediment FEW PHOSPHATES (NONE SEEN) 11/29/18 18:35 Urine Bacteria FEW /hpf (NONE SEEN) 11/29/18 18:35 Urine Mucus FEW /lpf (FEW) 11/29/18 18:35 Salicylates < 25.0 mg/L (30.0-100.0) L 11/29/18 18:30 Urine Opiates Screen NEGATIVE (NEGATIVE) 11/29/18 18:35 Urine Methadone Screen NEGATIVE (NEGATIVE) 11/29/18 18:35 Acetaminophen < 10.0 ug/mL (10.0-30.0) L 11/29/18 18:30 Ur Barbiturates Screen NEGATIVE (NEGATIVE) 11/29/18 18:35 Valproic Acid 36.1 ug/mL (50.0-100.0) L 12/02/18 15:00 Ur Tricyclics Screen NEGATIVE (NEGATIVE) 11/29/18 18:35 Ur Phencyclidine Scrn NEGATIVE (NEGATIVE) 11/29/18 18:35 Amphetamines Screen NEGATIVE (NEGATIVE) 11/29/18 18:35 U Methamphetamines Scrn NEGATIVE (NEGATIVE) 11/29/18 18:35 U Benzodiazepines Scrn NEGATIVE (NEGATIVE) 11/29/18 18:35 U Cocaine Metab Screen NEGATIVE (NEGATIVE) 11/29/18 18:35 U Cannabinoids Screen NEGATIVE (NEGATIVE) 11/29/18 18:35 Ethyl Alcohol < 10 mg/dL (0-10) 11/29/18 18:30 RPR NONREACTIVE (NONREACTIVE) 11/29/18 18:30 - Physical Exam Vitals and I&O: Vital Signs Temp 98.1 F 12/04/18 04:34 Pulse 84 12/04/18 08:18 Resp 20 12/04/18 08:00 BP 154/76 12/04/18 08:18 Pulse Ox 96 12/04/18 04:34 Intake & Output 12/03/18 12/04/18 12/04/18 18:59 06:59 18:59 Intake Total 1000 480 Balance 1000 480 Intake: Oral 1000 480 Other: # Voids 4 2 # Bowel Movements 1 Active Medications: Current Medications Ascorbic Acid (Vitamin C) 500 mg PO DAILY [facility] Stop: 01/30/19 08:59 Last Admin: 12/04/18 08:17 Dose: 500 mg Atorvastatin Calcium (Lipitor) 20 mg PO HS [facility]; Protocol Stop: 01/29/19 20:59 Last Admin: 12/03/18 20:53 Dose: 20 mg Dextrose (D50w) 50 ml IVP PRN PRN PRN Reason: Blood Glucose less than 70 Stop: 01/29/19 12:30 Dextrose (Glutose 40%) 18.75 gm PO PRN PRN PRN Reason: Blood Glucose less than 70 Stop: 01/29/19 12:30 Divalproex Sodium (Depakote Dr) 250 mg PO BID [facility]; Protocol Stop: 01/29/19 16:59 Last Admin: 12/04/18 08:17 Dose: 250 mg Donepezil HCl (Aricept) 10 mg PO HS [facility] Stop: 01/29/19 20:59 Last Admin: 12/03/18 20:53 Dose: 10 mg Fenofibrate (Tricor) 134 mg PO HS [facility] Stop: 01/29/19 20:59 Last Admin: 12/03/18 20:53 Dose: 134 mg Fluocinonide (Lidex 0.05%) 1 appl TP DAILY [facility] Stop: 01/30/19 08:59 Last Admin: 12/04/18 08:18 Dose: 1 appl Furosemide (Lasix) 20 mg PO BID [facility] Stop: 01/29/19 16:59 Last Admin: 12/04/18 08:17 Dose: 20 mg Glipizide (Glucotrol) 10 mg PO BID [facility] Stop: 01/29/19 16:59 Last Admin: 12/04/18 08:18 Dose: 10 mg Glucagon (Glucagen) 1 mg IM PRN PRN PRN Reason: Blood Glucose less than 70 Stop: 01/29/19 12:30 Insulin Human Lispro (Humalog Insulin Sliding Scale) 0 units SUBQ ACHS [facility]; Protocol Stop: 01/29/19 16:29 Last Admin: 12/04/18 11:55 Dose: Not Given Lisinopril (Zestril) 10 mg PO DAILY [facility] Stop: 01/30/19 08:59 Last Admin: 12/04/18 08:18 Dose: 10 mg Lorazepam (Ativan) 0.5 mg PO Q6HR PRN; Protocol PRN Reason: Agitation Stop: 01/29/19 12:06 Last Admin: 12/02/18 22:02 Dose: 0.5 mg Medroxyprogesterone Acetate (Provera) 5 mg PO DAILY [facility]; Protocol Stop: 01/30/19 08:59 Last Admin: 12/04/18 08:19 Dose: 5 mg Memantine (Namenda) 5 mg PO DAILY [facility] Stop: 01/30/19 08:59 Last Admin: 12/04/18 08:19 Dose: 5 mg Metformin HCl (Glucophage) 850 mg PO TIDWM [facility] Stop: 01/29/19 11:59 Last Admin: 12/04/18 12:11 Dose: 850 mg Mupirocin (Bactroban Oint) 1 appl TP BID [facility] Stop: 12/07/18 12:00 Last Admin: 12/04/18 08:18 Dose: 1 appl Sodium Chloride (Nacl Tab) 1 gm PO TID [facility] Stop: 01/29/19 13:59 Last Admin: 12/04/18 13:26 Dose: 1 gm Zolpidem Tartrate (Ambien) 5 mg PO HS PRN PRN Reason: Insomnia Stop: 01/29/19 12:07 Last Admin: 12/03/18 20:53 Dose: 5 mg General: demented HEENT: NC/AT, PERRLA, other (left eye cavitation) Neck: Supple, No JVD, No thyromegaly Lungs: CTAB Cardiovascular: RRR, Normal S1, Normal S2, with murmur Abdomen: soft, globular, non-distended, positive bowel sound Extremities: excoriation - Procedures Procedures: Procedures Procedure Code Date GROUP PSYCHOTHERAPY 47114 04/25/15 GROUP PSYCHOTHERAPY GZHZZZZ 04/25/15 OTHER GROUP THERAPY 94.44 11/08/14 Internal Medicine Assmt/Plan - Assessment Assessment: leukocytosis dm htn high chol dementia oa psoriasis l eye blindness mrsa nares - Plan Plan: ada diet iss statin fall precaution aspiration precaution nsaids dw rn Nutritional Asmnt/Malnutr-PDOC - Dietary Evaluation Malnutrition Findings (Please click <Entered> for more info): Nutritional Asmnt/Malnutrition Start: 12/02/18 14: 46 Text: Status: Complete Freq: Protocol: Document 12/02/18 14:46 JOSEPH (Rec: 12/02/18 14:51 JOSEPH [email or web address] ) Nutritional Asmnt/Malnutrition Patient General Information Nutritional Screening Moderate Risk Diagnosis Psychosis Pertinent Medical Hx/Surgical Hx HTN, DM, Dyslipidemia, Dementia Subjective Information Pt is a 83-year-old male from nursing facility admitted on c/o agitation and aggressive behavior x 3 days. Per Meal/Nutrition Activity Record, Pt PO intake 100% since admission. 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 Dietary is currently providing an estimated 2123 kcals and 127 gm Pro to meet 100% kcal and 100% Pro needs. Current Diet Order/ Nutrition Support CCHO 60 gm, LAYLA Pertinent Medications Vitamin C, Lipitor, D50w (PRN) , Glutose 40% (PRN), Lasix, Glucotrol, Glucagen (PRN), INS -SS, Glucophage, Nacl Tab Pertinent Labs POC Glucose (last 24 hours) 121, 118, 144, 116 11/29: Hgb/Hct 13.0/38.7, Na 132, Glucose 107 Nutritional Hx/Data Height 1.75 m Height (Calculated Centimeters) 175.3 Current Weight (lbs) 97.522 kg Weight (Calculated Kilograms) 97.5 Weight (Calculated Grams) 54014.4 [place] Body Weight 70.7 kg % [place] Body Weight 138 Body Mass Index (BMI) 31.7 Weight Status Obese GI Symptoms GI Symptoms None Last BM 12/01 x 1 Skin Integrity/Comment: WNL, Intact, Area of Concern Marc: 19 Current %PO Good (75-100%) Estimated Nutritional Goals BEE in Kcals: Adj wt of IBW Calories/Kcals/Kg 20-25 Kcals Calculated 9395-6056 Protein: Adj wt of IBW Protein g/k.8-0.9 Protein Calculated 65-73 Fluid: ml 0478-9083 ml (25-30 ml/kg) Nutritional Problem 1. Problem Problem Altered nutrition related labs Etiology r/t endocrine dysfunction and HX of DM Signs/Symptoms: aeb POC Glucose (last 24 hours ) 121, 118, 144, 116 Malnutrition Related to Morbid Obesity Malnutrition related to morbid obesity No Intervention/Recommendation Comments 1.Continue with CCHO 60 gm, LAYLA diet as ordered. 2.Continue on anti- hyperglycemic medications for glucose control per MD order. Expected Outcomes/Goals Expected Outcomes/Goals 1. PO intake to continue to meet 75% of nutritional needs. 2. Monitor PO intake, wt, skin integrity, and nutrition related labs to trend WNL. 3. F/U as low risk in 7 days, 12/09
[2018-12-04] MEDS: Atorvastatin Calcium 10 MG TAB PO SCH (21:23)
[2018-12-04] MEDS: Fenofibrate, Micronized 134 mg Cap PO SCH (21:23)
--- NOTE | 2018-12-05 04:09 | Progress Notes ---
DATE: 12/04/2018 SUBJECTIVE: The patient was seen and evaluated. The patient's chart reviewed. Covering for Dr. Guy. Overnight nursing staff reported the patient continues to have inappropriate sexual behavior with the female staff. Today, on [id number] evaluation, the patient is confused in regards to his behavior, aloof to his behavior, ____ sexually inappropriate behavior towards female. ASSESSMENT AND PLAN: History of dementia with behavior disturbances and disorganized thought process. We will continue with Depakote, Aricept and Namenda, as the patient's medication continue to reach steady state. JOB# [id number]
[2018-12-05] MEDS: INSULIN LISPRO SLIDING SCALE 100 UNITS/ML UNIT SUBQ SCH ×3 (11:28→21:00)
--- NOTE | 2018-12-05 12:30 | Internal Medicine Prog Note ---
Internal Medicine Subjective - Subjective Patient seen and examined:: with staff, chart reviewed Patient is:: awake, verbal, interactive, talking Per staff patient has:: no adverse event, no episodes of fall, eating well, tolerating meds Internal Medicine Objective - Results Result Diagrams: 11/29/18 18:30 11/29/18 18:30 Recent Labs: Laboratory Last Values WBC 11.6 Th/cmm (4.8-10.8) H 11/29/18 18:30 RBC 4.16 Mil/cmm (3.80-5.80) 11/29/18 18:30 Hgb 13.0 gm/dL (12-16) 11/29/18 18:30 Hct 38.7 % (41.0-60) L 11/29/18 18:30 MCV 92.9 fl (80-99) 11/29/18 18:30 MCH 31.2 pg (27.0-31.0) H 11/29/18 18:30 MCHC Differential 33.6 pg (28.0-36.0) 11/29/18 18:30 RDW 12.5 % (11.5-20.0) 11/29/18 18:30 Plt Count 294 Th/cmm (150-400) 11/29/18 18:30 MPV 7.7 fl 11/29/18 18:30 Neutrophils % 74.9 % (40.0-80.0) 11/29/18 18:30 Lymphocytes % 14.1 % (20.0-50.0) L 11/29/18 18:30 Monocytes % 8.6 % (2.0-10.0) 11/29/18 18:30 Eosinophils % 1.8 % (0.0-5.0) 11/29/18 18:30 Basophils % 0.6 % (0.0-2.0) 11/29/18 18:30 Sodium 132 mEq/L (136-145) L 11/29/18 18:30 Potassium 4.0 mEq/L (3.5-5.1) 11/29/18 18:30 Chloride 98 mEq/L (98-107) 11/29/18 18:30 Carbon Dioxide 24.2 mEq/L (21.0-31.0) 11/29/18 18:30 Anion Gap 13.8 (7.0-16.0) 11/29/18 18:30 BUN 16 mg/dL (7-25) 11/29/18 18:30 Creatinine 0.9 mg/dL (0.7-1.3) 11/29/18 18:30 Est GFR ( Amer) TNP 11/29/18 18:30 Est GFR (Non-Af Amer) TNP 11/29/18 18:30 BUN/Creatinine Ratio 17.8 11/29/18 18:30 Glucose 107 mg/dL (70-105) H 11/29/18 18:30 POC Glucose 89 MG/DL (70 - 105) 12/05/18 11:16 Calcium 9.7 mg/dL (8.6-10.3) 11/29/18 18:30 Total Bilirubin 0.3 mg/dL (0.3-1.0) 11/29/18 18:30 AST 10 U/L (13-39) L 11/29/18 18:30 ALT 11 U/L (7-52) 11/29/18 18:30 Alkaline Phosphatase 35 U/L (34-104) 11/29/18 18:30 Troponin I < 0.01 ng/mL (0.01-0.05) L 11/29/18 18:30 Total Protein 6.8 gm/dL (6.0-8.3) 11/29/18 18:30 Albumin 4.2 gm/dL (4.2-5.5) 11/29/18 18:30 Globulin 2.6 gm/dL 11/29/18 18:30 Albumin/Globulin Ratio 1.6 (1.0-1.8) 11/29/18 18:30 Triglycerides 151 mg/dL (<150) H 11/30/18 00:00 Cholesterol 110 mg/dL (<200) 11/30/18 00:00 LDL Cholesterol Direct 61 mg/dL (75-193) L 11/30/18 00:00 HDL Cholesterol 37 mg/dL (23-92) 11/30/18 00:00 TSH 1.90 uIU/ml (0.34-5.60) 11/29/18 18:30 Urine Source CLEAN C 11/29/18 18:35 Urine Color YELLOW 11/29/18 18:35 Urine Clarity CLEAR (CLEAR) 11/29/18 18:35 Urine pH 7.5 (4.6 - 8.0) 11/29/18 18:35 Ur Specific [place] 1.015 (1.005-1.030) 11/29/18 18:35 Urine Protein NEGATIVE mg/dL (NEGATIVE) 11/29/18 18:35 Urine Glucose (UA) NEGATIVE mg/dL (NEGATIVE) 11/29/18 18:35 Urine Ketones NEGATIVE mg/dL (NEGATIVE) 11/29/18 18:35 Urine Blood NEGATIVE (NEGATIVE) 11/29/18 18:35 Urine Nitrate NEGATIVE (NEGATIVE) 11/29/18 18:35 Urine Bilirubin NEGATIVE (NEGATIVE) 11/29/18 18:35 Urine Urobilinogen 0.2 E.U./dL (0.2 - 1.0) 11/29/18 18:35 Ur Leukocyte Esterase NEGATIVE (NEGATIVE) 11/29/18 18:35 Urine RBC NONE SEEN /hpf (0-5) 11/29/18 18:35 Urine WBC 0-2 /hpf (0-5) 11/29/18 18:35 Ur Epithelial Cells OCCASIONAL /lpf (FEW) 11/29/18 18:35 Amorphous Sediment FEW PHOSPHATES (NONE SEEN) 11/29/18 18:35 Urine Bacteria FEW /hpf (NONE SEEN) 11/29/18 18:35 Urine Mucus FEW /lpf (FEW) 11/29/18 18:35 Salicylates < 25.0 mg/L (30.0-100.0) L 11/29/18 18:30 Urine Opiates Screen NEGATIVE (NEGATIVE) 11/29/18 18:35 Urine Methadone Screen NEGATIVE (NEGATIVE) 11/29/18 18:35 Acetaminophen < 10.0 ug/mL (10.0-30.0) L 11/29/18 18:30 Ur Barbiturates Screen NEGATIVE (NEGATIVE) 11/29/18 18:35 Valproic Acid 36.1 ug/mL (50.0-100.0) L 12/02/18 15:00 Ur Tricyclics Screen NEGATIVE (NEGATIVE) 11/29/18 18:35 Ur Phencyclidine Scrn NEGATIVE (NEGATIVE) 11/29/18 18:35 Amphetamines Screen NEGATIVE (NEGATIVE) 11/29/18 18:35 U Methamphetamines Scrn NEGATIVE (NEGATIVE) 11/29/18 18:35 U Benzodiazepines Scrn NEGATIVE (NEGATIVE) 11/29/18 18:35 U Cocaine Metab Screen NEGATIVE (NEGATIVE) 11/29/18 18:35 U Cannabinoids Screen NEGATIVE (NEGATIVE) 11/29/18 18:35 Ethyl Alcohol < 10 mg/dL (0-10) 11/29/18 18:30 RPR NONREACTIVE (NONREACTIVE) 11/29/18 18:30 - Physical Exam Vitals and I&O: Vital Signs Temp 98.1 F 12/05/18 04:32 Pulse 72 12/05/18 08:31 Resp 19 12/05/18 04:32 BP 131/75 12/05/18 08:31 Pulse Ox 86 12/05/18 04:32 Intake & Output 12/04/18 12/05/18 12/05/18 18:59 06:59 18:59 Intake Total 480 Balance 480 Intake: Oral 480 Other: # Voids 2 Active Medications: Current Medications Ascorbic Acid (Vitamin C) 500 mg PO DAILY [facility] Stop: 01/30/19 08:59 Last Admin: 12/05/18 08:30 Dose: 500 mg Atorvastatin Calcium (Lipitor) 20 mg PO HS [facility]; Protocol Stop: 01/29/19 20:59 Last Admin: 12/04/18 21:23 Dose: 20 mg Dextrose (D50w) 50 ml IVP PRN PRN PRN Reason: Blood Glucose less than 70 Stop: 01/29/19 12:30 Dextrose (Glutose 40%) 18.75 gm PO PRN PRN PRN Reason: Blood Glucose less than 70 Stop: 01/29/19 12:30 Divalproex Sodium (Depakote Dr) 250 mg PO BID [facility]; Protocol Stop: 01/29/19 16:59 Last Admin: 12/05/18 08:30 Dose: 250 mg Donepezil HCl (Aricept) 10 mg PO HS [facility] Stop: 01/29/19 20:59 Last Admin: 12/04/18 21:23 Dose: 10 mg Fenofibrate (Tricor) 134 mg PO HS [facility] Stop: 01/29/19 20:59 Last Admin: 12/04/18 21:23 Dose: 134 mg Fluocinonide (Lidex 0.05%) 1 appl TP DAILY [facility] Stop: 01/30/19 08:59 Last Admin: 12/05/18 08:33 Dose: 1 appl Furosemide (Lasix) 20 mg PO BID [facility] Stop: 01/29/19 16:59 Last Admin: 12/05/18 08:31 Dose: 20 mg Glipizide (Glucotrol) 10 mg PO BID [facility] Stop: 01/29/19 16:59 Last Admin: 12/05/18 08:30 Dose: 10 mg Glucagon (Glucagen) 1 mg IM PRN PRN PRN Reason: Blood Glucose less than 70 Stop: 01/29/19 12:30 Insulin Human Lispro (Humalog Insulin Sliding Scale) 0 units SUBQ ACHS [facility]; Protocol Stop: 01/29/19 16:29 Last Admin: 12/05/18 11:28 Dose: Not Given Lisinopril (Zestril) 10 mg PO DAILY [facility] Stop: 01/30/19 08:59 Last Admin: 12/05/18 08:31 Dose: 10 mg Lorazepam (Ativan) 0.5 mg PO Q6HR PRN; Protocol PRN Reason: Agitation Stop: 01/29/19 12:06 Last Admin: 12/02/18 22:02 Dose: 0.5 mg Medroxyprogesterone Acetate (Provera) 5 mg PO DAILY [facility]; Protocol Stop: 01/30/19 08:59 Last Admin: 12/05/18 08:31 Dose: 5 mg Memantine (Namenda) 5 mg PO DAILY [facility] Stop: 01/30/19 08:59 Last Admin: 12/05/18 08:32 Dose: 5 mg Metformin HCl (Glucophage) 850 mg PO TIDWM [facility] Stop: 01/29/19 11:59 Last Admin: 12/05/18 11:37 Dose: 850 mg Mupirocin (Bactroban Oint) 1 appl TP BID [facility] Stop: 12/07/18 12:00 Last Admin: 12/05/18 08:32 Dose: 1 appl Sodium Chloride (Nacl Tab) 1 gm PO TID [facility] Stop: 01/29/19 13:59 Last Admin: 12/05/18 08:31 Dose: 1 gm Zolpidem Tartrate (Ambien) 5 mg PO HS PRN PRN Reason: Insomnia Stop: 01/29/19 12:07 Last Admin: 12/04/18 21:23 Dose: 5 mg General: demented HEENT: NC/AT, PERRLA, other (left eye cavitation) Neck: Supple, No JVD, No thyromegaly Lungs: CTAB Cardiovascular: RRR, Normal S1, Normal S2, with murmur Abdomen: soft, globular, non-distended, positive bowel sound Extremities: excoriation - Procedures Procedures: Procedures Procedure Code Date GROUP PSYCHOTHERAPY 96829 04/25/15 GROUP PSYCHOTHERAPY GZHZZZZ 04/25/15 OTHER GROUP THERAPY 94.44 11/08/14 Internal Medicine Assmt/Plan - Assessment Assessment: leukocytosis dm htn high chol dementia oa psoriasis l eye blindness mrsa nares - Plan Plan: ada diet iss statin fall precaution aspiration precaution nsaids dw rn Nutritional Asmnt/Malnutr-PDOC - Dietary Evaluation Malnutrition Findings (Please click <Entered> for more info): Nutritional Asmnt/Malnutrition Start: 12/02/18 14: 46 Text: Status: Complete Freq: Protocol: Document 12/02/18 14:46 JOSEPH (Rec: 12/02/18 14:51 JOSEPH [email or web address] ) Nutritional Asmnt/Malnutrition Patient General Information Nutritional Screening Moderate Risk Diagnosis Psychosis Pertinent Medical Hx/Surgical Hx HTN, DM, Dyslipidemia, Dementia Subjective Information Pt is a 83-year-old male from nursing facility admitted on c/o agitation and aggressive behavior x 3 days. Per Meal/Nutrition Activity Record, Pt PO intake 100% since admission. 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 Dietary is currently providing an estimated 2123 kcals and 127 gm Pro to meet 100% kcal and 100% Pro needs. Current Diet Order/ Nutrition Support CCHO 60 gm, LAYLA Pertinent Medications Vitamin C, Lipitor, D50w (PRN) , Glutose 40% (PRN), Lasix, Glucotrol, Glucagen (PRN), INS -SS, Glucophage, Nacl Tab Pertinent Labs POC Glucose (last 24 hours) 121, 118, 144, 116 11/29: Hgb/Hct 13.0/38.7, Na 132, Glucose 107 Nutritional Hx/Data Height 1.75 m Height (Calculated Centimeters) 175.3 Current Weight (lbs) 97.522 kg Weight (Calculated Kilograms) 97.5 Weight (Calculated Grams) 81746.4 [place] Body Weight 70.7 kg % [place] Body Weight 138 Body Mass Index (BMI) 31.7 Weight Status Obese GI Symptoms GI Symptoms None Last BM 12/01 x 1 Skin Integrity/Comment: WNL, Intact, Area of Concern Marc: 19 Current %PO Good (75-100%) Estimated Nutritional Goals BEE in Kcals: Adj wt of IBW Calories/Kcals/Kg 20-25 Kcals Calculated 1146-0454 Protein: Adj wt of IBW Protein g/k.8-0.9 Protein Calculated 65-73 Fluid: ml 9188-0694 ml (25-30 ml/kg) Nutritional Problem 1. Problem Problem Altered nutrition related labs Etiology r/t endocrine dysfunction and HX of DM Signs/Symptoms: aeb POC Glucose (last 24 hours ) 121, 118, 144, 116 Malnutrition Related to Morbid Obesity Malnutrition related to morbid obesity No Intervention/Recommendation Comments 1.Continue with CCHO 60 gm, LAYLA diet as ordered. 2.Continue on anti- hyperglycemic medications for glucose control per MD order. Expected Outcomes/Goals Expected Outcomes/Goals 1. PO intake to continue to meet 75% of nutritional needs. 2. Monitor PO intake, wt, skin integrity, and nutrition related labs to trend WNL. 3. F/U as low risk in 7 days, 12/09
[2018-12-05] MEDS: Fenofibrate, Micronized 134 mg Cap PO SCH (21:50)
[2018-12-05] MEDS: Atorvastatin Calcium 10 MG TAB PO SCH (21:50)
--- NOTE | 2018-12-05 23:03 | Progress Notes ---
DATE: 12/05/2018 Case was discussed with staff of the patient, reviewed records. The patient continues to be intrusive, continues to be unpredictable, impulsive, needing redirection. He is sleeping better, eating better. I will be increasing his Namenda to 5 mg twice a day to help improve his cognition. No side effects with the medication, no sedation, no nausea, so working on discharge plan. We will continue outpatient group therapy, milieu therapy, and adjust medication as needed. JOB# [id number]
[2018-12-06] MEDS: INSULIN LISPRO SLIDING SCALE 100 UNITS/ML UNIT SUBQ SCH ×3 (07:06→16:42)
--- NOTE | 2018-12-06 11:17 | Discharge Summary ---
DATE OF DISCHARGE: 12/06/2018 IDENTIFYING INFORMATION: The patient is an 83-year-old male. CHIEF COMPLAINT: The patient at [place] because of agitation and aggressive behavior. The patient was a poor historian. He did not know why he was here. He has a history of inappropriate sexual behavior, aggressive behavior, unable to carry on a conversation. He is able to tell me his age, not sure of the date. He has a history of being on hormone replacement for which he is still on because of her sexual behavior. He has multiple prior admissions to this facility for similar reason with a history of dementia. COURSE IN THE HOSPITAL: The patient was started back on his medication, which was the progesterone. He was added Depakote 250 mg twice a day. He was also continued with atorvastatin, ascorbic acid, Aricept 10 mg at bedtime. He was also on Lasix 10 mg twice a day, glipizide, glucagon, insulin, lisinopril. I added Namenda to his medication, increased the dose to 5 mg twice a day. He was also on metformin. The patient progressively got better. He was no longer acting in anyway dangerous. He was sleeping well, eating well, so as he improved, we felt he could be discharged to a lesser level of care. FINAL DIAGNOSES: Bipolar disorder, not otherwise specified, dementia. MEDICAL DIAGNOSES: As per medical doctor. The patient will follow up with the psychiatrist and primary care physician. EXPECTED OUTCOME: Stable if the patient complies with the above. [facility]# [id number]
--- NOTE | 2018-12-06 12:09 | Internal Medicine Prog Note ---
Internal Medicine Subjective - Subjective Patient seen and examined:: with staff, chart reviewed Patient is:: awake, verbal, interactive, talking Per staff patient has:: no adverse event, no episodes of fall, eating well, tolerating meds Internal Medicine Objective - Results Result Diagrams: 11/29/18 18:30 11/29/18 18:30 Recent Labs: Laboratory Last Values WBC 11.6 Th/cmm (4.8-10.8) H 11/29/18 18:30 RBC 4.16 Mil/cmm (3.80-5.80) 11/29/18 18:30 Hgb 13.0 gm/dL (12-16) 11/29/18 18:30 Hct 38.7 % (41.0-60) L 11/29/18 18:30 MCV 92.9 fl (80-99) 11/29/18 18:30 MCH 31.2 pg (27.0-31.0) H 11/29/18 18:30 MCHC Differential 33.6 pg (28.0-36.0) 11/29/18 18:30 RDW 12.5 % (11.5-20.0) 11/29/18 18:30 Plt Count 294 Th/cmm (150-400) 11/29/18 18:30 MPV 7.7 fl 11/29/18 18:30 Neutrophils % 74.9 % (40.0-80.0) 11/29/18 18:30 Lymphocytes % 14.1 % (20.0-50.0) L 11/29/18 18:30 Monocytes % 8.6 % (2.0-10.0) 11/29/18 18:30 Eosinophils % 1.8 % (0.0-5.0) 11/29/18 18:30 Basophils % 0.6 % (0.0-2.0) 11/29/18 18:30 Sodium 132 mEq/L (136-145) L 11/29/18 18:30 Potassium 4.0 mEq/L (3.5-5.1) 11/29/18 18:30 Chloride 98 mEq/L (98-107) 11/29/18 18:30 Carbon Dioxide 24.2 mEq/L (21.0-31.0) 11/29/18 18:30 Anion Gap 13.8 (7.0-16.0) 11/29/18 18:30 BUN 16 mg/dL (7-25) 11/29/18 18:30 Creatinine 0.9 mg/dL (0.7-1.3) 11/29/18 18:30 Est GFR ( Amer) TNP 11/29/18 18:30 Est GFR (Non-Af Amer) TNP 11/29/18 18:30 BUN/Creatinine Ratio 17.8 11/29/18 18:30 Glucose 107 mg/dL (70-105) H 11/29/18 18:30 POC Glucose 133 MG/DL (70 - 105) H 12/06/18 11:05 Calcium 9.7 mg/dL (8.6-10.3) 11/29/18 18:30 Total Bilirubin 0.3 mg/dL (0.3-1.0) 11/29/18 18:30 AST 10 U/L (13-39) L 11/29/18 18:30 ALT 11 U/L (7-52) 11/29/18 18:30 Alkaline Phosphatase 35 U/L (34-104) 11/29/18 18:30 Troponin I < 0.01 ng/mL (0.01-0.05) L 11/29/18 18:30 Total Protein 6.8 gm/dL (6.0-8.3) 11/29/18 18:30 Albumin 4.2 gm/dL (4.2-5.5) 11/29/18 18:30 Globulin 2.6 gm/dL 11/29/18 18:30 Albumin/Globulin Ratio 1.6 (1.0-1.8) 11/29/18 18:30 Triglycerides 151 mg/dL (<150) H 11/30/18 00:00 Cholesterol 110 mg/dL (<200) 11/30/18 00:00 LDL Cholesterol Direct 61 mg/dL (75-193) L 11/30/18 00:00 HDL Cholesterol 37 mg/dL (23-92) 11/30/18 00:00 TSH 1.90 uIU/ml (0.34-5.60) 11/29/18 18:30 Urine Source CLEAN C 11/29/18 18:35 Urine Color YELLOW 11/29/18 18:35 Urine Clarity CLEAR (CLEAR) 11/29/18 18:35 Urine pH 7.5 (4.6 - 8.0) 11/29/18 18:35 Ur Specific [place] 1.015 (1.005-1.030) 11/29/18 18:35 Urine Protein NEGATIVE mg/dL (NEGATIVE) 11/29/18 18:35 Urine Glucose (UA) NEGATIVE mg/dL (NEGATIVE) 11/29/18 18:35 Urine Ketones NEGATIVE mg/dL (NEGATIVE) 11/29/18 18:35 Urine Blood NEGATIVE (NEGATIVE) 11/29/18 18:35 Urine Nitrate NEGATIVE (NEGATIVE) 11/29/18 18:35 Urine Bilirubin NEGATIVE (NEGATIVE) 11/29/18 18:35 Urine Urobilinogen 0.2 E.U./dL (0.2 - 1.0) 11/29/18 18:35 Ur Leukocyte Esterase NEGATIVE (NEGATIVE) 11/29/18 18:35 Urine RBC NONE SEEN /hpf (0-5) 11/29/18 18:35 Urine WBC 0-2 /hpf (0-5) 11/29/18 18:35 Ur Epithelial Cells OCCASIONAL /lpf (FEW) 11/29/18 18:35 Amorphous Sediment FEW PHOSPHATES (NONE SEEN) 11/29/18 18:35 Urine Bacteria FEW /hpf (NONE SEEN) 11/29/18 18:35 Urine Mucus FEW /lpf (FEW) 11/29/18 18:35 Salicylates < 25.0 mg/L (30.0-100.0) L 11/29/18 18:30 Urine Opiates Screen NEGATIVE (NEGATIVE) 11/29/18 18:35 Urine Methadone Screen NEGATIVE (NEGATIVE) 11/29/18 18:35 Acetaminophen < 10.0 ug/mL (10.0-30.0) L 11/29/18 18:30 Ur Barbiturates Screen NEGATIVE (NEGATIVE) 11/29/18 18:35 Valproic Acid 36.1 ug/mL (50.0-100.0) L 12/02/18 15:00 Ur Tricyclics Screen NEGATIVE (NEGATIVE) 11/29/18 18:35 Ur Phencyclidine Scrn NEGATIVE (NEGATIVE) 11/29/18 18:35 Amphetamines Screen NEGATIVE (NEGATIVE) 11/29/18 18:35 U Methamphetamines Scrn NEGATIVE (NEGATIVE) 11/29/18 18:35 U Benzodiazepines Scrn NEGATIVE (NEGATIVE) 11/29/18 18:35 U Cocaine Metab Screen NEGATIVE (NEGATIVE) 11/29/18 18:35 U Cannabinoids Screen NEGATIVE (NEGATIVE) 11/29/18 18:35 Ethyl Alcohol < 10 mg/dL (0-10) 11/29/18 18:30 RPR NONREACTIVE (NONREACTIVE) 11/29/18 18:30 - Physical Exam Vitals and I&O: Vital Signs Temp 97.8 F 12/06/18 06:00 Pulse 79 12/06/18 08:31 Resp 18 12/06/18 06:00 BP 146/75 12/06/18 08:31 Pulse Ox 99 12/06/18 06:00 Intake & Output 12/05/18 12/06/18 12/06/18 18:59 06:59 18:59 Intake Total 1000 Balance 1000 Intake: Oral 1000 Other: # Voids 7 # Bowel Movements 1 Active Medications: Current Medications Ascorbic Acid (Vitamin C) 500 mg PO DAILY [facility] Stop: 01/30/19 08:59 Last Admin: 12/06/18 08:30 Dose: 500 mg Atorvastatin Calcium (Lipitor) 20 mg PO HS [facility]; Protocol Stop: 01/29/19 20:59 Last Admin: 12/05/18 21:50 Dose: 20 mg Dextrose (D50w) 50 ml IVP PRN PRN PRN Reason: Blood Glucose less than 70 Stop: 01/29/19 12:30 Dextrose (Glutose 40%) 18.75 gm PO PRN PRN PRN Reason: Blood Glucose less than 70 Stop: 01/29/19 12:30 Divalproex Sodium (Depakote Dr) 250 mg PO BID [facility]; Protocol Stop: 01/29/19 16:59 Last Admin: 12/06/18 08:30 Dose: 250 mg Donepezil HCl (Aricept) 10 mg PO HS [facility] Stop: 01/29/19 20:59 Last Admin: 12/05/18 21:50 Dose: 10 mg Fenofibrate (Tricor) 134 mg PO HS [facility] Stop: 01/29/19 20:59 Last Admin: 12/05/18 21:50 Dose: 134 mg Fluocinonide (Lidex 0.05%) 1 appl TP DAILY [facility] Stop: 01/30/19 08:59 Last Admin: 12/06/18 08:31 Dose: 1 appl Furosemide (Lasix) 20 mg PO BID [facility] Stop: 01/29/19 16:59 Last Admin: 12/06/18 08:30 Dose: 20 mg Glucagon (Glucagen) 1 mg IM PRN PRN PRN Reason: Blood Glucose less than 70 Stop: 01/29/19 12:30 Insulin Human Lispro (Humalog Insulin Sliding Scale) 0 units SUBQ ACHS [facility]; Protocol Stop: 01/29/19 16:29 Last Admin: 12/06/18 11:13 Dose: Not Given Lisinopril (Zestril) 10 mg PO DAILY [facility] Stop: 01/30/19 08:59 Last Admin: 12/06/18 08:31 Dose: 10 mg Lorazepam (Ativan) 0.5 mg PO Q6HR PRN; Protocol PRN Reason: Agitation Stop: 01/29/19 12:06 Last Admin: 12/02/18 22:02 Dose: 0.5 mg Medroxyprogesterone Acetate (Provera) 5 mg PO DAILY [facility]; Protocol Stop: 01/30/19 08:59 Last Admin: 12/06/18 08:31 Dose: 5 mg Memantine (Namenda) 5 mg PO BID [facility] Stop: 02/03/19 16:59 Last Admin: 12/06/18 08:30 Dose: 5 mg Metformin HCl (Glucophage) 850 mg PO TIDWM [facility] Stop: 01/29/19 11:59 Last Admin: 12/06/18 08:31 Dose: 850 mg Mupirocin (Bactroban Oint) 1 appl TP BID [facility] Stop: 12/07/18 12:00 Last Admin: 12/06/18 08:31 Dose: 1 appl Sodium Chloride (Nacl Tab) 1 gm PO TID [facility] Stop: 01/29/19 13:59 Last Admin: 12/06/18 08:30 Dose: 1 gm Zolpidem Tartrate (Ambien) 5 mg PO HS PRN PRN Reason: Insomnia Stop: 01/29/19 12:07 Last Admin: 12/04/18 21:23 Dose: 5 mg General: demented HEENT: NC/AT, PERRLA, other (left eye cavitation) Neck: Supple, No JVD, No thyromegaly Lungs: CTAB Cardiovascular: RRR, Normal S1, Normal S2, with murmur Abdomen: soft, globular, non-distended, positive bowel sound Extremities: excoriation - Procedures Procedures: Procedures Procedure Code Date GROUP PSYCHOTHERAPY 25505 04/25/15 GROUP PSYCHOTHERAPY GZHZZZZ 04/25/15 OTHER GROUP THERAPY 94.44 11/08/14 Internal Medicine Assmt/Plan - Assessment Assessment: leukocytosis dm htn high chol dementia oa psoriasis l eye blindness mrsa nares - Plan Plan: ada diet iss statin fall precaution aspiration precaution nsaids dw rn Nutritional Asmnt/Malnutr-PDOC - Dietary Evaluation Malnutrition Findings (Please click <Entered> for more info): Nutritional Asmnt/Malnutrition Start: 12/02/18 14: 46 Text: Status: Complete Freq: Protocol: Document 12/02/18 14:46 JOSEPH (Rec: 12/02/18 14:51 JOSEPH [email or web address] ) Nutritional Asmnt/Malnutrition Patient General Information Nutritional Screening Moderate Risk Diagnosis Psychosis Pertinent Medical Hx/Surgical Hx HTN, DM, Dyslipidemia, Dementia Subjective Information Pt is a 83-year-old male from nursing facility admitted on c/o agitation and aggressive behavior x 3 days. Per Meal/Nutrition Activity Record, Pt PO intake 100% since admission. 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 Dietary is currently providing an estimated 2123 kcals and 127 gm Pro to meet 100% kcal and 100% Pro needs. Current Diet Order/ Nutrition Support CCHO 60 gm, LAYLA Pertinent Medications Vitamin C, Lipitor, D50w (PRN) , Glutose 40% (PRN), Lasix, Glucotrol, Glucagen (PRN), INS -SS, Glucophage, Nacl Tab Pertinent Labs POC Glucose (last 24 hours) 121, 118, 144, 116 11/29: Hgb/Hct 13.0/38.7, Na 132, Glucose 107 Nutritional Hx/Data Height 1.75 m Height (Calculated Centimeters) 175.3 Current Weight (lbs) 97.522 kg Weight (Calculated Kilograms) 97.5 Weight (Calculated Grams) 04979.4 [place] Body Weight 70.7 kg % [place] Body Weight 138 Body Mass Index (BMI) 31.7 Weight Status Obese GI Symptoms GI Symptoms None Last BM 12/01 x 1 Skin Integrity/Comment: WNL, Intact, Area of Concern Marc: 19 Current %PO Good (75-100%) Estimated Nutritional Goals BEE in Kcals: Adj wt of IBW Calories/Kcals/Kg 20-25 Kcals Calculated 0401-6400 Protein: Adj wt of IBW Protein g/k.8-0.9 Protein Calculated 65-73 Fluid: ml 7595-0132 ml (25-30 ml/kg) Nutritional Problem 1. Problem Problem Altered nutrition related labs Etiology r/t endocrine dysfunction and HX of DM Signs/Symptoms: aeb POC Glucose (last 24 hours ) 121, 118, 144, 116 Malnutrition Related to Morbid Obesity Malnutrition related to morbid obesity No Intervention/Recommendation Comments 1.Continue with CCHO 60 gm, LAYLA diet as ordered. 2.Continue on anti- hyperglycemic medications for glucose control per MD order. Expected Outcomes/Goals Expected Outcomes/Goals 1. PO intake to continue to meet 75% of nutritional needs. 2. Monitor PO intake, wt, skin integrity, and nutrition related labs to trend WNL. 3. F/U as low risk in 7 days, 12/09
== END 2018-12-06 18:00 | DRG 885 ==
LOC: ER 18:02 → GERO2 19:10
PROVIDERS: ADMIT Psychiatry & Neurology Psychiatry; ATTEND Psychiatry & Neurology Psychiatry
DX: F31.9 Bipolar disorder, unspecified (principal); I10 Essential (primary) hypertension; E11.9 Type 2 diabetes mellitus without complications; E78.5 Hyperlipidemia, unspecified; F03.90 Unspecified dementia, unspecified severity, without behavioral disturbance, psychotic disturbance, mood disturbance, and anxiety; M19.90 Unspecified osteoarthritis, unspecified site; L40.9 Psoriasis, unspecified; H54.8 Legal blindness, as defined in USA; D72.829 Elevated white blood cell count, unspecified; E78.00 Pure hypercholesterolemia, unspecified; Z86.14 Personal history of Methicillin resistant Staphylococcus aureus infection; Z83.3 Family history of diabetes mellitus; Z82.49 Family history of ischemic heart disease and other diseases of the circulatory system; Z79.899 Other long term (current) drug therapy
CPT/HCPCS: 36415-UA; 80053-TC; 80061-TC; 80164-TC; 80307; 80320-TC; 80329-TC; 81001-TC; 82948-90; 83036-90; 84443-TC; 84484-TC; 85025-TC; 86592-TC; 93005; Z7610

== ENCOUNTER 2019-06-02 19:02 | Inpatient (IN) | payer MEDICARE, MEDICAID ==
[2019-06-03 01:34] VITALS: BP 151/51
[2019-06-03] MEDS ORDERED: Maalox 30 mL Cup PO PRN (01:41)
[2019-06-03] MEDS ORDERED: Magnesium Hydroxide (MOM) 30 mL UDC PO PRN (01:41)
[2019-06-03] MEDS ORDERED: GLUCAGON HCl 1 MG KIT IM PRN (02:29)
[2019-06-03] MEDS: INSULIN LISPRO SLIDING SCALE 100 UNITS/ML UNIT SUBQ SCH ×4 (07:45→21:00)
[2019-06-03] MEDS: Furosemide 40 mg/4mL UDC PO SCH ×2 (08:28→16:49)
[2019-06-03] MEDS: Multivitamin Tab PO SCH (08:29)
[2019-06-03] MEDS: Potassium Chloride 10 mEq ER Tab PO SCH ×2 (08:29→16:48)
--- NOTE | 2019-06-03 13:08 | History & Physical ---
ADMIT DATE: 06/03/2019 IDENTIFYING INFORMATION: The patient is an 84-year-old male. CHIEF COMPLAINT: "I don't know." HISTORY OF PRESENT ILLNESS: The patient was referred from [place]. The patient apparently was acting inappropriately towards female, sexually inappropriate. The patient is demented, confused. He is a well-known case to me as I have been seeing him for many years. He is irritable, confused, but he was able to remember me, unable tell me the date, where he is, why he is here. He was able to recognize me. He sleeps well, eats well. He denies any intent to harm himself or anyone, has no insight about his acting out behavior. PAST PSYCHIATRIC HISTORY: Multiple prior admissions to this facility for similar reason ,inappropriate sexual behavior, impulsivity is also demented and confused. MEDICAL HISTORY: As per medical doctor. The patient with hyperlipidemia, psoriasis, hypertension, hyponatremia, blindness in his right eye. No known drug allergy. MEDICATIONS: He is currently on Depakote, Aricept, fenofibrate, Lasix, glipizide, glucagon, insulin, medroxyprogesterone, metformin, multivitamin. FAMILY AND SOCIAL HISTORY: The patient is to his , visited him all the time. Unable to tell me how far he went to school, what he did for living. MENTAL STATUS EXAMINATION: The patient is appropriately dressed, not very well groomed. He was alert. He was able to recognize me, but he is not sure where he is, why he is here. He is unable to tell me the date. He is demented, confused, he was acting sexually inappropriate towards females, aggressive, irritable, impulsive. He sleeps well, eats well. No current intent to harm himself or anyone. No additional visual hallucination. No paranoia. His long and short term memory is poor, cannot tell me his age, why he is here. His insight and judgment is impaired. IMPRESSION: Bipolar disorder with psychosis, dementia. MEDICAL DIAGNOSES: Deferred to the medical doctor. PLAN: The patient will continue medication, group therapy, milieu therapy, and individual therapy. ESTIMATED LENGTH OF STAY: 3-7 days. DISCHARGE CRITERIA: Decreasing agitation, no longer inappropriate after discharge. JOB# [id number] [facility]
[2019-06-03] MEDS: Atorvastatin Calcium 10 MG TAB PO SCH (21:24)
[2019-06-03] MEDS: Fenofibrate, Micronized 134 mg Cap PO SCH (21:24)
[2019-06-04] MEDS: INSULIN LISPRO SLIDING SCALE 100 UNITS/ML UNIT SUBQ SCH ×5 (04:10→16:12)
[2019-06-04] MEDS: Multivitamin Tab PO SCH (09:10)
[2019-06-04] MEDS: Potassium Chloride 10 mEq ER Tab PO SCH ×2 (09:10→16:42)
[2019-06-04] MEDS: Furosemide 40 mg/4mL UDC PO SCH ×2 (09:15→16:47)
--- NOTE | 2019-06-04 12:23 | History & Physical ---
ADMIT DATE: 06/04/2019 REQUESTING PHYSICIAN: Dr. Segal. CHIEF COMPLAINT: "I am fine." HISTORY SOURCE: Reviewing the chart, talking to the nurses from [facility] as well as staff here at the hospital. HISTORY OF PRESENT ILLNESS: The patient is an 84-year-old Faro[place] male who resides at [facility], has been followed by myself, has a diagnosis of diabetes, hypertension, hyperlipidemia, DJD and dementia, noted by nursing staff that the patient was having inappropriate sexual behavior. The patient was also aggressive. The patient was sent to Emergency Room. The patient was recently evaluated by [facility] Emergency Room and from that he is admitted to [facility] for psychiatric treatment. PAST MEDICAL HISTORY: Remarkable for: 1. Diabetes. 2. Hypertension. 3. Hyperlipidemia. 4. Degenerative joint disease. 5. Dementia. 6. Psychiatric disorder. 7. Generalized psoriasis. MEDICATIONS: At the time of transfer have been reviewed and reconciled. ALLERGIES: The patient is not allergic to medication. SOCIAL HISTORY: He lives in a fdc. No history of smoking cigarette, alcohol, or drug use. FAMILY HISTORY: Remarkable for diabetes and hypertension. REVIEW OF SYSTEMS: The patient does have episodes of hypoglycemia, but the patient currently denies any headache, double vision, dysphagia, odynophagia, runny nose, stuffy nose, fever, chills, cough, chest pain, shortness of breath, palpitation, dizziness, nausea, vomiting, diarrhea, dysuria, hematuria, hematochezia, melena. No history of any seizure or syncopal episode. PHYSICAL EXAMINATION: GENERAL: The patient is alert, awake, oriented, lying in the bed without any acute distress. VITAL SIGNS: Temperature 98.6, pulse is 84, respiratory rate 18, blood pressure is 136/66. HEENT: Normocephalic, atraumatic. Left eye is legally blind noted. Extraocular muscles are intact. Tongue was pink and coated. Poor dentition noted. No oral lesion, no exudate. No sinus tenderness. NECK: Supple, no JVD, no hepatojugular reflex. No lymphadenopathy, thyromegaly or carotid bruit. HEART: Both heart sounds are regular. No S3, no S4, no murmur. CHEST AND LUNGS: Equal in expansion with no expiratory wheezing. ABDOMEN: Soft, no guarding, no rigidity. Liver, spleen palpable. No palpable mass. EXTREMITIES: No edema, no cyanosis, no clubbing. Peripheral pulses +1. No calf tenderness noted. SKIN: Remarkable for multiple erythematous skin lesions in the groin as well as on the upper and lower extremity consistent with psoriatic lesions noted. NEUROLOGIC: Alert, awake, following commands. Cranial #1 unable to assess. Cranial #2, 4 and 6, limited on the left eye due to legally blindness, but on the right eye are intact and able to move eyes up or downwards, medially and laterally. Cranial #7, the patient is able to frown his forehead, able to close his eyes, able to whistle, able to blow the checks. Cranial #8, able to hear loud voice clearly. Cranial #8, able to say ah. Cranial number 10, able to raise his palate. Cranial #11, able to shrug shoulder bilaterally equally. Cranial nerve 12, able to protrude his tongue in the midline. Power in upper and lower extremities are 5+. Sensation to touch were decreased on both lower extremities. Unable to do tandem walking, but able to do finger touch, [id number] test and finger nose test. AVAILABLE DIAGNOSTIC DATA: Performed at [facility]. BUN and creatinine were 21 and 0.9, potassium of 3.6. LFTs are within normal limit. Cholesterol is 101, hemoglobin 10.9, platelet count of 255. Urine drug screen was negative. Hemoglobin A1c is 5.8. Urinalysis was unremarkable. CLINICAL IMPRESSION: 1. Hypoglycemia in the presence of oral sulfonylurea and metformin with glycohemoglobin is 5.8 and needs to hold oral hypoglycemic agent. 2. Psychiatric disorder exacerbation. 3. Diabetes mellitus. 4. Hypertension. 5. Hyperlipidemia. 6. Degenerative joint disease. 7. Legally blindness. 8. High risk for fall. PLAN: 1. Psychiatric evaluation and management deferred to psychiatrist. 2. Hold all oral hypoglycemic agent and continue other medicine as the patient was receiving in fdc. Continue to provide general nursing care, fall precautions, nutritional support, and glucose monitoring every 4 every hours to 24 hours followed by a.c. and at bedtime. Continue to provide nutritional support as well as use sliding scale insulin to cover the blood sugar if blood sugars are more than 300. We will continue to follow this patient during the stay in the hospital. I sincerely thank you, Dr. Darlene Segal, for giving me the opportunity to participate in patient of yours. JOB# [id number]
[2019-06-04] MEDS ORDERED: INSULIN LISPRO SLIDING SCALE 100 UNITS/ML UNIT SUBQ SCH ×2 (19:30→19:34)
--- NOTE | 2019-06-04 20:06 | Progress Notes ---
DATE: Case was discussed with staff of the patient, reviewed records. The patient continues to be confused, rambling inappropriate. Continues to have poor insight, unable to make safe plan for self-care, unpredictable, impulsive. He is compliant with the medication with no side effects, no sedation, no nausea, no extrapyramidal symptoms. We will continue outpatient group therapy, milieu therapy, adjust medication as needed. JOB# [id number]
[2019-06-04] MEDS: Atorvastatin Calcium 10 MG TAB PO SCH (20:51)
[2019-06-04] MEDS: Fenofibrate, Micronized 134 mg Cap PO SCH (20:54)
[2019-06-05] MEDS: Potassium Chloride 10 mEq ER Tab PO SCH ×2 (08:58→16:51)
[2019-06-05] MEDS: Multivitamin Tab PO SCH (08:58)
[2019-06-05] MEDS: Furosemide 40 mg/4mL UDC PO SCH ×2 (09:04→16:51)
[2019-06-05] MEDS ORDERED: GLUCAGON HCl 1 MG KIT IM PRN (09:26)
[2019-06-05] MEDS: INSULIN LISPRO SLIDING SCALE 100 UNITS/ML UNIT SUBQ SCH ×3 (11:28→21:19)
--- NOTE | 2019-06-05 17:03 | Progress Notes ---
DATE: 06/05/2019 SUBJECTIVE: The patient is seen and examined. The patient is ambulating. The patient has no new complaint. Blood sugars are running better now. No episode of hypoglycemia. PHYSICAL EXAMINATION: VITAL SIGNS: Temperature 97.6, pulse 80, respiratory rate 18, blood pressure 124/65. HEENT: No facial asymmetry, legally blindness noted. Tongue more pink and coated. NECK: Supple. No JVD. No lymphadenopathy or thyromegaly. HEART: Both heart sounds are regular. CHEST AND LUNGS: Equal in expansion, no expiratory wheezing. ABDOMEN: Soft. Bowel sounds present. No palpable mass. EXTREMITIES: No edema. NEUROLOGIC: Nonfocal. CLINICAL IMPRESSION: 1. Diabetes mellitus. 2. Hypertension. 3. Hyperlipidemia. 4. Hypoglycemia, improved. 5. Degenerative joint disease. 6. Psychotic disorder. 7. Dementia. PLAN: 1. Psychotic evaluation and management deferred to psychiatrist. 2. Use sliding scale insulin. 3. Continue to hold oral hypoglycemic agent. 4. Monitor blood sugar and blood pressure. 5. Hypertension. Monitor blood pressure and use of antihypertensive medication. 6. General nursing care. 7. Nutritional support. 8. Care plan reviewed and discussed with staff. JOB# [id number]
--- NOTE | 2019-06-05 18:59 | Progress Notes ---
DATE: 06/05/2019 Case was discussed with staff of the patient, reviewed records. The patient continues to have poor insight, continues to be screaming and constantly calling my name as long as I am in the unit, if he sees me hard to redirect, He is sleeping better, eating better. No side effects with the medication,no sedation, no nausea, no extrapyramidal symptoms. We will continue the patient in group therapy, milieu therapy, and adjust medication as needed. JOB# [id number] [facility]
[2019-06-05] MEDS: Fenofibrate, Micronized 134 mg Cap PO SCH (21:03)
[2019-06-05] MEDS: Atorvastatin Calcium 10 MG TAB PO SCH (21:03)
[2019-06-06] MEDS: INSULIN LISPRO SLIDING SCALE 100 UNITS/ML UNIT SUBQ SCH ×4 (06:40→20:52)
[2019-06-06] MEDS: Potassium Chloride 10 mEq ER Tab PO SCH ×2 (08:54→17:51)
[2019-06-06] MEDS: Multivitamin Tab PO SCH (08:56)
[2019-06-06] MEDS: Furosemide 40 mg/4mL UDC PO SCH ×2 (08:57→17:52)
[2019-06-06] MEDS: Atorvastatin Calcium 10 MG TAB PO SCH (20:37)
[2019-06-06] MEDS: Fenofibrate, Micronized 134 mg Cap PO SCH (20:37)
--- NOTE | 2019-06-07 00:57 | Progress Notes ---
DATE: Case was discussed with staff of patient, reviewed records. The patient continues to be loud, continues to be irritable and intrusive, continues to be unable to make safe plan for self-care, unpredictable, impulsive, needing redirection. Sleeping well, eating well. No side effects with the medication, no sedation, no nausea, no extrapyramidal symptoms. We will continue outpatient group therapy, milieu therapy, and adjust medications as needed. [facility]# [id number]
[2019-06-07] MEDS: INSULIN LISPRO SLIDING SCALE 100 UNITS/ML UNIT SUBQ SCH ×4 (06:53→20:59)
[2019-06-07] MEDS: Multivitamin Tab PO SCH (08:28)
[2019-06-07] MEDS: Potassium Chloride 10 mEq ER Tab PO SCH ×2 (08:30→16:58)
[2019-06-07] MEDS: Furosemide 40 mg/4mL UDC PO SCH ×2 (08:48→16:58)
--- NOTE | 2019-06-07 18:23 | Progress Notes ---
DATE: 06/07/2019 SUBJECTIVE: The patient seen and examined. The patient is lying in the bed. The patient is currently sitting in the chair. Denies any chest pain, shortness of breath, palpitation, dizziness, nausea, vomiting. PHYSICAL EXAMINATION: VITAL SIGNS: Temperature 98.4, pulse 56, respiratory rate 18, blood pressure 126/73. HEENT: Legally blindness in the left eye noted. NECK: Supple, no JVD. HEART: Regular. CHEST AND LUNGS: Equal in expansion, no expiratory wheezing. ABDOMEN: Soft. Bowel sounds are present. No palpable mass. EXTREMITIES: No edema, no cyanosis. NEUROLOGIC: Alert, awake, follows commands. CLINICAL IMPRESSION: 1. Diabetes mellitus. 2. Hypertension. 3. Hyperlipidemia. 4. Degenerative joint disease. 5. Alzheimer dementia. 6. Psychotic disorder. 7. Fall risk. PLAN: 1. Monitor blood sugar and blood pressure. 2. Add metformin. 3. Antihypertensive medicine. 4. Statin and TriCor. 5. General nursing care. 6. Psych medication. 7. Follow lab. 8. Follow consult recommendation. 9. Care plan reviewed and discussed with staff. JOB# [id number]
[2019-06-07] MEDS: Atorvastatin Calcium 10 MG TAB PO SCH (20:48)
[2019-06-07] MEDS: Fenofibrate, Micronized 134 mg Cap PO SCH (20:49)
--- NOTE | 2019-06-07 22:24 | Progress Notes ---
DATE: 06/07/2019 SUBJECTIVE: Chart was reviewed and the patient interviewed. Also discussed the patient's condition with the staff and reviewed records and labs. The patient is still pleasantly confused and is still distracted and easily agitated. The patient also still has unsteady gait. Also, still has mood swings with poor impulse control. Otherwise, the patient is compliant with taking his medications with no side effects of medications. ASSESSMENT: The patient is still confused and seems to be disoriented and needs close monitoring. TREATMENT PLAN: Continue monitoring behavior and condition closely. Also, continue Depakote 250 mg twice a day as well as Aricept 10 mg at bedtime. Also, we will get Depakote blood level and continue to followup. JOB# [id number]
[2019-06-08] MEDS: INSULIN LISPRO SLIDING SCALE 100 UNITS/ML UNIT SUBQ SCH ×4 (07:17→20:49)
[2019-06-08] MEDS: Potassium Chloride 10 mEq ER Tab PO SCH ×2 (09:25→17:14)
[2019-06-08] MEDS: Multivitamin Tab PO SCH (09:25)
[2019-06-08] MEDS: Furosemide 40 mg/4mL UDC PO SCH ×2 (09:30→17:15)
--- NOTE | 2019-06-08 12:43 | Progress Notes ---
DATE: 06/08/2019 SUBJECTIVE: Chart was reviewed and the patient interviewed. Also discussed the patient's condition with the staff and reviewed records and labs. The patient is still forgetful and confused. The patient also is still easily agitated and he still has episodes of irritability and anger. On the other hand, decreased sexual inappropriate behavior and easier to redirect him. During interview, the patient has flat affect and still unkempt. ASSESSMENT: The patient is still psychotic. TREATMENT PLAN: Continue monitoring his behavior and condition closely. Also, continue Depakote 250 mg twice a day and Aricept 10 mg at bedtime. Also, Depakote blood level ordered yesterday and results are pending. JOB# [id number]
[2019-06-08] MEDS: Atorvastatin Calcium 10 MG TAB PO SCH (20:47)
[2019-06-08] MEDS: Fenofibrate, Micronized 134 mg Cap PO SCH (20:47)
[2019-06-09] MEDS: INSULIN LISPRO SLIDING SCALE 100 UNITS/ML UNIT SUBQ SCH ×4 (06:36→21:01)
[2019-06-09] MEDS: Furosemide 40 mg/4mL UDC PO SCH ×2 (08:23→16:21)
[2019-06-09] MEDS: Potassium Chloride 10 mEq ER Tab PO SCH ×2 (08:23→16:21)
[2019-06-09] MEDS: Multivitamin Tab PO SCH (08:23)
--- NOTE | 2019-06-09 10:02 | Discharge Summary ---
DATE OF DISCHARGE: AGE: 84. SEX: Male. PHYSICIAN: Dr. Segal. FINAL DIAGNOSIS AND PRIMARY DIAGNOSIS: Bipolar disorder, moderate to severe, with psychotic features. SECONDARY DIAGNOSIS: Dementia, moderate, with psychotic features and behavioral disturbances. REASON FOR HOSPITALIZATION: The patient was admitted to the hospital from [facility] because he was acting inappropriate towards female staff and was trying to kiss them. The patient also was not able to follow staff directions and the patient was discharged from the hospital. HOSPITAL COURSE: The patient continued to be anxious. The patient also was in the beginning of his admission agitated and in irritable mood. The patient also was still feeling hopeless at times and withdrawn, but at the same time, he was compliant with taking his medications. The patient was given Aricept that was increased to 10 mg every day and also Depakote 250 mg twice a day. Gradually, the patient's affect was brighter. The patient was less irritable and less agitated. Also, was compliant with taking his medications. Physical exam of the patient showed no major medical problems. Depakote blood level that was done on 06/08/2019 came back to be 17, which is below therapeutic levels. AFTER DISCHARGE PLANS: After the patient discharged from the hospital to [facility] with plans to follow up as an outpatient. EXPECTED OUTCOME AFTER DISCHARGE: Fair if the patient continued to take his psychotropic medications and follow up with discharge plans. [facility]# [id number]
[2019-06-09] MEDS: Fenofibrate, Micronized 134 mg Cap PO SCH (21:00)
[2019-06-09] MEDS: Atorvastatin Calcium 10 MG TAB PO SCH (21:01)
--- NOTE | 2019-06-09 22:50 | Progress Notes ---
DATE: 06/09/2019 SUBJECTIVE: The patient is sitting in a chair, has no new complaint. Glucoscan has been reviewed and blood sugars are running acceptable range. The patient currently on metformin. PHYSICAL EXAMINATION: VITAL SIGNS: Temperature 97.9, pulse is 79, respiratory rate 18, blood pressure 165/53. HEENT: No facial asymmetry. NECK: Supple, no JVD. HEART: Regular. CHEST AND LUNGS: Equal in expansion, no expiratory wheezing. ABDOMEN: Soft. Bowel sounds present. No palpable mass. EXTREMITIES: No edema. CLINICAL IMPRESSION: 1. Diabetes mellitus. 2. Dementia. 3. Hyperlipidemia. 4. Hypertension. 5. Degenerative joint disease. 6. Psychotic disorder. PLAN: 1. Psychotic evaluation and management deferred to psychiatrist. 2. Continue metformin and sliding scale insulin as prescribed. 3. Continue other medication as prescribed for his underlying illness. 4. Fall precautions. 5. General nursing care. 6. Care plan reviewed and discussed with staff. JOB# [id number]
[2019-06-10] MEDS: INSULIN LISPRO SLIDING SCALE 100 UNITS/ML UNIT SUBQ SCH ×4 (06:36→20:58)
[2019-06-10] MEDS: Multivitamin Tab PO SCH (08:46)
[2019-06-10] MEDS: Furosemide 40 mg/4mL UDC PO SCH ×2 (08:46→16:50)
[2019-06-10] MEDS: Potassium Chloride 10 mEq ER Tab PO SCH ×2 (08:46→16:50)
[2019-06-10] MEDS: Fenofibrate, Micronized 134 mg Cap PO SCH (20:57)
[2019-06-10] MEDS: Atorvastatin Calcium 10 MG TAB PO SCH (20:58)
--- NOTE | 2019-06-11 06:33 | Psych Progress Note ---
Psych Progress Note - Intro Date of Progress Note: 06/10/19 - Assessment Assessment: Patient interviewed, case discussed with staff, chart and records were reeviewed. Patient visited bedside and appears to be grdaully improved with current treatment. Calm this morning. Episodes of anger outbursts but overall decreasing. No side effects noted. Sleep and appetite appear are improved. - Vitals, I&O Vitals: Vital Signs - 24 hr 06/10/19 06/10/19 06/10/19 08:00 08:46 14:21 Temp 97.9 F HR 86 RR 20 18 BP 129/72 112/58 O2 Sat % 96 06/10/19 06/10/19 06/11/19 19:57 20:15 06:02 Temp 98.4 F 97.9 F HR 74 78 RR 18 20 20 BP 125/59 141/82 O2 Sat % 96 96 - Objective Psych General Appearance: Report: Casually dressed Psych Behavior: Report: Calm Psych Speech: Report: Mumbled Psych Mood: Report: Labile Psych Affect: Report: Labile Psych Thought Process: Report: Loose Associations Psych Cognition: Report: Confused Psych Insight: Report: Impaired Psych Judgement: Report: Impaired - Plan Plan: continue current treatment plan, will continue to monitor behaviors and for side effects. - Review of Relevant Data Review of Relevant Data: I have reviewed the following items and time benny (where applicable) has been applied. - Medications Current Medications: Current Medications Acetaminophen (Tylenol) 650 mg PO Q4H PRN PRN Reason: Pain (Mild 1-3) Stop: 08/02/19 01:40 Al Hydrox/Mg Hydrox/Simethicone (Maalox) 30 ml PO Q4HR PRN PRN Reason: GI DISTRESS Stop: 08/02/19 01:40 Atorvastatin Calcium (Lipitor) 20 mg PO HS [facility]; Protocol Stop: 08/02/19 20:59 Last Admin: 06/10/19 20:58 Dose: 20 mg Dextrose (Glutose 40%) 18.75 gm PO PRN PRN PRN Reason: Blood Glucose less than 70 Stop: 08/02/19 02:28 Divalproex Sodium (Depakote Dr) 250 mg PO BID [facility]; Protocol Stop: 08/02/19 08:59 Last Admin: 06/10/19 16:50 Dose: 250 mg Docusate Sodium (Colace) 250 mg PO TID [facility] Stop: 08/02/19 08:59 Last Admin: 06/10/19 20:57 Dose: 250 mg Donepezil HCl (Aricept) 10 mg PO HS [facility] Stop: 08/02/19 20:59 Last Admin: 06/10/19 20:58 Dose: 10 mg Fenofibrate (Tricor) 134 mg PO HS [facility] Stop: 08/02/19 20:59 Last Admin: 06/10/19 20:57 Dose: 134 mg Furosemide (Lasix) 40 mg PO BID [facility] Stop: 08/02/19 08:59 Last Admin: 06/10/19 16:50 Dose: Not Given Glucagon (Glucagen) 1 mg IM PRN PRN PRN Reason: Blood Glucose less than 70 Stop: 08/02/19 02:28 Last Admin: 06/03/19 17:07 Dose: 1 mg Insulin Human Lispro (Humalog Insulin Sliding Scale) 0 units SUBQ ACHS [facility]; Protocol Stop: 08/04/19 11:29 Last Admin: 06/10/19 20:58 Dose: 6 units Lorazepam (Ativan) 0.5 mg PO Q4HR PRN; Protocol PRN Reason: Anxiety Stop: 07/03/19 01:40 Last Admin: 06/05/19 21:30 Dose: 0.5 mg Magnesium Hydroxide (Milk Of Magnesia) 30 ml PO HS PRN PRN Reason: Constipation Medroxyprogesterone Acetate (Provera) 5 mg PO DAILY [facility]; Protocol Stop: 08/02/19 08:59 Last Admin: 06/10/19 08:46 Dose: 5 mg Metformin HCl (Glucophage) 500 mg PO BIDWM [facility] Stop: 08/06/19 17:59 Last Admin: 06/10/19 18:01 Dose: 500 mg Multivitamins/Vitamin C (Theragran) 1 tab PO DAILY [facility] Stop: 08/02/19 08:59 Last Admin: 06/10/19 08:46 Dose: 1 tab Potassium Chloride (Klor-Con) 10 meq PO BID [facility] Stop: 08/02/19 08:59 Last Admin: 06/10/19 16:50 Dose: 10 meq Sodium Chloride (Nacl Tab) 1 gm PO DAILY [facility] Stop: 08/02/19 08:59 Last Admin: 06/10/19 08:46 Dose: 1 gm Zolpidem Tartrate (Ambien) 5 mg PO HS PRN PRN Reason: Insomnia Stop: 08/02/19 01:40 Last Admin: 06/10/19 20:58 Dose: 5 mg
[2019-06-11] MEDS: INSULIN LISPRO SLIDING SCALE 100 UNITS/ML UNIT SUBQ SCH ×4 (06:51→21:57)
[2019-06-11] MEDS: Potassium Chloride 10 mEq ER Tab PO SCH ×2 (08:24→17:05)
[2019-06-11] MEDS: Multivitamin Tab PO SCH (08:24)
[2019-06-11] MEDS: Furosemide 40 mg/4mL UDC PO SCH ×2 (08:30→17:05)
[2019-06-11] MEDS: Atorvastatin Calcium 10 MG TAB PO SCH (21:56)
[2019-06-11] MEDS: Fenofibrate, Micronized 134 mg Cap PO SCH (21:56)
--- NOTE | 2019-06-12 06:42 | Psych Progress Note ---
Psych Progress Note - Intro Date of Progress Note: 06/11/19 - Assessment Assessment: Patient interviewed, case discussed with staff, chart and records were reeviewed. Patient visited bedside and appears to be grdaully improved with current treatment. Calm this morning. Episodes of anger outbursts but overall decreasing. No side effects noted. Sleep and appetite appear are improved. - Vitals, I&O Vitals: Vital Signs - 24 hr 06/11/19 06/11/19 06/11/19 08:30 14:00 17:05 Temp 97.8 F HR 82 RR 20 BP 141/82 145/64 145/64 O2 Sat % 95 06/11/19 06/12/19 19:39 05:44 Temp 97.9 F 97.2 F HR 73 77 RR 20 19 BP 137/73 133/55 O2 Sat % 96 95 - Objective Psych General Appearance: Report: Casually dressed Psych Behavior: Report: Calm Psych Speech: Report: Mumbled Psych Mood: Report: Labile Psych Affect: Report: Labile Psych Thought Process: Report: Loose Associations Psych Cognition: Report: Confused Psych Insight: Report: Impaired Psych Judgement: Report: Impaired - Plan Plan: continue current treatment plan, will continue to monitor behaviors and for side effects. - Review of Relevant Data Review of Relevant Data: I have reviewed the following items and time benny (where applicable) has been applied. - Medications Current Medications: Current Medications Acetaminophen (Tylenol) 650 mg PO Q4H PRN PRN Reason: Pain (Mild 1-3) Stop: 08/02/19 01:40 Al Hydrox/Mg Hydrox/Simethicone (Maalox) 30 ml PO Q4HR PRN PRN Reason: GI DISTRESS Stop: 08/02/19 01:40 Atorvastatin Calcium (Lipitor) 20 mg PO HS [facility]; Protocol Stop: 08/02/19 20:59 Last Admin: 06/11/19 21:56 Dose: 20 mg Dextrose (Glutose 40%) 18.75 gm PO PRN PRN PRN Reason: Blood Glucose less than 70 Stop: 08/02/19 02:28 Divalproex Sodium (Depakote Dr) 250 mg PO BID [facility]; Protocol Stop: 08/02/19 08:59 Last Admin: 06/11/19 17:05 Dose: 250 mg Docusate Sodium (Colace) 250 mg PO TID [facility] Stop: 08/02/19 08:59 Last Admin: 06/11/19 21:56 Dose: 250 mg Donepezil HCl (Aricept) 10 mg PO HS [facility] Stop: 08/02/19 20:59 Last Admin: 06/11/19 21:56 Dose: 10 mg Fenofibrate (Tricor) 134 mg PO HS [facility] Stop: 08/02/19 20:59 Last Admin: 06/11/19 21:56 Dose: 134 mg Furosemide (Lasix) 40 mg PO BID [facility] Stop: 08/02/19 08:59 Last Admin: 06/11/19 17:05 Dose: 40 mg Glucagon (Glucagen) 1 mg IM PRN PRN PRN Reason: Blood Glucose less than 70 Stop: 08/02/19 02:28 Last Admin: 06/03/19 17:07 Dose: 1 mg Insulin Human Lispro (Humalog Insulin Sliding Scale) 0 units SUBQ ACHS [facility]; Protocol Stop: 08/04/19 11:29 Last Admin: 06/11/19 21:57 Dose: 2 units Lorazepam (Ativan) 0.5 mg PO Q4HR PRN; Protocol PRN Reason: Anxiety Stop: 07/03/19 01:40 Last Admin: 06/05/19 21:30 Dose: 0.5 mg Magnesium Hydroxide (Milk Of Magnesia) 30 ml PO HS PRN PRN Reason: Constipation Medroxyprogesterone Acetate (Provera) 5 mg PO DAILY [facility]; Protocol Stop: 08/02/19 08:59 Last Admin: 06/11/19 08:24 Dose: 5 mg Metformin HCl (Glucophage) 500 mg PO BIDWM [facility] Stop: 08/06/19 17:59 Last Admin: 06/11/19 18:13 Dose: 500 mg Multivitamins/Vitamin C (Theragran) 1 tab PO DAILY [facility] Stop: 08/02/19 08:59 Last Admin: 06/11/19 08:24 Dose: 1 tab Potassium Chloride (Klor-Con) 10 meq PO BID [facility] Stop: 08/02/19 08:59 Last Admin: 06/11/19 17:05 Dose: 10 meq Sodium Chloride (Nacl Tab) 1 gm PO DAILY [facility] Stop: 08/02/19 08:59 Last Admin: 06/11/19 08:24 Dose: 1 gm Zolpidem Tartrate (Ambien) 5 mg PO HS PRN PRN Reason: Insomnia Stop: 08/02/19 01:40 Last Admin: 06/10/19 20:58 Dose: 5 mg
[2019-06-12] MEDS: INSULIN LISPRO SLIDING SCALE 100 UNITS/ML UNIT SUBQ SCH ×4 (07:10→21:00)
[2019-06-12] MEDS: Potassium Chloride 10 mEq ER Tab PO SCH ×2 (08:10→16:18)
[2019-06-12] MEDS: Multivitamin Tab PO SCH (08:10)
[2019-06-12] MEDS: Furosemide 40 mg/4mL UDC PO SCH ×2 (08:12→16:18)
--- NOTE | 2019-06-12 09:04 | Discharge Summary ---
DATE OF DISCHARGE: 06/11/2019 AGE: 84. SEX: Male. PHYSICIAN: Dr. Segal. PRIMARY DIAGNOSIS: Bipolar disorder, [id number] with psychotic features. SECONDARY DIAGNOSIS: Dementia, moderate, with psychotic features and behavior disturbances. The patient's discharge was supposed to be on 06/09/2019, but for unknown reason, the patient did not leave on that date. The patient will be discharged today. No changes in his mental status exam or behavior during the last 3 days. The patient to be discharged today and to follow him up in the residential. Please refer to the discharge summary that was dictated on 06/09/2019. JOB# [id number]
[2019-06-12] MEDS: Fenofibrate, Micronized 134 mg Cap PO SCH (20:35)
[2019-06-12] MEDS: Atorvastatin Calcium 10 MG TAB PO SCH (20:35)
[2019-06-13] MEDS: INSULIN LISPRO SLIDING SCALE 100 UNITS/ML UNIT SUBQ SCH ×2 (06:36→11:37)
--- NOTE | 2019-06-13 07:24 | Discharge Summary ---
DATE OF DISCHARGE: 06/13/2019 PHYSICIAN: Dr. Segal. HOSPITAL COURSE: This is the third time I am dictating discharge summary for the same patient. The patient is still in the hospital for unknown reason except that "no bed available," although it is confirmed that the patient can return to previous placement. We will try to discharge the patient today. No changes in mental status exam and on the previous discharge summaries. [facility]# [id number]
[2019-06-13] MEDS: Multivitamin Tab PO SCH (08:39)
[2019-06-13] MEDS: Potassium Chloride 10 mEq ER Tab PO SCH (08:39)
[2019-06-13] MEDS: Furosemide 40 mg/4mL UDC PO SCH (08:42)
--- NOTE | 2019-06-13 10:25 | Progress Notes ---
DATE: SUBJECTIVE: Chart reviewed and the patient interviewed. Also discussed the patient's condition with the staff and reviewed records and labs. No major changes in the patient's behavior and the patient is calm and cooperative and compliant with taking his medications. Also, the patient is not hallucinating. Planning to discharge the patient today, although he was supposed to be discharged for the last 3 days and I dictated discharge summary including another discharge summary for today. Hopefully, the patient will be discharged today. [facility]# [id number]
--- NOTE | 2019-06-13 10:34 | Progress Notes ---
DATE: 06/12/2019 SUBJECTIVE: Chart was reviewed and the patient interviewed. Also discussed the patient's condition with the staff and reviewed records and labs. The patient is calm and cooperative and he is compliant with taking his medications. No major behavioral problems. The patient is supposed to be discharged today and I placed the discharge order for the patient to go back to his facility and I dictated the discharge summary for the patient. [facility]# [id number]
== END 2019-06-13 15:40 | DRG 885 ==
LOC: GERO 06-03 00:15
PROVIDERS: ADMIT Psychiatry & Neurology Psychiatry; ATTEND Psychiatry & Neurology Psychiatry
DX: F31.9 Bipolar disorder, unspecified (principal); E87.1 Hypo-osmolality and hyponatremia; F03.91 Unspecified dementia, unspecified severity, with behavioral disturbance; I10 Essential (primary) hypertension; E78.5 Hyperlipidemia, unspecified; M19.90 Unspecified osteoarthritis, unspecified site; E11.649 Type 2 diabetes mellitus with hypoglycemia without coma; Z79.899 Other long term (current) drug therapy; Z79.84 Long term (current) use of oral hypoglycemic drugs; Z79.4 Long term (current) use of insulin
CPT/HCPCS: 82948-90; 83036-90; J1610; Z7610